=== PATIENT | male | born 1950 | race Hispanic/Latino ===

== ENCOUNTER 2017-11-10 10:55 | Emergency (ER) | payer OTHER, MEDICARE ==
--- OUTSIDE RECORDS SUMMARY | 2017-11-10 10:58 | XMS REPORT | Clinical Summary ---
:1950 Author Organization [facility] Address [address] [place] [address] Phone Care Team Providers Name Role Phone Unavailable Primary Care Provider Unavailable Allergies Active Allergy Reactions Severity Noted Date Comments Piperacillin-Tazobactam 10/18/2017 Thrombocytopenia Current Medications Prescription Sig. Disp. Refills Start End Date Status Date docusate sodium Take 100 mg by Active (COLACE) 100 MG mouth 2 (two) 6 capsule times daily as needed. entecavir Take 0.5 mg by Active (BARACLUDE) 0.5 MG mouth every other 6 tablet day. epoetin jaja Inject 1 mL 1 mL 0 Active (EPOGEN,PROCRIT) (10,000 Units 8 10,000 unit/mL total) injection subcutaneously 3 (three) times a week at bedtime You will need to get this medication at dialysis. imipenem-cilastatin Inject 500 mg 8400 mL 0 11/24/19 Active (PRIMAXIN) MBP in intravenously 8 18 100 mL of NS every 12 (twelve) hours for 21 days. sevelamer (RENVELA) Take 1 tablet (800 90 tablet 0 12/03/19 Active 800 mg tablet mg total) by mouth 8 18 3 (three) times daily with meals for 30 days. ferrous sulfate 325 Take 1 tablet (325 30 tablet 1 12/03/19 Active (65 FE) MG tablet mg total) by mouth 8 18 daily for 30 days. lactulose Take 45 mLs (30 g 4050 mL 0 12/03/19 Active (CHRONULAC) 20 total) by mouth 3 8 18 gram/30 mL solution (three) times daily for 30 days. midodrine Take 1 tablet (10 90 tablet 0 Active (PROAMATINE) 10 MG mg total) by mouth 8 tablet 3 (three) times daily. ondansetron Take 1 tablet (4 20 tablet 0 Active (ZOFRAN-ODT) 4 MG mg total) by mouth 8 disintegrating every 8 (eight) tablet hours as needed for Nausea. pantoprazole Take 1 tablet (40 30 tablet 0 12/03/19 Active (PROTONIX) 40 MG mg total) by mouth 8 18 tablet daily for 30 days. rifAXIMin 550 mg Take 1 tablet (550 180 tablet 3 02/04/20 Active TabIndications: mg total) by mouth 8 18 Cirrhosis of liver 2 (two) times with ascites, daily for 90 days. unspecified hepatic cirrhosis type (HCC), ESRD needing dialysis (HCC), Acute metabolic encephalopathy ferrous sulfate 325 Take 1 tablet by 11/03/19 Discontinued (65 FE) MG tablet mouth daily. 18 furosemide (LASIX) Take 20 mg by 10/09/19 Discontinued 40 MG tablet mouth 2 (two) 7 18 times daily. pantoprazole Take 1 tablet by 11/03/19 Discontinued (PROTONIX) 40 MG mouth daily. 18 tablet rifaximin 550 mg Take 550 mg by 11/03/19 Discontinued Tab mouth every 12 6 18 (twelve) hours. spironolactone Take 100 mg by 10/09/19 Discontinued (ALDACTONE) 100 MG mouth daily. 18 tablet lactulose Take 30 g by mouth 11/03/19 Discontinued (CHRONULAC) 20 4 (four) times 7 18 gram/30 mL solution daily . ondansetron Take 4 mg by mouth 11/03/19 Discontinued (ZOFRAN-ODT) 4 MG every 8 (eight) 18 disintegrating hours as needed tablet for Nausea. midodrine Take 1 tablet (10 90 tablet 11 11/03/19 Discontinued (PROAMATINE) 10 MG mg total) by mouth 8 18 tablet 3 (three) times daily. sevelamer (RENVELA) Take 1 tablet (800 90 tablet 0 11/03/19 Discontinued 800 mg tablet mg total) by mouth 8 18 3 (three) times daily with meals for 30 days. rifAXIMin 550 mg Take 1 tablet (550 60 tablet 0 11/06/19 Discontinued Tab mg total) by mouth 8 18 2 (two) times daily for 30 days. Active Problems Problem Noted Date Pneumonia 10/12/2017 Respiratory failure (HCC) 10/10/2017 Stupor 10/10/2017 ESRD needing dialysis (HCC) 10/10/2017 Acute encephalopathy 10/10/2017 Acute respiratory failure (HCC) 08/30/2017 Hypotension 08/30/2017 Decompensated liver disease (HCC) 08/29/2017 EDGARDO (acute kidney injury) (HCC) 08/29/2017 Acute metabolic encephalopathy 08/29/2017 Anemia of chronic renal failure, stage 3 (moderate) 03/25/2017 Systemic amyloidosis (HCC) 03/25/2017 Cirrhosis of liver with ascites, unspecified hepatic cirrhosis type (HCC) 05/2017 CKD (chronic kidney disease), stage 3 (moderate) 03/25/2017 Anemia 09/29/2016 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 CKD (chronic kidney disease) stage 3, GFR 30-59 ml/min 07/31/2016 Last Assessment & Plan: He sees Dr. Felipe at [facility]. He will need kidney transplant evaluation for a combined liver/kidney transplant. Cirrhosis 07/23/2016 Last Assessment & Plan: Although we do not have histologic proof, clinical history, lab parameters, imaging with elastography suggests cirrhosis. Etiology of his cirrhosis is most likely chronic HBV infection. We will order a comprehensive panel to rule out other diseases. His cirrhosis is decompensated by ascites requiring frequent paracentesis and now TIPS. His most recent MELD-Na is 13 - mostly driven by elevated creatinine. Although this is early for OLT evaluation due to his liver disease complications we will refer him for OLT evaluation today. Portal hypertension 07/23/2016 Last Assessment & Plan: Manifested by splenomegaly, ascites and varices - resolved after TIPS. Ascites 07/23/2016 Last Assessment & Plan: S/p TIPS in 04/13/16 for refractory ascites. No ascites on exam today. Varices, esophageal 07/23/2016 Last Assessment & Plan: S/p TIPS - further EGD for variceal screening is not required. 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 He has been taking Entecavir 0.5 mg every other day since then HBV low to undetected since September 2015. 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 Currently takes lactulose and rifaximin and his symptoms are not well controlled despite this therapy. TIPS in 04/13/16 was done at [facility] with a 10 mm stent. Due to uncontrolled symptoms we recommend TIPS revision downsizing the shunt size to help with encephalopathy. We discussed with the patient that ascites may recur but paracentesis will be required less frequently than prior to TIPS. We also discussed the importance of continuing low sodium diet. TIPS revision to be done after OLT evaluation is complete with the required imaging. Lymphedema 07/23/2016 Last Assessment & Plan: Significant bilateral lower extremity edema up to thighs. His symptoms are not well controlled with furosemide 40 mg daily. We will refer him Lymphedema clinic at [facility]. Immunity status testing 07/23/2016 Last Assessment & Plan: CDC recommends that all patients with chronic liver disease, regardless of etiology, should be immunized to prevent hepatitis A and hepatitis B if they are not already immune. This should be done in ad dition to other age-appropriate vaccines. We will test for immunity to hepatitis A today. Hodgkin's disease 07/23/2016 Last Assessment & Plan: Hodgkin's lymphoma diagnosed in 2002, in remission following 5 cycles of ABVD in 2004. He sees an oncologist at [facility] and will need oncology clearance for OLT. Screening for malignant neoplasm 07/23/2016 Last Assessment & Plan: Cirrhosis, regardless of etiology, is a risk factor for hepatocellular carcinoma (HCC), with an annual incidence of 1.5-7%. We recommend surveillance for HCC with abdominal imaging and alphafetoprotein every 6 months. We will order an MRI and AFP today. We will also schedule him for EGD and Colonoscopy due to prior history of Carcinoid tumor and MALT lymphoma. Encounters Date Type Specialty Care Team Description 11/05/2017 Orders Only Transplant Hepatology Pushpa Nation RN Cirrhosis of liver with ascites, unspecified hepatic cirrhosis type (HCC) (Primary Dx);ESRD needing dialysis (HCC);Acute metabolic encephalopathy 11/05/2017 Documentation Transplant Hepatology Rosio Smith 10/23/2017 Orders Only Transplant Hepatology Pushpa Nation RN 10/10/2017 Hospital Encounter General Internal Yang Hilario (Primary - Medicine MD Dilip Dx);Encephalopathy 11/02/2017 Wiley Deng acute;Cerebrovascul MD Michael ar accident (CVA) Gadicherla, due to other Dorothy mechanism MD Jorge Alberto (HCC);Acute Falguni Perez MD encephalopathy;Vidya Groves e respiratory R.MD failure with yessi Karimi and Buck Hurley hypercapjocy SHAFER (HCC);Other ascites;Portal hypertension (HCC);Secondary esophageal varices without bleeding (HCC);Acute respiratory failure with hypoxia (HCC);Cirrhosis of liver with ascites, unspecified hepatic cirrhosis type (HCC);Stage 3 chronic kidney disease 10/08/2017 Telephone Transplant Hepatology Kat Fletcher (Scheduled 10/29 hospital f/u appt w/spouse. Itinerary mailed.) 09/18/2017 Anesthesia Event Gastroenterology Padma Mayo MD 09/18/2017 Procedure Pass Gastroenterology 09/18/2017 Surgery Gastroenterology Key Acevedo, UPPER ENDOSCOPY 09/14/2017 Anesthesia Event Gastroenterology John Chen MD 09/14/2017 Procedure Pass Gastroenterology 09/13/2017 Orders Only Transplant Stacie Soria RN Pre-transplant evaluation for liver transplant (Primary Dx) 09/09/2017 Documentation Transplant Hepatology Faith Farrar 09/09/2017 Documentation Transplant Giulia Mitchell RN 09/09/2017 Documentation Transplant Lucas Chance 09/09/2017 Anesthesia Event Gastroenterology Leigha Gooden CRNA 09/09/2017 Procedure Pass Gastroenterology 09/09/2017 Surgery Gastroenterology Patrick Hopper UPPER ENDOSCOPY MD Tiffani 09/08/2017 Documentation Transplant Hepatology Pushpa Nation, SHAKIRA 09/06/2017 UNOS Charge Visit Transplant Lilliam Jane 09/06/2017 Documentation Transplant Stacie Soria, SHAKIRA 09/06/2017 Abstract Transplant Hepatology Debbie Arthur 09/06/2017 Abstract Transplant Hepatology Lita Gray, SHAKIRA 09/05/2017 Procedure Pass 09/05/2017 Surgery Marcelo Lyons, R & L CATH / CORONARY ANGIOS / PCI 08/30/2017 Procedure Pass Gastroenterology 08/29/2017 Hospital Encounter General Internal Miles Downs, Anemia of chronic - Medicine MD renal failure, 10/08/2017 Zeina Baptiste stage 3 MD Tiffani (moderate);Other Augustine, ascites;Cirrhosis Christopher of liver with MD Ness ascites, Domitila Fercho, unspecified hepatic Buck Hurley, cirrhosis type (HCC);CKD (chronic Sofia, Dipaben kidney disease) MD Anup stage 3, GFR 30-59 Maricel, ml/min;Decompensate jake Roland liver disease (HCC);H/O Hodgkin's Santiago Tripp lymphoma;Hepatitis G., B virus infection, Nalam, Ewa unspecified MD Yesenia chronicity;Secondar y esophageal varices without bleeding (HCC);EDGARDO (acute kidney injury) (HCC);Acute metabolic encephalopathy 08/29/2017 Anesthesia Event Gastroenterology Rayna Kauffman MD 08/29/2017 Orders Only General Internal Medicine 08/20/2017 Telephone Transplant Hepatology Lita Gray, Follow-up RN 08/20/2017 Telephone Transplant Hepatology Lita Gray, TACE discussion RN with Dr. Flores 08/16/2017 Abstract Transplant HepatLita Russo, RN 08/12/2017 Abstract Transplant HepatLita Russo RN 08/08/2017 Abstract Transplant HepatLita Russo RN 08/07/2017 Telephone Transplant Hepatology Kat Fletcher E (Scheduled 09/17 clinic appt w/spouse. Itinerary mailed.) 08/06/2017 Telephone Transplant HepatLita Russo, Follow-up RN 07/01/2017 Telephone Transplant Hepatology Lita Gray, Follow-up RN 06/13/2017 Abstract Transplant Hepatology Lita Gray, RN 06/10/2017 Telephone Transplant Hepatology Lita Gray, Follow-up RN 05/29/2017 Outside Orders Transplant Hepatology Lita Gray, RN 05/27/2017 Telephone Transplant Hepatology Lita Gray, Follow-up RN 05/21/2017 Evaluation Transplant Hepatology Claude Toure Cirrhosis of liver MD Sanna with ascites, Chloe Orta unspecified hepatic MD Ning cirrhosis type (HCC) (Primary Dx);Secondary esophageal varices without bleeding (HCC);Hepatic encephalopathy ;Chronic hepatitis B without delta agent with hepatic coma (HCC);Lymphedema;CK D (chronic kidney disease) stage 3, GFR 30-59 ml/min;Hepatocellul ar carcinoma (HCC) 05/20/2017 Telephone Transplant Hepatology Kat Fletcher Appointment E (Confirmed 05/21 appts w/spouse.) 05/16/2017 Hospital Encounter Radiology Claude Toure MD 05/15/2017 Hospital Encounter Radiology Claude Toure Liver MD Sanna mass;Carcinoid tumor of ileum 05/14/2017 Telephone Transplant Hepatology Kat Fletcher Appointment E (Rescheduled 07/09 clinic appt w/spouse to 05/21. Itinerary mailed.) 05/10/2017 Telephone Transplant Hepatology Lita Gray, Follow-up RN 05/10/2017 Telephone Transplant Hepatology Lita Gray, Follow-up RN 05/10/2017 Orders Only Transplant Hepatology Lita Gray, Liver mass ( Primary RN Dx);Carcinoid tumor of ileum 05/09/2017 Committee Review Transplant Hepatology Chloe Orta MD 05/06/2017 Telephone Transplant Hepatology Kat Fletcher Apnea (Called to E scheduled 05/07 clinic pts spouse said pt has appt at 12 i offered pt to come in early however spouse said she couldn't because she also takes care of her mom so that was impossible.) 05/02/2017 Telephone Transplant Hepatology Lita Gray, Follow-up RN 05/01/2017 Telephone Transplant Hepatology Lita Gray, Follow-up RN 04/23/2017 Telephone Transplant Hepatology Lita Gray, Follow-up RN 04/23/2017 Abstract Transplant Hepatology Lita Gray RN 04/18/2017 Telephone Transplant Hepatology Lita Gray, Follow-up RN 04/15/2017 Telephone Transplant HepatLita Russo, Follow-up RN 04/01/2017 Telephone Transplant Hepatology Lita Gray, Follow-up RN 04/01/2017 Telephone Transplant Dae Follow-up (Mrs. Darlyn Stearns called about the patient's appt with the communications supervisor searching the notes the liver coordinator Lita has notes showing that the patient is f/u with Dr. Avina's office. Gave Mrs. Stearns the phone number to Dr. Avina's office and she's aware to f/u with Lita if there's any problems with scheduling with Dr. Avina's office) 03/25/2017 Office Visit Transplant Octavio, CKD (chronic kidney Bhamidipati disease), stage 3 MD Abhishek (moderate) (Primary Dx);Cirrhosis of liver with ascites, unspecified hepatic cirrhosis type (HCC);Hepatitis B virus infection, unspecified chronicity;H/O Hodgkin's lymphoma;S/P TIPS (transjugular intrahepatic portosystemic shunt);Portal hypertension ;Systemic amyloidosis (HCC);Anemia of chronic renal failure, stage 3 (moderate) 02/19/2017 Telephone Transplant Hepatology Lita Gray, Heart Catherization RN 01/23/2017 Telephone Transplant Hepatology Lita Gray, Follow-up RN 01/21/2017 Telephone Transplant Hepatology Lita Gray, Follow-up RN 01/11/2017 Telephone Transplant Hepatology Lita Gray, Follow-up RN 01/07/2017 Telephone Transplant Hepatology Lita Gray, Follow-up RN 01/02/2017 Telephone Transplant Hepatology Lita Gray, Follow-up RN 12/27/2016 Telephone Transplant Hepatology Lita Gray, Follow-up RN 12/13/2016 Abstract Transplant Hepatology Janet Romero MA 12/07/2016 Telephone Transplant Hepatology Lita Gray, Follow-up RN 11/28/2016 Emergency Emergency Medicine 11/28/2016 Telephone Transplant Hepatology Lita Gray, Follow-up RN 11/22/2016 Telephone Transplant Hepatology Lita Gray, Follow-up RN 11/20/2016 Telephone Transplant Jane Maldonado, SHAKIRA Committee Review 11/20/2016 Abstract Transplant Jane Maldonado, SHAKIRA 11/15/2016 Telephone Transplant Hepatology Lita Gray, Follow-up RN 11/15/2016 Abstract Transplant Hepatology Lita Gray, RN after 11/09/2016 Family History Medical History Relation Name Comments Heart failure Father of heart failure Prostate cancer Father Diabetes Mother from complications of diabetes Relation Name Status Comments Father Mother Sister Alive Sister Alive Social History Tobacco Use Types Packs/Day Years Used Date Former Smoker 0.2 3 Quit: 07/23/2014 Smokeless Tobacco: Never Used Tobacco Cessation: Counseling Given: Yes Comments: Quit in early 2014 Alcohol Use Drinks/Week oz/Week Comments No Quit drinking 2014 Sex Assigned at Date Recorded Not on file Last Filed Vital Signs Vital Sign Reading Time Taken Blood Pressure 107/55 11/02/2017 12:05 PM CDT Pulse 80 11/02/2017 12:05 PM CDT Temperature 36.2 C (97.1 F) 11/02/2017 12:05 PM CDT Respiratory Rate 20 11/02/2017 12:05 PM CDT Oxygen Saturation 100% 11/02/2017 11:21 AM CDT Inhaled Oxygen Concentration - - Weight 64.6 kg (142 lb 6.7 oz) 11/02/2017 6:39 AM CDT Height 160 cm (5' 3") 10/10/2017 11:48 AM CDT Body Mass Index 25.23 11/02/2017 6:39 AM CDT Plan of Treatment Health Maintenance Due Date Last Done Comments INFLUENZA VACCINE 04/14/2018 Procedures Procedure Name Priority Date/Time Associated Diagnosis Comments CRITICAL CARE Routine 10/11/2017 6:51 PM Results for this CDT procedure are in the results section. ENDOSCOPY,SMALL 09/18/2017 9:00 AM GI Bleed INTESTINE CUSTOMER EXPERIENCE LEADER UPPER ENDOSCOPY 09/18/2017 9:00 AM GI Bleed CUSTOMER EXPERIENCE LEADER UPPER ENDOSCOPY 09/09/2017 9:00 AM ANEMIA CUSTOMER EXPERIENCE LEADER R & L CATH / 09/05/2017 6:30 PM chest pain CORONARY ANGIOS / CUSTOMER EXPERIENCE LEADER PCI after 11/09/2016 Results TRANSFUSION SERVICE REPORT - SCAN (11/05/2017 5:54 PM)Only the most recent of38 resultswithin the time period is included.RHYTHM STRIP - SCAN (11/05/2017 9:20 AM)Only the most recent of2 resultswithin the time period is included.Prepare Leuko-Red RBC (11/03/2017 11:54 PM)Only the most recent of22 resultswithin the time period is included. Component Value Ref Range CROSSMATCH COMPATIBLE Unit ABO O Pos UNIT NUMBER [id number] Status WORK IN PROGRESS Blood Bank Product RED BLOOD CELLS PRODUCT CODE [id number] CROSSMATCH COMPATIBLE Unit ABO O Pos UNIT NUMBER [id number] Status TRANSFUSED Blood Bank Product RED BLOOD CELLS PRODUCT CODE [id number] Specimen Performing Laboratory Other SAFETRACE TX POC-Glucose meter (11/02/2017 12:13 PM)Only the most recent of236 resultswithin the time period is included. Component Value Ref Range POC-Glucose Meter 98Comment: TESTED AT [address] 70 - 110 mg/dL [address] Specimen Performing Laboratory Blood [address] [address] Transfuse Leuko-Red RBC (11/02/2017 11:37 AM)Only the most recent of41 resultswithin the time period is included.Type and screen, automated (2017 9:45 AM)Only the most recent of13 resultswithin the time period is included. Component Value Ref Range ABO/RH AUTOMATED (BEAKER) O POSITIVE Ab Scrn NEGATIVE Specimen Performing Laboratory Blood [address] [address] XR chest 1 view portable / bedside (11/02/2017 8:20 AM)Only the most recent of36 resultswithin the time period is included. Specimen Performing Laboratory GE RIS Narrative FINAL REPORT Chest one view INDICATION: Empyema COMPARISON: 11/01/2017 IMPRESSION: Left sided pleural thickening and effusion and small volume pleural gas are similar as is left mid and lower lung consolidation. Additional stable bilateral interstitial and ground glass opacities may reflect edema or atypical pneumonitis. Small right pleural effusion is present. The enlarged cardiac silhouette is partially obscured. Right jugular lines are again seen. No significant change since 11/01/2017. Signed: Bryant Wood MD Report Verified Date/Time:11/02/2017 08:36:06 Reading Location: [address] Neuro Reading Room Procedure Note Interface, External Ris In - 11/02/2017 8:38 AM CDT FINAL REPORT Chest one view INDICATION: Empyema COMPARISON: 11/01/2017 IMPRESSION: Left sided pleural thickening and effusion and small volume pleural gas are similar as is left mid and lower lung consolidation. Additional stable bilateral interstitial and ground glass opacities may reflect edema or atypical pneumonitis. Small right pleural effusion is present. The enlarged cardiac silhouette is partially obscured. Right jugular lines are again seen. No significant change since 11/01/2017. Signed: Bryant Wood MD Report Verified Date/Time: 11/02/2017 08:36:06 Reading Location: [address] Neuro Reading Room with platelet count + automated diff (11/02/2017 8:00 AM)Only the most recent of65 resultswithin the time period is included. Component Value Ref Range WBC 6.6 3.5 - 10.5 K/L RBC 2.05 (L) 4.63 - 6.08 M/L Hemoglobin 6.9 (L) 13.7 - 17.5 GM/DL Hematocrit 22.2 (L) 40.1 - 51.0 % MCV 108.3 (H) 79.0 - 92.2 fL MCH 33.7 (H) 25.7 - 32.2 pg MCHC 31.1 (L) 32.3 - 36.5 GM/DL RDW 21.6 (H) 11.6 - 14.4 % Platelets 80 (L) 150 - 450 K/CU MM MPV 11.9 9.4 - 12.4 fL nRBC 0 0 - 0 /100 WBC % Neutros 70 % % Lymphs 10 % % Monos 16 % % Eos 2 % % Baso 1 % # Neutros 4.64 1.78 - 5.38 K/L # Lymphs 0.67 (L) 1.32 - 3.57 K/L # Monos 1.06 (H) 0.30 - 0.82 K/L # Eos 0.14 0.04 - 0.54 K/L # Baso 0.07 0.01 - 0.08 K/L Immature Granulocytes-Relative 1 0 - 1 % Specimen Performing Laboratory Blood [facility] [address] [address] CBC with platelet count + automated diff (11/02/2017 8:00 AM)Only the most recent of65 resultswithin the time period is included. Specimen Performing Laboratory Blood Narrative The following orders were created for panel order CBC with platelet count + automated diff. Procedure Abnormality Status --------- ------ CBC with platelet count ...[[id number]]AbnormalFinal result Please view results for these tests on the individual orders. Phosphorus (11/02/2017 8:00 AM)Only the most recent of77 resultswithin the time period is included. Component Value Ref Range Phosphorus 6.0 (H) 2.3 - 4.7 mg/dL Specimen Performing Laboratory Blood [address] [address] Magnesium (11/02/2017 8:00 AM)Only the most recent of67 resultswithin the time period is included. Component Value Ref Range Magnesium 1.8 1.6 - 2.6 mg/dL Specimen Performing Laboratory Blood [address] [address] Basic metabolic panel (11/02/2017 8:00 AM)Only the most recent of100 resultswithin the time period is included. Component Value Ref Range Sodium 137 136 - 145 meq/L Potassium 4.2 3.5 - 5.1 meq/L Chloride 106 98 - 107 meq/L CO2 24 22 - 29 meq/L BUN 31 (H) 7 - 21 mg/dL Creatinine 4.30 (H) 0.57 - 1.25 mg/dL Glucose 55 (L) 70 - 105 mg/dL Calcium 8.1 (L) 8.4 - 10.2 mg/dL EGFR 14Comment: ESTIMATED GFR IS NOT ACCURATE mL/min/1.73 sq m CREATININE CLEARANCE IN PREDICTING GLOMERULAR FILTRATION RATE. ESTIMATED GFR IS NOT APPLICABLE FOR DIALYSIS PATIENTS. Specimen Performing Laboratory Blood [address] [address] Prothrombin time/INR (11/02/2017 5:59 AM)Only the most recent of57 resultswithin the time period is included. Component Value Ref Range Protime 16.6 (H) 11.7 - 14.7 seconds INR 1.3 <=5.9 Specimen Performing Laboratory Blood [address] [address] Narrative RECOMMENDED COUMADIN/WARFARIN INR THERAPY RANGES STANDARD DOSE: 2.0 - 3.0 Includes: PROPHYLAXIS for venous thrombosis, systemic embolization; TREATMENT for venous thrombosis and/or pulmonary embolus. HIGH RISK: Target INR is 2.5-3.5 for patients with mechanical heart valves. Hepatic function panel (11/02/2017 5:59 AM)Only the most recent of59 resultswithin the time period is included. Component Value Ref Range Protein, Total 4.5 (L) 6.0 - 8.3 gm/dL Albumin 1.7 (L) 3.5 - 5.0 g/dL Total Bilirubin 1.1 0.2 - 1.2 mg/dL Bilirubin, Direct 0.7 (H) 0.1 - 0.5 mg/dL Alkaline Phosphatase 115 40 - 150 U/L AST 22 5 - 34 U/L ALT 10 6 - 55 U/L Specimen Performing Laboratory Blood [address] [address] Hemodialysis (10/31/2017 2:05 PM)Only the most recent of10 resultswithin the time period is included. Narrative Camelia King RN 10/31/20172:05 PM 4 hours HD completed. Net UF of 3 L. Pt tolerated tx well. Reports given to primary band director Results Component Value Date GLUCOSE 95 10/31/2017 CALCIUM 8.3 (L) 10/31/2017 NA 138 10/31/2017 K 4.6 10/31/2017 CO2 22 10/31/2017 CL 107 10/31/2017 BUN 32 (H) 10/31/2017 CREATININE 4.60 (H) 10/31/2017 Lab Results Component Value Date WBC 7.5 10/31/2017 HGB 7.1 (L) 10/31/2017 HCT 23.0 (L) 10/31/2017 MCV 109.0 (H) 10/31/2017 PLT 66 (L) 10/31/2017 Lab Results Component Value Date HEPBSAG Reactive (A) 10/02/2017 Lab Results Component Value Date HEPBSAB <8.0 10/02/2017 Allergies Allergen Reactions Zosyn [Piperacillin-Tazobactam] Thrombocytopenia Chief Complaint Patient presents with Loss of Consciousness Active Ambulatory Problems Diagnosis Date Noted Hmbzssscg03/09/2017 Portal ufavhjbhcrcf40/09/2017 Ascites 07/23/2016 Varices, kkugxvxrrf25/09/2017 Hepatitis B 07/23/2016 Hepatic bvpuuqirhbdmwc10/09/2017 Lymphedema 07/23/2016 Immunity status testing 07/23/2016 Hodgkin's [id number]/23/2016 Screening for malignant neoplasm 07/23/2016 CKD (chronic kidney disease) stage 3, GFR 30-59 ml/min 07/31/2016 Pre-transplant evaluation for liver transplant 08/15/2016 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 Abnormal liver enzymes 09/05/2016 H/O Hodgkin's lymphoma 09/05/2016 Hepatitis B virus infection, unspecified chronicity 09/05/2016 S/P TIPS (transjugular intrahepatic portosystemic shunt) 09/05/2016 Pre-transplant evaluation for chronic kidney disease 09/05/2016 Anemia 09/29/2016 Anemia of chronic renal failure, stage 3 (moderate) 03/25/2017 Systemic amyloidosis (HCC) 03/25/2017 Cirrhosis of liver with ascites, unspecified hepatic cirrhosis type (HCC) 03/25/2017 CKD (chronic kidney disease), stage 3 (moderate) 03/25/2017 Decompensated liver disease (HCC) 08/29/2017 EDGARDO (acute kidney injury) (HCC) 08/29/2017 Acute metabolic encephalopathy 08/29/2017 Acute respiratory failure (HCC) 08/30/2017 Hypotension 08/30/2017 Resolved Ambulatory Problems Diagnosis Date Noted No Resolved Ambulatory Problems Past Medical History: Diagnosis Date Anemia Ascites 2015 Cirrhosis of liver (HCC) 2005 CKD (chronic kidney disease) 2013 GERD (gastroesophageal reflux disease) Hepatic encephalopathy (HCC) 2016 Hepatitis B 2005 Hodgkin's lymphoma (HCC) 2004 Past Surgical History: Procedure Laterality Date BACK [id number] COLONOSCOPY COLONOSCOPY N/A 10/11/2016 Procedure: COLONOSCOPY;Surgeon: Joe Carrasquillo MD;Location: [facility];Service: Gastroenterology;Laterality: N/A; ENDOSCOPY,SMALL INTESTINE N/A 09/18/2017 Procedure: ENDOSCOPY,SMALL INTESTINE;Surgeon: Key Acevedo MD;Location: [facility];Service: Gastroenterology; Laterality: N/A; ESOPHAGOGASTRODUODENOSCOPY HERNIA [id number]/4/16 [facility], [place] HERNIA REPAIR HERNIA REPAIR LIVER BIOPSY Right 09/26/2016 R & L CATH / CORONARY ANGIOS / PCI Left 09/05/2017 Procedure: R & L CATH / CORONARY ANGIOS / PCI;Surgeon: Marcelo Lyons MD;Location: [facility] [employer];Service: Cardiology; Laterality: Left; TIPS PROCEDURE04/13/16 Dr. Yao Ayers, [facility] UPPER ENDOSCOPY N/A 09/09/2017 Procedure: UPPER ENDOSCOPY;Surgeon: Patrick Hopper MD; Location: [facility] ENDO;Service: Gastroenterology;Laterality: N/A; UPPER ENDOSCOPY N/A 09/18/2017 Procedure: UPPER ENDOSCOPY;Surgeon: Key Acevedo MD; Location: [facility] END[facility];Service: Gastroenterology;Laterality: N/A;EGD/SBE W/ APC, CLIP X 3 UPPER ENDOSCOPY,BIOPSY N/A 10/11/2016 Procedure: UPPER ENDOSCOPY,BIOPSY;Surgeon: Joe Carrasquillo MD; Location: [facility] END[facility];Service: Gastroenterology; Laterality: N/A;EDG WITH BX, COLONOSCOPY Camelia King RN IR central venous catheter placement (jugular or femoral) (10/30/2017 4:50 PM) Specimen Performing Laboratory [facility] Narrative FINAL REPORT Tunneled central venous catheter insertion History:Patient requires long-term IV antibiotics, renal failure, not a candidate Modality: Sonography and fluoroscopy. Sedation: None Fabrication Lead:Jase. Legal Researcher:None. Approach: Right internal jugular vein Estimated blood loss:< 5 cc. Specimen: None. Fluoroscopy Time: 0.1 min.Dose (Ka,r): 1.5 mGy. Technique: Informed written consent was obtained.Discussion of risks, benefits, and alternatives were made with the patient. The patient expressed understanding and agreed to proceed.All elements maximal sterile barrier technique was utilized for this procedure, including utilization of sterile scrub solution for skin prep, a large sterile sheet to cover the areas of the patient that were not prepped, and hand hygiene, mask, head covering, and sterile gown for performing radiologist and scrub technologist. The skin was anesthetized with 2% lidocaine.Ultrasound evaluation showed a patent and compressible right internal jugular vein vein, which was punctured under direct real-time ultrasound guidance with a micropuncture needle.An ultrasound image was saved to PACS. A 0.018 inch wire was placed through the needle into the right atrium. A subcutaneous tunnel was created in the right anterior chest wall by blunt dissection.A 21 cm 6 Vietnamese Bard Power Line catheter was brought through the tunnel. A peel-away sheath was placed in the right IJ vein and the catheter was advanced through the sheath, with its distal tip terminating in the right atrium.The peel-away sheath was removed. The ports were flushed and aspirated easily following placement.The catheter was sutured to the skin with 2-0 silk to secure its placement.The small jugular incision site was closed using resorbable suture. Vital signs were monitored throughout the procedure by a nurse, and remained stable.The patient tolerated the procedure well and left the department in the same condition. Results:Spot radiograph of the chest demonstrates the new tunneled central venous catheter to lie in the expected position with its tip overlying the superior right atrium. Impression: Successful, uncomplicated placement of a right internal jugular tunneled central venous catheter. Signed: Gustavo Laguna MD Report Verified Date/Time:11/02/2017 14:04:10 Reading Location: [place] [address] Angio Body Reading Room Procedure Note Interface, External Ris In - 11/02/2017 2:06 PM CDT FINAL REPORT Tunneled central venous catheter insertion History: Patient requires long-term IV antibiotics, renal failure, not a candidate Modality: Sonography and fluoroscopy. Sedation: None Fabrication Lead: Jase. Legal Researcher: None. Approach: Right internal jugular vein Estimated blood loss: < 5 cc. Specimen: None. Fluoroscopy Time: 0.1 min. Dose (Ka,r): 1.5 mGy. Technique: Informed written consent was obtained. Discussion of risks, benefits, and alternatives were made with the patient. The patient expressed understanding and agreed to proceed. All elements maximal sterile barrier technique was utilized for this procedure, including utilization of sterile scrub solution for skin prep, a large sterile sheet to cover the areas of the patient that were not prepped, and hand hygiene, mask, head covering, and sterile gown for performing radiologist and scrub technologist. The skin was anesthetized with 2% lidocaine.Ultrasound evaluation showed a patent and compressible right internal jugular vein vein, which was punctured under direct real-time ultrasound guidance with a micropuncture needle. An ultrasound image was saved to PACS. A 0.018 inch wire was placed through the needle into the right atrium. A subcutaneous tunnel was created in the right anterior chest wall by blunt dissection. A 21 cm 6 Vietnamese Bard Power Line catheter was brought through the tunnel. A peel-away sheath was placed in the right IJ vein and the catheter was advanced through the sheath, with its distal tip terminating in the right atrium. The peel-away sheath was removed. The ports were flushed and aspirated easily following placement. The catheter was sutured to the skin with 2-0 silk to secure its placement. The small jugular incision site was closed using resorbable suture. Vital signs were monitored throughout the procedure by a nurse, and remained stable. The patient tolerated the procedure well and left the department in the same condition. Results: Spot radiograph of the chest demonstrates the new tunneled central venous catheter to lie in the expected position with its tip overlying the superior right atrium. Impression: Successful, uncomplicated placement of a right internal jugular tunneled central venous catheter. Signed: Gustavo Laguna MD Report Verified Date/Time: 11/02/2017 14:04:10 Reading Location: [place] [address] Angio Body Reading Room /aPTT (10/30/2017 6:09 AM)Only the most recent of5 resultswithin the time period is included. Component Value Ref Range Protime 18.0 (H) 11.7 - 14.7 seconds INR 1.5 <=5.9 PTT 41.8 (H) 22.5 - 36.0 seconds Specimen Performing Laboratory Blood - Central Venous Line [address] [address] Narrative RECOMMENDED COUMADIN/WARFARIN INR THERAPY RANGES STANDARD DOSE: 2.0 - 3.0 Includes: PROPHYLAXIS for venous thrombosis, systemic embolization; TREATMENT for venous thrombosis and/or pulmonary embolus. HIGH RISK: Target INR is 2.5-3.5 for patients with mechanical heart valves. CBC (Hemogram only) (10/30/2017 4:57 AM)Only the most recent of3 resultswithin the time period is included. Component Value Ref Range WBC 7.9 3.5 - 10.5 K/L RBC 2.24 (L) 4.63 - 6.08 M/L Hemoglobin 7.4 (L) 13.7 - 17.5 GM/DL Hematocrit 24.2 (L) 40.1 - 51.0 % MCV 108.0 (H) 79.0 - 92.2 fL MCH 33.0 (H) 25.7 - 32.2 pg MCHC 30.6 (L) 32.3 - 36.5 GM/DL RDW 22.6 (H) 11.6 - 14.4 % Platelets 55 (L) 150 - 450 K/CU MM MPV 11.9 9.4 - 12.4 fL nRBC 0 0 - 0 /100 WBC Specimen Performing Laboratory Blood [place] [address] CT chest without IV contrast (10/28/2017 1:37 PM)Only the most recent of2 resultswithin the time period is included. Specimen Performing Laboratory [email or web address] Narrative FINAL REPORT TECHNIQUE: CT scan of the chest WITHOUT intravenous contrast. Dose modulation, iterative reconstruction, and/or weight-based adjustment of the mA/kV was utilized to reduce the radiation dose to as low as reasonably achievable. INDICATION: 67-year-old man with empyema. COMPARISON: Chest CT 10/23/2017. FINDINGS: ABSENCE OF INTRAVENOUS CONTRAST DECREASES SENSITIVITY FOR DETECTION OF FOCAL LESIONS AND VASCULAR PATHOLOGY. LINES/TUBES: Right internal jugular dual lumen dialysis catheter terminates in the right atrium. Right internal jugular central venous catheter terminates at the cavoatrial junction. Percutaneous drainage catheter terminates within the left pleural space. LUNGS AND AIRWAYS: Central airways are patent. Persistent consolidative opacity in the left lower lobe. Persistent mild consolidative opacity along the dependent portion of the right lower lobe. Increased consolidation of a focal opacity in the lateral aspect of the right upper lobe. PLEURA: Left hydropneumothorax in the region of the percutaneous pleural drainage catheter with decreased fluid component and increased air component since 10/23/2017. HEART AND MEDIASTINUM: The visualized thyroid gland is normal. No significant mediastinal, hilar, or axillary lymphadenopathy. Unchanged calcified subcentimeter left hilar lymph nodes. Unchanged moderate cardiomegaly. No pericardial effusion. Atherosclerotic calcifications in the thoracic aorta and coronary arteries. Unchanged prominent main pulmonary artery measures approximately 3.4 cm in diameter. SOFT TISSUES AND BONES: Unchanged gynecomastia on the left. UPPER ABDOMEN: Cirrhotic liver. Unchanged hypodense lesions in the hepatic dome. Unchanged TIPS stent. IMPRESSION: Decreased fluid component within the left empyema after placement of left pleural drainage catheter. Increased air within the empyema, likely introduced from the drainage catheter. Focal consolidative opacity in the right upper lobe, likely infectious/inflammatory in etiology. Persistent consolidative opacities in both lower lobes likely represent atelectasis, however superimposed pneumonia/aspiration cannot be excluded. Prominent pulmonary artery, suggestive of pulmonary arterial hypertension. Signed: Daron Elise MD Report Verified Date/Time:10/28/2017 15:49:21 Reading Location: [facility] C013Y CT Body Reading Room Procedure Note Interface, External Ris In - 10/28/2017 3:51 PM CDT FINAL REPORT TECHNIQUE: CT scan of the chest WITHOUT intravenous contrast. Dose modulation, iterative reconstruction, and/or weight-based adjustment of the mA/kV was utilized to reduce the radiation dose to as low as reasonably achievable. INDICATION: 67-year-old man with empyema. COMPARISON: Chest CT 10/23/2017. FINDINGS: ABSENCE OF INTRAVENOUS CONTRAST DECREASES SENSITIVITY FOR DETECTION OF FOCAL LESIONS AND VASCULAR PATHOLOGY. LINES/TUBES: Right internal jugular dual lumen dialysis catheter terminates in the right atrium. Right internal jugular central venous catheter terminates at the cavoatrial junction. Percutaneous drainage catheter terminates within the left pleural space. LUNGS AND AIRWAYS: Central airways are patent. Persistent consolidative opacity in the left lower lobe. Persistent mild consolidative opacity along the dependent portion of the right lower lobe. Increased consolidation of a focal opacity in the lateral aspect of the right upper lobe. PLEURA: Left hydropneumothorax in the region of the percutaneous pleural drainage catheter with decreased fluid component and increased air component since 10/23/2017. HEART AND MEDIASTINUM: The visualized thyroid gland is normal. No significant mediastinal, hilar, or axillary lymphadenopathy. Unchanged calcified subcentimeter left hilar lymph nodes. Unchanged moderate cardiomegaly. No pericardial effusion. Atherosclerotic calcifications in the thoracic aorta and coronary arteries. Unchanged prominent main pulmonary artery measures approximately 3.4 cm in diameter. SOFT TISSUES AND BONES: Unchanged gynecomastia on the left. UPPER ABDOMEN: Cirrhotic liver. Unchanged hypodense lesions in the hepatic dome. Unchanged TIPS stent. IMPRESSION: Decreased fluid component within the left empyema after placement of left pleural drainage catheter. Increased air within the empyema, likely introduced from the drainage catheter. Focal consolidative opacity in the right upper lobe, likely infectious/inflammatory in etiology. Persistent consolidative opacities in both lower lobes likely represent atelectasis, however superimposed pneumonia/aspiration cannot be excluded. Prominent pulmonary artery, suggestive of pulmonary arterial hypertension. Signed: Daron Elise MD Report Verified Date/Time: 10/28/2017 15:49:21 Reading Location: [facility] C013Y CT Body Reading Room Calcium, Ionized (10/28/2017 5:58 AM)Only the most recent of63 resultswithin the time period is included. Component Value Ref Range Calcium, Ion 0.99 (L) 1.12 - 1.27 mmol/L pH, Blood 7.36 Specimen Performing Laboratory Blood - Central Venous Line [address] [address] Sputum Culture + Gram Stain (10/27/2017 9:13 PM)Only the most recent of6 resultswithin the time period is included. Component Value Ref Range Result Oropharyngeal contamination, specimen rejected. Recollect requested. Gram Stain Result <1+ WBCs Gram Stain Result >25 epithelial cells Gram Stain Result 2+ yeast Gram Stain Result 4+ gram variable coccobacilli Specimen Performing Laboratory Sputum - Expectorated [address] [address] IR CV Access Fluoro (10/25/2017 9:35 AM) Specimen Performing Laboratory [facility] Narrative FINAL REPORT Procedure: Placement of right external jugular central line, 09/23/2017 HISTORY: Need long-term IV access Approach: Right external jugular vein Modality: Ultrasound and fluoroscopy, fluoroscopy time: 0.3 minutes, total dose: 0.4 mGy, reference air kerma method TECHNIQUE: After obtaining written informed consent, this procedure was performed without immediate postprocedural complication. All elements maximal sterile barrier technique was utilized. Ultrasound was used to examine the veins the right neck. A patent external jugular vein is identified.Images of the patent vein were saved on PACS. Using real-time ultrasound guidance, the right external jugular vein was accessed percutaneously. Using fluoroscopic guidance, a guidewire was advanced centrally followed by placement of a triple-lumen 7 Vietnamese, CT injectable catheter. The catheter was then secured in place. CONCLUSION: Placement of right external jugular triple-lumen central line. Signed: Pinky Dumont MD Report Verified Date/Time:10/25/2017 10:17:29 Reading Location: [place] [address] Angio Body Reading Room Procedure Note Interface, External Ris In - 10/25/2017 10:19 AM CDT FINAL REPORT Procedure: Placement of right external jugular central line, 09/23/2017 HISTORY: Need long-term IV access Approach: Right external jugular vein Modality: Ultrasound and fluoroscopy, fluoroscopy time: 0.3 minutes, total dose: 0.4 mGy, reference air kerma method TECHNIQUE: After obtaining written informed consent, this procedure was performed without immediate postprocedural complication. All elements maximal sterile barrier technique was utilized. Ultrasound was used to examine the veins the right neck. A patent external jugular vein is identified.Images of the patent vein were saved on PACS. Using real-time ultrasound guidance, the right external jugular vein was accessed percutaneously. Using fluoroscopic guidance, a guidewire was advanced centrally followed by placement of a triple-lumen 7 Vietnamese, CT injectable catheter. The catheter was then secured in place. CONCLUSION: Placement of right external jugular triple-lumen central line. Signed: Pinky Dumont MD Report Verified Date/Time: 10/25/2017 10:17:29 Reading Location: [place] [address] Angio Body Reading Room Anaerobic culture (10/24/2017 7:03 PM) Component Value Ref Range Result No anaerobes isolated Specimen Performing Laboratory Body Fluid - Pleural, Left [facility] [address] [place] [address] Body fluid culture + gram stain (10/24/2017 7:03 PM)Only the most recent of2 resultswithin the time period is included. Component Value Ref Range Result No growth Gram Stain Result 4+ WBCs Gram Stain Result No organisms seen Specimen Performing Laboratory Body Fluid - Pleural, Left [address] [address] [address] drainage with chest tube insertion (10/24/2017 6:59 PM) Specimen Performing Laboratory [facility] Narrative FINAL REPORT CT-guided chest tube placement dated 10/24/2017 Procedure: CT-guided left pigtail chest tube placement Clinical Indication: Left empyema Sedation: Moderate sedation was administered. 1 mg of Versed and 50 mcg fentanyl IV was used for moderate sedation monitored under my direction. Total intraservice time of the sedation was 25 minutes. The patient's vital signs were monitored throughout the procedure and recorded in the patient's medical record by the nurse. Anesthesia: 1% Xylocaine local anesthesia. Technique: This exam was performed according to our departmental dose-optimization program, which includes automated exposure control, adjustment of the mA and/or kV according to patient size and/or use of interactive reconstruction technique. After obtaining informed consent, CT-guided chest tube placement was performed under usual sterile technique. After placing a 19-gauge coaxial needle and guidewire in the mid lateral left chest wall, the tract with dilated with a 6, 7, and a 9 Vietnamese dilators. A 10 Vietnamese all-purpose drainage catheter was placed. The catheter was left in place, secured to skin with suture, and connected to bulb suction. 5 cc of purulent material was removed. Specimen was sent to microbiology. Complication: None Estimated Blood Loss: None Impression: CT-guided pigtail left chest tube placement. Signed: Katelyn Kuhn MD Report Verified Date/Time:10/24/2017 19:01:35 Reading Location: [facility] B1 C013Y CT Body Reading Room Procedure Note Interface, External Ris In - 10/24/2017 7:03 PM CDT FINAL REPORT CT-guided chest tube placement dated 10/24/2017 Procedure: CT-guided left pigtail chest tube placement Clinical Indication: Left empyema Sedation: Moderate sedation was administered. 1 mg of Versed and 50 mcg fentanyl IV was used for moderate sedation monitored under my direction. Total intraservice time of the sedation was 25 minutes. The patient's vital signs were monitored throughout the procedure and recorded in the patient's medical record by the nurse. Anesthesia: 1% Xylocaine local anesthesia. Technique: This exam was performed according to our departmental dose-optimization program, which includes automated exposure control, adjustment of the mA and/or kV according to patient size and/or use of interactive reconstruction technique. After obtaining informed consent, CT-guided chest tube placement was performed under usual sterile technique. After placing a 19-gauge coaxial needle and guidewire in the mid lateral left chest wall, the tract with dilated with a 6, 7, and a 9 Vietnamese dilators. A 10 Vietnamese all-purpose drainage catheter was placed. The catheter was left in place, secured to skin with suture, and connected to bulb suction. 5 cc of purulent material was removed. Specimen was sent to microbiology. Complication: None Estimated Blood Loss: None Impression: CT-guided pigtail left chest tube placement. Signed: Katelyn Kuhn MD Report Verified Date/Time: 10/24/2017 19:01:35 Reading Location: [address] Body Reading Room Blood culture (10/24/2017 1:30 PM)Only the most recent of19 resultswithin the time period is included. Component Value Ref Range Result No growth in 5 days Specimen Performing Laboratory Blood - [place] [address] CT chest with IV contrast (10/23/2017 2:05 AM) Specimen Performing Laboratory [facility] Narrative FINAL REPORT CLINICAL INDICATION: Left pleural effusion, status post thoracentesis, fluid suggestive of empyema COMPARISON: 09/20/2017 Multiple axial images of the chest were performed after the uncomplicated administration of IV contrast. This exam was performed according to our departmental dose-optimization program, which includes automated exposure control, adjustment of the mA and/or kV according to patient size and/or use of the iterative reconstruction technique. FINDINGS: Lung parenchyma: Left lung volume loss with consolidation in the left mid to lower lung, similar to previous and suggest of both atelectasis. Superimposed pneumonia could be present. Minimal dependent atelectasis in the right lung. Calcified granulomata in the left lower lobe. Pleural effusion: Complex, small left pleural effusion with a thick, enhancing pleural rim and foci of ill-defined high density within the pleural fluid. Trace, simple right pleural effusion Pneumothorax: None. Tracheobronchial tree: No significant findings. Pulmonary vasculature: No significant findings. Cardiac contours and great vessels: Mild cardiomegaly atherosclerotic calcification of the coronary arteries, aorta and great vessels arising from the arch. Common origin of the innominate vein and left internal carotid artery. Mediastinum: No significant findings. Lymph Nodes: Subcentimeter lymph nodes in the prevascular mediastinum, similar to previous and nonspecific based on size criteria Skeleton: No acute abnormality. Other: Tunneled right IJ dialysis catheter Limited images of upper abdomen: TIPS shunt in place. Cirrhotic morphology of the liver. Redemonstrated peripheral hepatic hypodensities, nonspecific. Cholelithiasis. IMPRESSION: Complex, thick rimmed left pleural collection, for which empyema cannot be excluded. High density within the pleural fluid may reflect blood products or debris. Adjacent left lung atelectasis versus pneumonitis. Trace right pleural effusion. Cardiomegaly. Cirrhosis, status post TIPS shunt placement. Hypodensities in the liver parenchyma are nonspecific. Definitive characterization with liver protocol MRI is recommended. Cholelithiasis. Signed: Tosha Fields MD Report Verified Date/Time:10/23/2017 02:31:40 Reading Location: [address] Reading Room Procedure Note Interface, External Ris In - 10/23/2017 2:33 AM CDT FINAL REPORT CLINICAL INDICATION: Left pleural effusion, status post thoracentesis, fluid suggestive of empyema COMPARISON: 09/20/2017 Multiple axial images of the chest were performed after the uncomplicated administration of IV contrast. This exam was performed according to our departmental dose-optimization program, which includes automated exposure control, adjustment of the mA and/or kV according to patient size and/or use of the iterative reconstruction technique. FINDINGS: Lung parenchyma: Left lung volume loss with consolidation in the left mid to lower lung, similar to previous and suggest of both atelectasis. Superimposed pneumonia could be present. Minimal dependent atelectasis in the right lung. Calcified granulomata in the left lower lobe. Pleural effusion: Complex, small left pleural effusion with a thick, enhancing pleural rim and foci of ill-defined high density within the pleural fluid. Trace, simple right pleural effusion Pneumothorax: None. Tracheobronchial tree: No significant findings. Pulmonary vasculature: No significant findings. Cardiac contours and great vessels: Mild cardiomegaly atherosclerotic calcification of the coronary arteries, aorta and great vessels arising from the arch. Common origin of the innominate vein and left internal carotid artery. Mediastinum: No significant findings. Lymph Nodes: Subcentimeter lymph nodes in the prevascular mediastinum, similar to previous and nonspecific based on size criteria Skeleton: No acute abnormality. Other: Tunneled right IJ dialysis catheter Limited images of upper abdomen: TIPS shunt in place. Cirrhotic morphology of the liver. Redemonstrated peripheral hepatic hypodensities, nonspecific. Cholelithiasis. IMPRESSION: Complex, thick rimmed left pleural collection, for which empyema cannot be excluded. High density within the pleural fluid may reflect blood products or debris. Adjacent left lung atelectasis versus pneumonitis. Trace right pleural effusion. Cardiomegaly. Cirrhosis, status post TIPS shunt placement. Hypodensities in the liver parenchyma are nonspecific. Definitive characterization with liver protocol MRI is recommended. Cholelithiasis. Signed: Tosha Fields MD Report Verified Date/Time: 10/23/2017 02:31:40 Reading Location: [address] Reading Room pH, body fluid (10/22/2017 2:15 PM) Component Value Ref Range pH, Body Fluid 7.75 Specimen Performing Laboratory Body Fluid - Pleural, [address] [address] Glucose, body fluid (10/22/2017 2:15 PM) Component Value Ref Range Glucose, Body Fluid 7 (L) 70 - 110 mg/dL Specimen Performing Laboratory Body Fluid - Pleural, [address] [address] Narrative Absence of reference range indicates that normals have not been defined. Assay performance has not been validated for this type of specimen. Body fluid cell count with differential (10/22/2017 2:15 PM) Component Value Ref Range Appearance Bloody (A) Clear Color Red (A) Colorless, Straw RBCs 554136 (H) <=1 /cu mm Adjusted WBC Count 02326 (H) <=5 /cu mm Lining Cells 0 <=1 /cu mm % Segs 94 % % Lymphs 1 % % Monos 5 % % Eos 0 % % Baso 0 % Container Body Fluid EDTA Tube Specimen Performing Laboratory Body Fluid - Pleural, [address] [address] Protein, body fluid (10/22/2017 2:15 PM) Component Value Ref Range Protein, Fluid 1.2 Light's criteria identifies effusions if one or more are present: Pleural to serum protein ratio of more than 0.5; Pleural to Serum LDH of more than 0.6; Pleural LDH of more than two third of upper serum reference limit g/dL Specimen Performing Laboratory Body Fluid - Pleural, [address] [address] Narrative Absence of reference range indicates that normals have not been defined. Assay performance has not been validated for this type of specimen. Lactate dehydrogenase (LDH), body fluid (10/22/2017 2:15 PM) Component Value Ref Range LDH, Fluid 2249 Light's criteria identifies effusions if one or more are present: Pleural to serum protein ratio of more than 0.5; Pleural to serum LDH ratio of more than 0.6; Pleural LDH more than two third of upper serum reference limit U/L Specimen Performing Laboratory Body Fluid - Pleural, [address] [address] Narrative Absence of reference range indicates that normals have not been defined. Assay performance has not been validated for this type of specimen. Cytology (10/22/2017 2:15 PM) Component Value Ref Range Case Report Medical Cytology Report Case: [id number] Authorizing Provider:Jorge Alberto Uribe MDCollected: 10/22/2017 1415 Ordering Location: [address] Received: 10/22/2017 1521 Service Pathologist: Yolanda Hargrove MD Specimen:Pleural, Left DIAGNOSIS LEFT PLEURAL FLUID (CYTOSPINS): - PREDOMINANTLY NECROTIC DEGENERATED CELLS(SEE COMMENT) Signing Pathologist Direct Phone Line: [phone] COMMENT Degenerative process precludes evaluation. Clinical correlation recommended. CPT Code(s) 16833 CLINICAL DATA Cirrhosis, history of hodgkin's lymphoma (in 2004 s/p chemo declared free) SPECIMEN SOURCE LEFT PLEURAL FLUID GROSS DESCRIPTION 2 mls thick cloudy blood-tinged fluid; 4 cytospins Collected: [id number] Received: [id number] STATEMENT OF ADEQUACY Satisfactory Technical component was performed at [facility], Department of Pathology, [address] [place] [id number], Professional component was performed [facility], at Department of Pathology, [address] [place] [id number], Specimen Performing Laboratory Body Fluid - Pleural, Left [facility] [address] [address] XR chest PA or AP 1 view in dept (10/22/2017 1:34 PM) Specimen Performing Laboratory GE [facility] Narrative FINAL REPORT Chest, portable AP view History: Status post left thoracentesis Comparison: 10/21/2017 IMPRESSION: There is no evidence of pneumothorax status post left thoracentesis. A small residual left pleural effusion remains. The heart is of unchanged size and configuration. The tunneled right internal jugular hemodialysis catheter is in place. A TIPS stent is visualized. The right lung is grossly clear. Signed: Gustavo Laguna MD Report Verified Date/Time:10/22/2017 13:42:54 Reading Location: [facility] Ultrasound Reading Room Procedure Note Interface, External Ris In - 10/22/2017 2:06 PM CDT FINAL REPORT Chest, portable AP view History: Status post left thoracentesis Comparison: 10/21/2017 IMPRESSION: There is no evidence of pneumothorax status post left thoracentesis. A small residual left pleural effusion remains. The heart is of unchanged size and configuration. The tunneled right internal jugular hemodialysis catheter is in place. A TIPS stent is visualized. The right lung is grossly clear. Signed: Gustavo Laguna MD Report Verified Date/Time: 10/22/2017 13:42:54 Reading Location: [address] Ultrasound Reading Room thoracentesis (10/22/2017 1:17 PM) Specimen Performing Laboratory GE [facility] Narrative FINAL REPORT Ultrasound guided left thoracentesis, 10/22/2017. Clinical History:Left pleural effusion. Modality:Ultrasound. Sedation: None. Fabrication Lead:Gustavo Laguna MD. Legal Researcher:None. Estimated Blood Loss:1cc Specimen: 25 mL of area was fluid. Technique:Informed consent was obtained.The risks of pain, bleeding, infection, lung collapse/pneumothorax, injury to adjacent structures, and adverse medication reactions were discussed with the patient.The patient's left hemithorax was scanned from the back, with the patient in a sitting position. The pleural fluid is noted to be loculated.After the largest fluid pocket area was marked, the skin was prepped and draped in the usual sterile manner.The area was anesthetized with 1% lidocaine, a 5 F one-step catheter was advanced into the pleural space under ultrasound guidance. After completion of drainage, the catheter was removed. There was no evidence of immediate complication.Post procedure chest x-ray demonstrates no evidence of pneumothorax. Impression: Successful and uncomplicated ultrasound guided left thoracentesis. Signed: Gustavo Laguna MD Report Verified Date/Time:10/22/2017 16:28:38 Reading Location: [address] Ultrasound Reading Room Procedure Note Interface, External Ris In - 10/22/2017 4:30 PM CDT FINAL REPORT Ultrasound guided left thoracentesis, 10/22/2017. Clinical History: Left pleural effusion. Modality: Ultrasound. Sedation: None. Fabrication Lead: Gustavo Laguna MD. Legal Researcher: None. Estimated Blood Loss: 1cc Specimen: 25 mL of area was fluid. Technique: Informed consent was obtained. The risks of pain, bleeding, infection, lung collapse/pneumothorax, injury to adjacent structures, and adverse medication reactions were discussed with the patient. The patient's left hemithorax was scanned from the back, with the patient in a sitting position. The pleural fluid is noted to be loculated. After the largest fluid pocket area was marked, the skin was prepped and draped in the usual sterile manner. The area was anesthetized with 1% lidocaine, a 5 F one-step catheter was advanced into the pleural space under ultrasound guidance. After completion of drainage, the catheter was removed. There was no evidence of immediate complication. Post procedure chest x-ray demonstrates no evidence of pneumothorax. Impression: Successful and uncomplicated ultrasound guided left thoracentesis. Signed: Gustavo Laguna MD Report Verified Date/Time: 10/22/2017 16:28:38 Reading Location: [facility] [id number] Ultrasound Reading Room Visceral Arteriogram (10/21/2017 4:55 PM) Specimen Performing Laboratory [email or web address] Narrative FINAL REPORT Mesenteric angiogram and chemoembolization, 10/21/2017. History: HCC. Modality: Fluoroscopy. Sedation: None. Anesthesia:Two percent Lidocaine without epinephrine. Approach:Right common femoral artery. Estimated blood loss:< 5 cc. Specimen: None. cutting table operator first: Aurea. Legal Researcher: Martín. Fluoroscopy Time: 19.3 min.Dose (Ka,r): 606.6 mGy. Technique:Informed written consent was obtained. Discussion of risks, benefits, and alternatives were made with the patient. The patient expressed understanding and agreed to proceed.All elements maximal sterile barrier technique was utilized for this procedure, including utilization of sterile scrub solution for skin prep, a large sterile sheet to cover the areas of the patient that were not prepped, and hand hygiene, mask, head covering, and sterile gown for performing radiologist and scrub technologist. The skin was anesthetized with lidocaine. The right common femoral artery was accessed usinga 18-gauge singlewall needle and a 0.035 inch J-wire. A 5 Vietnamese sheath was placed. Diagnostic mesenteric angiogram was performed to access vessel patency and exclude arterio-portal shunting.A 5 Vietnamese Lawler catheter which was used to select the SMA and celiac trunk for DSA runs.A 3 Vietnamese microcatheter was advanced coaxially through the Lawler catheter for selection of the right and left hepatic artery for DSA run, which demonstrates that the lesions are amenable for treatment. The microcatheter was used to further subselect the medial branch of the left hepatic artery that supply the to medial hepatic lesions. 75 mg of doxorubicin loaded on LC beads was administered. Followup DSA injection was performed. The catheter was removed. Injection was performed through the right femoral sheath for a DSA run. The arteriotomy was closed and hemostasis was obtained with a Mynx closure device. Vital signs were monitored throughout the procedure by a nurse, and remained stable. The patient tolerated the procedure well and left the department in the same condition. FINDINGS: 1. SMA injection: SMA branches are patent without evidence of abnormal vascular blush. The superior mesenteric and portal vein are patent. 2. Celiac injection: The splenic artery, common hepatic artery, left gastric artery, and gastroduodenal artery are patent with normal branching pattern. The splenic vein is patent. 3. Right and left hepatic artery injections: No enhancing lesions are seen with the right hepatic injection. With the left hepatic artery injection, 1.5 and 2 cm hypervascular lesions are seen in the midportion of the liver, adjacent to the tips stent. Post embolization, there is no further enhancement of these lesions with continued antegrade flow in the supplying vessel. 4. Right common femoral artery injection: Patent right femoral artery and normal sheath position. IMPRESSION: 1. Successful, uncomplicated mesenteric angiogram and left hepatic artery chemo-embolization, performed with conscious sedation. 2. Successful hemostasis using closure device. Signed: Adelso Sharma MD Report Verified Date/Time:10/21/2017 17:38:59 Reading Location: [place] [address] Angio Body Reading Room Procedure Note Interface, External Ris In - 10/21/2017 5:41 PM CDT FINAL REPORT Mesenteric angiogram and chemoembolization, 10/21/2017. History: HCC. Modality: Fluoroscopy. Sedation: None. Anesthesia: Two percent Lidocaine without epinephrine. Approach: Right common femoral artery. Estimated blood loss: < 5 cc. Specimen: None. cutting table operator first: Aurea. Legal Researcher: Martín. Fluoroscopy Time: 19.3 min. Dose (Ka,r): 606.6 mGy. Technique: Informed written consent was obtained. Discussion of risks, benefits, and alternatives were made with the patient. The patient expressed understanding and agreed to proceed. All elements maximal sterile barrier technique was utilized for this procedure, including utilization of sterile scrub solution for skin prep, a large sterile sheet to cover the areas of the patient that were not prepped, and hand hygiene, mask, head covering, and sterile gown for performing radiologist and scrub technologist. The skin was anesthetized with lidocaine. The right common femoral artery was accessed using a 18-gauge singlewall needle and a 0.035 inch J-wire. A 5 Vietnamese sheath was placed. Diagnostic mesenteric angiogram was performed to access vessel patency and exclude arterio-portal shunting. A 5 Vietnamese Lawler catheter which was used to select the SMA and celiac trunk for DSA runs. A 3 Vietnamese microcatheter was advanced coaxially through the Lawler catheter for selection of the right and left hepatic artery for DSA run, which demonstrates that the lesions are amenable for treatment. The microcatheter was used to further subselect the medial branch of the left hepatic artery that supply the to medial hepatic lesions. 75 mg of doxorubicin loaded on LC beads was administered. Followup DSA injection was performed. The catheter was removed. Injection was performed through the right femoral sheath for a DSA run. The arteriotomy was closed and hemostasis was obtained with a Mynx closure device. Vital signs were monitored throughout the procedure by a nurse, and remained stable. The patient tolerated the procedure well and left the department in the same condition. FINDINGS: 1. SMA injection: SMA branches are patent without evidence of abnormal vascular blush. The superior mesenteric and portal vein are patent. 2. Celiac injection: The splenic artery, common hepatic artery, left gastric artery, and gastroduodenal artery are patent with normal branching pattern. The splenic vein is patent. 3. Right and left hepatic artery injections: No enhancing lesions are seen with the right hepatic injection. With the left hepatic artery injection, 1.5 and 2 cm hypervascular lesions are seen in the midportion of the liver, adjacent to the tips stent. Post embolization, there is no further enhancement of these lesions with continued antegrade flow in the supplying vessel. 4. Right common femoral artery injection: Patent right femoral artery and normal sheath position. IMPRESSION: 1. Successful, uncomplicated mesenteric angiogram and left hepatic artery chemo-embolization, performed with conscious sedation. 2. Successful hemostasis using closure device. Signed: Adelso Sharma MD Report Verified Date/Time: 10/21/2017 17:38:59 Reading Location: [facility] P048 Angio Body Reading Room aPTT (10/21/2017 4:32 AM)Only the most recent of3 resultswithin the time period is included. Component Value Ref Range PTT 41.6 (H) 22.5 - 36.0 seconds Specimen Performing Laboratory Blood - Arm, Right [address] [address] Manual Differential (10/20/2017 4:41 AM)Only the most recent of5 resultswithin the time period is included. Component Value Ref Range Total Counted WBC Morphology Normal Platelet Morphology Normal RBC Morphology Normal Specimen Performing Laboratory Blood - Arm, Right [address] [address] Comprehensive metabolic panel (10/19/2017 4:44 AM)Only the most recent of10 resultswithin the time period is included. Component Value Ref Range Protein, Total 4.5 (L) 6.0 - 8.3 gm/dL Albumin 1.9 (L) 3.5 - 5.0 g/dL Alkaline Phosphatase 145 40 - 150 U/L Total Bilirubin 1.0 0.2 - 1.2 mg/dL Sodium 135 (L) 136 - 145 meq/L Potassium 4.3 3.5 - 5.1 meq/L Chloride 106 98 - 107 meq/L CO2 21 (L) 22 - 29 meq/L BUN 23 (H) 7 - 21 mg/dL Creatinine 3.60 (H) 0.57 - 1.25 mg/dL Glucose 104 70 - 105 mg/dL Calcium 8.2 (L) 8.4 - 10.2 mg/dL AST 21 5 - 34 U/L ALT 16 6 - 55 U/L EGFR 17Comment: ESTIMATED GFR IS NOT ACCURATE mL/min/1.73 sq m CREATININE CLEARANCE IN PREDICTING GLOMERULAR FILTRATION RATE. ESTIMATED GFR IS NOT APPLICABLE FOR DIALYSIS PATIENTS. Specimen Performing Laboratory Blood [address] [address] ECHOCARDIOGRAM REPORT - SCAN (10/17/2017 9:20 AM)Only the most recent of2 resultswithin the time period is included.2D Echo W/Doppler(CW/PW/Color) (2017 5:04 PM)Only the most recent of2 resultswithin the time period is included. 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 Needs to be Pre Physician Read Michael Pillai MD Fellow [facility] Hernandez Procedure Type of Study TTE procedure:2DECHO W DOPPLER(CW/PW/COLOR) (Routine) Indications:Suspected hypertensive heart disease. Clinical History HGB 7.8 HCT 24.2 % Height: 63 inches Weight: 56.7 kg (125 lbs) BSA: 1.58 m^2 BMI: 22.14 kg/m^2 HR: 82 bpm BP: 117/36 mmHg Summary The left ventricle is chamber size (by vol index) is normal. No evidence of LV hypertrophy. All of the LV segments contract normally . LVEF by Daugherty's method of disk assessment is normal (>60%) . Grade 2 diastolic dysfunction (moderately increased LA pressure). The right ventricular chamber size and systolic function are within normal limits. Estimated peak systolic PA pressure is 35-40 mmHg . Peak systolic pressure may be underestimated; partial TR signal. No pericardial effusion is visualized. Signature Findings Rhythm/BPRegular sinus rhythm during the exam. Left Ventricle The left ventricle is chamber size (by vol index) is normal. No evidence of LV hypertrophy. All of the LV segments contract normally . LVEF by Daugherty's method of disk assessment is normal (>60%) . Grade 2 diastolic dysfunction (moderately increased LA pressure). Left AtriumLA size is severely enlarged . Right VentricleThe right ventricular chamber size and systolic function are within normal limits. Right Atrium RA size is normal. Aortic Valve Mild AoV cusp calcification. AoV calcification primarily involves the non- coronary cusp(s). No evidence of aortic stenosis. No evidence of aortic regurgitation. Mitral Valve Normal MV structure. Trace mitral regurgitation. No evidence of mitral stenosis. Tricuspid ValveTV structure is normal. Mild tricuspid regurgitation. Estimated peak systolic PA pressure is 35-40 mmHg . Peak systolic pressure may be underestimated; partial TR signal. Pulmonic Valve PV is not well visualized. Normal PV structure and function by limited views and Doppler. AortaAortic root size (SInus of Valsalva diameter) is normal . PericardiumNo pericardial effusion is visualized. IVC/SVC/PA/PV/PleuralThe estimated RA pressure by IVC dynamics 0-5mmHg . Chambers/Structures Left Atrium LA Volume: 79.58 ml LA Area: 26.22 cm^ 2 LA Vol. Index: 50 ml/m^2 Left Ventricle LVIDd: 4.97 cm LVIDs: 3.38 cm LV Septum Diastolic: 0.86 cm LV PW Diastolic: 1.06 cmLV FS: 32 % LVEDV Daugherty's:105.15 ml LVESV Daugherty's:33.02 mlLVEDVI: 67 ml/ m^2 LVEF Daugherty's: 68.6 %LVESVI: 21 ml/m^2 LVOT Diameter: 2.04 cm Doppler/Quantitative Measurements Mitral Valve MV Peak E-Wave: 1.44 m/sMV Peak A-Wave: 1.03 m/s E/A Ratio: 1.4 Peak Gradient: 8.25 mmHg MV Rakesh. Peak: Tissue Doppler E' Lateral Velocity: 0.11 m/s E/E': 12.77 Aortic Valve Peak Velocity: 2.24 m/sMean Velocity: 1.42 m/s Peak Gradient: 20.06 mmHgMean Gradient: 9.38 mmHg AV Area (continuity): 2.98 cm^2 AV VTI: 40.01 cm AV DVI: 0.91 LVOT Peak Velocity: 1.97 m/sPeak Gradient: 15.52 mmHg Mean Velocity: 1.03 m/sMean Gradient: 5.62 mmHg LVOT Diameter: 2.04 cm LVOT VTI: 36.5 cm LVOT Area: 3.27 cm^2 LVOT SV:119.24 ml LVOT CO: 9.78 l/minLVOT CI: 6.19 l/min/m^2 Tricuspid Valve TR Velocity: 3.03 m/s TR Gradient: 36.66 mmHg Procedure Note Interface, External Ris In - 10/17/2017 8:38 AM CDT Transthoracic Echocardiography Report (TTE) Demographics Patient Name JUAN DAVID STEARNS Date of Study 10/16/2017 BELINDA Gender Male Visit Number [id number] Race Unknown Room Number 7101 Number Date of 1950 Referring Physician Eugenia Grijalva Age 67 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 Needs to be Pre Physician Read Michael Pillai MD Fellow [employer] Hernandez Procedure Type of Study TTE procedure:2DECHO W DOPPLER(CW/PW/COLOR) (Routine) Indications:Suspected hypertensive heart disease. Clinical History HGB 7.8 HCT 24.2 % Height: 63 inches Weight: 56.7 kg (125 lbs) BSA: 1.58 m^2 BMI: 22.14 kg/m^2 HR: 82 bpm BP: 117/36 mmHg Summary The left ventricle is chamber size (by vol index) is normal. No evidence of LV hypertrophy. All of the LV segments contract normally . LVEF by Daugherty's method of disk assessment is normal (>60%) . Grade 2 diastolic dysfunction (moderately increased LA pressure). The right ventricular chamber size and systolic function are within normal limits. Estimated peak systolic PA pressure is 35-40 mmHg . Peak systolic pressure may be underestimated; partial TR signal. No pericardial effusion is visualized. Signature Findings Rhythm/BP Regular sinus rhythm during the exam. Left Ventricle The left ventricle is chamber size (by vol index) is normal. No evidence of LV hypertrophy. All of the LV segments contract normally . LVEF by Daugherty's method of disk assessment is normal (>60%) . Grade 2 diastolic dysfunction (moderately increased LA pressure). Left Atrium LA size is severely enlarged . Right Ventricle The right ventricular chamber size and systolic function are within normal limits. Right Atrium RA size is normal. Aortic Valve Mild AoV cusp calcification. AoV calcification primarily involves the non- coronary cusp(s). No evidence of aortic stenosis. No evidence of aortic regurgitation. Mitral Valve Normal MV structure. Trace mitral regurgitation. No evidence of mitral stenosis. Tricuspid Valve TV structure is normal. Mild tricuspid regurgitation. Estimated peak systolic PA pressure is 35-40 mmHg . Peak systolic pressure may be underestimated; partial TR signal. Pulmonic Valve PV is not well visualized. Normal PV structure and function by limited views and Doppler. Aorta Aortic root size (SInus of Valsalva diameter) is normal . Pericardium No pericardial effusion is visualized. IVC/SVC/PA/PV/Pleural The estimated RA pressure by IVC dynamics 0-5mmHg . Chambers/Structures Left Atrium LA Volume: 79.58 ml LA Area: 26.22 cm^2 LA Vol. Index: 50 ml/m^2 Left Ventricle LVIDd: 4.97 cm LVIDs: 3.38 cm LV Septum Diastolic: 0.86 cm LV PW Diastolic: 1.06 cm LV FS: 32 % LVEDV Daugherty's:105.15 ml LVESV Daugherty's:33.02 ml LVEDVI: 67 ml/m^2 LVEF Daugherty's: 68.6 % LVESVI: 21 ml/m^2 LVOT Diameter: 2.04 cm Doppler/Quantitative Measurements Mitral Valve MV Peak E-Wave: 1.44 m/s MV Peak A-Wave: 1.03 m/s E/A Ratio: 1.4 Peak Gradient: 8.25 mmHg MV Rakesh. Peak: Tissue Doppler E' Lateral Velocity: 0.11 m/s E/E': 12.77 Aortic Valve Peak Velocity: 2.24 m/s Mean Velocity: 1.42 m/s Peak Gradient: 20.06 mmHg Mean Gradient: 9.38 mmHg AV Area (continuity): 2.98 cm^2 AV VTI: 40.01 cm AV DVI: 0.91 LVOT Peak Velocity: 1.97 m/s Peak Gradient: 15.52 mmHg Mean Velocity: 1.03 m/s Mean Gradient: 5.62 mmHg LVOT Diameter: 2.04 cm LVOT VTI: 36.5 cm LVOT Area: 3.27 cm^2 LVOT SV:119.24 ml LVOT CO: 9.78 l/min LVOT CI: 6.19 l/min/m^2 Tricuspid Valve TR Velocity: 3.03 m/s TR Gradient: 36.66 mmHg B-type Natriuretic Factor (BNP) (10/15/2017 4:49 AM)Only the most recent of4 resultswithin the time period is included. Component Value Ref Range BNP 1710 (H) 0 - 100 pg/mL Specimen Performing Laboratory Blood [address] [address] Procalcitonin (10/14/2017 4:14 AM)Only the most recent of3 resultswithin the time period is included. Component Value Ref Range Procalcitonin 2.91 (H) <0.05 ng/mL Specimen Performing Laboratory Blood [address] [address] Narrative SEPSIS RISK (ng/mL) Low:0.05-0.50 Intermediate: 0.51-2.00 High: >=2.01 Blood gas, arterial (10/14/2017 4:14 AM)Only the most recent of20 resultswithin the time period is included. Component Value Ref Range pH, Arterial 7.44 7.35 - 7.45 pCO2, Arterial 44 35 - 45 mmHg pO2, Arterial 221 (H) 80 - 90 mmHg O2 Sat, Arterial 99.5 (H) 96.0 - 97.0 % HCO3, Arterial 29 21 - 29 mmol/L Base Excess, Arterial 4.4 (H) -2.0 - 3.0 mmol/L Patient Temperature 37.0 C FIO2 40.0 % Specimen Performing Laboratory Blood, Arterial [address] [address] Vancomycin level, random (10/13/2017 3:35 AM)Only the most recent of4 resultswithin the time period is included. Component Value Ref Range Vancomycin Rm 6.5 ug/mL Specimen Performing Laboratory Blood - Line, Arterial [address] [address] Narrative Reference Range: No Normals Legionella antigen, urine (10/12/2017 6:32 PM) Component Value Ref Range Legionella Urine Antigen Negative - see commentComment: Negative for L. pneumophila serogroup 1 antigen, suggesting no recent or current infection with this serogroup. Legionellosis cannot be ruled out since other serogroups and species may cause disease. Specimen Performing Laboratory Urine [address] [address] Histoplasma antigen, urine (10/12/2017 6:32 PM) Component Value Ref Range Histoplasma Antigen <0.5 ng/mL Comment: REFERENCE RANGE: <0.5 ng/mL Histoplasma galactomannan is frequently detected in urine from patients with disseminated histoplasmosis. However, a negative result does not exclude a diagnosis of histoplasmosis. Many patients with acute pulmonary disease or chronic cavitary disease do not exhibit antigenuria. Galactomannan levels in urine typically decrease with successful treatment. Specimens from patients with other endemic mycoses, such as blastomycosis, coccidioidomycosis, or aspergillosis, may also be positive in this assay. This test should be used in conjunction with other diagnostics tests, including culture, molecular assays, and histology in making a final diagnosis. This test was developed and its analytical performance characteristics have been determined by [facility]. It has not been cleared or approved by the U.S. Food and Drug Administration.The FDA has determined that such clearance or approval is not necessary. This assay has been validated pursuant to the CLIA regulations andis used for clinical purposes. Specimen Performing Laboratory Urine [facility] [address] [place] [address] Narrative Performing Lab *[facility] [address] [place] [address] Izabel Pierson MD Urinalysis w/ Microscopic (10/12/2017 6:32 PM) Component Value Ref Range Color, UA Yellow Clarity, UA Clear Specific [place], UA 1.011 1.001 - 1.035 pH, UA 5.5 5.0 - 8.0 Protein, UA 70 mg/dL (A) Negative Glucose, UA Negative Negative Ketones, UA Negative Negative Bilirubin, UA Negative Negative Blood, UA Small (A) Negative Nitrite, UA Negative Negative Leukocytes, UA Negative Negative Urobilinogen, UA 0.2 0.2 - 1.0 mg/dL RBC, UA <1 /HPF WBC, UA 1 /HPF Bacteria, UA Rare Hyaline Casts, UA 2 /LPF Specimen Source Specimen Performing Laboratory Urine [address] [address] Urine culture (10/12/2017 6:32 PM) Component Value Ref Range Result No growth Specimen Performing Laboratory Urine - Urine, Straight Catheter [address] [address] Vancomycin level, trough (10/12/2017 3:42 PM)Only the most recent of2 resultswithin the time period is included. Component Value Ref Range Vancomycin Tr 9.9 (L) 10.0 - 20.0 ug/mL Specimen Performing Laboratory Blood - Line, Arterial [address] [address] EEG AWAKE/ASLEEP (10/12/2017 10:31 AM) Specimen Performing Laboratory GE RIS Narrative Date(s) of EE10/12/2017 DATE OF REPORT: 10/12/2017 ACC: [id number] EEG Number: [id number] Test Location: Inpatient ICU Start time: 10:10 Stop time: 10:31 ICD-10: R56.9 CPT Code: 51846 HISTORY: 67 y.o. M w/ hx hodgkins lymphoma s/p ABVD x 5, HCC, HBV cirrhosis w/ portal HTN, esophageal varices w/ recurrent heaptic encephalopathy, chronic anemia, CKD pending liver/kidney transplant who arrived intubated as stroke alert. Now with fixed eyes deviation to the right. MEDICATIONS THAT COULD AFFECT EEG: None TECHNICAL SUMMARY: This is a digital video-EEG recorded with 32 input channels reviewed with bipolar and referential montages using the modified combinatorial system nomenclature. DESCRIPTION OF RECORD: The frequency spectrum consists primarily of symmetric diffuse, moderate amplitude 4-5 Hz theta activity and admixed 2.5-3 Hz delta activity. No clear organized waking background or posterior dominant rhythm is evident. There are frequent very brief (2-3s long) burst of frontally predominant 2-2.5Hz generalized discharges with a triphasic morphology. SIGNIFICANT VIDEO EVENTS: None SIGNIFICANT ELECTROCARDIOGRAM EVENTS: None HV: Hyperventilation was not performed. PHOTIC STIMULATION: Photic stimulation was not performed. IMPRESSION: Abnormal coma EEG due to 1. Continuous symmetric, mixed delta/theta background slowing and disorganization 2. Frequent bursts of rhythmic 2-2.5Hz generalized frontally predominant discharges with a triphasicmorphology CLINICAL CORRELATION: These findings are consistent with the presence of diffuse cortical irritability in the background of a moderate etiologically nonspecific encephalopathy. There are no electrographic seizures. Continued long term care pharmacist EEG monitoring is recommended. Brock Chi MD Neurophysiology Fellow, PGY5 Loretta Gamble [facility] Attending Neurophysiologist [facility] Procedure Note Interface, External Ris In - 10/12/2017 12:47 PM CDT Date(s) of EE10/12/2017 DATE OF REPORT: 10/12/2017 ACC: [id number] EEG Number: [id number] Test Location: Inpatient ICU Start time: 10:10 Stop time: 10:31 ICD-10: R56.9 CPT Code: 57414 HISTORY: 67 y.o. M w/ hx hodgkins lymphoma s/p ABVD x 5, HCC, HBV cirrhosis w/ portal HTN, esophageal varices w/ recurrent heaptic encephalopathy, chronic anemia, CKD pending liver/kidney transplant who arrived intubated as stroke alert. Now with fixed eyes deviation to the right. MEDICATIONS THAT COULD AFFECT EEG: None TECHNICAL SUMMARY: This is a digital video-EEG recorded with 32 input channels reviewed with bipolar and referential montages using the modified Quture system nomenclature. DESCRIPTION OF RECORD: The frequency spectrum consists primarily of symmetric diffuse, moderate amplitude 4-5 Hz theta activity and admixed 2.5-3 Hz delta activity. No clear organized waking background or posterior dominant rhythm is evident. There are frequent very brief (2-3s long) burst of frontally predominant 2-2.5Hz generalized discharges with a triphasic morphology. SIGNIFICANT VIDEO EVENTS: None SIGNIFICANT ELECTROCARDIOGRAM EVENTS: None HV: Hyperventilation was not performed. PHOTIC STIMULATION: Photic stimulation was not performed. IMPRESSION: Abnormal coma EEG due to 1. Continuous symmetric, mixed delta/theta background slowing and disorganization 2. Frequent bursts of rhythmic 2-2.5Hz generalized frontally predominant discharges with a triphasic morphology CLINICAL CORRELATION: These findings are consistent with the presence of diffuse cortical irritability in the background of a moderate etiologically nonspecific encephalopathy. There are no electrographic seizures. Continued long term care pharmacist EEG monitoring is recommended. Brock Chi MD Neurophysiology Fellow, PGY5 Loretta Gamble [facility] Attending Neurophysiologist [facility] brain without IV contrast portable (10/12/2017 9:50 AM) Specimen Performing Laboratory [place] RIS Narrative FINAL REPORT CT head without contrast. Reason for exam: seizure? Comparisons: October 10, 2017 Discussion: Multiple axial CT images of the head are provided without contrast evaluated in brain and bone windows. This exam was performed according to our departmental dose optimization program which includes automated exposure control, adjustment of the mA and/or kV according to patient's size and/or use of iterative reconstructive technique. Allowing for limitations due to portable technique, the martinez-white differentiation is maintained. There is no CT evidence of intracranial hemorrhage, mass-effect, hydrocephalus, shift, or extra-axial collections. The visualized orbital contents, bones and surrounding soft tissues are unremarkable. Right maxillary sinus is opacified. The remaining visualized paranasal sinuses are clear. There is a small right effusion. Impressions: No CT evidence of acute intracranial process. Signed: Buster Cantu MD Report Verified Date/Time:10/12/2017 10:14:50 Reading Location: [facility] C013V Neuro Reading Room Procedure Note Interface, External Ris In - 10/12/2017 10:17 AM CDT FINAL REPORT CT head without contrast. Reason for exam: seizure? Comparisons: October 10, 2017 Discussion: Multiple axial CT images of the head are provided without contrast evaluated in brain and bone windows. This exam was performed according to our departmental dose optimization program which includes automated exposure control, adjustment of the mA and/or kV according to patient's size and/or use of iterative reconstructive technique. Allowing for limitations due to portable technique, the martinez-white differentiation is maintained. There is no CT evidence of intracranial hemorrhage, mass-effect, hydrocephalus, shift, or extra-axial collections. The visualized orbital contents, bones and surrounding soft tissues are unremarkable. Right maxillary sinus is opacified. The remaining visualized paranasal sinuses are clear. There is a small right effusion. Impressions: No CT evidence of acute intracranial process. Signed: Buster Cantu MD Report Verified Date/Time: 10/12/2017 10:14:50 Reading Location: [facility] C013 Neuro Reading Room Ammonia (10/12/2017 8:39 AM)Only the most recent of4 resultswithin the time period is included. Component Value Ref Range Ammonia 32 18 - 72 mol/L Specimen Performing [place] [address] Critical Care (10/11/2017 6:51 PM) Narrative Yang Hilario MD 10/11/20176:51 PM Critical Care Performed by: YANG HILARIO Authorized by: WILEY DENG Total critical care time: 35 minutes Critical care time was exclusive of separately billable procedures and treating other patients and teaching time. Critical care was necessary to treat or prevent imminent or life-threatening deterioration of the following conditions: respiratory failure, hepatic failure and shock. Critical care was time spent personally by me on the following activities: blood draw for specimens, development of treatment plan with patient or surrogate, discussions with consultants, discussions with primary provider, interpretation of cardiac output measurements, examination of patient, obtaining history from patient or surrogate, evaluation of patient's response to treatment, ordering and performing treatments and interventions, ordering and review of laboratory studies, ordering and review of radiographic studies, pulse oximetry, re-evaluation of patient's condition, review of old charts and ventilator management. Troponin I (10/10/2017 9:13 PM)Only the most recent of2 resultswithin the time period is included. Component Value Ref Range Troponin I 0.07 (H) 0.00 - 0.03 ng/mL Specimen Performing Laboratory Blood - Arm, [address] [address] Narrative Troponin I (TnI) levels must be interpreted in the context of the presenting symptoms and the clinical findings. Elevated TnI levels indicate myocardial damage, but are not specific for ischemic heart disease. Elevated TnI levels are seen in patients with other cardiac conditions (including myocarditis and congestive heart failure), and slight TnI elevations occur in patients with other conditions, including sepsis, renal failure, acidosis, acute neurological disease, and persistent tachyarrhythmia. Lactic acid, venous, whole blood (10/10/2017 9:13 PM)Only the most recent of2 resultswithin the time period is included. Component Value Ref Range Lactate, Venous 1.9 0.5 - 2.2 mmol/L Specimen Performing Laboratory Blood - Arm, [address] [address] Narrative Effective 11/16/2015: Units/Reference Range Change New: 0.5-2.2 mmol/LPrevious: 5-20 mg/dL XR abdomen / KUB 1 view (10/10/2017 5:13 PM)Only the most recent of12 resultswithin the time period is included. Specimen Performing Laboratory GE RIS Narrative FINAL REPORT EXAM: AP abdominal radiograph HISTORY PROVIDED: Check orogastric tube placement COMPARISON: 09/27/2017 IMPRESSION: The tip of an enteric tube projects over the expected region of the body of the stomach. This examination is insensitive for the detection of free air. The bowel gas pattern is nonspecific but appears nonobstructive. A TIPS stent is present. No acute osseous abnormality. The visualized lower lung coffey demonstrate left basilar opacity. Signed: Magdiel Mccoy MD Report Verified Date/Time:10/10/2017 17:30:58 [facility] Procedure Note Interface, External Ris In - 10/10/2017 5:33 PM CDT FINAL REPORT EXAM: AP abdominal radiograph HISTORY PROVIDED: Check orogastric tube placement COMPARISON: 09/27/2017 IMPRESSION: The tip of an enteric tube projects over the expected region of the body of the stomach. This examination is insensitive for the detection of free air. The bowel gas pattern is nonspecific but appears nonobstructive. A TIPS stent is present. No acute osseous abnormality. The visualized lower lung coffey demonstrate left basilar opacity. Signed: Magdiel Mccoy MD Report Verified Date/Time: 10/10/2017 17:30:58 Reading Location: [facility] Mammo Reading Room 12 lead (10/10/2017 11:50 AM)Only the most recent of4 resultswithin the time period is included. Specimen Performing Laboratory GE MUSE Narrative Ventricular Rate 76 BPM Atrial Rate 76 BPM P-R Interval 136 ms QRS Duration 88 ms Q-T Interval 446 ms QTC Calculation(Bazett) 501 ms P [place] 6 degrees R [place] 36 degrees T [place] 44 degrees Sinus rhythm with Possible Premature atrial complexes with Aberrant conduction Prolonged QT Abnormal ECG When compared with ECG of 03-SEP-2017 10:33, Sinus rhythm has replaced Atrial fibrillation Vent. rate has decreased BY76 BPM Non-specific change in ST segment in Lateral leads Nonspecific T wave abnormality no longer evident in Inferior leads T wave inversion no longer evident in Lateral leads Confirmed by Rose Marie DOSHI BASANT ([id number]) on 10/11/2017 7:37:02 AM Procedure Note Interface, External Ris In - 10/11/2017 7:37 AM CDT Ventricular Rate 76 BPM Atrial Rate 76 BPM P-R Interval 136 ms QRS Duration 88 ms Q-T Interval 446 ms QTC Calculation(Bazett) 501 ms P [place] 6 degrees R [place] 36 degrees T [place] 44 degrees Sinus rhythm with Possible Premature atrial complexes with Aberrant conduction Prolonged QT Abnormal ECG When compared with ECG of 03-SEP-2017 10:33, Sinus rhythm has replaced Atrial fibrillation Vent. rate has decreased BY 76 BPM Non-specific change in ST segment in Lateral leads Nonspecific T wave abnormality no longer evident in Inferior leads T wave inversion no longer evident in Lateral leads Confirmed by Rose Marie DOSHI BASANT ([id number]) on 10/11/2017 7:37:[address] brain/stroke protocol (10/10/2017 11:37 AM) Specimen Performing Laboratory GE RIS Narrative FINAL REPORT CT head without contrast. Comparisons: September 20, 2017 Reason for exam: Stroke unresponsive. Discussion: Multiple axial CT images of the head are provided without contrast evaluated in brain and bone windows. Dose modulation, iterative reconstruction, and/or weight based adjustment of the mA/kV was utilized to reduce the radiation dose to as low as reasonably achievable. Imaging discussed with the stroke team neurology resident 1145 hours. There is no CT evidence of intracranial hemorrhage, mass-effect, hydrocephalus, shift, or extra-axial collections.While I see no definitive acute large vessel infarction, please note that CT is not sensitive in detecting or distinguishing acute ischemic disease. There is chronic appearing opacification right-sided maxillary sinus. The visualized dural sinus regions, orbital contents, remaining paranasal sinuses, bones and surrounding soft tissues are unremarkable. Impressions: 1. No specific evidence of acute intracranial abnormality. Signed: Yang Reece MD Report Verified Date/Time:10/10/2017 11:53:59 Reading Location: [address] Neuro Reading Room Procedure Note Interface, External Ris In - 10/10/2017 11:56 AM CDT FINAL REPORT CT head without contrast. Comparisons: September 20, 2017 Reason for exam: Stroke unresponsive. Discussion: Multiple axial CT images of the head are provided without contrast evaluated in brain and bone windows. Dose modulation, iterative reconstruction, and/or weight based adjustment of the mA/kV was utilized to reduce the radiation dose to as low as reasonably achievable. Imaging discussed with the stroke team neurology resident 1145 hours. There is no CT evidence of intracranial hemorrhage, mass-effect, hydrocephalus, shift, or extra-axial collections. While I see no definitive acute large vessel infarction, please note that CT is not sensitive in detecting or distinguishing acute ischemic disease. There is chronic appearing opacification right-sided maxillary sinus. The visualized dural sinus regions, orbital contents, remaining paranasal sinuses, bones and surrounding soft tissues are unremarkable. Impressions: 1. No specific evidence of acute intracranial abnormality. Signed: Yang Reece MD Report Verified Date/Time: 10/10/2017 11:53:59 Reading Location: [address] Neuro Reading Room -SCANNED (10/09/2017 1:50 PM)VASCULAR DIAGRAM -SCAN (10/09/2017 1:50 PM) Only the most recent of2 resultswithin the time period is included.Hepatitis B Panel (10/02/2017 4:12 PM) Component Value Ref Range Hep B Core Total Ab Reactive (A) Nonreactive Hep B S Ab <8.0 <8.0 mIU/mL hepatitis B Surface Ag Reactive (A) Nonreactive Specimen Performing Laboratory Blood [address] [address] Prepare RBC (09/29/2017 11:54 PM)Only the most recent of3 resultswithin the time period is included. Component Value Ref Range CROSSMATCH COMPATIBLE Unit ABO O Pos UNIT NUMBER [id number] Status TRANSFUSED Blood Bank Product RED BLOOD CELLS PRODUCT CODE [id number] Specimen Performing Laboratory [facility] Hemoglobin and hematocrit (09/29/2017 1:08 PM)Only the most recent of28 resultswithin the time period is included. Component Value Ref Range Hemoglobin 8.6 (L) 13.7 - 17.5 GM/DL Hematocrit 26.8 (L) 40.1 - 51.0 % Specimen Performing Laboratory Blood - Line, Arterial [address] [address] IR Tunneled Catheter Insertion (09/28/2017 3:49 PM) Specimen Performing Laboratory GE RIS Narrative FINAL REPORT Tunneled dialysis catheter insertion, 09/28/2017. History: Renal failure. Modality: Sonography and fluoroscopy. Sedation: Versed 0.5 mg and fentanyl 25 mcg was given intravenously for conscious sedation.Vital signs were monitored throughout the procedure by a nurse, and remained stable. Physician intra-service time was 20 minutes. Fabrication Lead:Jase. Legal Researcher:None. Approach: Right internal jugular vein Estimated blood loss:< 5 cc. Specimen: None. Fluoroscopy Time: 0.0 min.Dose (Ka,r): 0.3 mGy. Technique: Informed written consent was obtained.Discussion of risks, benefits, and alternatives were made with the patient. The patient expressed understanding and agreed to proceed.All elements maximal sterile barrier technique was utilized for this procedure, including utilization of sterile scrub solution for skin prep, a large sterile sheet to cover the areas of the patient that were not prepped, and hand hygiene, mask, head covering, and sterile gown for performing radiologist and scrub technologist. The skin was anesthetized with 2% lidocaine.Ultrasound evaluation showed a patent and compressible right internal jugular vein , which was punctured under direct real-time ultrasound guidance with a micropuncture needle.An ultrasound image was saved to PACS. A 0.018 inch wire was placed through the needle into the right atrium. A 4 Vietnamese micropuncture sheath was placed.A subcutaneous tunnel was created in the right anterior chest wall by blunt dissection.A 18 cm 15.5 Vietnamese Duraflow 2 catheter was brought through the tunnel. The vessel tract was serially dilated over a J-wire. A peel-away sheath was placed in the right IJ vein and the catheter was advanced through the sheath, with its distal tip terminating in the right atrium.The peel-away sheath was removed. The ports were flushed and aspirated easily following placement.The catheter was sutured to the skin with 2-0 silk to secure its placement.The small jugular incision site was closed using resorbable suture. The patient's temporary hemodialysis catheter was removed. Vital signs were monitored throughout the procedure by a nurse, and remained stable.The patient tolerated the procedure well and left the department in the same condition. Results:Spot radiograph of the chest demonstrates the new dialysis catheter to lie in the expected position with its tip overlying the superior right atrium. Impression: Successful, uncomplicated placement of a right internal jugular tunneled dialysis catheter using sonographic and fluoroscopic guidance and conscious sedation. Signed: Gustavo Laguna MD Report Verified Date/Time:09/28/2017 16:07:31 Reading Location: [facility] P048 Angio Body Reading Room Procedure Note Interface, External Ris In - 09/28/2017 4:09 PM CDT FINAL REPORT Tunneled dialysis catheter insertion, 09/28/2017. History: Renal failure. Modality: Sonography and fluoroscopy. Sedation: Versed 0.5 mg and fentanyl 25 mcg was given intravenously for conscious sedation. Vital signs were monitored throughout the procedure by a nurse, and remained stable. Physician intra-service time was 20 minutes. Fabrication Lead: Jase. Legal Researcher: None. Approach: Right internal jugular vein Estimated blood loss: < 5 cc. Specimen: None. Fluoroscopy Time: 0.0 min. Dose (Ka,r): 0.3 mGy. Technique: Informed written consent was obtained. Discussion of risks, benefits, and alternatives were made with the patient. The patient expressed understanding and agreed to proceed. All elements maximal sterile barrier technique was utilized for this procedure, including utilization of sterile scrub solution for skin prep, a large sterile sheet to cover the areas of the patient that were not prepped, and hand hygiene, mask, head covering, and sterile gown for performing radiologist and scrub technologist. The skin was anesthetized with 2% lidocaine.Ultrasound evaluation showed a patent and compressible right internal jugular vein , which was punctured under direct real-time ultrasound guidance with a micropuncture needle. An ultrasound image was saved to PACS. A 0.018 inch wire was placed through the needle into the right atrium. A 4 Vietnamese micropuncture sheath was placed. A subcutaneous tunnel was created in the right anterior chest wall by blunt dissection. A 18 cm 15.5 Vietnamese Duraflow 2 catheter was brought through the tunnel. The vessel tract was serially dilated over a J-wire. A peel-away sheath was placed in the right IJ vein and the catheter was advanced through the sheath, with its distal tip terminating in the right atrium. The peel-away sheath was removed. The ports were flushed and aspirated easily following placement. The catheter was sutured to the skin with 2-0 silk to secure its placement. The small jugular incision site was closed using resorbable suture. The patient's temporary hemodialysis catheter was removed. Vital signs were monitored throughout the procedure by a nurse, and remained stable. The patient tolerated the procedure well and left the department in the same condition. Results: Spot radiograph of the chest demonstrates the new dialysis catheter to lie in the expected position with its tip overlying the superior right atrium. Impression: Successful, uncomplicated placement of a right internal jugular tunneled dialysis catheter using sonographic and fluoroscopic guidance and conscious sedation. Signed: Gustavo Laguna MD Report Verified Date/Time: 09/28/2017 16:07:31 Reading Location: [place] [address] Angio Body Reading Room abdomen/pelvis without & with IV contrast (09/21/2017 9:33 PM) Specimen Performing Laboratory [facility] Narrative Addendum Begins REPORT STATUS:A The portal vein measures 1.7 cm at the level of the javi hepatis. Signed: Rashaun Bryant MD Report Verified Date/Time:11/07/2017 04:05:55 Reading Location: [address] Ortho Consult Reading Room Addendum Ends FINAL REPORT CT, ABDOMEN \\T\\ PELVIS, WITHOUT \\T\\ WITH IV CONTRAST INDICATION: "Neoplasm: liver/biliary, rx monitor or f/u Evaluate liver mass" COMPARISON: MRI abdomen 07/23/2017 CT abdomen pelvis 09/20/2017. MRI abdomen 04/18/2017. TECHNIQUE: Noncontrast and arterial phase axial CT imaging of the abdomen was obtained. Next, venous and delayed axial CT images of the abdomen and pelvis were obtained. Sagittal and coronal reformats were provided. DOSE REDUCTION: Dose modulation, iterative reconstruction, and/or weight-based adjustment of the mA/kV was utilized to reduce the radiation dose to as low as reasonably achievable. FINDINGS: Stable bibasilar airspace disease, atelectatic versus pneumonic. Stable loculated left-sided effusion. Empyema not excluded although findings been stable since at least 04/18/2017. The liver is cirrhotic and there is a patent TIPS stent. In the dome of the liver, segment 8, there is a 2.1 x 2.2 cm lesion which demonstrates arterial hyperenhancement and washout. There is a central hypodense component which remains hypodense on all phases of imaging. Peripherally however, there is washout. There is no definite pseudocapsule formation. Findings are suggestive of HCC, question recurrent in the setting of a prior TACE. There is another segment 8 lesion located in the periphery of the liver measuring 1.5 x 1.6 cm. There is peripheral arterial hyperenhancement. No definite washout is present. This lesion is indeterminate and could reflect a age related HCC.. There is a nonenhancing 9 x 1 mm, ovoid lesion within segment 6 of the liver, axial image 30. Given its linear nature, this probably reflects a remotely thrombosed vessel. The segment 2 lesion seen on prior MRI is not well visualized on this exam. Distended gallbladder with cholelithiasis. No evidence of acute cholecystitis. Unremarkable spleen, pancreas, adrenal glands, and kidneys. No acute abnormality of the hollow abdominal viscera. Weighted enteric tube terminates in the prepyloric stomach. Mild abdominal ascites. Probable remote hematomas involving the bilateral rectus musculature. No focal lytic or destructive bony process. IMPRESSION: There are 2 discrete segment 8 liver lesions. The lesion in the dome is suggestive of HCC. The lesion in the periphery of segment 8 is indeterminate but could reflect a treated HCC. Correlate with history. Cirrhosis status post TIPS procedure. Signed: Rashaun Bryant MD Report Verified Date/Time:09/21/2017 22:08:10 Reading Location: [facility] [id number] Ortho Consult Reading Room Procedure Note Interface, External Ris In - 11/07/2017 4:08 AM CDT Addendum Begins REPORT STATUS:A The portal vein measures 1.7 cm at the level of the javi hepatis. Signed: Rashaun Bryant MD Report Verified Date/Time: 11/07/2017 04:05:55 Reading Location: [facility] [id number] Ortho Consult Reading Room Addendum Ends FINAL REPORT CT, ABDOMEN \\T\\ PELVIS, WITHOUT \\T\\ WITH IV CONTRAST INDICATION: "Neoplasm: liver/biliary, rx monitor or f/u Evaluate liver mass" COMPARISON: MRI abdomen 07/23/2017 CT abdomen pelvis 09/20/2017. MRI abdomen 04/18/2017. TECHNIQUE: Noncontrast and arterial phase axial CT imaging of the abdomen was obtained. Next, venous and delayed axial CT images of the abdomen and pelvis were obtained. Sagittal and coronal reformats were provided. DOSE REDUCTION: Dose modulation, iterative reconstruction, and/or weight-based adjustment of the mA/kV was utilized to reduce the radiation dose to as low as reasonably achievable. FINDINGS: Stable bibasilar airspace disease, atelectatic versus pneumonic. Stable loculated left-sided effusion. Empyema not excluded although findings been stable since at least 04/18/2017. The liver is cirrhotic and there is a patent TIPS stent. In the dome of the liver, segment 8, there is a 2.1 x 2.2 cm lesion which demonstrates arterial hyperenhancement and washout. There is a central hypodense component which remains hypodense on all phases of imaging. Peripherally however, there is washout. There is no definite pseudocapsule formation. Findings are suggestive of HCC, question recurrent in the setting of a prior TACE. There is another segment 8 lesion located in the periphery of the liver measuring 1.5 x 1.6 cm. There is peripheral arterial hyperenhancement. No definite washout is present. This lesion is indeterminate and could reflect a age related HCC.. There is a nonenhancing 9 x 1 mm, ovoid lesion within segment 6 of the liver, axial image 30. Given its linear nature, this probably reflects a remotely thrombosed vessel. The segment 2 lesion seen on prior MRI is not well visualized on this exam. Distended gallbladder with cholelithiasis. No evidence of acute cholecystitis. Unremarkable spleen, pancreas, adrenal glands, and kidneys. No acute abnormality of the hollow abdominal viscera. Weighted enteric tube terminates in the prepyloric stomach. Mild abdominal ascites. Probable remote hematomas involving the bilateral rectus musculature. No focal lytic or destructive bony process. IMPRESSION: There are 2 discrete segment 8 liver lesions. The lesion in the dome is suggestive of HCC. The lesion in the periphery of segment 8 is indeterminate but could reflect a treated HCC. Correlate with history. Cirrhosis status post TIPS procedure. Signed: Rashaun Bryant MD Report Verified Date/Time: 09/21/2017 22:08:10 Reading Location: [address] Consult Reading Room Prepare cryoprecipitate (09/20/2017 11:55 PM) Component Value Ref Range Unit ABO O Pos UNIT NUMBER [id number] Status TRANSFUSED Blood Bank Product CRYOPRECIPITATE PRODUCT CODE Z9261X67 Unit ABO O Pos UNIT NUMBER [id number] Status TRANSFUSED Blood Bank Product CRYOPRECIPITATE PRODUCT CODE [id number] Specimen Performing Laboratory Blood SAFETRACE TX CT sinus without iv contrast (09/20/2017 10:02 PM) Specimen Performing Laboratory [facility] Narrative FINAL REPORT CT sinuses Comparison: None Reason for exam: [Sepsis Discussion: Axial CT imaging of the sinuses with sagittal and coronal reconstructions was provided evaluated with bone and soft tissue algorithm. Dose modulation, iterative reconstruction, and/or weight based adjustment of the mA/kV was utilized to reduce the radiation dose to as low as reasonably achievable. There is a fluid level within the left sphenoid sinus. There is polypoid mucosal thickening and probable fluid right maxillary sinus. Remaining sinuses are aerated. Nasal septum has sharp deviation to the left. There is a right middle nasal turbinate gely bullosa. Orbital contents are unremarkable. Superficial and deep facial soft tissues are within normal limits. There are numerous opacified temporal bone air cells on both sides potentially reflecting NG tube placement. Impressions: Left sphenoid fluid and right maxillary sinus partial opacity as discussed. Correlate clinically for acute sinusitis. Signed: Yang Reece MD Report Verified Date/Time:09/20/2017 22:05:30 Procedure Note Interface, External Ris In - 09/20/2017 10:07 PM CUSTOMER EXPERIENCE LEADER FINAL REPORT CT sinuses Comparison: None Reason for exam: [Sepsis Discussion: Axial CT imaging of the sinuses with sagittal and coronal reconstructions was provided evaluated with bone and soft tissue algorithm. Dose modulation, iterative reconstruction, and/or weight based adjustment of the mA/kV was utilized to reduce the radiation dose to as low as reasonably achievable. There is a fluid level within the left sphenoid sinus. There is polypoid mucosal thickening and probable fluid right maxillary sinus. Remaining sinuses are aerated. Nasal septum has sharp deviation to the left. There is a right middle nasal turbinate gely bullosa. Orbital contents are unremarkable. Superficial and deep facial soft tissues are within normal limits. There are numerous opacified temporal bone air cells on both sides potentially reflecting NG tube placement. Impressions: Left sphenoid fluid and right maxillary sinus partial opacity as discussed. Correlate clinically for acute sinusitis. Signed: Yang Reece MD Report Verified Date/Time: 09/20/2017 22:05:30 brain without IV contrast (09/20/2017 10:02 PM) Specimen Performing Laboratory [facility] Narrative FINAL REPORT CT head without contrast. Comparisons: No Reason for exam: Acromegaly/gigantism ams. Discussion: Multiple axial CT images of the head are provided without contrast evaluated in brain and bone windows. Dose modulation, iterative reconstruction, and/or weight based adjustment of the mA/kV was utilized to reduce the radiation dose to as low as reasonably achievable. There is no CT evidence of intracranial hemorrhage, mass-effect, hydrocephalus, shift, or extra-axial collections. The sella has a grossly unremarkable unenhanced head CT appearance. The visualized dural sinus regions, orbital contents, bones and surrounding soft tissues are unremarkable. There is chronic opacification right maxillary sinus with probable fluid. There is also fluid layering in the left sphenoid sinus. Temporal bone airspace opacifications are noted as well. Impressions: 1. No specific evidence of acute intracranial abnormality. Signed: Yang Reece MD Report Verified Date/Time:09/20/2017 21:51:41 Procedure Note Interface, External Ris In - 09/20/2017 10:03 PM CUSTOMER EXPERIENCE LEADER FINAL REPORT CT head without contrast. Comparisons: No Reason for exam: Acromegaly/gigantism ams. Discussion: Multiple axial CT images of the head are provided without contrast evaluated in brain and bone windows. Dose modulation, iterative reconstruction, and/or weight based adjustment of the mA/kV was utilized to reduce the radiation dose to as low as reasonably achievable. There is no CT evidence of intracranial hemorrhage, mass-effect, hydrocephalus, shift, or extra-axial collections. The sella has a grossly unremarkable unenhanced head CT appearance. The visualized dural sinus regions, orbital contents, bones and surrounding soft tissues are unremarkable. There is chronic opacification right maxillary sinus with probable fluid. There is also fluid layering in the left sphenoid sinus. Temporal bone airspace opacifications are noted as well. Impressions: 1. No specific evidence of acute intracranial abnormality. Signed: Yang Reece MD Report Verified Date/Time: 09/20/2017 21:51:41 abdomen/pelvis without iv contrast (09/20/2017 10:02 PM) Specimen Performing Laboratory [facility] Narrative FINAL REPORT HISTORY : Sepsis TECHNIQUE :Multiple axial images of the chest, abdomen and pelvis were performed with 5 mm slice thickness without the administration of IV contrast but with oral contrast from the lung apices to the pubic symphysis. This exam was performed according to our departmental dose optimization program which includes automated exposure control, adjustment of the mA and/or kV according to patient size and/or use of iterative reconstructive technique. COMPARISON : CT of the abdomen dated 09/29/[address] of the chest dated 08/15/2016 CHEST : The thyroid gland is within normal limits. There is no hilar, mediastinal or axillary lymphadenopathy. There is atherosclerotic vascular disease. There is coronary atherosclerosis. There is cardiomegaly. There is a small right-sided pleural effusion with adjacent consolidation likely representing atelectasis. There is also a small loculated left-sided pleural effusion with some adjacent pleural thickening measuring 11.4 x 2.9 cm and is not appreciably changed. An empyema cannot be excluded. There is adjacent consolidation that has increased. This may represent atelectasis/collapse of the entire left lower lobe with some partial atelectasis of the lingula. Superimposed pneumonitis cannot be excluded. Multilevel degenerative disc changes of the thoracic spine are seen. No pneumothorax is seen. ABDOMEN/PELVIS: The visualized adrenal glands, kidneys, pancreas, stomach and duodenum are within normal limits. There is cirrhotic morphology of the liver. A TIPS shunt is in place. The gallbladder is distended. There is cholelithiasis. If there is a clinical concern for acute cholecystitis, findings should be correlated with a nuclear medicine HIDA scan. A feeding tube catheter is in place. The tip is seen in the distal stomach/first stage of the duodenum. There is no abdominal, retroperitoneal or pelvic lymphadenopathy. Multilevel degenerative disc changes of the thoracolumbar spine are seen. There is anasarca. Multilevel degenerative disc changes of the lumbar spine are seen. There appears to be some scrotal wall thickening. No free air is identified in the abdomen or pelvis. There is a small amount of nonspecific free fluid in the pelvis. No findings of any bowel obstruction. The small bowel is within normal limits. There is colonic diverticulosis. There are no CT findings to suggest diverticulitis. The appendix is visualized and is within normal limits. The prostate gland is mildly enlarged. The seminal vesicles are within normal limits. Impression: 1. Relatively stable left-sided loculated pleural effusion. 2. Increasing consolidation in the left lower lobe with findings suggestive of complete atelectasis/collapse of the left lower lobe. There is also some partial atelectasis of the lingula. 3. Small right-sided pleural effusion with adjacent consolidation. 4. Distended gallbladder. There is cholelithiasis. 5. Cirrhotic morphology of the liver. TIPS shunt is in place. 6. Splenomegaly. Of note, the examination is limited without the administration of IV contrast. Signed: Ga Batres MD Report Verified Date/Time:09/20/2017 22:10:21 Reading Location: [facility] [id number] Consult Reading Room Procedure Note Interface, External Ris In - 09/20/2017 10:12 PM CUSTOMER EXPERIENCE LEADER FINAL REPORT HISTORY : Sepsis TECHNIQUE : Multiple axial images of the chest, abdomen and pelvis were performed with 5 mm slice thickness without the administration of IV contrast but with oral contrast from the lung apices to the pubic symphysis. This exam was performed according to our departmental dose optimization program which includes automated exposure control, adjustment of the mA and/or kV according to patient size and/or use of iterative reconstructive technique. COMPARISON : CT of the abdomen dated 09/29/[address] of the chest dated 08/15/2016 CHEST : The thyroid gland is within normal limits. There is no hilar, mediastinal or axillary lymphadenopathy. There is atherosclerotic vascular disease. There is coronary atherosclerosis. There is cardiomegaly. There is a small right-sided pleural effusion with adjacent consolidation likely representing atelectasis. There is also a small loculated left-sided pleural effusion with some adjacent pleural thickening measuring 11.4 x 2.9 cm and is not appreciably changed. An empyema cannot be excluded. There is adjacent consolidation that has increased. This may represent atelectasis/collapse of the entire left lower lobe with some partial atelectasis of the lingula. Superimposed pneumonitis cannot be excluded. Multilevel degenerative disc changes of the thoracic spine are seen. No pneumothorax is seen. ABDOMEN/PELVIS: The visualized adrenal glands, kidneys, pancreas, stomach and duodenum are within normal limits. There is cirrhotic morphology of the liver. A TIPS shunt is in place. The gallbladder is distended. There is cholelithiasis. If there is a clinical concern for acute cholecystitis, findings should be correlated with a nuclear medicine HIDA scan. A feeding tube catheter is in place. The tip is seen in the distal stomach/first stage of the duodenum. There is no abdominal, retroperitoneal or pelvic lymphadenopathy. Multilevel degenerative disc changes of the thoracolumbar spine are seen. There is anasarca. Multilevel degenerative disc changes of the lumbar spine are seen. There appears to be some scrotal wall thickening. No free air is identified in the abdomen or pelvis. There is a small amount of nonspecific free fluid in the pelvis. No findings of any bowel obstruction. The small bowel is within normal limits. There is colonic diverticulosis. There are no CT findings to suggest diverticulitis. The appendix is visualized and is within normal limits. The prostate gland is mildly enlarged. The seminal vesicles are within normal limits. Impression: 1. Relatively stable left-sided loculated pleural effusion. 2. Increasing consolidation in the left lower lobe with findings suggestive of complete atelectasis/collapse of the left lower lobe. There is also some partial atelectasis of the lingula. 3. Small right-sided pleural effusion with adjacent consolidation. 4. Distended gallbladder. There is cholelithiasis. 5. Cirrhotic morphology of the liver. TIPS shunt is in place. 6. Splenomegaly. Of note, the examination is limited without the administration of IV contrast. Signed: Ga Batres MD Report Verified Date/Time: 09/20/2017 22:10:21 Reading Location: [facility] [id number] Consult Reading Room Lactic acid, arterial, whole blood (09/20/2017 1:11 PM)Only the most recent of3 resultswithin the time period is included. Component Value Ref Range Lactate, Art 1.0 0.5 - 2.2 mmol/L Specimen Performing Laboratory Blood, [place] [address] Narrative Effective 11/16/2015: Units/Reference Range Change New: 0.5-2.2 mmol/LPrevious: 5-20 mg/dL Specimen slightly icteric Occult blood, stool (09/20/2017 9:34 AM)Only the most recent of3 resultswithin the time period is included. Component Value Ref Range Occult blood Positive (A) Negative Specimen Performing Laboratory Stool [address] [address] Fibrinogen (09/20/2017 8:27 AM)Only the most recent of4 resultswithin the time period is included. Component Value Ref Range Fibrinogen 212 (L) 225 - 434 mg/dl Specimen Performing Laboratory Blood [address] [address] Transfuse cryoprecipitate (09/19/2017 10:59 PM)Only the most recent of3 resultswithin the time period is included.1:1 MIXING STUDY, NON-INCUBATED (09/19 3:40 PM) Component Value Ref Range Protime 19.5 (H) 11.7 - 14.7 seconds PTT 41.5 (H) 22.5 - 36.0 seconds PT 1/1 Mix 15.7 (H) 11.7 - 14.7 SECS PTT 1/1 Mix 32.9 22.5 - 36.0 SECS Specimen Performing Laboratory Blood [address] [address] REPORT OF PROCEDURE - ENDOSCOPY URL (09/18/2017 12:14 PM)Only the most recent of2 resultswithin the time period is included.Iron, TIBC, % sat. (without ferritin) (09/18/2017 3:31 AM)Only the most recent of3 resultswithin the time period is included. Component Value Ref Range Iron 81 40 - 160 ug/dL TIBC 126 (L) 250 - 450 ug/dL Iron % Saturation 64 (H) 20 - 55 % Specimen Performing Laboratory Blood - Central Venous Line [address] [address] Ferritin (09/18/2017 3:31 AM)Only the most recent of2 resultswithin the time period is included. Component Value Ref Range Ferritin 228 5 - 275 ng/mL Specimen Performing Laboratory Blood - Central Venous Line [address] [address] Clostridium difficile Toxin PCR (09/17/2017 9:39 PM) Component Value Ref Range C.Diff Toxin, PCR Not Detected Not Detected Specimen Performing Laboratory Stool [address] [address] Narrative This qualitative real-time polymerase chain reaction assay detects the tcdB gene, encoded on the C.difficile pathogenicity locus (PaLoc).The product of tcdB , toxin B, is a cytotoxin essential for causing C.difficile-associated disease (CDAD) and is found in virtually all toxigenic C.difficile. This assay is performed for patients suspected of having either community- acquired or nosocomial CDAD.Accordingly, only symptomatic patients should be tested and formed stools will be rejected unless ileus is present (i.e., specified when ordering).Patients may be colonized with toxigenic C.difficile strains not causing active disease; therefore, clinical correlation is needed when deciding how to manage patients with a positive test result. The assay has not been validated as a test of cure as amplifiable nucleic acid may persist after effective treatment; therefore, follow-up testing of a positive result is not recommended. Lactate dehydrogenase (LDH) (09/17/2017 5:09 PM)Only the most recent of3 resultswithin the time period is included. Component Value Ref Range LDH 178 125 - 220 U/L Specimen Performing Laboratory Blood [facility] [address] [address] [place] GI bleed study (09/17/2017 2:05 PM) Specimen Performing Laboratory [facility] Narrative FINAL REPORT PROCEDURE: HEMORRHAGE STUDY with RBCs CPT CODE: 59337 INDICATION: Gastrointestinal Bleeding PROTOCOL: 20.7 mCi ofTc-99m was injected intravenously as labeled autologous red blood cells. Flow images of the abdomen were obtained, followed by serial images for approximately 75 minutes. FINDINGS:There is early and progressive tracer accumulation in a curvilinear pattern arising in the left upper-mid abdomen and proceeding towards the right lower quadrant. IMPRESSION: 1. Mild, active, GI hemorrhage arising in the proximal to mid small bowel. Signed: Gordo Nobles MD Report Verified Date/Time:09/17/2017 14:36:52 Reading Location: [address] Reading Room Procedure Note Interface, External Ris In - 09/17/2017 2:39 PM CUSTOMER EXPERIENCE LEADER FINAL REPORT PROCEDURE: HEMORRHAGE STUDY with RBCs CPT CODE: 49659 INDICATION: Gastrointestinal Bleeding PROTOCOL: 20.7 mCi of Tc-99m was injected intravenously as labeled autologous red blood cells. Flow images of the abdomen were obtained, followed by serial images for approximately 75 minutes. FINDINGS: There is early and progressive tracer accumulation in a curvilinear pattern arising in the left upper-mid abdomen and proceeding towards the right lower quadrant. IMPRESSION: 1. Mild, active, GI hemorrhage arising in the proximal to mid small bowel. Signed: Gordo Nobles MD Report Verified Date/Time: 09/17/2017 14:36:52 Reading Location: [address] Reading Room Reticulocyte count (09/15/2017 6:24 AM)Only the most recent of2 resultswithin the time period is included. Component Value Ref Range % Retic 3.8 (H) 0.5 - 1.8 % Specimen Performing Laboratory Blood - Line, Arterial [address] [address] Cortisol (09/13/2017 3:02 PM)Only the most recent of2 resultswithin the time period is included. Component Value Ref Range Cortisol, Total 11.3 3.7 - 19.4 ug/dL Specimen Performing Laboratory Blood - Line, [address] [address] Erythropoietin (09/13/2017 3:02 PM)Only the most recent of3 resultswithin the time period is included. Component Value Ref Range Erythropoietin 60.4 (H) 2.6 - 18.5 mIU/mL Specimen Performing Laboratory Blood - Line, Arterial [facility] [address] [address] Narrative Performing Lab [facility] [address] [address] Saurabh Lacey MD, PhD Prepare Leuko-Red PLT (09/12/2017 11:54 PM)Only the most recent of5 resultswithin the time period is included. Component Value Ref Range Unit ABO O Pos UNIT NUMBER [id number] Status TRANSFUSED Blood Bank Product PLATELETS PRODUCT CODE [id number] Specimen Performing Laboratory Blood SAFETRACE [place] Prepare plasma (09/12/2017 11:54 PM) Component Value Ref Range Unit ABO O Pos UNIT NUMBER [id number] Status TRANSFUSED Blood Bank Product FFP PRODUCT CODE [id number] Unit ABO O Pos UNIT NUMBER [id number] Status TRANSFUSED Blood Bank Product FFP PRODUCT CODE [id number] Specimen Performing Laboratory Blood SAFETRACE [place] Transfuse Leuko-Red PLT (09/11/2017 7:35 PM)Only the most recent of10 resultswithin the time period is included.Transfuse plasma (09/11/2017 4:59 PM) Only the most recent of3 resultswithin the time period is included.pH, arterial (09/10/2017 10:24 PM)Only the most recent of11 resultswithin the time period is included. Component Value Ref Range pH, Arterial 7.33 (L) 7.35 - 7.45 Specimen Performing Laboratory Blood, [address] [address] CARDIAC CATH REPORT - SCAN (09/10/2017 9:22 PM)Protein electrophoresis, serum ( 09/10/2017 4:47 AM) Component Value Ref Range Albumin Fraction 2.3 (L) 3.5 - 5.5 g/dL Alpha 1 Fraction 0.2 0.2 - 0.4 g/dL Alpha 2 Fraction 0.3 (L) 0.5 - 0.9 g/dL Beta Fraction 0.5 (L) 0.6 - 1.1 g/dL Gamma Globulin Fraction 1.4 0.7 - 1.7 g/dL Interpretation Decreased albumin with minor fluctuations in alpha and beta globulins. No monoclonal bands detected. Pathologist: Melanie Cedeno MD (electronic signature) Protein, Total 4.7 (L) 6.0 - 8.3 gm/dL Specimen Performing Laboratory Blood - Line, [address] [address] Potassium (09/09/2017 8:44 PM) Component Value Ref Range Potassium 4.4 3.5 - 5.1 meq/L Specimen Performing Laboratory Blood - Line, [address] [address] Narrative Add to specimen collected 17 mins ago FL fluoro non-specific up to 1 hour (09/05/2017 4:20 PM) Specimen Performing Laboratory GE [facility] Narrative FINAL REPORT Fluoroscopy guided feeding tube placement Technique: Feeding tube placement was performed under fluoroscopy. Total fluoroscopy time: 1.2 minutes Total number of films: 5 FINDINGS: A feeding tube was placed under fluoroscopic guidance. Approximately, 30 cc of contrast was injected to confirm the location of the feeding tube. The feeding tube was negotiated into the gastroduodenal junction but could not be advanced further despite multiple attempts. IMPRESSION: Fluoroscopy guided feeding tube placement as above. Signed: Axel Lopez MD Report Verified Date/Time:09/05/2017 16:43:17 Reading Location: [facility] C013X Ortho Consult Reading Room Procedure Note Interface, External Ris In - 09/05/2017 4:45 PM CUSTOMER EXPERIENCE LEADER FINAL REPORT Fluoroscopy guided feeding tube placement Technique: Feeding tube placement was performed under fluoroscopy. Total fluoroscopy time: 1.2 minutes Total number of films: 5 FINDINGS: A feeding tube was placed under fluoroscopic guidance. Approximately, 30 cc of contrast was injected to confirm the location of the feeding tube. The feeding tube was negotiated into the gastroduodenal junction but could not be advanced further despite multiple attempts. IMPRESSION: Fluoroscopy guided feeding tube placement as above. Signed: Axel Lopez MD Report Verified Date/Time: 09/05/2017 16:43:17 Reading Location: [facility] B1 C013X Ortho Consult Reading Room Peripheral Blood Smear - Hold only (09/05/2017 4:11 AM) Component Value Ref Range Peripheral Smear Save saved Specimen Performing [place] [address] Heparin antibody (09/04/2017 2:51 PM) Component Value Ref Range Heparin Ab Negative Negative Heparin Antibody Optical Density 0.152 <0.400 4T Total Score 5 Specimen Performing Laboratory Blood [address] [address] Narrative Probability of HIT based on scoring system: 6-8=High probability; 4-5=intermediate probability; 0-3=low probability Direct AHG (VERENA)/Direct Christian (09/04/2017 2:51 PM) Component Value Ref Range Direct AHG-IGG NEGATIVE Direct AHG-C3B, C3D NEGATVIE Specimen Performing Laboratory Blood [address] [address] Haptoglobin (09/04/2017 2:51 PM) Component Value Ref Range Haptoglobin 41 14 - 258 mg/dL Specimen Performing Laboratory Blood [address] [address] Cryptococcal antigen (09/04/2017 4:29 AM) Component Value Ref Range Cryptococcal Antigen, Serum Negative Negative, Interference Specimen Performing Laboratory Blood [address] [address] Respiratory Panel SLHS (09/01/2017 3:55 PM) Component Value Ref Range Human Metapneumovirus Not detected Not detected, Inconclusive Rhinovirus Not detected Not detected, Inconclusive Influenza A Not detected Not detected, Inconclusive Influenza A subtype H1 Not detected Not detected, Inconclusive Influenza A Subtype H3 Not detected Not detected, Inconclusive Influenza A Subtype H1-2009 Not detected Not detected, Inconclusive Influenza B Not detected Not detected, Inconclusive Respiratory Syncytial Virus Not detected Not detected, Inconclusive Parainfluenza Virus 1 Not detected Not detected, Inconclusive Parainfluenza Virus 2 Not detected Not detected, Inconclusive Parainfluenza virus 3 Not detected Not detected, Inconclusive Parainfluenza Virus 4 Not detected Not detected, Inconclusive Adenovirus Not detected Not detected, Inconclusive Coronavirus 229E Not detected Not detected, Inconclusive Coronavirus HKU1 Not detected Not detected, Inconclusive Coronavirus NL63 Not detected Not detected, Inconclusive Coronavirus OC43 Not detected Not detected, Inconclusive Bordetella Pertussis Not detected Not detected, Inconclusive Chlamydophila Pneumoniae Not detected Not detected, Inconclusive Mycoplasma Pneumoniae Not detected Not detected, Inconclusive Specimen Performing Laboratory Nasopharyngeal - Nasopharyngeal Swab [address] [address] POC-Lactic Acid, Arterial (08/30/2017 6:26 AM) Component Value Ref Range POC-Lactic Acid, Arterial 2.3 (H)Comment: TESTED AT [place] [address] 0.4 - 1.3 mmol /L [facility] [address] Specimen Performing Laboratory Blood [address] [address] POCT-HEMATOCRIT (08/30/2017 6:21 AM) Component Value Ref Range POC-Hematocrit 24 (L)Comment: TESTED AT [address] [address] 40 - 50 % Specimen Performing Laboratory Blood [address] [address] POCT-HEMOGLOBIN (08/30/2017 6:21 AM) Component Value Ref Range POC-Hemoglobin 8.2 (L)Comment: TESTED AT [address] 13.0 - 16.8 g/[place] [address] Specimen Performing Laboratory Blood [address] [address] POCT-GLUCOSE (08/30/2017 6:21 AM) Component Value Ref Range POC-Glucose 101Comment: TESTED AT [place] [address] 70 - 110 mg/dL Specimen Performing Laboratory Blood [address] [address] POC-Sodium (08/30/2017 6:21 AM) Component Value Ref Range POC-Sodium 139Comment: TESTED AT [place] [address] 135 - 148 meq/L Specimen Performing Laboratory Blood [address] [address] POC-Potassium (08/30/2017 6:21 AM) Component Value Ref Range POC-Potassium 4.5Comment: TESTED AT [address] 3.6 - 5.5 meq/L [facility] Specimen Performing Laboratory Blood [address] [address] POC-Calcium ionized (08/30/2017 6:21 AM) Component Value Ref Range POC-Calcium Ionized 1.06 (L)Comment: TESTED AT [address] 1.12 - 1.27 mmol/L [facility] [address] Specimen Performing Laboratory Blood [address] [address] POC-Blood gases, arterial (08/30/2017 6:21 AM) Component Value Ref Range Temp. Celsius-POC 35.4 FIO2-POC 36Comment: TESTED AT [address] [address] pH, Arterial-POC 7.230 (L) 7.350 - 7.450 PCO2, Arterial-POC 60.8 (H) 35.0 - 45.0 mm Hg PO2, Arterial-POC 68.0 (L) 80.0 - 90.0 mm Hg SO2, Arterial-POC 91.0 (L) 96.0 - 97.0 % HCO3, Arterilal-POC 26.0 21.0 - 29.0 meq/L BE, Arterial-POC -2.0 -2.0 - 3.0 meq/L Specimen Performing Laboratory Blood [address] [address] TSH/Free T4 If Indicated (08/30/2017 6:19 AM) Component Value Ref Range TSH 2.39 0.35 - 4.94 uIU/mL Specimen Performing Laboratory Blood - Arm, [address] [address] Vitamin D, 25-Hydroxy (08/30/2017 6:19 AM) Component Value Ref Range Vitamin D 25-Hydroxy 7.5 6.6 - 49.9 ng/mL Specimen Performing Laboratory Blood - Arm, [address] [address] Narrative Effective 04/24/2017: Reference Range Change New: 6.6-49.9 ng/mL Previous: 13.0-47.8 ng/mL Recommended Vitamin D Target Range: 30.0-40.0 ng/mL PTH, intact (08/30/2017 6:19 AM) Component Value Ref Range PTH 269.7 (H) 8.5 - 72.5 pg/mL Specimen Performing Laboratory Blood - Arm, [address] [address] Creatine Kinase (CK) (08/30/2017 6:19 AM) Component Value Ref Range Total CK 200 29 - 200 U/L Specimen Performing Laboratory Blood - Arm, [address] [address] Hepatitis B surface antigen (08/29/2017 11:06 PM) Component Value Ref Range hepatitis B Surface Ag Reactive (A) Nonreactive Specimen Performing Laboratory Blood [address] [address] US renal complete (08/29/2017 8:00 PM) Specimen Performing Laboratory GE RIS Narrative FINAL REPORT Ultrasound of the Kidneys Clinical History:Acute renal failure Discussion: Sonographic evaluation of the kidneys is performed. Right kidney:Measures 8.7 x 4.8 cm, with cortical thickness of 1.5 cm.Normal cortical echogenicity.No mass.No shadowing calculus. No hydronephrosis. Left kidney: Measures 10.3 x 4.7 cm, with cortical thickness of 1.5 cm.Normal cortical echogenicity.No mass.No shadowing calculus. No hydronephrosis. Limited doppler evaluation of bilateral main renal arteries and veins demonstrate patency. Bladder:Unremarkable. Impression: Unremarkable renal ultrasound. No hydronephrosis. Signed: Gustavo Blanc MD Report Verified Date/Time:08/29/2017 23:00:08 Reading Location: [address] Consult Reading Room Procedure Note Interface, External Ris In - 08/29/2017 11:02 PM CUSTOMER EXPERIENCE LEADER FINAL REPORT Ultrasound of the Kidneys Clinical History: Acute renal failure Discussion: Sonographic evaluation of the kidneys is performed. Right kidney: Measures 8.7 x 4.8 cm, with cortical thickness of 1.5 cm. Normal cortical echogenicity. No mass. No shadowing calculus. No hydronephrosis. Left kidney: Measures 10.3 x 4.7 cm, with cortical thickness of 1.5 cm. Normal cortical echogenicity. No mass. No shadowing calculus. No hydronephrosis. Limited doppler evaluation of bilateral main renal arteries and veins demonstrate patency. Bladder: Unremarkable. Impression: Unremarkable renal ultrasound. No hydronephrosis. Signed: Gustavo Blanc MD Report Verified Date/Time: 08/29/2017 23:00:08 Reading Location: [facility] B1 C013W Consult Reading Room Non-tunneled Catheter - Central Line/Rod Temporary (08/29/2017 7:10 PM) Specimen Performing Laboratory GE RIS Narrative FINAL REPORT Nontunneled dialysis catheter insertion,. History: Renal failure. Modality: Fluoroscopy and sonography. Sedation: None. Fabrication Lead:Julius Sow MD. Legal Researcher:None. Approach: Right internal jugular vein Estimated blood loss:< 5 cc. Specimen: None. Fluoroscopy Time: 0.7 min. Reference Air Kerma (Ka, r): 4.6 mGy. Technique: Informed written consent was obtained. Discussion of risks, benefits, and alternatives were made with the patient. The patient expressed understanding and agreed to proceed.A universal timeout was performed prior to starting the procedure.All elements maximal sterile barrier technique was utilized for this procedure, including utilization of sterile scrub solution for skin prep, a large sterile sheet to cover the areas of the patient that were not prepped, and hand hygiene, mask, head covering, and sterile gown for performing radiologist and scrub technologist. The skin was anesthetized with 2% lidocaine. Ultrasound evaluation showed a patent and compressible right internal jugular vein, which was punctured under direct real-time ultrasound guidance with a micropuncture needle.An ultrasound image was saved to PACS. A microwire and sheath were placed. A 0.035 inch wire was placed through the sheath into the right atrium. The tract was dilated. The 15 cm 13 [place] Trialysis catheter was placed over the wire with its distal tip terminating in the superior right atrium.The ports were flushed and aspirated easily following placement.Lumens were locked with heparin. The catheter was sutured to the skin to secure its placement.Vital signs were monitored throughout the procedure by a nurse, and remained stable.The patient tolerated the procedure well and left the department in the same condition. Results:Spot radiograph of the chest demonstrates the new Trialysis catheter to lie in the expected position with its tip overlying the right atrium. Impression: Successful, uncomplicated placement of a right internal jugular nontunneled Trialysis catheter using sonographic and fluoroscopic guidance.The catheter is ready for immediate use. Signed: Julius Sow MD Report Verified Date/Time:08/29/2017 19:11:26 Reading Location: [place] [address] Angio Body Reading Room Procedure Note Interface, External Ris In - 08/29/2017 7:51 PM CUSTOMER EXPERIENCE LEADER FINAL REPORT Nontunneled dialysis catheter insertion,. History: Renal failure. Modality: Fluoroscopy and sonography. Sedation: None. Fabrication Lead: Julius Sow MD. Legal Researcher: None. Approach: Right internal jugular vein Estimated blood loss: < 5 cc. Specimen: None. Fluoroscopy Time: 0.7 min. Reference Air Kerma (Ka, r): 4.6 mGy. Technique: Informed written consent was obtained. Discussion of risks, benefits, and alternatives were made with the patient. The patient expressed understanding and agreed to proceed. A universal timeout was performed prior to starting the procedure. All elements maximal sterile barrier technique was utilized for this procedure, including utilization of sterile scrub solution for skin prep, a large sterile sheet to cover the areas of the patient that were not prepped, and hand hygiene, mask, head covering, and sterile gown for performing radiologist and scrub technologist. The skin was anesthetized with 2% lidocaine. Ultrasound evaluation showed a patent and compressible right internal jugular vein, which was punctured under direct real-time ultrasound guidance with a micropuncture needle. An ultrasound image was saved to PACS. A microwire and sheath were placed. A 0.035 inch wire was placed through the sheath into the right atrium. The tract was dilated. The 15 cm 13 [place] Trialysis catheter was placed over the wire with its distal tip terminating in the superior right atrium. The ports were flushed and aspirated easily following placement. Lumens were locked with heparin. The catheter was sutured to the skin to secure its placement. Vital signs were monitored throughout the procedure by a nurse, and remained stable. The patient tolerated the procedure well and left the department in the same condition. Results: Spot radiograph of the chest demonstrates the new Trialysis catheter to lie in the expected position with its tip overlying the right atrium. Impression: Successful, uncomplicated placement of a right internal jugular nontunneled Trialysis catheter using sonographic and fluoroscopic guidance. The catheter is ready for immediate use. Signed: Julius Sow MD Report Verified Date/Time: 08/29/2017 19:11:26 Reading Location: [place] [address] Angio Body Reading Room Vitamin B12 and Folate (08/29/2017 7:07 AM) Component Value Ref Range Vitamin B12 1784 (H) 213 - 816 pg/mL Folate 11.7 >=7.0 ng/mL Specimen Performing Laboratory Blood - Arm, Left [address] [address] NM octreotide scan (05/16/2017 2:39 PM) Specimen Performing Laboratory GE RIS Narrative FINAL REPORT PROCEDURE: OCTREOSCAN - Tumor Localization CPT CODE:99418, 55885, [address] INDICATION:Carcinoid tumor of the ileum PROTOCOL:6.1 mCi of In-111 pentetreotide was injected intravenously.Images were obtained 5 and 27 hours after tracer injection and included whole body and spot images on both days as well as tomographic (SPECT) images of the abdomen on Day 1 and of the chest on Day 2. Limited low-dose CT images were also obtained for anatomic correlation. FINDINGS:Tracer distribution is physiological. IMPRESSION: Normal Octreoscan. No evidence of somatostatin receptor positive neoplasm is identified. Signed: Gordo Nobles MD Report Verified Date/Time:05/16/2017 16:21:04 Reading Location: [address] Reading Room Procedure Note Interface, External Ris In - 05/16/2017 4:23 PM CDT FINAL REPORT PROCEDURE: OCTREOSCAN - Tumor Localization CPT CODE: 09365, 80276, [address]62 INDICATION: Carcinoid tumor of the ileum PROTOCOL: 6.1 mCi of In-111 pentetreotide was injected intravenously. Images were obtained 5 and 27 hours after tracer injection and included whole body and spot images on both days as well as tomographic (SPECT) images of the abdomen on Day 1 and of the chest on Day 2. Limited low-dose CT images were also obtained for anatomic correlation. FINDINGS: Tracer distribution is physiological. IMPRESSION: Normal Octreoscan. No evidence of somatostatin receptor positive neoplasm is identified. Signed: Gordo Nobles MD Report Verified Date/Time: 05/16/2017 16:21:04 Reading Location: [address] Reading Room after 11/09/2016
--- OUTSIDE RECORDS SUMMARY | 2017-11-10 11:13 | XMS REPORT ---
:1950 [facility] Address [address] Smart [address] [place] [id number] Care Team Providers Name Role Phone ELIZABETH HILARIO Unavailable Unavailable ONELLIGIA POZO Unavailable Unavailable RONALOS BHAMIDIPATI Unavailable Unavailable JO VALENCIA Unavailable Unavailable Tiffani ROUSE Unavailable Unavailable PADMINI HUTCHISON Unavailable Unavailable MARYCARMEN ALANIS Unavailable Unavailable Problems This patient has no known problems. Allergies, Adverse Reactions, Alerts This patient has no known allergies or adverse reactions. Medications This patient has no known medications. Results Test Description Test Time Test Comments Text Results Atomic Results Result Comments CT, ABDOMEN 2017-11-07 Referring: Addnurisum BeginsREPORT STATUS:A 04:05:00 [facility] The portal abdomen liver vein measures 1.7 cm at the level protocol of the javi hepatis. Signed: Rashaun Allred MDReport Verified Date/Time: 11/07/2017 04:05:55 Reading Location: [address] Ortho Consult Reading RoomAddendum EndsFINAL REPORT CT, ABDOMEN \\T\\ PELVIS, WITHOUT \\T\\ WITH IV CONTRAST INDICATION: "Neoplasm: liver/biliary, rx monitor or f/uEvaluate liver mass" COMPARISON: MRI abdomen 07/23/2017 CT [...] FINDINGS: Stable bibasilar airspace disease, atelectatic versus pneumonic.Stable loculated left-sided effusion. Empyema not excluded although findings been stable since at least 04/18/2017. The liver is cirrhotic and there is a patent TIPS stent.In the dome of the liver, segment 8, there is a 2.1 x 2.2 cm lesion which demonstrates arterial hyperenhancement and washout. There is a central hypodense component which remains hypodense on all phases of imaging. Peripherally however, there is washout. There is no definite pseudocapsule formation. Findings are suggestive of HCC, question recurrent in the setting of a prior TACE.There is another segment 8 lesion located in the periphery of the liver measuring 1.5 x 1.6 cm. There is peripheral arterial hyperenhancement. No definite washout is present. This lesion is indeterminate and could reflect a age related HCC..There is a nonenhancing 9 x 1 mm, ovoid lesion within segment 6 of the liver, axial image 30. Given its linear nature, this probably reflects a remotely thrombosed vessel.The segment 2 lesion seen on prior MRI is not well visualized on this exam. Distended gallbladder with cholelithiasis. No evidence of acute cholecystitis.Unremarkable spleen, pancreas, adrenal glands, and kidneys. No acute abnormality of the hollow abdominal viscera.Weighted enteric tube terminates in the prepyloric stomach. Mild abdominal ascites.Probable remote hematomas involving the bilateral rectus musculature. No focal lytic or destructive bony process. IMPRESSION:There are 2 discrete segment 8 liver lesions. The lesion in the dome is suggestive of HCC.The lesion in the periphery of segment 8 is indeterminate but could reflect a treated HCC. Correlate with history.Cirrhosis status post TIPS procedure. Signed: Rashaun Allred MDReport Verified Date/Time: 09/21/2017 22:08:10 Reading Location: [facility] B1 C013X Ortho Consult Reading Room BLANCO 2017-11-02 Referring: FINAL REPORT PATIENT ID: VENOUS CATH 14:04:00 [facility] [id number] Tunneled central venous PLCMT (JUG/FEM) Reason for catheter insertion > 5 Y.O. exam:->Needs WITH FLUORO intermediate frame tender IV antibiotics. Tunneled Central History: Patient requires Line. 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 Callejas Modality: Sonography and fluoroscopy. Sedation: None International Manager: Jase. Environmental Conservation Officer: None. Approach: Right internal jugular vein Estimated [...] by blunt dissection. A 21 cm 6 [place] [employer] Line catheter was brought through [...] tunneled central venous catheter. Signed: Gustavo Laguna MDReport Verified Date/Time: 11/02/2017 14:04:10 Reading Location: [place] [id number] [facility] Body Reading Room -GLUCOSE METER 2017-11-02 12:20:00 Test Item Value Reference Range Comments POC-GLUCOSE METER (BEAKER) (test 98 mg/dL 70-110 TESTED AT [facility] [address] [facility] ukqn=2722) [facility] [address] BASIC METABOLIC [id number] 08:58:00 Test Item Value Reference Range Comments SODIUM (BEAKER) (test 137 meq/L 136-145 yrut=437) POTASSIUM (BEAKER) (test 4.2 meq/L 3.5-5.1 culz=524) CHLORIDE (BEAKER) (test 106 meq/L 98-107 bouc=114) CO2 (BEAKER) (test 24 meq/L 22-29 ltgk=691) BLOOD UREA NITROGEN 31 mg/dL 7-21 (BEAKER) (test dpks=835) CREATININE (BEAKER) (test 4.30 mg/dL 0.57-1.25 hpjv=561) GLUCOSE RANDOM (BEAKER) 55 mg/dL 70-105 (test keln=505) CALCIUM (BEAKER) (test 8.1 mg/dL 8.4-10.2 rsyv=092) EGFR (BEAKER) (test 14 mL/min/1.73 sq m ESTIMATED GFR IS NOT xlon=5272) ACCURATE CREATININE CLEARANCE IN PREDICTING GLOMERULAR FILTRATION RATE. ESTIMATED GFR IS NOT APPLICABLE FOR DIALYSIS PATIENTS. [id number] 08:56:00 Test Item Value Reference Range Comments PHOSPHORUS (BEAKER) (test iuhv=835) 6.0 mg/dL 2.3-4.7 [id number] 08:56:00 Test Item Value Reference Range Comments MAGNESIUM (BEAKER) (test ycgi=027) 1.8 mg/dL 1.6-2.6 CBC W/PLT COUNT & AUTO [id number] 08:56:00 Test Item Value Reference Range Comments WHITE BLOOD CELL COUNT (BEAKER) (test cqjq=885) 6.6 K/ L 3.5-10.5 RED BLOOD CELL COUNT (BEAKER) (test avmp=119) 2.05 M/ L 4.63-6.08 HEMOGLOBIN (BEAKER) (test xdym=664) 6.9 GM/DL 13.7-17.5 HEMATOCRIT (BEAKER) (test odga=753) 22.2 % 40.1-51.0 MEAN CORPUSCULAR VOLUME (BEAKER) (test mklp=385) 108.3 fL 79.0-92.2 MEAN CORPUSCULAR HEMOGLOBIN (BEAKER) (test 33.7 pg 25.7-32.2 diff=229) MEAN CORPUSCULAR HEMOGLOBIN CONC (BEAKER) (test 31.1 GM/DL 32.3-36.5 odnl=808) RED CELL DISTRIBUTION WIDTH (BEAKER) (test 21.6 % 11.6-14.4 dtns=411) PLATELET COUNT (BEAKER) (test ltrf=695) 80 K/CU MM 150-450 MEAN PLATELET VOLUME (BEAKER) (test rfgb=436) 11.9 fL 9.4-12.4 NUCLEATED RED BLOOD CELLS (BEAKER) (test 0 /100 WBC 0-0 ityo=418) NEUTROPHILS RELATIVE PERCENT (BEAKER) (test 70 % rqzp=670) LYMPHOCYTES RELATIVE PERCENT (BEAKER) (test 10 % erou=524) MONOCYTES RELATIVE PERCENT (BEAKER) (test 16 % bfmx=397) EOSINOPHILS RELATIVE PERCENT (BEAKER) (test 2 % mqti=352) BASOPHILS RELATIVE PERCENT (BEAKER) (test 1 % zjtt=445) NEUTROPHILS ABSOLUTE COUNT (BEAKER) (test 4.64 K/ L 1.78-5.38 zbyr=792) LYMPHOCYTES ABSOLUTE COUNT (BEAKER) (test 0.67 K/ L 1.32-3.57 crrc=443) MONOCYTES ABSOLUTE COUNT (BEAKER) (test rppx=375) 1.06 K/ L 0.30-0.82 EOSINOPHILS ABSOLUTE COUNT (BEAKER) (test 0.14 K/ L 0.04-0.54 bqnf=181) BASOPHILS ABSOLUTE COUNT (BEAKER) (test kwtj=835) 0.07 K/ L 0.01-0.08 IMMATURE GRANULOCYTES-RELATIVE PERCENT (BEAKER) 1 % 0-1 (test depg=5914) RAD, CHEST, 1 VIEW, NON [id number] 08:36:00Referring: Dr. Hill WorkenehReason for exam:->eval empyemaShould this be performed at the bedside ?->YesFINAL REPORT Chest one view INDICATION: Empyema COMPARISON: [...] lines are again seen. No significant change since11/01/2017. Signed : Bryant Wood MDReport Verified Date/Time: 11/02/2017 08:36:06 Reading Location: [address] Neuro Reading Room HEPATIC FUNCTION [id number] 07:46:00 Test Item Value Reference Range Comments TOTAL PROTEIN (BEAKER) (test nqjs=728) 4.5 gm/dL 6.0-8.3 ALBUMIN (BEAKER) (test klyo=4480) 1.7 g/dL 3.5-5.0 BILIRUBIN TOTAL (BEAKER) (test dtmn=908) 1.1 mg/dL 0.2-1.2 BILIRUBIN DIRECT (BEAKER) (test kcha=464) 0.7 mg/dL 0.1-0.5 ALKALINE PHOSPHATASE (BEAKER) (test iole=123) 115 U/L 40-150 AST (SGOT) (BEAKER) (test cydv=998) 22 U/L 5-34 ALT (SGPT) (BEAKER) (test ydla=466) 10 U/L 6-55 PROTHROMBIN [id number] 06:54:00 Test Item Value Reference Range Comments PROTIME (BEAKER) (test vzav=695) 16.6 seconds 11.7-14.7 INR (BEAKER) (test pfva=010) 1.3 <=5.9 RECOMMENDED COUMADIN/WARFARIN INR THERAPY RANGESSTANDARD DOSE: 2.0 - 3.0 Includes: PROPHYLAXIS forvenous thrombosis, systemic embolization; TREATMENT for venous thrombosis and/or pulmonary embolus.HIGH RISK: Target INR is 2.5-3.5 for patients with mechanical heart valves.POCT-GLUCOSE [id number] 21:56:00 Test Item Value Reference Range Comments POC-GLUCOSE METER (BEAKER) 97 mg/dL 70-110 TESTED AT [address] (test gmpx=5548) [facility] [address] POCT-GLUCOSE [id number] 17:50:00 Test Item Value Reference Range Comments POC-GLUCOSE METER (BEAKER) 141 mg/dL 70-110 TESTED AT [facility] [address] [facility] (test hkty=4886) [facility] [address] POCT-GLUCOSE [id number] 11:53:00 Test Item Value Reference Range Comments POC-GLUCOSE METER (BEAKER) 153 mg/dL 70-110 TESTED AT [place] [id number] [facility] (test zvxl=0901) [facility] [address] RAD, CHEST, 1 VIEW, NON [id number] 08:31:00Referring: Dr. Liz GarciahRrandion for exam:->eval empyemaShould this be performed at the bedside ?->YesFINAL REPORT Chest one view INDICATION: Empyema COMPARISON: 10/31/2017 IMPRESSION: Left-sided pleural thickening and effusion and small volume pleural gas are similar as is left mid and lower lung consolidation. Additional interstitial and ground glass opacities may reflect edemaor atypical pneumonitis. Small right pleural effusion is present. The enlarged cardiac silhouette ispartially obscured. Right jugular lines are again seen. No significant change since 10/31/2017. Signed: Bryant [facility]the [facility] Verified Date/Time: 11/01/2017 08:31:57 Reading Location: [facility] Radiology Reading Room HEPATIC FUNCTION [id number] 07:17:00 Test Item Value Reference Range Comments TOTAL PROTEIN (BEAKER) (test dypx=311) 4.4 gm/dL 6.0-8.3 ALBUMIN (BEAKER) (test phqi=3956) 1.7 g/dL 3.5-5.0 BILIRUBIN TOTAL (BEAKER) (test ejlr=762) 1.0 mg/dL 0.2-1.2 BILIRUBIN DIRECT (BEAKER) (test uynu=194) 0.7 mg/dL 0.1-0.5 ALKALINE PHOSPHATASE (BEAKER) (test pioo=938) 101 U/L 40-150 AST (SGOT) (BEAKER) (test uewh=587) 20 U/L 5-34 ALT (SGPT) (BEAKER) (test avta=367) 13 U/L 6-55 PROTHROMBIN [id number] 07:02:00 Test Item Value Reference Range Comments PROTIME (BEAKER) (test kzne=517) 19.4 seconds 11.7-14.7 INR (BEAKER) (test hrfm=334) 1.6 <=5.9 RECOMMENDED COUMADIN/WARFARIN INR THERAPY RANGESSTANDARD DOSE: 2.0 - 3.0 Includes: PROPHYLAXIS forvenous thrombosis, systemic embolization; TREATMENT for venous thrombosis and/or pulmonary embolus.HIGH RISK: Target INR is 2.5-3.5 for patients with mechanical heart valves.POCT-GLUCOSE [id number] 22:49:00 Test Item Value Reference Range Comments POC-GLUCOSE METER (BEAKER) 147 mg/dL 70-110 TESTED AT [address] (test husn=0769) [place] [id number] POCT-GLUCOSE [id number] 15:07:00 Test Item Value Reference Range Comments POC-GLUCOSE METER (BEAKER) 94 mg/dL 70-110 TESTED AT [address] (test sert=1701) [facility] [address] BASIC METABOLIC [id number] 10:50:00 Test Item Value Reference Range Comments SODIUM (BEAKER) (test 138 meq/L 136-145 wsui=353) POTASSIUM (BEAKER) (test 4.6 meq/L 3.5-5.1 tljw=654) CHLORIDE (BEAKER) (test 107 meq/L 98-107 igmk=983) CO2 (BEAKER) (test 22 meq/L 22-29 otoi=665) BLOOD UREA NITROGEN 32 mg/dL 7-21 (BEAKER) (test oqbr=296) CREATININE (BEAKER) (test 4.60 mg/dL 0.57-1.25 rxnz=225) GLUCOSE RANDOM (BEAKER) 95 mg/dL 70-105 (test ythx=782) CALCIUM (BEAKER) (test 8.3 mg/dL 8.4-10.2 hjnz=021) EGFR (BEAKER) (test 13 mL/min/1.73 sq m ESTIMATED GFR IS NOT yuks=5606) ACCURATE CREATININE CLEARANCE IN PREDICTING GLOMERULAR FILTRATION RATE. ESTIMATED GFR IS NOT APPLICABLE FOR DIALYSIS PATIENTS. HEPATIC FUNCTION [id number] 10:50:00 Test Item Value Reference Range Comments TOTAL PROTEIN (BEAKER) (test iwuf=913) 4.7 gm/dL 6.0-8.3 ALBUMIN (BEAKER) (test gdkq=4386) 1.7 g/dL 3.5-5.0 BILIRUBIN TOTAL (BEAKER) (test igpw=687) 1.1 mg/dL 0.2-1.2 BILIRUBIN DIRECT (BEAKER) (test eegx=225) 0.7 mg/dL 0.1-0.5 ALKALINE PHOSPHATASE (BEAKER) (test gqmg=128) 100 U/L 40-150 AST (SGOT) (BEAKER) (test yzin=542) 23 U/L 5-34 ALT (SGPT) (BEAKER) (test siru=552) 14 U/L 6-55 [id number] 10:44:00 Test Item Value Reference Range Comments PHOSPHORUS (BEAKER) (test vkln=131) 6.4 mg/dL 2.3-4.7 [id number] 10:44:00 Test Item Value Reference Range Comments MAGNESIUM (BEAKER) (test epmu=821) 1.7 mg/dL 1.6-2.6 PROTHROMBIN [id number] 10:26:00 Test Item Value Reference Range Comments PROTIME (BEAKER) (test zgsw=541) 18.9 seconds 11.7-14.7 INR (BEAKER) (test xrxt=585) 1.6 <=5.9 RECOMMENDED COUMADIN/WARFARIN INR THERAPY RANGESSTANDARD DOSE: 2.0 - 3.0 Includes: PROPHYLAXIS forvenous thrombosis, systemic embolization; TREATMENT for venous thrombosis and/or pulmonary embolus.HIGH RISK: Target INR is 2.5-3.5 for patients with mechanical heart valves.RAD, CHEST, 1 VIEW, NON [id number] 10:19:00Referring: Dr. Liz Grove for exam:->eval empyemaShould this be performed at the bedside?->YesFINAL REPORT Chest one view INDICATION: Empyema COMPARISON: 10/30/2017 IMPRESSION: Left sided pleural thickening and effusion and small volume pleural gas are similar as is left mid and lower lung consolidation. Additional bilateral interstitial and ground glass opacities may reflect edema, pneumonitis, or a combination thereof. A small right pleural effusion is present. The enlarged cardiac silhouette is partially obscured. Right jugular lines are again seen. Signed: Bryant Wood MDReport Verified Date/Time: 10/31/2017 10:19:26 Reading Location: [facility] Radiology Reading Room POCT-GLUCOSE [id number] 07: 49:00 Test Item Value Reference Range Comments POC-GLUCOSE METER (BEAKER) 90 mg/dL 70-110 TESTED AT [facility] [address] [facility] (test lzhp=9500) [facility] [address] CBC W/PLT COUNT & AUTO [id number] 07:01:00 Test Item Value Reference Range Comments WHITE BLOOD CELL COUNT (BEAKER) (test svhp=478) 7.5 K/ L 3.5-10.5 RED BLOOD CELL COUNT (BEAKER) (test czfi=442) 2.11 M/ L 4.63-6.08 HEMOGLOBIN (BEAKER) (test gpfw=701) 7.1 GM/DL 13.7-17.5 HEMATOCRIT (BEAKER) (test qgyn=922) 23.0 % 40.1-51.0 MEAN CORPUSCULAR VOLUME (BEAKER) (test qpvh=195) 109.0 fL 79.0-92.2 MEAN CORPUSCULAR HEMOGLOBIN (BEAKER) (test 33.6 pg 25.7-32.2 vsni=243) MEAN CORPUSCULAR HEMOGLOBIN CONC (BEAKER) (test 30.9 GM/DL 32.3-36.5 ndye=282) RED CELL DISTRIBUTION WIDTH (BEAKER) (test 22.2 % 11.6-14.4 ftjk=195) PLATELET COUNT (BEAKER) (test mpln=029) 66 K/CU MM 150-450 MEAN PLATELET VOLUME (BEAKER) (test orvc=687) 11.5 fL 9.4-12.4 NUCLEATED RED BLOOD CELLS (BEAKER) (test 0 /100 WBC 0-0 noud=938) NEUTROPHILS RELATIVE PERCENT (BEAKER) (test 66 % ttml=805) LYMPHOCYTES RELATIVE PERCENT (BEAKER) (test 12 % pdtu=059) MONOCYTES RELATIVE PERCENT (BEAKER) (test 18 % njhm=354) EOSINOPHILS RELATIVE PERCENT (BEAKER) (test 3 % vizs=201) BASOPHILS RELATIVE PERCENT (BEAKER) (test 1 % idys=703) NEUTROPHILS ABSOLUTE COUNT (BEAKER) (test 4.90 K/ L 1.78-5.38 lxls=533) LYMPHOCYTES ABSOLUTE COUNT (BEAKER) (test 0.89 K/ L 1.32-3.57 aqwg=428) MONOCYTES ABSOLUTE COUNT (BEAKER) (test nvax=778) 1.36 K/ L 0.30-0.82 EOSINOPHILS ABSOLUTE COUNT (BEAKER) (test 0.20 K/ L 0.04-0.54 rinn=636) BASOPHILS ABSOLUTE COUNT (BEAKER) (test gxar=155) 0.06 K/ L 0.01-0.08 IMMATURE GRANULOCYTES-RELATIVE PERCENT (BEAKER) 1 % 0-1 (test ladj=8157) POCT-GLUCOSE [id number] 21:31:00 Test Item Value Reference Range Comments POC-GLUCOSE METER (BEAKER) 194 mg/dL 70-110 TESTED AT [place] [id number] [facility] (test yhxm=9553) [place] [id number] POCT-GLUCOSE [id number] 17:42:00 Test Item Value Reference Range Comments POC-GLUCOSE METER (BEAKER) 81 mg/dL 70-110 TESTED AT [address] (test ofxv=6659) [facility] [address] RAD, CHEST, 1 VIEW, NON [id number] 09:39:00Referring: Dr. Hill WorkenehReason for exam:->eval empyemaShould this be performed at the bedside ?->YesFINAL REPORT Chest one view INDICATION: Empyema COMPARISON: 10/29/2017 IMPRESSION: Left-sided pleural thickening and effusion and minimal pleural gas are similar as is left mid and lower lung consolidation. Mild subcutaneous emphysema is present. Additional bilateral interstitialand ground glass opacities may reflect edema, pneumonitis, or a combination thereof. A small right pleural effusion is present. The enlarged cardiac silhouette is partially obscured. Right jugular lines are again seen. Signed: Bryant Wood MDReport Verified Date/Time: 10/30/2017 09:39:32 Reading Location: [facility] Radiology Reading Room POCT-GLUCOSE [id number] 07:44:00 Test Item Value Reference Range Comments POC-GLUCOSE METER (BEAKER) 82 mg/dL 70-110 TESTED AT [facility] [address] [facility] (test wesq=5554) [facility] [address] [id number] 06:44:00 Test Item Value Reference Range Comments PROTIME (BEAKER) (test inpr=548) 18.0 seconds 11.7-14.7 INR (BEAKER) (test adxj=599) 1.5 <=5.9 PARTIAL THROMBOPLASTIN TIME (BEAKER) (test 41.8 seconds 22.5-36.0 ysfr=090) RECOMMENDED COUMADIN/WARFARIN INR THERAPY RANGESSTANDARD DOSE: 2.0 - 3.0 Includes: PROPHYLAXIS forvenous thrombosis, systemic embolization; TREATMENT for venous thrombosis and/or pulmonary embolus.HIGH RISK: Target INR is 2.5-3.5 for patients with mechanical heart valves.CBC (HEMOGRAM ONLY)2017-10-30 05:57:00 Test Item Value Reference Range Comments WHITE BLOOD CELL COUNT (BEAKER) (test dhxj=559) 7.9 K/ L 3.5-10.5 RED BLOOD CELL COUNT (BEAKER) (test vies=938) 2.24 M/ L 4.63-6.08 HEMOGLOBIN (BEAKER) (test ucep=092) 7.4 GM/DL 13.7-17.5 HEMATOCRIT (BEAKER) (test tszg=283) 24.2 % 40.1-51.0 MEAN CORPUSCULAR VOLUME (BEAKER) (test rdjh=945) 108.0 fL 79.0-92.2 MEAN CORPUSCULAR HEMOGLOBIN (BEAKER) (test 33.0 pg 25.7-32.2 jnyy=477) MEAN CORPUSCULAR HEMOGLOBIN CONC (BEAKER) (test 30.6 GM/DL 32.3-36.5 psaq=425) RED CELL DISTRIBUTION WIDTH (BEAKER) (test 22.6 % 11.6-14.4 nawl=408) PLATELET COUNT (BEAKER) (test vmsy=328) 55 K/CU MM 150-450 MEAN PLATELET VOLUME (BEAKER) (test akbl=149) 11.9 fL 9.4-12.4 NUCLEATED RED BLOOD CELLS (BEAKER) (test 0 /100 WBC 0-0 hpdu=246) ANAEROBIC [id number] 00:10:00 Test Item Value Reference Range Comments CULTURE (BEAKER) (test cgpv=1595) No anaerobes isolated POCT-GLUCOSE [id number] 22:04:00 Test Item Value Reference Range Comments POC-GLUCOSE METER (BEAKER) 139 mg/dL 70-110 TESTED AT [address] (test nswb=9900) [place] [address] BLOOD [id number] 18:00:00 Test Item Value Reference Range Comments CULTURE (BEAKER) (test dhwa=8305) No growth in 5 days POCT-GLUCOSE [id number] 17:31:00 Test Item Value Reference Range Comments POC-GLUCOSE METER (BEAKER) 143 mg/dL 70-110 TESTED AT [address] (test roas=0575) [place] [address] RAD, CHEST, 1 VIEW, NON [id number] 13:16:00Referring: Dr. Hill WorksarahRrandion for exam:->CT removalShould this be performed at the bedside?- >YesFINAL REPORT Chest one view INDICATION: Chest tube removal COMPARISON: 10/29/2017 at 0800 hours IMPRESSION: Left sided pleural thickening and effusion and minimal pleural gas are stable post pigtail pleural catheter removal. Left mid to lower lung consolidation is stable. Additional bilateral interstitial and ground glass opacities may reflect edema, pneumonitis , or a combination thereof. A small right pleural effusion is present. The enlarged cardiac silhouette is partially obscured. Right jugular lines are again seen. Signed: Bryant Wood Verified Date/Time: 2017 13:16:33 Reading Location: [facility] B1 C013W Consult Reading Room POCT- GLUCOSE [id number] 13:13:00 Test Item Value Reference Range Comments POC-GLUCOSE METER (BEAKER) 93 mg/dL 70-110 TESTED AT [facility] [address] [facility] (test jgtt=5993) [facility] [address] RAD, CHEST, 1 VIEW, NON [id number] 10:47:00Referring: Dr. Liz Grove for exam:->eval empyemaShould this be performed at the bedside ?->YesFINAL REPORT Chest one view INDICATION: Empyema COMPARISON: 10/28/2017 IMPRESSION: Left-sided pleural thickening and effusion and minimal pleural gas are stable with a pigtail pleural catheter in place. Left mid to lower lung consolidation is stable. Additional bilateral interstitial and ground glass opacities may reflect edema, pneumonitis, or a combination thereof. A small right pleural effusion is present. The enlarged cardiac silhouette is partially obscured. Right jugular lines are again seen. Signed: Bryant Wood MDReport Verified Date/Time: 10/29/2017 10:47:23 Reading Location: [facility] Radiology Reading Room POCT-GLUCOSE [id number] 08:27:00 Test Item Value Reference Range Comments POC-GLUCOSE METER (BEAKER) 80 mg/dL 70-110 TESTED AT [address] (test xmoc=6703) [facility] [address] BASIC METABOLIC [id number] 07:28:00 Test Item Value Reference Range Comments SODIUM (BEAKER) (test 137 meq/L 136-145 yqag=699) POTASSIUM (BEAKER) (test 4.6 meq/L 3.5-5.1 Specimen slightly thaw=580) hemolyzed CHLORIDE (BEAKER) (test 107 meq/L 98-107 jvjg=650) CO2 (BEAKER) (test 18 meq/L 22-29 wwow=478) BLOOD UREA NITROGEN 30 mg/dL 7-21 (BEAKER) (test xapv=713) CREATININE (BEAKER) (test 5.07 mg/dL 0.57-1.25 Specimen slightly eawg=398) hemolyzed GLUCOSE RANDOM (BEAKER) 56 mg/dL 70-105 (test xrzd=506) CALCIUM (BEAKER) (test 8.5 mg/dL 8.4-10.2 kcac=516) EGFR (BEAKER) (test 11 mL/min/1.73 sq m ESTIMATED GFR IS NOT utej=3564) ACCURATE CREATININE CLEARANCE IN PREDICTING GLOMERULAR FILTRATION RATE. ESTIMATED GFR IS NOT APPLICABLE FOR DIALYSIS PATIENTS. CBC W/PLT COUNT & AUTO [id number] 07:23:00 Test Item Value Reference Range Comments WHITE BLOOD CELL COUNT (BEAKER) (test wlhb=767) 6.7 K/ L 3.5-10.5 RED BLOOD CELL COUNT (BEAKER) (test mcoh=905) 2.32 M/ L 4.63-6.08 HEMOGLOBIN (BEAKER) (test ztjn=717) 7.8 GM/DL 13.7-17.5 HEMATOCRIT (BEAKER) (test qfge=366) 24.7 % 40.1-51.0 MEAN CORPUSCULAR VOLUME (BEAKER) (test xmyd=558) 106.5 fL 79.0-92.2 MEAN CORPUSCULAR HEMOGLOBIN (BEAKER) (test 33.6 pg 25.7-32.2 fedq=264) MEAN CORPUSCULAR HEMOGLOBIN CONC (BEAKER) (test 31.6 GM/DL 32.3-36.5 figp=327) RED CELL DISTRIBUTION WIDTH (BEAKER) (test 22.5 % 11.6-14.4 xrct=521) PLATELET COUNT (BEAKER) (test ynic=721) 74 K/CU MM 150-450 MEAN PLATELET VOLUME (BEAKER) (test rblz=468) 11.9 fL 9.4-12.4 NUCLEATED RED BLOOD CELLS (BEAKER) (test 0 /100 WBC 0-0 mety=752) NEUTROPHILS RELATIVE PERCENT (BEAKER) (test 66 % kvlb=085) LYMPHOCYTES RELATIVE PERCENT (BEAKER) (test 11 % crlj=258) MONOCYTES RELATIVE PERCENT (BEAKER) (test 18 % hzae=720) EOSINOPHILS RELATIVE PERCENT (BEAKER) (test 3 % xlka=090) BASOPHILS RELATIVE PERCENT (BEAKER) (test 1 % ymve=398) NEUTROPHILS ABSOLUTE COUNT (BEAKER) (test 4.41 K/ L 1.78-5.38 ppaa=693) LYMPHOCYTES ABSOLUTE COUNT (BEAKER) (test 0.76 K/ L 1.32-3.57 ecac=658) MONOCYTES ABSOLUTE COUNT (BEAKER) (test ewxt=257) 1.17 K/ L 0.30-0.82 EOSINOPHILS ABSOLUTE COUNT (BEAKER) (test 0.22 K/ L 0.04-0.54 jcjf=344) BASOPHILS ABSOLUTE COUNT (BEAKER) (test rtkw=840) 0.07 K/ L 0.01-0.08 IMMATURE GRANULOCYTES-RELATIVE PERCENT (BEAKER) 1 % 0-1 (test yxfy=9621) HEPATIC FUNCTION [id number] 06:51:00 Test Item Value Reference Range Comments TOTAL PROTEIN (BEAKER) (test 4.7 gm/dL 6.0-8.3 Specimen slightly hemolyzed gcvv=551) ALBUMIN (BEAKER) (test 1.7 g/dL 3.5-5.0 Specimen slightly hemolyzed zcpk=1247) BILIRUBIN TOTAL (BEAKER) (test 1.2 mg/dL 0.2-1.2 Specimen slightly hemolyzed ysnu=709) BILIRUBIN DIRECT (BEAKER) (test 0.7 mg/dL 0.1-0.5 Specimen slightly hemolyzed quzf=188) ALKALINE PHOSPHATASE (BEAKER) 100 U/L 40-150 (test wkrg=377) AST (SGOT) (BEAKER) (test 28 U/L 5-34 Specimen slightly hemolyzed ovqf=892) ALT (SGPT) (BEAKER) (test 21 U/L 6-55 Specimen slightly hemolyzed rsly=761) PROTHROMBIN TIME/[id number] 06:36:00 Test Item Value Reference Range Comments PROTIME (BEAKER) (test evzn=523) 17.7 seconds 11.7-14.7 INR (BEAKER) (test wzpr=641) 1.5 <=5.9 RECOMMENDED COUMADIN/WARFARIN INR THERAPY RANGESSTANDARD DOSE: 2.0 - 3.0 Includes: PROPHYLAXIS forvenous thrombosis, systemic embolization; TREATMENT for venous thrombosis and/or pulmonary embolus.HIGH RISK: Target INR is 2.5-3.5 for patients with mechanical heart valves.POCT-GLUCOSE [id number] 21:54:00 Test Item Value Reference Range Comments POC-GLUCOSE METER (BEAKER) 163 mg/dL 70-110 TESTED AT [facility] [address] [place] [address] (test ijar=6819) [facility] [address] BLOOD [id number] 18:00:00 Test Item Value Reference Range Comments CULTURE (BEAKER) (test ihva=6648) No growth in 5 days POCT-GLUCOSE [id number] 17:32:00 Test Item Value Reference Range Comments POC-GLUCOSE METER (BEAKER) 150 mg/dL 70-110 TESTED AT [facility] [address] (test wibe=2713) [facility] [address] SPUTUM CULTURE + GRAM [id number] 16:06:00 Test Item Value Reference Range Comments CULTURE (BEAKER) (test Oropharyngeal contamination, oizd=2573) specimen rejected. Recollect requested. GRAM STAIN RESULT (BEAKER) <1+ WBCs (test tufl=0830) GRAM STAIN RESULT (BEAKER) >25 epithelial cells (test atli=88276) GRAM STAIN RESULT (BEAKER) 2+ yeast (test okam=91063) GRAM STAIN RESULT (BEAKER) 4+ gram variable coccobacilli (test uiti=817543) CT, CHEST, WITHOUT [id number] 15:49:00Referring: Dr. Hill WorkeneFINAL REPORT TECHNIQUE: CT scan of the chest WITHOUT intravenous contrast. Dose modulation, iterative reconstruction, and/or weight-based adjustment of the mA/kV was utilized to reduce the radiation dose to as low as reasonably achievable. INDICATION: 67-year-old man with empyema. COMPARISON: Chest CT 10/23/2017. FINDINGS: ABSENCE OF INTRAVENOUS CONTRAST DECREASES SENSITIVITY FOR DETECTION OF FOCAL LESIONS AND VASCULAR PATHOLOGY. LINES/TUBES: Right internal jugular dual lumendialysis catheter terminates in the right atrium. Right internal jugular central venous catheter terminates at the cavoatrial junction. Percutaneous drainage catheter terminates within the left pleuralspace. LUNGS AND AIRWAYS: Central airways are patent. Persistent consolidative opacity in the left lower lobe. Persistent mild consolidative opacity along the dependent portion of the right lower lobe.Increased consolidation of a focal opacity in the lateral aspect of the right upper lobe. PLEURA: Left hydropneumothorax in the region of the percutaneous pleural drainage catheter with decreased fluidcomponent and increased air component since 10/23/2017. HEART AND MEDIASTINUM: The visualized thyroidgland is normal. No significant mediastinal, hilar, or axillary lymphadenopathy. Unchanged calcifiedsubcentimeter left hilar lymph nodes. Unchanged moderate cardiomegaly. No pericardial effusion. Atherosclerotic calcifications in the thoracic aorta and coronary arteries. Unchanged prominent main pulmonary artery measures approximately 3.4 cm in diameter. SOFT TISSUES AND BONES: Unchanged gynecomastia on the left. UPPER ABDOMEN: Cirrhotic liver. Unchanged hypodense lesions in the hepatic dome. Unchanged TIPS stent. IMPRESSION:Decreased fluid component within the left empyema after placement of left pleural drainage catheter. Increased air within the empyema, likely introduced from the drainage catheter. Focal consolidative opacity in the right upper lobe, likely infectious /inflammatory in etiology. Persistent consolidative opacities in both lower lobes likely represent atelectasis, however superimposed pneumonia/aspiration cannot be excluded. Prominent pulmonary artery, suggestive of pulmonaryarterial hypertension. Signed: Daron Elise MDReport Verified Date/Time: 10/28/2017 15:49:21 Reading Location: [facility] C013Y CT Body Reading Room POCT-GLUCOSE [id number] 12:26:00 Test Item Value Reference Range Comments POC-GLUCOSE METER (BEAKER) 112 mg/dL 70-110 TESTED AT [address] (test nhls=4788) [facility] [address] RAD, CHEST, 1 VIEW, NON [id number] 08:35:00Referring: Dr. Hill WorkenehReason for exam:->eval empyemaShould this be performed at the bedside ?->YesFINAL REPORT Chest one view INDICATION: Empyema COMPARISON: 10/27/2017 IMPRESSION: Left sided pleural thickening and effusion and suspected minimal pleural gas are stable with a lower chest picture catheter in place. Left mid to lower lung consolidation or atelectasis are stable.Pulmonary edema is similar in appearance. A small right pleural effusion remains present. The enlarged cardiac silhouette is partially obscured. Right jugular lines are again seen. Signed: Bryant Wood MDReport Verified Date/Time: 10/28/2017 08:35:51 Reading Location: [facility] Radiology Reading Room Electronically signed by: BRYANT WOOD M.D. on 2017 08:35 AMCBC W/PLT COUNT & AUTO [id number] 07:48:00 Test Item Value Reference Range Comments WHITE BLOOD CELL COUNT (BEAKER) (test tzom=905) 6.8 K/ L 3.5-10.5 RED BLOOD CELL COUNT (BEAKER) (test yybv=620) 2.37 M/ L 4.63-6.08 HEMOGLOBIN (BEAKER) (test kemm=930) 7.7 GM/DL 13.7-17.5 HEMATOCRIT (BEAKER) (test hkdw=943) 25.2 % 40.1-51.0 MEAN CORPUSCULAR VOLUME (BEAKER) (test kyut=047) 106.3 fL 79.0-92.2 MEAN CORPUSCULAR HEMOGLOBIN (BEAKER) (test 32.5 pg 25.7-32.2 hfdu=241) MEAN CORPUSCULAR HEMOGLOBIN CONC (BEAKER) (test 30.6 GM/DL 32.3-36.5 qyzg=709) RED CELL DISTRIBUTION WIDTH (BEAKER) (test 22.8 % 11.6-14.4 kymp=370) PLATELET COUNT (BEAKER) (test tbit=993) 65 K/CU MM 150-450 MEAN PLATELET VOLUME (BEAKER) (test dnwf=848) 11.6 fL 9.4-12.4 NUCLEATED RED BLOOD CELLS (BEAKER) (test 0 /100 WBC 0-0 zjrx=502) NEUTROPHILS RELATIVE PERCENT (BEAKER) (test 67 % eren=396) LYMPHOCYTES RELATIVE PERCENT (BEAKER) (test 12 % dndy=506) MONOCYTES RELATIVE PERCENT (BEAKER) (test 17 % qqma=334) EOSINOPHILS RELATIVE PERCENT (BEAKER) (test 3 % ssln=665) BASOPHILS RELATIVE PERCENT (BEAKER) (test 1 % ltow=688) NEUTROPHILS ABSOLUTE COUNT (BEAKER) (test 4.58 K/ L 1.78-5.38 iyit=598) LYMPHOCYTES ABSOLUTE COUNT (BEAKER) (test 0.79 K/ L 1.32-3.57 lgtt=160) MONOCYTES ABSOLUTE COUNT (BEAKER) (test quwq=733) 1.18 K/ L 0.30-0.82 EOSINOPHILS ABSOLUTE COUNT (BEAKER) (test 0.17 K/ L 0.04-0.54 mtyp=012) BASOPHILS ABSOLUTE COUNT (BEAKER) (test ihjy=542) 0.07 K/ L 0.01-0.08 IMMATURE GRANULOCYTES-RELATIVE PERCENT (BEAKER) 1 % 0-1 (test tifj=9378) POCT-GLUCOSE [id number] 07:46:00 Test Item Value Reference Range Comments POC-GLUCOSE METER (BEAKER) 68 mg/dL 70-110 Notified SHAKIRA SHAFER/TESTED AT [facility] (test xxry=1281) [address] [facility] [place] [facility] [place] [place] [address] BASIC METABOLIC [id number] 07:23:00 Test Item Value Reference Range Comments SODIUM (BEAKER) (test 134 meq/L 136-145 cwxn=305) POTASSIUM (BEAKER) (test 4.2 meq/L 3.5-5.1 vckl=895) CHLORIDE (BEAKER) (test 106 meq/L 98-107 vsbh=902) CO2 (BEAKER) (test 21 meq/L 22-29 kwev=502) BLOOD UREA NITROGEN 21 mg/dL 7-21 (BEAKER) (test llro=986) CREATININE (BEAKER) (test 4.09 mg/dL 0.57-1.25 ggxs=292) GLUCOSE RANDOM (BEAKER) 66 mg/dL 70-105 (test rxcl=343) CALCIUM (BEAKER) (test 7.9 mg/dL 8.4-10.2 doxv=421) EGFR (BEAKER) (test 15 mL/min/1.73 sq m ESTIMATED GFR IS NOT rhpl=9118) ACCURATE CREATININE CLEARANCE IN PREDICTING GLOMERULAR FILTRATION RATE. ESTIMATED GFR IS NOT APPLICABLE FOR DIALYSIS PATIENTS. [id number] 07:22:00 Test Item Value Reference Range Comments PHOSPHORUS (BEAKER) (test lmju=222) 6.2 mg/dL 2.3-4.7 [id number] 07:22:00 Test Item Value Reference Range Comments MAGNESIUM (BEAKER) (test wdwl=664) 1.6 mg/dL 1.6-2.6 HEPATIC FUNCTION [id number] 07:22:00 Test Item Value Reference Range Comments TOTAL PROTEIN (BEAKER) (test lvne=166) 4.8 gm/dL 6.0-8.3 ALBUMIN (BEAKER) (test jvgd=8244) 1.9 g/dL 3.5-5.0 BILIRUBIN TOTAL (BEAKER) (test waaz=920) 1.3 mg/dL 0.2-1.2 BILIRUBIN DIRECT (BEAKER) (test dikp=328) 0.9 mg/dL 0.1-0.5 ALKALINE PHOSPHATASE (BEAKER) (test vpli=126) 92 U/L 40-150 AST (SGOT) (BEAKER) (test spkx=880) 21 U/L 5-34 ALT (SGPT) (BEAKER) (test dcag=861) 21 U/L 6-55 CALCIUM, [id number] 06:48:00 Test Item Value Reference Range Comments CALCIUM IONIZED (BEAKER) (test enio=110) 0.99 mmol/L 1.12-1.27 PH, BLOOD (BEAKER) (test kghg=2730) 7.36 PROTHROMBIN [id number] 06:34:00 Test Item Value Reference Range Comments PROTIME (BEAKER) (test unom=531) 17.4 seconds 11.7-14.7 INR (BEAKER) (test bgtj=766) 1.4 <=5.9 RECOMMENDED COUMADIN/WARFARIN INR THERAPY RANGESSTANDARD DOSE: 2.0 - 3.0 Includes: PROPHYLAXIS forvenous thrombosis, systemic embolization; TREATMENT for venous thrombosis and/or pulmonary embolus.HIGH RISK: Target INR is 2.5-3.5 for patients with mechanical heart valves.POCT-GLUCOSE [id number] 23:44:00 Test Item Value Reference Range Comments POC-GLUCOSE METER (BEAKER) 135 mg/dL 70-110 TESTED AT [facility] [address] [facility] (test jkzc=7659) [place] [id number] POCT-GLUCOSE [id number] 17:45:00 Test Item Value Reference Range Comments POC-GLUCOSE METER (BEAKER) 143 mg/dL 70-110 TESTED AT [facility] [address] [facility] (test bffe=5933) [place] [id number] SPUTUM CULTURE + GRAM [id number] 14:30:00 Test Item Value Reference Range Comments CULTURE (BEAKER) (test Oropharyngeal contamination, iflq=6374) specimen rejected. Recollect requested. GRAM STAIN RESULT (BEAKER) 2+ White blood cells seen (test objh=9755) GRAM STAIN RESULT (BEAKER) >25 epithelial cells (test dwvj=83602) GRAM STAIN RESULT (BEAKER) 4+ gram positive cocci in chains (test dudj=96174) and pairs GRAM STAIN RESULT (BEAKER) 1+ budding yeast (test eqhg=135906) POCT-GLUCOSE [id number] 14:08:00 Test Item Value Reference Range Comments POC-GLUCOSE METER (BEAKER) 118 mg/dL 70-110 TESTED AT [facility] [address] (test iozu=5825) [place] [address] RAD, CHEST, 1 VIEW, NON [id number] 11:35:00Referring: Dr. Hill WorkenehReason for exam:->eval empyemaShould this be performed at the bedside ?->YesFINAL REPORT Comparison: 10/26/2017 TECHNIQUE: Single view of the chest FINDINGS: Left pleural effusion with airspace disease and pleural drainage catheter again noted. Mild prominence of interstitial markings seen elsewhere. Cardiac silhouette is enlarged. Support tubes are stable. No gross pneumothorax. Signed: Brad Bagley MDReport Verified Date/Time: 10/27/2017 11:35:16 Reading Location: [address] Transitional Reading Room BODY FLUID CULTURE + GRAM [id number] 10:02:00 Test Item Value Reference Range Comments CULTURE (BEAKER) (test szzu=7131) No growth GRAM STAIN RESULT (BEAKER) (test 4+ WBCs gkmj=6851) GRAM STAIN RESULT (BEAKER) (test No organisms seen nkin=42253) BASIC METABOLIC [id number] 09:16:00 Test Item Value Reference Range Comments SODIUM (BEAKER) (test 139 meq/L 136-145 dooj=710) POTASSIUM (BEAKER) (test 4.0 meq/L 3.5-5.1 pjjn=952) CHLORIDE (BEAKER) (test 107 meq/L 98-107 fmjr=566) CO2 (BEAKER) (test 22 meq/L 22-29 aapq=786) BLOOD UREA NITROGEN 11 mg/dL 7-21 (BEAKER) (test gzrn=882) CREATININE (BEAKER) (test 2.82 mg/dL 0.57-1.25 vfmv=525) GLUCOSE RANDOM (BEAKER) 56 mg/dL 70-105 (test tazu=741) CALCIUM (BEAKER) (test 7.9 mg/dL 8.4-10.2 eezw=870) EGFR (BEAKER) (test 23 mL/min/1.73 sq m ESTIMATED GFR IS NOT wfdr=5195) ACCURATE CREATININE CLEARANCE IN PREDICTING GLOMERULAR FILTRATION RATE. ESTIMATED GFR IS NOT APPLICABLE FOR DIALYSIS PATIENTS. HEPATIC FUNCTION [id number] 09:16:00 Test Item Value Reference Range Comments TOTAL PROTEIN (BEAKER) (test kbmg=363) 4.8 gm/dL 6.0-8.3 ALBUMIN (BEAKER) (test yssm=6310) 1.9 g/dL 3.5-5.0 BILIRUBIN TOTAL (BEAKER) (test qkxe=923) 1.3 mg/dL 0.2-1.2 BILIRUBIN DIRECT (BEAKER) (test zxrf=421) 0.7 mg/dL 0.1-0.5 ALKALINE PHOSPHATASE (BEAKER) (test kjco=770) 108 U/L 40-150 AST (SGOT) (BEAKER) (test fobx=510) 27 U/L 5-34 ALT (SGPT) (BEAKER) (test vpii=481) 25 U/L 6-55 POCT-GLUCOSE [id number] 08:09:00 Test Item Value Reference Range Comments POC-GLUCOSE METER (BEAKER) 74 mg/dL 70-110 TESTED AT [facility] [address] [facility] (test xetq=2016) [facility] [address] CBC W/PLT COUNT & AUTO [id number] 07:03:00 Test Item Value Reference Range Comments WHITE BLOOD CELL COUNT (BEAKER) (test jmdt=393) 6.6 K/ L 3.5-10.5 RED BLOOD CELL COUNT (BEAKER) (test smpr=517) 2.38 M/ L 4.63-6.08 HEMOGLOBIN (BEAKER) (test zuyv=031) 7.6 GM/DL 13.7-17.5 HEMATOCRIT (BEAKER) (test mdxt=378) 25.3 % 40.1-51.0 MEAN CORPUSCULAR VOLUME (BEAKER) (test drms=833) 106.3 fL 79.0-92.2 MEAN CORPUSCULAR HEMOGLOBIN (BEAKER) (test 31.9 pg 25.7-32.2 uidy=121) MEAN CORPUSCULAR HEMOGLOBIN CONC (BEAKER) (test 30.0 GM/DL 32.3-36.5 aosk=598) RED CELL DISTRIBUTION WIDTH (BEAKER) (test 23.5 % 11.6-14.4 uyzg=392) PLATELET COUNT (BEAKER) (test xxrv=018) 59 K/CU MM 150-450 MEAN PLATELET VOLUME (BEAKER) (test lnhf=946) 11.2 fL 9.4-12.4 NUCLEATED RED BLOOD CELLS (BEAKER) (test 0 /100 WBC 0-0 ywbf=098) NEUTROPHILS RELATIVE PERCENT (BEAKER) (test 71 % nxrh=464) LYMPHOCYTES RELATIVE PERCENT (BEAKER) (test 10 % nxrw=392) MONOCYTES RELATIVE PERCENT (BEAKER) (test 14 % uydp=473) EOSINOPHILS RELATIVE PERCENT (BEAKER) (test 2 % mrtm=638) BASOPHILS RELATIVE PERCENT (BEAKER) (test 1 % fwtu=290) NEUTROPHILS ABSOLUTE COUNT (BEAKER) (test 4.69 K/ L 1.78-5.38 fwbj=832) LYMPHOCYTES ABSOLUTE COUNT (BEAKER) (test 0.66 K/ L 1.32-3.57 hzyb=436) MONOCYTES ABSOLUTE COUNT (BEAKER) (test ipjb=920) 0.95 K/ L 0.30-0.82 EOSINOPHILS ABSOLUTE COUNT (BEAKER) (test 0.16 K/ L 0.04-0.54 jlkv=242) BASOPHILS ABSOLUTE COUNT (BEAKER) (test rsyh=984) 0.09 K/ L 0.01-0.08 IMMATURE GRANULOCYTES-RELATIVE PERCENT (BEAKER) 1 % 0-1 (test ewgd=0049) PROTHROMBIN [id number] 06:41:00 Test Item Value Reference Range Comments PROTIME (BEAKER) (test suuh=006) 16.8 seconds 11.7-14.7 INR (BEAKER) (test fxum=495) 1.4 <=5.9 RECOMMENDED COUMADIN/WARFARIN INR THERAPY RANGESSTANDARD DOSE: 2.0 - 3.0 Includes: PROPHYLAXIS forvenous thrombosis, systemic embolization; TREATMENT for venous thrombosis and/or pulmonary embolus.HIGH RISK: Target INR is 2.5-3.5 for patients with mechanical heart valves.RAD, CHEST, 1 VIEW, NON [id number] 17:26:00Referring: Dr. Liz Grove for exam:->eval empyemaShould this be performed at the bedside?->YesFINAL REPORT HISTORY : eval empyema. Comparison: 10/25/2017 Comment: Single portable view of the chest was obtained. The cardiac silhouette size is enlarged. There are findings of pulmonary venous congestion. Interstitial prominence may represent interstitial edema. Support lines and tubes are unchanged. There is a suspected moderate sized left-sided pleural effusion with some adjacent consolidation. The effusion appears to be partially loculated. There is pulmonary venous congestion and likely edema. No lytic or blastic abnormalities are seen. No definite pneumothorax is seen. Signed: Ga Batreseport Verified Date/Time : 10/26/2017 17:26:52 Reading Location: [address] Transitional Reading Room POCT- GLUCOSE [id number] 13:10:00 Test Item Value Reference Range Comments POC-GLUCOSE METER (BEAKER) 157 mg/dL 70-110 TESTED AT [facility] [address] [place] [address] (test wvth=8662) [facility] [address] POCT-GLUCOSE [id number] 08:53:00 Test Item Value Reference Range Comments POC-GLUCOSE METER (BEAKER) 114 mg/dL 70-110 TESTED AT [address] (test rjge=7331) [facility] [address] HEPATIC FUNCTION [id number] 07:48:00 Test Item Value Reference Range Comments TOTAL PROTEIN (BEAKER) (test krkq=421) 4.8 gm/dL 6.0-8.3 ALBUMIN (BEAKER) (test nspd=4227) 1.9 g/dL 3.5-5.0 BILIRUBIN TOTAL (BEAKER) (test uubc=299) 1.1 mg/dL 0.2-1.2 BILIRUBIN DIRECT (BEAKER) (test aiio=641) 0.6 mg/dL 0.1-0.5 ALKALINE PHOSPHATASE (BEAKER) (test zhso=942) 115 U/L 40-150 AST (SGOT) (BEAKER) (test jhpd=312) 34 U/L 5-34 ALT (SGPT) (BEAKER) (test kuqv=556) 29 U/L 6-55 BASIC METABOLIC [id number] 07:48:00 Test Item Value Reference Range Comments SODIUM (BEAKER) (test 136 meq/L 136-145 tjgb=636) POTASSIUM (BEAKER) (test 4.5 meq/L 3.5-5.1 dkqj=105) CHLORIDE (BEAKER) (test 108 meq/L 98-107 xnfk=240) CO2 (BEAKER) (test 20 meq/L 22-29 fkat=002) BLOOD UREA NITROGEN 15 mg/dL 7-21 (BEAKER) (test tisf=617) CREATININE (BEAKER) (test 3.54 mg/dL 0.57-1.25 njhw=899) GLUCOSE RANDOM (BEAKER) 82 mg/dL 70-105 (test jrbj=447) CALCIUM (BEAKER) (test 8.5 mg/dL 8.4-10.2 iqey=891) EGFR (BEAKER) (test 17 mL/min/1.73 sq m ESTIMATED GFR IS NOT muie=6714) ACCURATE CREATININE CLEARANCE IN PREDICTING GLOMERULAR FILTRATION RATE. ESTIMATED GFR IS NOT APPLICABLE FOR DIALYSIS PATIENTS. CBC W/PLT COUNT & AUTO [id number] 07:36:00 Test Item Value Reference Range Comments WHITE BLOOD CELL COUNT (BEAKER) (test fahv=307) 8.3 K/ L 3.5-10.5 RED BLOOD CELL COUNT (BEAKER) (test jxoq=990) 2.37 M/ L 4.63-6.08 HEMOGLOBIN (BEAKER) (test dbdy=763) 7.7 GM/DL 13.7-17.5 HEMATOCRIT (BEAKER) (test beku=988) 25.2 % 40.1-51.0 MEAN CORPUSCULAR VOLUME (BEAKER) (test gfps=352) 106.3 fL 79.0-92.2 MEAN CORPUSCULAR HEMOGLOBIN (BEAKER) (test 32.5 pg 25.7-32.2 istx=145) MEAN CORPUSCULAR HEMOGLOBIN CONC (BEAKER) (test 30.6 GM/DL 32.3-36.5 ozvq=619) RED CELL DISTRIBUTION WIDTH (BEAKER) (test 23.7 % 11.6-14.4 jvkl=181) PLATELET COUNT (BEAKER) (test fkvj=665) 92 K/CU MM 150-450 MEAN PLATELET VOLUME (BEAKER) (test hxlw=594) 11.1 fL 9.4-12.4 NUCLEATED RED BLOOD CELLS (BEAKER) (test 0 /100 WBC 0-0 imxs=749) NEUTROPHILS RELATIVE PERCENT (BEAKER) (test 73 % rofg=488) LYMPHOCYTES RELATIVE PERCENT (BEAKER) (test 9 % sxtp=343) MONOCYTES RELATIVE PERCENT (BEAKER) (test 15 % btwr=525) EOSINOPHILS RELATIVE PERCENT (BEAKER) (test 2 % ulnx=757) BASOPHILS RELATIVE PERCENT (BEAKER) (test 1 % zypt=162) NEUTROPHILS ABSOLUTE COUNT (BEAKER) (test 6.01 K/ L 1.78-5.38 xtoy=018) LYMPHOCYTES ABSOLUTE COUNT (BEAKER) (test 0.72 K/ L 1.32-3.57 srmb=718) MONOCYTES ABSOLUTE COUNT (BEAKER) (test gjjo=858) 1.22 K/ L 0.30-0.82 EOSINOPHILS ABSOLUTE COUNT (BEAKER) (test 0.16 K/ L 0.04-0.54 qmpi=488) BASOPHILS ABSOLUTE COUNT (BEAKER) (test xyav=120) 0.08 K/ L 0.01-0.08 IMMATURE GRANULOCYTES-RELATIVE PERCENT (BEAKER) 1 % 0-1 (test klbk=7677) PROTHROMBIN [id number] 07:23:00 Test Item Value Reference Range Comments PROTIME (BEAKER) (test avxx=034) 17.1 seconds 11.7-14.7 INR (BEAKER) (test ugkl=896) 1.4 <=5.9 RECOMMENDED COUMADIN/WARFARIN INR THERAPY RANGESSTANDARD DOSE: 2.0 - 3.0 Includes: PROPHYLAXIS forvenous thrombosis, systemic embolization; TREATMENT for venous thrombosis and/or pulmonary embolus.HIGH RISK: Target INR is 2.5-3.5 for patients with mechanical heart valves.POCT-GLUCOSE [id number] 22:14:00 Test Item Value Reference Range Comments POC-GLUCOSE METER (BEAKER) 141 mg/dL 70-110 TESTED AT [facility] [address] [facility] (test wbym=4140) [facility] [address] POCT-GLUCOSE [id number] 17:14:00 Test Item Value Reference Range Comments POC-GLUCOSE METER (BEAKER) 165 mg/dL 70-110 TESTED AT [facility] [address] [facility] (test auzi=8638) [facility] [address] SPUTUM CULTURE + GRAM [id number] 14:36:00 Test Item Value Reference Range Comments CULTURE (BEAKER) (test Oropharyngeal contamination, otgo=9306) specimen rejected. Recollect requested. GRAM STAIN RESULT (BEAKER) 3+ White blood cells seen (test kinx=7994) GRAM STAIN RESULT (BEAKER) >25 epithelial cells (test oamm=82135) GRAM STAIN RESULT (BEAKER) 4+ gram negative rods (test jpfy=23759) GRAM STAIN RESULT (BEAKER) 1+ gram positive rods (test fyqy=469122) GRAM STAIN RESULT (BEAKER) <1+ gram negative cocci (test rxrn=193557) GRAM STAIN RESULT (BEAKER) 3+ gram positive cocci in (test ewfo=849627) clusters RAD, CHEST, 1 VIEW, NON [id number] 14:33:00Referring: Dr. Hill WorksarahRrandion for exam:->eval empyemaShould this be performed at the bedside ?->YesFINAL REPORT Chest one view INDICATION: Empyema COMPARISON: 10/22/2017 IMPRESSION: Left-sided pleural thickening and effusion are grossly unchanged with a new pleural catheter in place. Left mid and lower lung consolidation is stable. Pulmonary edema is similar in appearance. Theenlarged cardiac silhouette is partially obscured. A new right jugular line extends to the SVC/RA junction. Right jugular dialysis catheter extends to the right atrium. A TIPS shunt is present. Small right pleural effusion is stable. No pneumothorax is seen. Signed: Bryant Wood MDReport Verified Date/ Time: 10/25/2017 14:33:46 Reading Location: [address] Consult Reading Room POCT -GLUCOSE [id number] 12:03:00 Test Item Value Reference Range Comments POC-GLUCOSE METER (BEAKER) 179 mg/dL 70-110 TESTED AT [facility] [address] [facility] (test ofkz=8170) [facility] [address] [id number] 11:54:00 Test Item Value Reference Range Comments PHOSPHORUS (BEAKER) (test wvdv=514) 3.7 mg/dL 2.3-4.7 [id number] 11:54:00 Test Item Value Reference Range Comments MAGNESIUM (BEAKER) (test bpoa=343) 1.5 mg/dL 1.6-2.6 BODY FLUID CULTURE + GRAM [id number] 11:16:00 Test Item Value Reference Range Comments CULTURE (BEAKER) (test zhws=3784) No growth GRAM STAIN RESULT (BEAKER) (test 3+ WBCs keqq=7655) GRAM STAIN RESULT (BEAKER) (test No organisms seen inji=38542) SPUTUM CULTURE + GRAM [id number] 11:11:00 Test Item Value Reference Range Comments CULTURE (BEAKER) (test PSEUDOMONAS 4+ Pseudomonas ahnf=3825) AERUGINOSA aeruginosa Amikacin (test code=1) Aztreonam (test code=32) Cefepime (test code=51) Ceftazidime (test code=27) Ciprofloxacin (test code=7) Doripenem (test oorr=767) Gentamicin (test code=18) Imipenem (test code=19) Levofloxacin (test code=22) Meropenem (test code=34) Piperacillin (test code=24) Piperacillin + Tazobactam (test code=29) Tobramycin (test code=25) CULTURE (BEAKER) (test KLEBSIELLA 3+ Klebsiella ocjd=9382) PNEUMONIAE pneumoniaeESBL Positive Amikacin (test code=1) Ampicillin + Sulbactam (test code=6) Aztreonam (test code=32) Cefepime (test code=51) Cefoxitin (test code=68) Ceftazidime (test code=27) Ceftriaxone (test code=52) Gentamicin (test code=18) Levofloxacin (test code=22) Meropenem (test code=34) Nitrofurantoin (test code=23) Piperacillin + Tazobactam (test code=29) Tetracycline (test code=2) Tobramycin (test code=25) Trimethoprim + Sulfamethoxazole (test code=47) GRAM STAIN RESULT (BEAKER) 2+ White blood cells (test bexi=3263) seen GRAM STAIN RESULT (BEAKER) 10-15 epithelial (test uqre=517056) cells GRAM STAIN RESULT (BEAKER) 2+ gram negative (test njzl=025451) rods GRAM STAIN RESULT (BEAKER) <1+ gram positive (test kseh=836893) rods GRAM STAIN RESULT (BEAKER) 1+ gram positive (test bksd=745838) cocci in pairs and clusters 2+ Normal respiratory milan presentANG, CV ACCESS, [id number] 10:17: 00Referring: Dr. Liz Felipe Reason for exam:->central line - no IV access for IV abx that are needed for empyema. He is ESRD and plan for fistula so cannot get picc lineFINAL REPORT Procedure: Placement of right external jugular [...] ultrasound guidance, the right external jugular vein wasaccessed percutaneously. Using fluoroscopic guidance, a guidewire was advanced centrally followed byplacement of a triple-lumen 7 [place], CT injectable catheter. The catheter was then secured in place. CONCLUSION: Placement of right external jugular triple-lumen central line. Signed: Pinky Dumont MDReport Verified Date/ Time: 10/25/2017 10:17:29 Reading Location: [facility] P048 Angio Body Reading Room CALCIUM, [id number] 10:03:00 Test Item Value Reference Range Comments CALCIUM IONIZED (BEAKER) (test mxes=737) 1.14 mmol/L 1.12-1.27 PH, BLOOD (BEAKER) (test ogxt=3240) 7.33 POCT-GLUCOSE [id number] 08:09:00 Test Item Value Reference Range Comments POC-GLUCOSE METER (BEAKER) 94 mg/dL 70-110 TESTED AT [facility] [address] (test lrfj=6818) [place] [address] PROTHROMBIN [id number] 08:09:00 Test Item Value Reference Range Comments PROTIME (BEAKER) (test jpmq=419) 18.5 seconds 11.7-14.7 INR (BEAKER) (test ceqf=613) 1.5 <=5.9 RECOMMENDED COUMADIN/WARFARIN INR THERAPY RANGESSTANDARD DOSE: 2.0 - 3.0 Includes: PROPHYLAXIS forvenous thrombosis, systemic embolization; TREATMENT for venous thrombosis and/or pulmonary embolus.HIGH RISK: Target INR is 2.5-3.5 for patients with mechanical heart valves.HEPATIC FUNCTION [id number] 07:35 :00 Test Item Value Reference Range Comments TOTAL PROTEIN (BEAKER) (test xsqu=008) 4.8 gm/dL 6.0-8.3 ALBUMIN (BEAKER) (test qwee=8434) 1.9 g/dL 3.5-5.0 BILIRUBIN TOTAL (BEAKER) (test qjfo=208) 1.3 mg/dL 0.2-1.2 BILIRUBIN DIRECT (BEAKER) (test leui=380) 0.8 mg/dL 0.1-0.5 ALKALINE PHOSPHATASE (BEAKER) (test qkvr=044) 114 U/L 40-150 AST (SGOT) (BEAKER) (test askl=027) 64 U/L 5-34 ALT (SGPT) (BEAKER) (test hfoj=710) 36 U/L 6-55 BASIC METABOLIC [id number] 07:35:00 Test Item Value Reference Range Comments SODIUM (BEAKER) (test 139 meq/L 136-145 gngz=398) POTASSIUM (BEAKER) (test 4.4 meq/L 3.5-5.1 lqox=688) CHLORIDE (BEAKER) (test 111 meq/L 98-107 urvj=642) CO2 (BEAKER) (test 23 meq/L 22-29 agwl=415) BLOOD UREA NITROGEN 8 mg/dL 7-21 (BEAKER) (test qnhx=735) CREATININE (BEAKER) (test 2.30 mg/dL 0.57-1.25 txgl=651) GLUCOSE RANDOM (BEAKER) 71 mg/dL 70-105 (test wgjf=980) CALCIUM (BEAKER) (test 9.3 mg/dL 8.4-10.2 obyl=587) EGFR (BEAKER) (test 29 mL/min/1.73 sq m ESTIMATED GFR IS NOT xrib=6916) ACCURATE CREATININE CLEARANCE IN PREDICTING GLOMERULAR FILTRATION RATE. ESTIMATED GFR IS NOT APPLICABLE FOR DIALYSIS PATIENTS. [id number] 07:32:00 Test Item Value Reference Range Comments PHOSPHORUS (BEAKER) (test pvqa=276) 3.4 mg/dL 2.3-4.7 [id number] 07:32:00 Test Item Value Reference Range Comments MAGNESIUM (BEAKER) (test xjnq=203) 1.6 mg/dL 1.6-2.6 CBC W/PLT COUNT & AUTO [id number] 06:53:00 Test Item Value Reference Range Comments WHITE BLOOD CELL COUNT (BEAKER) (test xxfd=190) 9.4 K/ L 3.5-10.5 RED BLOOD CELL COUNT (BEAKER) (test ubvj=672) 2.40 M/ L 4.63-6.08 HEMOGLOBIN (BEAKER) (test kmor=634) 7.9 GM/DL 13.7-17.5 HEMATOCRIT (BEAKER) (test lljp=402) 25.5 % 40.1-51.0 MEAN CORPUSCULAR VOLUME (BEAKER) (test ltmf=448) 106.3 fL 79.0-92.2 MEAN CORPUSCULAR HEMOGLOBIN (BEAKER) (test 32.9 pg 25.7-32.2 wspf=304) MEAN CORPUSCULAR HEMOGLOBIN CONC (BEAKER) (test 31.0 GM/DL 32.3-36.5 jgjy=846) RED CELL DISTRIBUTION WIDTH (BEAKER) (test 24.4 % 11.6-14.4 otvo=826) PLATELET COUNT (BEAKER) (test omdf=619) 99 K/CU MM 150-450 MEAN PLATELET VOLUME (BEAKER) (test qyog=710) 10.8 fL 9.4-12.4 NUCLEATED RED BLOOD CELLS (BEAKER) (test 0 /100 WBC 0-0 hrbz=298) NEUTROPHILS RELATIVE PERCENT (BEAKER) (test 76 % kyso=179) LYMPHOCYTES RELATIVE PERCENT (BEAKER) (test 8 % chnl=939) MONOCYTES RELATIVE PERCENT (BEAKER) (test 12 % qwpe=509) EOSINOPHILS RELATIVE PERCENT (BEAKER) (test 2 % pvez=784) BASOPHILS RELATIVE PERCENT (BEAKER) (test 1 % qsuo=587) NEUTROPHILS ABSOLUTE COUNT (BEAKER) (test 7.10 K/ L 1.78-5.38 wpny=428) LYMPHOCYTES ABSOLUTE COUNT (BEAKER) (test 0.76 K/ L 1.32-3.57 uupf=526) MONOCYTES ABSOLUTE COUNT (BEAKER) (test zhha=697) 1.15 K/ L 0.30-0.82 EOSINOPHILS ABSOLUTE COUNT (BEAKER) (test 0.18 K/ L 0.04-0.54 wvoh=171) BASOPHILS ABSOLUTE COUNT (BEAKER) (test cxzk=400) 0.10 K/ L 0.01-0.08 IMMATURE GRANULOCYTES-RELATIVE PERCENT (BEAKER) 1 % 0-1 (test jmoe=3891) POCT-GLUCOSE [id number] 22:02:00 Test Item Value Reference Range Comments POC-GLUCOSE METER (BEAKER) 193 mg/dL 70-110 TESTED AT [facility] [address] [place] [address] (test rvso=0541) [facility] [address] CT, DRAINAGE, CHEST TUBE [id number] 19:01:00Referring: Dr. Liz Garcia Reason for exam:->loculated effusion, pigtail chest tube placement - please place the larger size because the fluid has been thick in the past. discussed with dr. núñez and he is not a candidate for VATS at this time due to comoribiditiesFINAL REPORT CT-guided chest tube placement dated 10/24/2017 [...] the patient's medical record by the nurse. Anesthesia : 1% Xylocaine local anesthesia. Technique: This exam was performed according to our departmental dose-optimization program, which includes automated exposure control, adjustment of the mA and/or kV according to patient size and/ or use of interactive reconstruction technique. After obtaining informed consent , CT-guided chest tube placement was performed under usual sterile technique. After placing a 19-gauge coaxial needle and guidewire in the mid lateral left chest wall, the tract with dilated with a 6, 7, and a 9 Guinean dilators. A 10 Guinean all-purpose drainage catheter was placed. The catheter was left in place , secured to skin with suture, and connected to bulb suction. 5 cc of purulent material was removed. Specimen was sent to microbiology. Complication: None Estimated Blood Loss: None Impression: CT-guided pigtail left chest tube placement. Signed: Katelyn Kuhn MDReport Verified Date/Time: 10/24/2017 19:01: 35 Reading Location: [facility] C013Y CT Body Reading Room CALCIUM, [id number] 14:17:00 Test Item Value Reference Range Comments CALCIUM IONIZED (BEAKER) (test ahti=015) 1.14 mmol/L 1.12-1.27 PH, BLOOD (BEAKER) (test mupp=5693) 7.25 HEPATIC FUNCTION [id number] 12:37:00 Test Item Value Reference Range Comments TOTAL PROTEIN (BEAKER) (test dbhg=573) 4.7 gm/dL 6.0-8.3 ALBUMIN (BEAKER) (test lgci=6191) 1.9 g/dL 3.5-5.0 BILIRUBIN TOTAL (BEAKER) (test vhxp=860) 1.0 mg/dL 0.2-1.2 BILIRUBIN DIRECT (BEAKER) (test bqnk=445) 0.7 mg/dL 0.1-0.5 ALKALINE PHOSPHATASE (BEAKER) (test nqjw=364) 129 U/L 40-150 AST (SGOT) (BEAKER) (test csno=525) 75 U/L 5-34 ALT (SGPT) (BEAKER) (test dynh=584) 38 U/L 6-55 BASIC METABOLIC [id number] 12:37:00 Test Item Value Reference Range Comments SODIUM (BEAKER) (test 139 meq/L 136-145 qoof=254) POTASSIUM (BEAKER) (test 3.6 meq/L 3.5-5.1 nowq=734) CHLORIDE (BEAKER) (test 106 meq/L 98-107 ysih=646) CO2 (BEAKER) (test 23 meq/L 22-29 nmjw=549) BLOOD UREA NITROGEN 21 mg/dL 7-21 (BEAKER) (test ayfj=547) CREATININE (BEAKER) (test 4.36 mg/dL 0.57-1.25 dtjt=428) GLUCOSE RANDOM (BEAKER) 134 mg/dL 70-105 (test ixsh=012) CALCIUM (BEAKER) (test 7.9 mg/dL 8.4-10.2 vtgi=361) EGFR (BEAKER) (test 14 mL/min/1.73 sq m ESTIMATED GFR IS NOT nkiy=0165) ACCURATE CREATININE CLEARANCE IN PREDICTING GLOMERULAR FILTRATION RATE. ESTIMATED GFR IS NOT APPLICABLE FOR DIALYSIS PATIENTS. [id number] 12:22:00 Test Item Value Reference Range Comments PHOSPHORUS (BEAKER) (test krpk=699) 6.3 mg/dL 2.3-4.7 [id number] 12:22:00 Test Item Value Reference Range Comments MAGNESIUM (BEAKER) (test sygg=049) 1.9 mg/dL 1.6-2.6 PROTHROMBIN [id number] 11:59:00 Test Item Value Reference Range Comments PROTIME (BEAKER) (test pwgq=720) 18.2 seconds 11.7-14.7 INR (BEAKER) (test apqx=053) 1.5 <=5.9 RECOMMENDED COUMADIN/WARFARIN INR THERAPY RANGESSTANDARD DOSE: 2.0 - 3.0 Includes: PROPHYLAXIS forvenous thrombosis, systemic embolization; TREATMENT for venous thrombosis and/or pulmonary embolus.HIGH RISK: Target INR is 2.5-3.5 for patients with mechanical heart valves.CBC W/PLT COUNT & AUTO [id number] 11:57:00 Test Item Value Reference Range Comments WHITE BLOOD CELL COUNT (BEAKER) (test tyoa=338) 8.7 K/ L 3.5-10.5 RED BLOOD CELL COUNT (BEAKER) (test vhmm=948) 2.38 M/ L 4.63-6.08 HEMOGLOBIN (BEAKER) (test kyfp=493) 7.9 GM/DL 13.7-17.5 HEMATOCRIT (BEAKER) (test ceth=877) 24.4 % 40.1-51.0 MEAN CORPUSCULAR VOLUME (BEAKER) (test mlry=960) 102.5 fL 79.0-92.2 MEAN CORPUSCULAR HEMOGLOBIN (BEAKER) (test 33.2 pg 25.7-32.2 mhnq=553) MEAN CORPUSCULAR HEMOGLOBIN CONC (BEAKER) (test 32.4 GM/DL 32.3-36.5 vktm=322) RED CELL DISTRIBUTION WIDTH (BEAKER) (test 23.9 % 11.6-14.4 rogi=065) PLATELET COUNT (BEAKER) (test htre=791) 93 K/CU MM 150-450 MEAN PLATELET VOLUME (BEAKER) (test ndpo=661) 10.8 fL 9.4-12.4 NUCLEATED RED BLOOD CELLS (BEAKER) (test 0 /100 WBC 0-0 gwvd=966) NEUTROPHILS RELATIVE PERCENT (BEAKER) (test 77 % uzwg=592) LYMPHOCYTES RELATIVE PERCENT (BEAKER) (test 5 % smxb=344) MONOCYTES RELATIVE PERCENT (BEAKER) (test 15 % acit=458) EOSINOPHILS RELATIVE PERCENT (BEAKER) (test 1 % dwyo=348) BASOPHILS RELATIVE PERCENT (BEAKER) (test 1 % tluz=506) NEUTROPHILS ABSOLUTE COUNT (BEAKER) (test 6.71 K/ L 1.78-5.38 ftxd=963) LYMPHOCYTES ABSOLUTE COUNT (BEAKER) (test 0.44 K/ L 1.32-3.57 xnkz=383) MONOCYTES ABSOLUTE COUNT (BEAKER) (test bjao=731) 1.28 K/ L 0.30-0.82 EOSINOPHILS ABSOLUTE COUNT (BEAKER) (test 0.10 K/ L 0.04-0.54 nige=407) BASOPHILS ABSOLUTE COUNT (BEAKER) (test bxzh=592) 0.06 K/ L 0.01-0.08 IMMATURE GRANULOCYTES-RELATIVE PERCENT (BEAKER) 1 % 0-1 (test auoj=1656) POCT-GLUCOSE [id number] 08:13:00 Test Item Value Reference Range Comments POC-GLUCOSE METER (BEAKER) 109 mg/dL 70-110 TESTED AT [place] [address] [address] (test zhxp=0106) [facility] [address] POCT-GLUCOSE [id number] 21:34:00 Test Item Value Reference Range Comments POC-GLUCOSE METER (BEAKER) 156 mg/dL 70-110 TESTED AT [address] (test bzdd=5823) [facility] [address] POCT-GLUCOSE [id number] 16:03:00 Test Item Value Reference Range Comments POC-GLUCOSE METER (BEAKER) 140 mg/dL 70-110 TESTED AT [address] (test fnjn=4063) [facility] [address] [id number] 13:09:00Medical Cytology Report Case: [id number] Authorizing Provider: Jorge Alberto Uribe MD Collected: 10/22/2017 1415 Ordering Location: [address] Received: 10/22/2017 1521 Service Pathologist: Yolanda Hargrove MD Specimen: Pleural , Left LEFT PLEURAL FLUID (CYTOSPINS): - PREDOMINANTLY NECROTIC DEGENERATED CELLS ( SEE COMMENT) Signing Pathologist Direct Phone Line: Degenerative process precludes evaluation. Clinical correlation recommended. 20650Hwabruthm, history of hodgkin's lymphoma (in 2004 s/p chemo declared free) LEFT PLEURAL FLUID2 mls thick cloudy blood-tinged fluid; 4 cytospinsCollected: [id number]: [id number] [facility], Department of Pathology, [address] [place] [address], [facility], [address] [place] [address], VMIG-GLUCOSE [id number] 12:34:00 Test Item Value Reference Range Comments POC-GLUCOSE METER (BEAKER) 123 mg/dL 70-110 TESTED AT [address] (test hjus=8109) [facility] [address] POCT-GLUCOSE [id number] 08:21:00 Test Item Value Reference Range Comments POC-GLUCOSE METER (BEAKER) 78 mg/dL 70-110 TESTED AT [address] (test pnvq=4914) [facility] [address] HEPATIC FUNCTION [id number] 04:51:00 Test Item Value Reference Range Comments TOTAL PROTEIN (BEAKER) (test mfnk=394) 4.6 gm/dL 6.0-8.3 ALBUMIN (BEAKER) (test ncdx=2796) 1.9 g/dL 3.5-5.0 BILIRUBIN TOTAL (BEAKER) (test zjzx=387) 1.0 mg/dL 0.2-1.2 BILIRUBIN DIRECT (BEAKER) (test nhou=830) 0.6 mg/dL 0.1-0.5 ALKALINE PHOSPHATASE (BEAKER) (test zods=320) 145 U/L 40-150 AST (SGOT) (BEAKER) (test lbxf=466) 103 U/L 5-34 ALT (SGPT) (BEAKER) (test thsw=046) 36 U/L 6-55 BASIC METABOLIC [id number] 04:50:00 Test Item Value Reference Range Comments SODIUM (BEAKER) (test 137 meq/L 136-145 jnkc=675) POTASSIUM (BEAKER) (test 3.8 meq/L 3.5-5.1 whsj=132) CHLORIDE (BEAKER) (test 107 meq/L 98-107 anpd=095) CO2 (BEAKER) (test 25 meq/L 22-29 bqcl=919) BLOOD UREA NITROGEN 13 mg/dL 7-21 (BEAKER) (test yemd=321) CREATININE (BEAKER) (test 2.62 mg/dL 0.57-1.25 dsde=321) GLUCOSE RANDOM (BEAKER) 91 mg/dL 70-105 (test usxh=314) CALCIUM (BEAKER) (test 7.8 mg/dL 8.4-10.2 yhbu=137) EGFR (BEAKER) (test 25 mL/min/1.73 sq m ESTIMATED GFR IS NOT nkga=0170) ACCURATE CREATININE CLEARANCE IN PREDICTING GLOMERULAR FILTRATION RATE. ESTIMATED GFR IS NOT APPLICABLE FOR DIALYSIS PATIENTS. [id number] 04:50:00 Test Item Value Reference Range Comments PHOSPHORUS (BEAKER) (test hjgv=564) 4.0 mg/dL 2.3-4.7 [id number] 04:50:00 Test Item Value Reference Range Comments MAGNESIUM (BEAKER) (test jivj=555) 1.6 mg/dL 1.6-2.6 PROTHROMBIN [id number] 04:39:00 Test Item Value Reference Range Comments PROTIME (BEAKER) (test vwqp=146) 18.5 seconds 11.7-14.7 INR (BEAKER) (test dqkp=808) 1.5 <=5.9 RECOMMENDED COUMADIN/WARFARIN INR THERAPY RANGESSTANDARD DOSE: 2.0 - 3.0 Includes: PROPHYLAXIS forvenous thrombosis, systemic embolization; TREATMENT for venous thrombosis and/or pulmonary embolus.HIGH RISK: Target INR is 2.5-3.5 for patients with mechanical heart valves.CBC W/PLT COUNT & AUTO [id number] 04:31:00 Test Item Value Reference Range Comments WHITE BLOOD CELL COUNT (BEAKER) (test hvyv=432) 9.9 K/ L 3.5-10.5 RED BLOOD CELL COUNT (BEAKER) (test zlxp=026) 2.07 M/ L 4.63-6.08 HEMOGLOBIN (BEAKER) (test nnyp=290) 6.8 GM/DL 13.7-17.5 HEMATOCRIT (BEAKER) (test lxll=798) 22.0 % 40.1-51.0 MEAN CORPUSCULAR VOLUME (BEAKER) (test ksel=333) 106.3 fL 79.0-92.2 MEAN CORPUSCULAR HEMOGLOBIN (BEAKER) (test 32.9 pg 25.7-32.2 xjna=466) MEAN CORPUSCULAR HEMOGLOBIN CONC (BEAKER) (test 30.9 GM/DL 32.3-36.5 dnfb=128) RED CELL DISTRIBUTION WIDTH (BEAKER) (test 23.9 % 11.6-14.4 lxbt=099) PLATELET COUNT (BEAKER) (test ejqp=461) 99 K/CU MM 150-450 MEAN PLATELET VOLUME (BEAKER) (test pmuo=327) 10.7 fL 9.4-12.4 NUCLEATED RED BLOOD CELLS (BEAKER) (test 0 /100 WBC 0-0 bjhp=070) NEUTROPHILS RELATIVE PERCENT (BEAKER) (test 77 % fpbo=697) LYMPHOCYTES RELATIVE PERCENT (BEAKER) (test 6 % lsun=302) MONOCYTES RELATIVE PERCENT (BEAKER) (test 15 % kwgt=986) EOSINOPHILS RELATIVE PERCENT (BEAKER) (test 1 % eprn=407) BASOPHILS RELATIVE PERCENT (BEAKER) (test 1 % scwp=650) NEUTROPHILS ABSOLUTE COUNT (BEAKER) (test 7.53 K/ L 1.78-5.38 qskx=176) LYMPHOCYTES ABSOLUTE COUNT (BEAKER) (test 0.61 K/ L 1.32-3.57 idhi=474) MONOCYTES ABSOLUTE COUNT (BEAKER) (test allb=062) 1.44 K/ L 0.30-0.82 EOSINOPHILS ABSOLUTE COUNT (BEAKER) (test 0.08 K/ L 0.04-0.54 xzxh=994) BASOPHILS ABSOLUTE COUNT (BEAKER) (test rmms=462) 0.06 K/ L 0.01-0.08 IMMATURE GRANULOCYTES-RELATIVE PERCENT (BEAKER) 1 % 0-1 (test kiyr=4439) CT, CHEST, WITH [id number] 02:31:00Referring: Dr. Hill WorksaraFINAL REPORT CLINICAL INDICATION: Left pleural effusion, status post thoracentesis, fluid suggestive of empyema COMPARISON: 09/20/2017 Multiple axial images of the chest were performed after the uncomplicated administration of IV contrast. This exam was performed according to ourdepartmental dose-optimization program, which includes automated exposure control, adjustment of themA and/or kV according to patient size and/or [...] atherosclerotic calcification of the coronary arteries, aorta andgreat vessels arising from the arch. Common origin [...] MRI is recommended. Cholelithiasis. Signed: Tosha Fields MDReport VerifiedDate/Time: 10/23/2017 02:31:40 Reading Location: [address] Reading Room Electronically signed by: TOSHA FIELDS M.D. on 02:31 AMPOCT-GLUCOSE [id number] 22:09:00 Test Item Value Reference Range Comments POC-GLUCOSE METER (BEAKER) 161 mg/dL 70-110 TESTED AT [address] (test ysgq=8187) [place] [id number] BODY FLUID CELL COUNT WITH [id number] 18:28:00 Test Item Value Reference Range Comments APPEARANCE FLUID (BEAKER) (test mxvv=072) Bloody Clear COLOR FLUID (BEAKER) (test npkf=408) Red Colorless, Straw RBC FLUID (BEAKER) (test oxwz=943) 386021 /cu mm <=1 ADJUSTED WBC FLUID (BEAKER) (test vqbk=1406) [address] /cu mm <=5 LINING CELLS (BEAKER) (test kbsh=4349) 0 /cu mm <=1 NEUTROPHILS FLUID (BEAKER) (test bsca=8358) 94 % LYMPHS FLUID (BEAKER) (test skgv=651) 1 % MONO/MACROPHAGE FLUID (BEAKER) (test 5 % bekt=921) EOSINOPHILS FLUID (BEAKER) (test lrak=352) 0 % BASO FLUID (BEAKER) (test zisp=847) 0 % CONTAINER BODY FLUID (BEAKER) (test EDTA Tube wdzr=9621) POCT-GLUCOSE [id number] 17:40:00 Test Item Value Reference Range Comments POC-GLUCOSE METER (BEAKER) 138 mg/dL 70-110 TESTED AT [address] (test iilt=1884) [facility] [address] U/S, [id number] 16:28:00Referring: Dr. Hill WorkenehLaterality?-& gt;LeftReason for exam:->dyspnea, h/o cirrhosisFINAL REPORT Ultrasound guided left thoracentesis, 10/22/2017. Clinical History: Left pleural effusion. Modality: Ultrasound. Sedation: None. International Manager: Gustavo Laguna MD. Environmental Conservation Officer: None. Estimated Blood Loss : 1cc Specimen: 25 mL of area was [...] chest x-ray demonstrates no evidence of pneumothorax. Impression:Successful and uncomplicated ultrasound guided left thoracentesis. Signed: Gustavo Laguna MDReport Verified Date/Time: 10/22/2017 16:28:38 Reading Location: [address] Ultrasound Reading Room PH, BODY [id number] 15:20:00 Test Item Value Reference Range Comments PH, BODY FLUID (BEAKER) (test uqur=3691) 7.75 LACTATE DEHYDROGENASE (LDH), BODY [id number] 15:19:00 Test Item Value Reference Range Comments LACTATE DEHYDROGENASE FLUID 2249 U/L Light's criteria identifies (BEAKER) (test bass=389) effusions if one or more are pre Absence of reference range indicates that normals have not been defined.Assay performance has not been validated for this type of specimen.GLUCOSE, BODY [id number] 15:18:00 Test Item Value Reference Range Comments GLUCOSE, BODY FLUID (BEAKER) (test xexs=2497) 7 mg/dL 70-110 Absence of reference range indicates that normals have not been defined.Assay performance has not been validated for this type of specimen.PROTEIN, BODY [id number] 15:08:00 Test Item Value Reference Range Comments PROTEIN FLUID (BEAKER) (test 1.2 g/dL Light's criteria identifies rtyh=011) effusions if one or more are pre Absence of reference range indicates that normals have not been defined.Assay performance has not been validated for this type of specimen.RAD, CHEST, PA OR AP, 1 [id number] 13:42:00Referring: Dr. Liz Felipe Ultrasound Room 4. Reason for exam:->s/p Left sided ThoracentesisFINAL REPORT Chest, portable AP view History: Status post left thoracentesis Comparison: 10/21/2017 IMPRESSION: There is no evidence of pneumothorax status post left thoracentesis. A small residual left pleural effusion remains. The heart is of unchanged size and configuration. The tunneled right internal jugular hemodialysis catheter is in place. A TIPS stent is visualized. The right lung is grossly clear. Signed: Gustavo Laguna [facility] Network[facility] Verified Date/Time : 10/22/2017 13:42:54 Reading Location: [facility] P006J Ultrasound Reading Room POCT- GLUCOSE [id number] 08:05:00 Test Item Value Reference Range Comments POC-GLUCOSE METER (BEAKER) 69 mg/dL 70-110 TESTED AT [facility] [address] [facility] (test wntf=9945) [facility] [address] CALCIUM, [id number] 07:54:00 Test Item Value Reference Range Comments CALCIUM IONIZED (BEAKER) (test roez=664) 0.97 mmol/L 1.12-1.27 PH, BLOOD (BEAKER) (test glep=4903) 7.34 PROTHROMBIN [id number] 04:53:00 Test Item Value Reference Range Comments PROTIME (BEAKER) (test zysv=705) 17.2 seconds 11.7-14.7 INR (BEAKER) (test gwhn=240) 1.4 <=5.9 RECOMMENDED COUMADIN/WARFARIN INR THERAPY RANGESSTANDARD DOSE: 2.0 - 3.0 Includes: PROPHYLAXIS forvenous thrombosis, systemic embolization; TREATMENT for venous thrombosis and/or pulmonary embolus.HIGH RISK: Target INR is 2.5-3.5 for patients with mechanical heart valves.BASIC METABOLIC [id number] 04:40: 00 Test Item Value Reference Range Comments SODIUM (BEAKER) (test 134 meq/L 136-145 ozhf=427) POTASSIUM (BEAKER) (test 4.2 meq/L 3.5-5.1 moon=491) CHLORIDE (BEAKER) (test 104 meq/L 98-107 ecfp=478) CO2 (BEAKER) (test 20 meq/L 22-29 mmwd=944) BLOOD UREA NITROGEN 26 mg/dL 7-21 (BEAKER) (test vewh=830) CREATININE (BEAKER) (test 4.74 mg/dL 0.57-1.25 taug=520) GLUCOSE RANDOM (BEAKER) 83 mg/dL 70-105 (test itpk=080) CALCIUM (BEAKER) (test 8.3 mg/dL 8.4-10.2 rlgp=079) EGFR (BEAKER) (test 12 mL/min/1.73 sq m ESTIMATED GFR IS NOT pjrg=8766) ACCURATE CREATININE CLEARANCE IN PREDICTING GLOMERULAR FILTRATION RATE. ESTIMATED GFR IS NOT APPLICABLE FOR DIALYSIS PATIENTS. [id number] 04:38:00 Test Item Value Reference Range Comments PHOSPHORUS (BEAKER) (test zyhg=178) 6.0 mg/dL 2.3-4.7 [id number] 04:38:00 Test Item Value Reference Range Comments MAGNESIUM (BEAKER) (test ffjp=926) 1.8 mg/dL 1.6-2.6 HEPATIC FUNCTION [id number] 04:38:00 Test Item Value Reference Range Comments TOTAL PROTEIN (BEAKER) (test jvrp=560) 4.9 gm/dL 6.0-8.3 ALBUMIN (BEAKER) (test hbsn=3137) 2.0 g/dL 3.5-5.0 BILIRUBIN TOTAL (BEAKER) (test kcsl=296) 1.0 mg/dL 0.2-1.2 BILIRUBIN DIRECT (BEAKER) (test jyzk=309) 0.7 mg/dL 0.1-0.5 ALKALINE PHOSPHATASE (BEAKER) (test jnub=899) 128 U/L 40-150 AST (SGOT) (BEAKER) (test nuko=359) 22 U/L 5-34 ALT (SGPT) (BEAKER) (test utjo=283) 13 U/L 6-55 CBC W/PLT COUNT & AUTO [id number] 04:29:00 Test Item Value Reference Range Comments WHITE BLOOD CELL COUNT (BEAKER) (test aqix=440) 7.3 K/ L 3.5-10.5 RED BLOOD CELL COUNT (BEAKER) (test hgzr=029) 2.22 M/ L 4.63-6.08 HEMOGLOBIN (BEAKER) (test niqk=322) 7.2 GM/DL 13.7-17.5 HEMATOCRIT (BEAKER) (test nsgc=395) 23.3 % 40.1-51.0 MEAN CORPUSCULAR VOLUME (BEAKER) (test ysee=568) 105.0 fL 79.0-92.2 MEAN CORPUSCULAR HEMOGLOBIN (BEAKER) (test 32.4 pg 25.7-32.2 qqnt=209) MEAN CORPUSCULAR HEMOGLOBIN CONC (BEAKER) (test 30.9 GM/DL 32.3-36.5 rcmq=057) RED CELL DISTRIBUTION WIDTH (BEAKER) (test 23.1 % 11.6-14.4 plwh=113) PLATELET COUNT (BEAKER) (test vfhi=166) 129 K/CU MM 150-450 MEAN PLATELET VOLUME (BEAKER) (test kedf=281) 10.8 fL 9.4-12.4 NUCLEATED RED BLOOD CELLS (BEAKER) (test 0 /100 WBC 0-0 oile=471) NEUTROPHILS RELATIVE PERCENT (BEAKER) (test 73 % zdpe=158) LYMPHOCYTES RELATIVE PERCENT (BEAKER) (test 11 % zraw=028) MONOCYTES RELATIVE PERCENT (BEAKER) (test 13 % kzlz=742) EOSINOPHILS RELATIVE PERCENT (BEAKER) (test 1 % wvcj=033) BASOPHILS RELATIVE PERCENT (BEAKER) (test 1 % xutx=393) NEUTROPHILS ABSOLUTE COUNT (BEAKER) (test 5.30 K/ L 1.78-5.38 qhek=597) LYMPHOCYTES ABSOLUTE COUNT (BEAKER) (test 0.79 K/ L 1.32-3.57 xsua=739) MONOCYTES ABSOLUTE COUNT (BEAKER) (test 0.93 K/ L 0.30-0.82 cbjt=745) EOSINOPHILS ABSOLUTE COUNT (BEAKER) (test 0.09 K/ L 0.04-0.54 vozf=713) BASOPHILS ABSOLUTE COUNT (BEAKER) (test 0.06 K/ L 0.01-0.08 ejjh=003) IMMATURE GRANULOCYTES-RELATIVE PERCENT (BEAKER) 1 % 0-1 (test lkpg=1787) POCT-GLUCOSE [id number] 21:22:00 Test Item Value Reference Range Comments POC-GLUCOSE METER (BEAKER) 142 mg/dL 70-110 TESTED AT [address] (test blvg=5103) [place] [id number] RAD, CHEST, 1 VIEW, NON [id number] 19:00:00pneumonia follow upFINAL REPORT Chest one view AP 10/21/2017 7:00 PM CLINICAL INDICATION: pneumonia follow up COMPARISON: 10/17/2017 IMPRESSION: There is a moderate volume left pleural effusion. Opacity in the subjacent left lung may reflect atelectasis or pneumonia. There is subsegmental atelectasis in the right lung base. Cardiomediastinal contours are partially obscured, but stable. The central pulmonary vasculature is not engorged. Remaining support hardware is unchanged in position. Signed: Sherif Selby Verified Date/Time: 03/2018 19:00:38 Reading Location: [address] Neuro Reading Room POCT- GLUCOSE [id number] 18:04:00 Test Item Value Reference Range Comments POC-GLUCOSE METER (BEAKER) 90 mg/dL 70-110 TESTED AT [address] (test kkxk=4086) [place] [id number] ANG, VISCERAL, CHEMO HEPATIC [id number] 17:38:00Referring: Dr. Liz Torres per Dr Sow and Dr Blanc.Reason for exam:->HCC with 2 lesions of2 cmFINAL REPORT Mesenteric angiogram and chemoembolization, 10/21/2017. History: HCC. Modality: Fluoroscopy. Sedation: None. Anesthesia: Two percent Lidocaine without epinephrine. Approach: Right common femoral artery. Estimated blood loss: < 5 cc. Specimen: None. 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 Environmental Conservation Officer: Martín. Fluoroscopy Time: 19.3 min. Dose (Ka,r): 606.6 mGy. Technique : Informed written consent was obtained. Discussion of [...] was anesthetized with lidocaine. The right common femoralartery was accessed using a 18-gauge singlewall needle and a 0.035 inch J-wire. A 5 Guinean sheath was placed. Diagnostic mesenteric angiogram was performed to access vessel patency and exclude arterio-portal shunting. A 5 Gu[place] Lawler catheter which was used to select the SMA and celiac trunk for DSA runs. A 3 Guine[place] microcatheter was advanced coaxially through the Lawler catheter for selection ofthe right and left hepatic artery for DSA [...] The superior mesenteric and portal vein are patent.2. Celiac injection: The splenic artery, common hepatic artery, left gastricartery , and gastroduodenal artery are patent with normal [...] with continued antegrade flow in the supplying vessel.4. Right common femoralartery injection: Patent right femoral artery and normal sheath position. IMPRESSION: 1. Successful, uncomplicated mesenteric angiogram and left hepatic artery chemo- embolization,performed with conscious sedation.2. Successful hemostasis using closure device. Signed: Adelso Sharmaort Verified Date/Time: 10/21/2017 17:38:59 Reading Location: [facility] P048 Angio Body Reading Room POCT- GLUCOSE [id number] 15:04:00 Test Item Value Reference Range Comments POC-GLUCOSE METER (BEAKER) 121 mg/dL 70-110 TESTED AT [address] (test vzpp=5422) [place] [address] POCT-GLUCOSE [id number] 14:15:00 Test Item Value Reference Range Comments POC-GLUCOSE METER (BEAKER) 91 mg/dL 70-110 TESTED AT [address] (test ejch=8975) [place] [address] [id number] 10:17:00 Test Item Value Reference Range Comments PHOSPHORUS (BEAKER) (test kvkh=403) 4.6 mg/dL 2.3-4.7 [id number] 10:17:00 Test Item Value Reference Range Comments MAGNESIUM (BEAKER) (test kelu=556) 1.6 mg/dL 1.6-2.6 POCT-GLUCOSE [id number] 08:30:00 Test Item Value Reference Range Comments POC-GLUCOSE METER (BEAKER) 68 mg/dL 70-110 Notified SHAKIRA SHAFER/TESTED AT [facility] (test ozzg=6044) [address] [place] [address] BASIC METABOLIC [id number] 06:36:00 Test Item Value Reference Range Comments SODIUM (BEAKER) (test 135 meq/L 136-145 zdnh=199) POTASSIUM (BEAKER) (test 3.8 meq/L 3.5-5.1 fooi=334) CHLORIDE (BEAKER) (test 105 meq/L 98-107 beiq=166) CO2 (BEAKER) (test 23 meq/L 22-29 qlzl=985) BLOOD UREA NITROGEN 18 mg/dL 7-21 (BEAKER) (test ejvx=068) CREATININE (BEAKER) (test 3.66 mg/dL 0.57-1.25 ydfy=038) GLUCOSE RANDOM (BEAKER) 73 mg/dL 70-105 (test ehpc=683) CALCIUM (BEAKER) (test 8.2 mg/dL 8.4-10.2 qgtf=291) EGFR (BEAKER) (test 17 mL/min/1.73 sq m ESTIMATED GFR IS NOT bztx=6955) ACCURATE CREATININE CLEARANCE IN PREDICTING GLOMERULAR FILTRATION RATE. ESTIMATED GFR IS NOT APPLICABLE FOR DIALYSIS PATIENTS. HEPATIC FUNCTION [id number] 06:10:00 Test Item Value Reference Range Comments TOTAL PROTEIN (BEAKER) (test ccvk=147) 4.6 gm/dL 6.0-8.3 ALBUMIN (BEAKER) (test yqea=2882) 2.0 g/dL 3.5-5.0 BILIRUBIN TOTAL (BEAKER) (test fliy=821) 1.0 mg/dL 0.2-1.2 BILIRUBIN DIRECT (BEAKER) (test rchi=441) 0.7 mg/dL 0.1-0.5 ALKALINE PHOSPHATASE (BEAKER) (test tgzs=864) 136 U/L 40-150 AST (SGOT) (BEAKER) (test mtap=431) 21 U/L 5-34 ALT (SGPT) (BEAKER) (test omwh=190) 14 U/L 6-55 PROTHROMBIN [id number] 05:57:00 Test Item Value Reference Range Comments PROTIME (BEAKER) (test hbaz=041) 18.4 seconds 11.7-14.7 INR (BEAKER) (test vgwc=046) 1.5 <=5.9 RECOMMENDED COUMADIN/WARFARIN INR THERAPY RANGESSTANDARD DOSE: 2.0 - 3.0 Includes: PROPHYLAXIS forvenous thrombosis, systemic embolization; TREATMENT for venous thrombosis and/or pulmonary embolus.HIGH RISK: Target INR is 2.5-3.5 for patients with mechanical heart valves.[id number] 05:53:00 Test Item Value Reference Range Comments PARTIAL THROMBOPLASTIN TIME (BEAKER) (test 41.6 seconds 22.5-36.0 xvep=748) CBC W/PLT COUNT & AUTO [id number] 05:49:00 Test Item Value Reference Range Comments WHITE BLOOD CELL COUNT (BEAKER) (test ztkv=281) 8.3 K/ L 3.5-10.5 RED BLOOD CELL COUNT (BEAKER) (test wtln=769) 2.26 M/ L 4.63-6.08 HEMOGLOBIN (BEAKER) (test dthe=378) 7.3 GM/DL 13.7-17.5 HEMATOCRIT (BEAKER) (test xngv=409) 23.2 % 40.1-51.0 MEAN CORPUSCULAR VOLUME (BEAKER) (test qfbc=425) 102.7 fL 79.0-92.2 MEAN CORPUSCULAR HEMOGLOBIN (BEAKER) (test 32.3 pg 25.7-32.2 mbqb=996) MEAN CORPUSCULAR HEMOGLOBIN CONC (BEAKER) (test 31.5 GM/DL 32.3-36.5 obny=742) RED CELL DISTRIBUTION WIDTH (BEAKER) (test 22.0 % 11.6-14.4 pfik=671) PLATELET COUNT (BEAKER) (test xigu=971) 111 K/CU MM 150-450 MEAN PLATELET VOLUME (BEAKER) (test plez=334) 11.0 fL 9.4-12.4 NUCLEATED RED BLOOD CELLS (BEAKER) (test 0 /100 WBC 0-0 ojnm=902) NEUTROPHILS RELATIVE PERCENT (BEAKER) (test 64 % fgkj=638) LYMPHOCYTES RELATIVE PERCENT (BEAKER) (test 13 % knwc=252) MONOCYTES RELATIVE PERCENT (BEAKER) (test 17 % xitd=253) EOSINOPHILS RELATIVE PERCENT (BEAKER) (test 2 % acsu=068) BASOPHILS RELATIVE PERCENT (BEAKER) (test 1 % iibz=479) NEUTROPHILS ABSOLUTE COUNT (BEAKER) (test 5.30 K/ L 1.78-5.38 sixr=437) LYMPHOCYTES ABSOLUTE COUNT (BEAKER) (test 1.07 K/ L 1.32-3.57 ctip=632) MONOCYTES ABSOLUTE COUNT (BEAKER) (test 1.44 K/ L 0.30-0.82 qeko=918) EOSINOPHILS ABSOLUTE COUNT (BEAKER) (test 0.13 K/ L 0.04-0.54 jryn=955) BASOPHILS ABSOLUTE COUNT (BEAKER) (test 0.09 K/ L 0.01-0.08 kuah=238) IMMATURE GRANULOCYTES-RELATIVE PERCENT (BEAKER) 3 % 0-1 (test pggc=4471) POCT-GLUCOSE [id number] 23:56:00 Test Item Value Reference Range Comments POC-GLUCOSE METER (BEAKER) 155 mg/dL 70-110 TESTED AT [facility] [address] [facility] (test bwbc=5540) [facility] [address] POCT-GLUCOSE [id number] 12:50:00 Test Item Value Reference Range Comments POC-GLUCOSE METER (BEAKER) 132 mg/dL 70-110 TESTED AT [facility] [address] [facility] (test pccz=8643) [facility] [address] CBC W/PLT COUNT & AUTO [id number] 11:57:00 Test Item Value Reference Range Comments WHITE BLOOD CELL COUNT (BEAKER) (test cqeo=590) 7.5 K/ L 3.5-10.5 RED BLOOD CELL COUNT (BEAKER) (test xlun=771) 2.34 M/ L 4.63-6.08 HEMOGLOBIN (BEAKER) (test kupc=588) 7.5 GM/DL 13.7-17.5 HEMATOCRIT (BEAKER) (test zwby=721) 24.1 % 40.1-51.0 MEAN CORPUSCULAR VOLUME (BEAKER) (test gfzx=746) 103.0 fL 79.0-92.2 MEAN CORPUSCULAR HEMOGLOBIN (BEAKER) (test 32.1 pg 25.7-32.2 rvew=935) MEAN CORPUSCULAR HEMOGLOBIN CONC (BEAKER) (test 31.1 GM/DL 32.3-36.5 hmav=901) RED CELL DISTRIBUTION WIDTH (BEAKER) (test 21.2 % 11.6-14.4 rmxl=841) PLATELET COUNT (BEAKER) (test izzr=899) 98 K/CU MM 150-450 MEAN PLATELET VOLUME (BEAKER) (test mabh=830) 11.2 fL 9.4-12.4 NUCLEATED RED BLOOD CELLS (BEAKER) (test 1 /100 WBC 0-0 vjsx=922) NEUTROPHILS RELATIVE PERCENT (BEAKER) (test 60 % yxyu=738) LYMPHOCYTES RELATIVE PERCENT (BEAKER) (test 14 % owrm=315) MONOCYTES RELATIVE PERCENT (BEAKER) (test 18 % bjlq=709) EOSINOPHILS RELATIVE PERCENT (BEAKER) (test 1 % vihh=795) BASOPHILS RELATIVE PERCENT (BEAKER) (test 2 % jhzk=229) NEUTROPHILS ABSOLUTE COUNT (BEAKER) (test 4.48 K/ L 1.78-5.38 tkey=953) LYMPHOCYTES ABSOLUTE COUNT (BEAKER) (test 1.07 K/ L 1.32-3.57 kobn=922) MONOCYTES ABSOLUTE COUNT (BEAKER) (test tjni=261) 1.37 K/ L 0.30-0.82 EOSINOPHILS ABSOLUTE COUNT (BEAKER) (test 0.10 K/ L 0.04-0.54 olhf=994) BASOPHILS ABSOLUTE COUNT (BEAKER) (test mmmz=743) 0.11 K/ L 0.01-0.08 IMMATURE GRANULOCYTES-RELATIVE PERCENT (BEAKER) 5 % 0-1 (test htrw=5038) (MANUAL DIFFERENTIAL)2017-10-20 11:57:00 Test Item Value Reference Range Comments TOTAL COUNTED (BEAKER) (test exmn=0544) WBC MORPHOLOGY (BEAKER) (test aswl=272) Normal PLT MORPHOLOGY (BEAKER) (test splq=898) Normal RBC MORPHOLOGY (BEAKER) (test bpbs=880) Normal [id number] 09:04:00 Test Item Value Reference Range Comments PHOSPHORUS (BEAKER) (test vrqr=169) 2.9 mg/dL 2.3-4.7 [id number] 09:04:00 Test Item Value Reference Range Comments MAGNESIUM (BEAKER) (test tyhh=958) 1.7 mg/dL 1.6-2.6 BASIC METABOLIC [id number] 07:26:00 Test Item Value Reference Range Comments SODIUM (BEAKER) (test 137 meq/L 136-145 hpgk=606) POTASSIUM (BEAKER) (test 3.7 meq/L 3.5-5.1 vyzg=597) CHLORIDE (BEAKER) (test 105 meq/L 98-107 mqcn=211) CO2 (BEAKER) (test 27 meq/L 22-29 fcln=419) BLOOD UREA NITROGEN 11 mg/dL 7-21 (BEAKER) (test okhs=855) CREATININE (BEAKER) (test 2.20 mg/dL 0.57-1.25 vfyj=142) GLUCOSE RANDOM (BEAKER) 74 mg/dL 70-105 (test cjrm=182) CALCIUM (BEAKER) (test 7.8 mg/dL 8.4-10.2 ouiy=159) EGFR (BEAKER) (test 30 mL/min/1.73 sq m ESTIMATED GFR IS NOT sdzj=2622) ACCURATE CREATININE CLEARANCE IN PREDICTING GLOMERULAR FILTRATION RATE. ESTIMATED GFR IS NOT APPLICABLE FOR DIALYSIS PATIENTS. HEPATIC FUNCTION [id number] 07:26:00 Test Item Value Reference Range Comments TOTAL PROTEIN (BEAKER) (test sjqc=623) 4.8 gm/dL 6.0-8.3 ALBUMIN (BEAKER) (test eizh=6183) 2.0 g/dL 3.5-5.0 BILIRUBIN TOTAL (BEAKER) (test tcdn=394) 1.0 mg/dL 0.2-1.2 BILIRUBIN DIRECT (BEAKER) (test quhb=103) 0.7 mg/dL 0.1-0.5 ALKALINE PHOSPHATASE (BEAKER) (test fmws=530) 159 U/L 40-150 AST (SGOT) (BEAKER) (test pblw=155) 20 U/L 5-34 ALT (SGPT) (BEAKER) (test tyyb=561) 14 U/L 6-55 POCT-GLUCOSE [id number] 07:22:00 Test Item Value Reference Range Comments POC-GLUCOSE METER (BEAKER) 61 mg/dL 70-110 Notified SHAKIRA SHAFER/TESTED AT [facility] (test ixkh=8875) [address] [place], [place] [id number] PROTHROMBIN [id number] 05:53:00 Test Item Value Reference Range Comments PROTIME (BEAKER) (test qlow=673) 18.7 seconds 11.7-14.7 INR (BEAKER) (test vkcf=048) 1.6 <=5.9 RECOMMENDED COUMADIN/WARFARIN INR THERAPY RANGESSTANDARD DOSE: 2.0 - 3.0 Includes: PROPHYLAXIS forvenous thrombosis, systemic embolization; TREATMENT for venous thrombosis and/or pulmonary embolus.HIGH RISK: Target INR is 2.5-3.5 for patients with mechanical heart valves.POCT-GLUCOSE [id number] 23:35:00 Test Item Value Reference Range Comments POC-GLUCOSE METER (BEAKER) 169 mg/dL 70-110 TESTED AT [address] (test subb=6065) [place] [id number] POCT-GLUCOSE [id number] 17:33:00 Test Item Value Reference Range Comments POC-GLUCOSE METER (BEAKER) 119 mg/dL 70-110 TESTED AT [address] (test qops=5359) [place] [address] [id number] 15:35:00 Test Item Value Reference Range Comments PHOSPHORUS (BEAKER) (test dpkh=079) 4.4 mg/dL 2.3-4.7 [id number] 15:35:00 Test Item Value Reference Range Comments MAGNESIUM (BEAKER) (test idhh=812) 1.9 mg/dL 1.6-2.6 POCT-GLUCOSE [id number] 11:54:00 Test Item Value Reference Range Comments POC-GLUCOSE METER (BEAKER) 144 mg/dL 70-110 TESTED AT [facility] [address] (test kbcg=4361) [place] [address] POCT-GLUCOSE [id number] 07:35:00 Test Item Value Reference Range Comments POC-GLUCOSE METER (BEAKER) 63 mg/dL 70-110 Notified SHAKIRA SHAFER/TESTED AT [facility] (test oovc=7263) [address] [facility] [address] CALCIUM, [id number] 06:54:00 Test Item Value Reference Range Comments CALCIUM IONIZED (BEAKER) (test kxcu=333) 0.99 mmol/L 1.12-1.27 PH, BLOOD (BEAKER) (test leki=6412) 7.42 [id number] 06:28:00 Test Item Value Reference Range Comments PHOSPHORUS (BEAKER) (test bhsq=334) 3.9 mg/dL 2.3-4.7 [id number] 06:28:00 Test Item Value Reference Range Comments MAGNESIUM (BEAKER) (test xzbk=981) 2.0 mg/dL 1.6-2.6 BASIC METABOLIC [id number] 06:28:00 Test Item Value Reference Range Comments SODIUM (BEAKER) (test 135 meq/L 136-145 nlhl=333) POTASSIUM (BEAKER) (test 4.3 meq/L 3.5-5.1 kwit=200) CHLORIDE (BEAKER) (test 106 meq/L 98-107 bmiu=149) CO2 (BEAKER) (test 21 meq/L 22-29 blpn=040) BLOOD UREA NITROGEN 23 mg/dL 7-21 (BEAKER) (test oqxz=381) CREATININE (BEAKER) (test 3.60 mg/dL 0.57-1.25 eacz=731) GLUCOSE RANDOM (BEAKER) 104 mg/dL 70-105 (test bgnv=267) CALCIUM (BEAKER) (test 8.2 mg/dL 8.4-10.2 fmuz=325) EGFR (BEAKER) (test 17 mL/min/1.73 sq m ESTIMATED GFR IS NOT oaag=3208) ACCURATE CREATININE CLEARANCE IN PREDICTING GLOMERULAR FILTRATION RATE. ESTIMATED GFR IS NOT APPLICABLE FOR DIALYSIS PATIENTS. COMPREHENSIVE METABOLIC [id number] 06:28:00 Test Item Value Reference Range Comments TOTAL PROTEIN (BEAKER) 4.5 gm/dL 6.0-8.3 (test mnkq=556) ALBUMIN (BEAKER) (test 1.9 g/dL 3.5-5.0 ijcl=4640) ALKALINE PHOSPHATASE 145 U/L 40-150 (BEAKER) (test xmgw=615) BILIRUBIN TOTAL (BEAKER) 1.0 mg/dL 0.2-1.2 (test oonf=835) SODIUM (BEAKER) (test 135 meq/L 136-145 vvqy=070) POTASSIUM (BEAKER) (test 4.3 meq/L 3.5-5.1 tnaf=616) CHLORIDE (BEAKER) (test 106 meq/L 98-107 cibc=329) CO2 (BEAKER) (test 21 meq/L 22-29 wykf=685) BLOOD UREA NITROGEN 23 mg/dL 7-21 (BEAKER) (test hbra=943) CREATININE (BEAKER) (test 3.60 mg/dL 0.57-1.25 aozu=915) GLUCOSE RANDOM (BEAKER) 104 mg/dL 70-105 (test have=796) CALCIUM (BEAKER) (test 8.2 mg/dL 8.4-10.2 oazz=443) AST (SGOT) (BEAKER) (test 21 U/L 5-34 ejsz=078) ALT (SGPT) (BEAKER) (test 16 U/L 6-55 wzuz=626) EGFR (BEAKER) (test 17 mL/min/1.73 sq m ESTIMATED GFR IS NOT jecr=9974) ACCURATE CREATININE CLEARANCE IN PREDICTING GLOMERULAR FILTRATION RATE. ESTIMATED GFR IS NOT APPLICABLE FOR DIALYSIS PATIENTS. HEPATIC FUNCTION [id number] 06:28:00 Test Item Value Reference Range Comments TOTAL PROTEIN (BEAKER) (test yise=676) 4.5 gm/dL 6.0-8.3 ALBUMIN (BEAKER) (test oxvx=4172) 1.9 g/dL 3.5-5.0 BILIRUBIN TOTAL (BEAKER) (test beto=049) 1.0 mg/dL 0.2-1.2 BILIRUBIN DIRECT (BEAKER) (test ffhm=050) 0.6 mg/dL 0.1-0.5 ALKALINE PHOSPHATASE (BEAKER) (test goct=005) 145 U/L 40-150 AST (SGOT) (BEAKER) (test xrrt=655) 21 U/L 5-34 ALT (SGPT) (BEAKER) (test rhlg=274) 16 U/L 6-55 PROTHROMBIN [id number] 05:44:00 Test Item Value Reference Range Comments PROTIME (BEAKER) (test vlxt=003) 18.1 seconds 11.7-14.7 INR (BEAKER) (test gyhq=810) 1.5 <=5.9 RECOMMENDED COUMADIN/WARFARIN INR THERAPY RANGESSTANDARD DOSE: 2.0 - 3.0 Includes: PROPHYLAXIS forvenous thrombosis, systemic embolization; TREATMENT for venous thrombosis and/or pulmonary embolus.HIGH RISK: Target INR is 2.5-3.5 for patients with mechanical heart valves.CBC W/PLT COUNT & AUTO [id number] 05:22:00 Test Item Value Reference Range Comments WHITE BLOOD CELL COUNT (BEAKER) (test jlef=410) 7.0 K/ L 3.5-10.5 RED BLOOD CELL COUNT (BEAKER) (test jtqm=846) 2.31 M/ L 4.63-6.08 HEMOGLOBIN (BEAKER) (test hvyr=584) 7.4 GM/DL 13.7-17.5 HEMATOCRIT (BEAKER) (test tspl=915) 23.6 % 40.1-51.0 MEAN CORPUSCULAR VOLUME (BEAKER) (test nnns=180) 102.2 fL 79.0-92.2 MEAN CORPUSCULAR HEMOGLOBIN (BEAKER) (test 32.0 pg 25.7-32.2 mors=165) MEAN CORPUSCULAR HEMOGLOBIN CONC (BEAKER) (test 31.4 GM/DL 32.3-36.5 pcxt=915) RED CELL DISTRIBUTION WIDTH (BEAKER) (test 19.9 % 11.6-14.4 uqku=898) PLATELET COUNT (BEAKER) (test hpyr=205) 87 K/CU MM 150-450 MEAN PLATELET VOLUME (BEAKER) (test hvly=971) 11.3 fL 9.4-12.4 NUCLEATED RED BLOOD CELLS (BEAKER) (test 0 /100 WBC 0-0 zxtm=397) NEUTROPHILS RELATIVE PERCENT (BEAKER) (test 55 % wrxw=451) LYMPHOCYTES RELATIVE PERCENT (BEAKER) (test 17 % moge=408) MONOCYTES RELATIVE PERCENT (BEAKER) (test 20 % dvlk=247) EOSINOPHILS RELATIVE PERCENT (BEAKER) (test 2 % xxwu=478) BASOPHILS RELATIVE PERCENT (BEAKER) (test 1 % yfeq=128) NEUTROPHILS ABSOLUTE COUNT (BEAKER) (test 3.81 K/ L 1.78-5.38 rziz=028) LYMPHOCYTES ABSOLUTE COUNT (BEAKER) (test 1.16 K/ L 1.32-3.57 yuhq=273) MONOCYTES ABSOLUTE COUNT (BEAKER) (test lssw=335) 1.40 K/ L 0.30-0.82 EOSINOPHILS ABSOLUTE COUNT (BEAKER) (test 0.17 K/ L 0.04-0.54 rhow=313) BASOPHILS ABSOLUTE COUNT (BEAKER) (test gdtc=776) 0.10 K/ L 0.01-0.08 IMMATURE GRANULOCYTES-RELATIVE PERCENT (BEAKER) 5 % 0-1 (test qybt=1012) POCT-GLUCOSE [id number] 23:10:00 Test Item Value Reference Range Comments POC-GLUCOSE METER (BEAKER) 116 mg/dL 70-110 TESTED AT [address] (test plvl=6977) [facility] [address] POCT-GLUCOSE [id number] 17:33:00 Test Item Value Reference Range Comments POC-GLUCOSE METER (BEAKER) 139 mg/dL 70-110 TESTED AT [address] (test jasc=6934) [facility] [address] POCT-GLUCOSE [id number] 12:16:00 Test Item Value Reference Range Comments POC-GLUCOSE METER (BEAKER) 130 mg/dL 70-110 TESTED AT [address] (test ixwa=2136) [facility] [address] PROTHROMBIN [id number] 10:29:00 Test Item Value Reference Range Comments PROTIME (BEAKER) (test uraw=756) 18.1 seconds 11.7-14.7 INR (BEAKER) (test rmss=997) 1.5 <=5.9 RECOMMENDED COUMADIN/WARFARIN INR THERAPY RANGESSTANDARD DOSE: 2.0 - 3.0 Includes: PROPHYLAXIS forvenous thrombosis, systemic embolization; TREATMENT for venous thrombosis and/or pulmonary embolus.HIGH RISK: Target INR is 2.5-3.5 for patients with mechanical heart valves.CALCIUM, [id number] 05:44:00 Test Item Value Reference Range Comments CALCIUM IONIZED (BEAKER) (test pulf=085) 1.12 mmol/L 1.12-1.27 PH, BLOOD (BEAKER) (test zbfa=9135) 7.34 BASIC METABOLIC [id number] 05:14:00 Test Item Value Reference Range Comments SODIUM (BEAKER) (test 137 meq/L 136-145 gbzd=430) POTASSIUM (BEAKER) (test 3.7 meq/L 3.5-5.1 quxf=214) CHLORIDE (BEAKER) (test 107 meq/L 98-107 cdgw=781) CO2 (BEAKER) (test 25 meq/L 22-29 wyvr=198) BLOOD UREA NITROGEN 14 mg/dL 7-21 (BEAKER) (test eolj=808) CREATININE (BEAKER) (test 2.28 mg/dL 0.57-1.25 kgzj=099) GLUCOSE RANDOM (BEAKER) 118 mg/dL 70-105 (test ondo=137) CALCIUM (BEAKER) (test 7.9 mg/dL 8.4-10.2 yrjk=034) EGFR (BEAKER) (test 29 mL/min/1.73 sq m ESTIMATED GFR IS NOT zick=9517) ACCURATE CREATININE CLEARANCE IN PREDICTING GLOMERULAR FILTRATION RATE. ESTIMATED GFR IS NOT APPLICABLE FOR DIALYSIS PATIENTS. CBC W/PLT COUNT & AUTO [id number] 05:08:00 Test Item Value Reference Range Comments WHITE BLOOD CELL COUNT (BEAKER) (test zbfi=273) 6.8 K/ L 3.5-10.5 RED BLOOD CELL COUNT (BEAKER) (test wbpa=577) 2.37 M/ L 4.63-6.08 HEMOGLOBIN (BEAKER) (test lwce=647) 7.4 GM/DL 13.7-17.5 HEMATOCRIT (BEAKER) (test daxh=254) 23.8 % 40.1-51.0 MEAN CORPUSCULAR VOLUME (BEAKER) (test nnbi=966) 100.4 fL 79.0-92.2 MEAN CORPUSCULAR HEMOGLOBIN (BEAKER) (test 31.2 pg 25.7-32.2 heju=244) MEAN CORPUSCULAR HEMOGLOBIN CONC (BEAKER) (test 31.1 GM/DL 32.3-36.5 hzuq=804) RED CELL DISTRIBUTION WIDTH (BEAKER) (test 19.2 % 11.6-14.4 xzsc=147) PLATELET COUNT (BEAKER) (test ijzb=900) 63 K/CU MM 150-450 MEAN PLATELET VOLUME (BEAKER) (test pcwd=953) 11.0 fL 9.4-12.4 NUCLEATED RED BLOOD CELLS (BEAKER) (test 0 /100 WBC 0-0 ihto=980) NEUTROPHILS RELATIVE PERCENT (BEAKER) (test 59 % afsk=791) LYMPHOCYTES RELATIVE PERCENT (BEAKER) (test 12 % afmi=351) MONOCYTES RELATIVE PERCENT (BEAKER) (test 20 % jzhm=557) EOSINOPHILS RELATIVE PERCENT (BEAKER) (test 3 % pzlu=152) BASOPHILS RELATIVE PERCENT (BEAKER) (test 1 % liom=559) NEUTROPHILS ABSOLUTE COUNT (BEAKER) (test 3.98 K/ L 1.78-5.38 xbwc=632) LYMPHOCYTES ABSOLUTE COUNT (BEAKER) (test 0.80 K/ L 1.32-3.57 cvfd=708) MONOCYTES ABSOLUTE COUNT (BEAKER) (test ietg=994) 1.37 K/ L 0.30-0.82 EOSINOPHILS ABSOLUTE COUNT (BEAKER) (test 0.17 K/ L 0.04-0.54 ghvo=116) BASOPHILS ABSOLUTE COUNT (BEAKER) (test bbpe=102) 0.09 K/ L 0.01-0.08 IMMATURE GRANULOCYTES-RELATIVE PERCENT (BEAKER) 6 % 0-1 (test ddws=5548) [id number] 05:01:00 Test Item Value Reference Range Comments PHOSPHORUS (BEAKER) (test yfkk=357) 3.3 mg/dL 2.3-4.7 [id number] 05:01:00 Test Item Value Reference Range Comments MAGNESIUM (BEAKER) (test riyc=556) 1.8 mg/dL 1.6-2.6 HEPATIC FUNCTION [id number] 05:01:00 Test Item Value Reference Range Comments TOTAL PROTEIN (BEAKER) (test hfdc=829) 4.6 gm/dL 6.0-8.3 ALBUMIN (BEAKER) (test fwag=1845) 2.0 g/dL 3.5-5.0 BILIRUBIN TOTAL (BEAKER) (test ilap=873) 1.1 mg/dL 0.2-1.2 BILIRUBIN DIRECT (BEAKER) (test gwqx=910) 0.7 mg/dL 0.1-0.5 ALKALINE PHOSPHATASE (BEAKER) (test nszf=395) 151 U/L 40-150 AST (SGOT) (BEAKER) (test tjdv=263) 21 U/L 5-34 ALT (SGPT) (BEAKER) (test xesa=361) 17 U/L 6-55 POCT-GLUCOSE [id number] 21:34:00 Test Item Value Reference Range Comments POC-GLUCOSE METER (BEAKER) 136 mg/dL 70-110 TESTED AT [address] (test xjed=3875) [place] [address] BLOOD [id number] 18:00:00 Test Item Value Reference Range Comments CULTURE (BEAKER) (test ivwl=4456) No growth in 5 days POCT-GLUCOSE [id number] 17:27:00 Test Item Value Reference Range Comments POC-GLUCOSE METER (BEAKER) 101 mg/dL 70-110 TESTED AT [address] (test ioxu=8678) [place] [id number] RAD, CHEST, 1 VIEW, NON [id number] 14:43:00Referring: Dr. Hill WorkenehReason for exam:->coughShould this be performed at the bedside?-> YesFINAL REPORT INDICATION: cough COMPARISON: October 16, 2017 TECHNIQUE: Chest radiograph, single view, portable technique. FINDINGS / IMPRESSION: Pleural parenchymal opacity in the left mid and lower lung is unchanged and represents chronic pleural collection and associated partial collapse of the left lower lobe as demonstrated on chest CT September 20, 2017. Faint nonspecific opacities of the right lung base are noted. No convincing evidence of acute pneumonia. No pneumothorax. Left internal jugular line and right internal jugular dialysis catheter noted. Intrahepatic portosystemic shunt noted. Signed: Mariela Jacob MDReport Verified Date/Time: 10/17/2017 14:43:05 Reading Location: [facility] Reading Room POCT-GLUCOSE [id number] 12:13:00 Test Item Value Reference Range Comments POC-GLUCOSE METER (BEAKER) 140 mg/dL 70-110 TESTED AT [facility] [address] [facility] (test lwzg=3555) [facility] [address] [id number] 10:00:00 Test Item Value Reference Range Comments PHOSPHORUS (BEAKER) (test rfaz=351) 4.4 mg/dL 2.3-4.7 [id number] 10:00:00 Test Item Value Reference Range Comments MAGNESIUM (BEAKER) (test fbhm=017) 2.1 mg/dL 1.6-2.6 BASIC METABOLIC [id number] 05:53:00 Test Item Value Reference Range Comments SODIUM (BEAKER) (test 136 meq/L 136-145 owex=077) POTASSIUM (BEAKER) (test 4.2 meq/L 3.5-5.1 tbwc=009) CHLORIDE (BEAKER) (test 105 meq/L 98-107 uodm=371) CO2 (BEAKER) (test 23 meq/L 22-29 uvld=960) BLOOD UREA NITROGEN 29 mg/dL 7-21 (BEAKER) (test bntg=904) CREATININE (BEAKER) (test 3.25 mg/dL 0.57-1.25 kfnz=925) GLUCOSE RANDOM (BEAKER) 98 mg/dL 70-105 (test mike=583) CALCIUM (BEAKER) (test 8.4 mg/dL 8.4-10.2 vpym=103) EGFR (BEAKER) (test 19 mL/min/1.73 sq m ESTIMATED GFR IS NOT faso=2144) ACCURATE CREATININE CLEARANCE IN PREDICTING GLOMERULAR FILTRATION RATE. ESTIMATED GFR IS NOT APPLICABLE FOR DIALYSIS PATIENTS. CBC W/PLT COUNT & AUTO [id number] 05:50:00 Test Item Value Reference Range Comments WHITE BLOOD CELL COUNT (BEAKER) (test jmex=109) 7.6 K/ L 3.5-10.5 RED BLOOD CELL COUNT (BEAKER) (test bqdv=737) 2.37 M/ L 4.63-6.08 HEMOGLOBIN (BEAKER) (test dywg=890) 7.6 GM/DL 13.7-17.5 HEMATOCRIT (BEAKER) (test uxhq=307) 23.7 % 40.1-51.0 MEAN CORPUSCULAR VOLUME (BEAKER) (test pcxo=834) 100.0 fL 79.0-92.2 MEAN CORPUSCULAR HEMOGLOBIN (BEAKER) (test 32.1 pg 25.7-32.2 gcyt=137) MEAN CORPUSCULAR HEMOGLOBIN CONC (BEAKER) (test 32.1 GM/DL 32.3-36.5 czpg=929) RED CELL DISTRIBUTION WIDTH (BEAKER) (test 18.7 % 11.6-14.4 uzkz=514) PLATELET COUNT (BEAKER) (test wbsw=291) 49 K/CU MM 150-450 MEAN PLATELET VOLUME (BEAKER) (test edxr=915) 11.6 fL 9.4-12.4 NUCLEATED RED BLOOD CELLS (BEAKER) (test 0 /100 WBC 0-0 uevf=593) NEUTROPHILS RELATIVE PERCENT (BEAKER) (test 61 % tkgk=371) LYMPHOCYTES RELATIVE PERCENT (BEAKER) (test 12 % hivj=646) MONOCYTES RELATIVE PERCENT (BEAKER) (test 19 % msjs=034) EOSINOPHILS RELATIVE PERCENT (BEAKER) (test 3 % mauu=279) BASOPHILS RELATIVE PERCENT (BEAKER) (test 1 % fvch=162) NEUTROPHILS ABSOLUTE COUNT (BEAKER) (test 4.65 K/ L 1.78-5.38 txpn=257) LYMPHOCYTES ABSOLUTE COUNT (BEAKER) (test 0.93 K/ L 1.32-3.57 yobm=365) MONOCYTES ABSOLUTE COUNT (BEAKER) (test zurk=463) 1.43 K/ L 0.30-0.82 EOSINOPHILS ABSOLUTE COUNT (BEAKER) (test 0.25 K/ L 0.04-0.54 qmqh=875) BASOPHILS ABSOLUTE COUNT (BEAKER) (test ywxl=762) 0.09 K/ L 0.01-0.08 IMMATURE GRANULOCYTES-RELATIVE PERCENT (BEAKER) 3 % 0-1 (test rlcj=7728) HEPATIC FUNCTION [id number] 05:46:00 Test Item Value Reference Range Comments TOTAL PROTEIN (BEAKER) (test lfxb=434) 4.7 gm/dL 6.0-8.3 ALBUMIN (BEAKER) (test oxbe=4266) 2.1 g/dL 3.5-5.0 BILIRUBIN TOTAL (BEAKER) (test kxvm=532) 1.2 mg/dL 0.2-1.2 BILIRUBIN DIRECT (BEAKER) (test mmpy=939) 0.8 mg/dL 0.1-0.5 ALKALINE PHOSPHATASE (BEAKER) (test zyew=584) 157 U/L 40-150 AST (SGOT) (BEAKER) (test fpgp=082) 22 U/L 5-34 ALT (SGPT) (BEAKER) (test mzyu=947) 17 U/L 6-55 PROTHROMBIN [id number] 05:20:00 Test Item Value Reference Range Comments PROTIME (BEAKER) (test mxwm=605) 18.4 seconds 11.7-14.7 INR (BEAKER) (test nuab=586) 1.5 <=5.9 RECOMMENDED COUMADIN/WARFARIN INR THERAPY RANGESSTANDARD DOSE: 2.0 - 3.0 Includes: PROPHYLAXIS forvenous thrombosis, systemic embolization; TREATMENT for venous thrombosis and/or pulmonary embolus.HIGH RISK: Target INR is 2.5-3.5 for patients with mechanical heart valves.POCT-GLUCOSE [id number] 22:00:00 Test Item Value Reference Range Comments POC-GLUCOSE METER (BEAKER) 171 mg/dL 70-110 TESTED AT [facility] [address] [facility] (test hgfw=1369) [facility] [address] CBC W/PLT COUNT & AUTO [id number] 12:26:00 Test Item Value Reference Range Comments WHITE BLOOD CELL COUNT (BEAKER) (test rdfc=346) 7.0 K/ L 3.5-10.5 RED BLOOD CELL COUNT (BEAKER) (test modj=448) 2.54 M/ L 4.63-6.08 HEMOGLOBIN (BEAKER) (test xyyk=206) 8.1 GM/DL 13.7-17.5 HEMATOCRIT (BEAKER) (test hemf=164) 25.2 % 40.1-51.0 MEAN CORPUSCULAR VOLUME (BEAKER) (test slfw=900) 99.2 fL 79.0-92.2 MEAN CORPUSCULAR HEMOGLOBIN (BEAKER) (test 31.9 pg 25.7-32.2 bsto=177) MEAN CORPUSCULAR HEMOGLOBIN CONC (BEAKER) (test 32.1 GM/DL 32.3-36.5 nqqx=802) RED CELL DISTRIBUTION WIDTH (BEAKER) (test 19.0 % 11.6-14.4 uaxb=927) PLATELET COUNT (BEAKER) (test kocf=415) 34 K/CU MM 150-450 MEAN PLATELET VOLUME (BEAKER) (test fvim=483) 11.8 fL 9.4-12.4 NUCLEATED RED BLOOD CELLS (BEAKER) (test 0 /100 WBC 0-0 snzw=975) NEUTROPHILS RELATIVE PERCENT (BEAKER) (test 73 % ymrh=929) LYMPHOCYTES RELATIVE PERCENT (BEAKER) (test 8 % dsdo=965) MONOCYTES RELATIVE PERCENT (BEAKER) (test 16 % tzwf=518) EOSINOPHILS RELATIVE PERCENT (BEAKER) (test 2 % wbyx=123) BASOPHILS RELATIVE PERCENT (BEAKER) (test 1 % aspk=021) NEUTROPHILS ABSOLUTE COUNT (BEAKER) (test 5.07 K/ L 1.78-5.38 rtoo=146) LYMPHOCYTES ABSOLUTE COUNT (BEAKER) (test 0.52 K/ L 1.32-3.57 rizu=298) MONOCYTES ABSOLUTE COUNT (BEAKER) (test hjyl=582) 1.08 K/ L 0.30-0.82 EOSINOPHILS ABSOLUTE COUNT (BEAKER) (test 0.15 K/ L 0.04-0.54 mhgj=188) BASOPHILS ABSOLUTE COUNT (BEAKER) (test ezef=765) 0.05 K/ L 0.01-0.08 IMMATURE GRANULOCYTES-RELATIVE PERCENT (BEAKER) 1 % 0-1 (test pwvi=4935) POCT-GLUCOSE [id number] 11:59:00 Test Item Value Reference Range Comments POC-GLUCOSE METER (BEAKER) 109 mg/dL 70-110 TESTED AT [address] (test mmdn=4685) [place] [id number] POCT-GLUCOSE [id number] 07:05:00 Test Item Value Reference Range Comments POC-GLUCOSE METER (BEAKER) 85 mg/dL 70-110 TESTED AT [address] (test gwvl=9263) [place] [address] POCT-GLUCOSE [id number] 06:32:00 Test Item Value Reference Range Comments POC-GLUCOSE METER (BEAKER) 61 mg/dL 70-110 TESTED AT [facility] [address] (test soeb=3324) [facility] [address] CALCIUM, [id number] 05:44:00 Test Item Value Reference Range Comments CALCIUM IONIZED (BEAKER) (test lpid=075) 1.18 mmol/L 1.12-1.27 PH, BLOOD (BEAKER) (test esrt=3693) 7.40 PROTHROMBIN [id number] 05:10:00 Test Item Value Reference Range Comments PROTIME (BEAKER) (test fhmr=606) 19.7 seconds 11.7-14.7 INR (BEAKER) (test gyni=836) 1.7 <=5.9 RECOMMENDED COUMADIN/WARFARIN INR THERAPY RANGESSTANDARD DOSE: 2.0 - 3.0 Includes: PROPHYLAXIS forvenous thrombosis, systemic embolization; TREATMENT for venous thrombosis and/or pulmonary embolus.HIGH RISK: Target INR is 2.5-3.5 for patients with mechanical heart valves.[id number] 04:52:00 Test Item Value Reference Range Comments PHOSPHORUS (BEAKER) (test waad=695) 3.5 mg/dL 2.3-4.7 [id number] 04:52:00 Test Item Value Reference Range Comments MAGNESIUM (BEAKER) (test xnuq=961) 1.9 mg/dL 1.6-2.6 BASIC METABOLIC [id number] 04:52:00 Test Item Value Reference Range Comments SODIUM (BEAKER) (test 138 meq/L 136-145 ssnw=267) POTASSIUM (BEAKER) (test 4.4 meq/L 3.5-5.1 nyev=133) CHLORIDE (BEAKER) (test 108 meq/L 98-107 bhza=715) CO2 (BEAKER) (test 25 meq/L 22-29 tuut=802) BLOOD UREA NITROGEN 19 mg/dL 7-21 (BEAKER) (test yket=235) CREATININE (BEAKER) (test 1.94 mg/dL 0.57-1.25 bgqh=122) GLUCOSE RANDOM (BEAKER) 75 mg/dL 70-105 (test ekcr=241) CALCIUM (BEAKER) (test 8.4 mg/dL 8.4-10.2 kbla=745) EGFR (BEAKER) (test 35 mL/min/1.73 sq m ESTIMATED GFR IS NOT cpbe=5885) ACCURATE CREATININE CLEARANCE IN PREDICTING GLOMERULAR FILTRATION RATE. ESTIMATED GFR IS NOT APPLICABLE FOR DIALYSIS PATIENTS. HEPATIC FUNCTION [id number] 04:52:00 Test Item Value Reference Range Comments TOTAL PROTEIN (BEAKER) (test dqmr=532) 4.3 gm/dL 6.0-8.3 ALBUMIN (BEAKER) (test jsbb=4355) 2.0 g/dL 3.5-5.0 BILIRUBIN TOTAL (BEAKER) (test vcyf=964) 1.5 mg/dL 0.2-1.2 BILIRUBIN DIRECT (BEAKER) (test xyqr=221) 0.9 mg/dL 0.1-0.5 ALKALINE PHOSPHATASE (BEAKER) (test macv=404) 130 U/L 40-150 AST (SGOT) (BEAKER) (test vgrl=088) 22 U/L 5-34 ALT (SGPT) (BEAKER) (test ngpi=782) 16 U/L 6-55 CBC W/PLT COUNT & AUTO [id number] 04:37:00 Test Item Value Reference Range Comments WHITE BLOOD CELL COUNT 6.5 K/ L 3.5-10.5 (BEAKER) (test jbus=626) RED BLOOD CELL COUNT (BEAKER) 2.46 M/ L 4.63-6.08 (test bgra=720) HEMOGLOBIN (BEAKER) (test 7.8 GM/DL 13.7-17.5 edfz=465) HEMATOCRIT (BEAKER) (test 24.2 % 40.1-51.0 keep=101) MEAN CORPUSCULAR VOLUME 98.4 fL 79.0-92.2 (BEAKER) (test ztqc=449) MEAN CORPUSCULAR HEMOGLOBIN 31.7 pg 25.7-32.2 (BEAKER) (test wwqo=225) MEAN CORPUSCULAR HEMOGLOBIN 32.2 GM/DL 32.3-36.5 CONC (BEAKER) (test ezvk=605) RED CELL DISTRIBUTION WIDTH 18.5 % 11.6-14.4 (BEAKER) (test fhsz=963) PLATELET COUNT (BEAKER) (test 19 K/CU MM 150-450 Discordant PLT result dgch=212) Compared to previous one, Clinical correlation required. MEAN PLATELET VOLUME (BEAKER) 12.3 fL 9.4-12.4 (test lseb=137) NUCLEATED RED BLOOD CELLS 0 /100 WBC 0-0 (BEAKER) (test wuui=149) NEUTROPHILS RELATIVE PERCENT 73 % (BEAKER) (test yqzo=547) LYMPHOCYTES RELATIVE PERCENT 8 % (BEAKER) (test gsco=218) MONOCYTES RELATIVE PERCENT 16 % (BEAKER) (test feuk=118) EOSINOPHILS RELATIVE PERCENT 2 % (BEAKER) (test ijnj=888) BASOPHILS RELATIVE PERCENT 1 % (BEAKER) (test iljm=681) NEUTROPHILS ABSOLUTE COUNT 4.72 K/ L 1.78-5.38 (BEAKER) (test riqx=580) LYMPHOCYTES ABSOLUTE COUNT 0.51 K/ L 1.32-3.57 (BEAKER) (test ssrj=729) MONOCYTES ABSOLUTE COUNT 1.02 K/ L 0.30-0.82 (BEAKER) (test yosz=349) EOSINOPHILS ABSOLUTE COUNT 0.10 K/ L 0.04-0.54 (BEAKER) (test twii=130) BASOPHILS ABSOLUTE COUNT 0.04 K/ L 0.01-0.08 (BEAKER) (test qrkn=168) IMMATURE GRANULOCYTES-RELATIVE 1 % 0-1 PERCENT (BEAKER) (test yult=7042) RAD, CHEST, 1 VIEW, NON [id number] 04:12:00Referring: Dr. Hill WorkenehReason for exam:->intubated, PNA?Should this be performed at the bedside?->YesFINAL REPORT CLINICAL INDICATION: Support lines. Comparison: 10/15/2017 The cardiomediastinal contours are stable. Central pulmonary vascular congestion and left greater than right parenchymal and left pleural opacities are unchanged. There is no pneumothorax. Support lines are stable. Signed: Tosha Fields Verified Date/Time: 2017 04:12:57 Reading Location: [address] Reading Room POCT- GLUCOSE [id number] 00:18:00 Test Item Value Reference Range Comments POC-GLUCOSE METER (BEAKER) 108 mg/dL 70-110 TESTED AT [facility] [address] [facility] (test bcqg=3808) [facility] [address] [id number] 19:24:00 Test Item Value Reference Range Comments PHOSPHORUS (BEAKER) (test zlwr=787) 2.7 mg/dL 2.3-4.7 [id number] 19:24:00 Test Item Value Reference Range Comments MAGNESIUM (BEAKER) (test befc=844) 1.8 mg/dL 1.6-2.6 BASIC METABOLIC [id number] 19:24:00 Test Item Value Reference Range Comments SODIUM (BEAKER) (test 138 meq/L 136-145 lzmc=330) POTASSIUM (BEAKER) (test 3.9 meq/L 3.5-5.1 wofo=655) CHLORIDE (BEAKER) (test 108 meq/L 98-107 tmez=002) CO2 (BEAKER) (test 24 meq/L 22-29 ybce=330) BLOOD UREA NITROGEN 20 mg/dL 7-21 (BEAKER) (test yfek=006) CREATININE (BEAKER) (test 2.05 mg/dL 0.57-1.25 zlna=450) GLUCOSE RANDOM (BEAKER) 114 mg/dL 70-105 (test jzwh=228) CALCIUM (BEAKER) (test 8.5 mg/dL 8.4-10.2 vnuf=636) EGFR (BEAKER) (test 33 mL/min/1.73 sq m ESTIMATED GFR IS NOT jtuk=5033) ACCURATE CREATININE CLEARANCE IN PREDICTING GLOMERULAR FILTRATION RATE. ESTIMATED GFR IS NOT APPLICABLE FOR DIALYSIS PATIENTS. CALCIUM, [id number] 19:06:00 Test Item Value Reference Range Comments CALCIUM IONIZED (BEAKER) (test izhf=327) 1.20 mmol/L 1.12-1.27 PH, BLOOD (BEAKER) (test wwvo=4864) 7.37 POCT-GLUCOSE [id number] 18:26:00 Test Item Value Reference Range Comments POC-GLUCOSE METER (BEAKER) 88 mg/dL 70-110 TESTED AT [facility] [address] [facility] (test kzzd=2518) [facility] [address] POCT-GLUCOSE [id number] 11:55:00 Test Item Value Reference Range Comments POC-GLUCOSE METER (BEAKER) 114 mg/dL 70-110 TESTED AT [facility] [address] [place] [address] (test kcef=9795) [facility] [address] RAD, CHEST, 1 VIEW, NON [id number] 08:03:00Referring: Dr. Liz Grove for exam:->intubated, PNA?Should this be performed at the bedside?->YesFINAL REPORT Chest one view compared October 14 Discussion: Mild pulmonary edemaand moderate left effusion unchanged. Airspace opacity left lower lung unchanged for which pneumoniacannot be excluded. Left IJ line and right dialysis catheter are again noted. No pneumothorax. Signed: Yang Reece Verified Date/Time: 10/15/2017 08: 03:45 Reading Location: [facility] Radiology Reading Room POCT- GLUCOSE [id number] 05:48:00 Test Item Value Reference Range Comments POC-GLUCOSE METER (BEAKER) 95 mg/dL 70-110 TESTED AT [address] (test rrqs=4416) [facility] [address] HEPATIC FUNCTION [id number] 05:48:00 Test Item Value Reference Range Comments TOTAL PROTEIN (BEAKER) (test qimc=644) 5.0 gm/dL 6.0-8.3 ALBUMIN (BEAKER) (test jbmb=4286) 2.3 g/dL 3.5-5.0 BILIRUBIN TOTAL (BEAKER) (test shfo=988) 1.5 mg/dL 0.2-1.2 BILIRUBIN DIRECT (BEAKER) (test rmax=866) 0.9 mg/dL 0.1-0.5 ALKALINE PHOSPHATASE (BEAKER) (test lngg=953) 154 U/L 40-150 AST (SGOT) (BEAKER) (test xgng=539) 31 U/L 5-34 ALT (SGPT) (BEAKER) (test qnms=248) 20 U/L 6-55 BASIC METABOLIC [id number] 05:48:00 Test Item Value Reference Range Comments SODIUM (BEAKER) (test 136 meq/L 136-145 dtyr=515) POTASSIUM (BEAKER) (test 4.1 meq/L 3.5-5.1 djmx=934) CHLORIDE (BEAKER) (test 106 meq/L 98-107 yahz=273) CO2 (BEAKER) (test 22 meq/L 22-29 rsqb=142) BLOOD UREA NITROGEN 31 mg/dL 7-21 (BEAKER) (test omsp=555) CREATININE (BEAKER) (test 3.12 mg/dL 0.57-1.25 gfkk=934) GLUCOSE RANDOM (BEAKER) 88 mg/dL 70-105 (test xpwg=355) CALCIUM (BEAKER) (test 8.9 mg/dL 8.4-10.2 sgvk=495) EGFR (BEAKER) (test 20 mL/min/1.73 sq m ESTIMATED GFR IS NOT gzlr=0130) ACCURATE CREATININE CLEARANCE IN PREDICTING GLOMERULAR FILTRATION RATE. ESTIMATED GFR IS NOT APPLICABLE FOR DIALYSIS PATIENTS. CALCIUM, [id number] 05:37:00 Test Item Value Reference Range Comments CALCIUM IONIZED (BEAKER) (test xtzj=790) 1.20 mmol/L 1.12-1.27 PH, BLOOD (BEAKER) (test ehue=9691) 7.34 [id number] 05:35:00 Test Item Value Reference Range Comments PHOSPHORUS (BEAKER) (test svsh=745) 5.0 mg/dL 2.3-4.7 [id number] 05:35:00 Test Item Value Reference Range Comments MAGNESIUM (BEAKER) (test jmmk=936) 2.4 mg/dL 1.6-2.6 CBC W/PLT COUNT & AUTO [id number] 05:30:00 Test Item Value Reference Range Comments WHITE BLOOD CELL COUNT (BEAKER) (test yigu=324) 7.1 K/ L 3.5-10.5 RED BLOOD CELL COUNT (BEAKER) (test krxm=581) 2.85 M/ L 4.63-6.08 HEMOGLOBIN (BEAKER) (test hhbj=033) 9.0 GM/DL 13.7-17.5 HEMATOCRIT (BEAKER) (test okkw=252) 28.0 % 40.1-51.0 MEAN CORPUSCULAR VOLUME (BEAKER) (test irjw=787) 98.2 fL 79.0-92.2 MEAN CORPUSCULAR HEMOGLOBIN (BEAKER) (test 31.6 pg 25.7-32.2 desg=240) MEAN CORPUSCULAR HEMOGLOBIN CONC (BEAKER) (test 32.1 GM/DL 32.3-36.5 eprc=565) RED CELL DISTRIBUTION WIDTH (BEAKER) (test 19.0 % 11.6-14.4 kbrz=564) PLATELET COUNT (BEAKER) (test wnti=548) 66 K/CU MM 150-450 MEAN PLATELET VOLUME (BEAKER) (test bccq=437) 11.5 fL 9.4-12.4 NUCLEATED RED BLOOD CELLS (BEAKER) (test 0 /100 WBC 0-0 iezz=536) NEUTROPHILS RELATIVE PERCENT (BEAKER) (test 71 % oafw=091) LYMPHOCYTES RELATIVE PERCENT (BEAKER) (test 9 % ybzo=880) MONOCYTES RELATIVE PERCENT (BEAKER) (test 13 % rqzm=857) EOSINOPHILS RELATIVE PERCENT (BEAKER) (test 4 % trip=132) BASOPHILS RELATIVE PERCENT (BEAKER) (test 1 % juqn=402) NEUTROPHILS ABSOLUTE COUNT (BEAKER) (test 5.05 K/ L 1.78-5.38 usou=484) LYMPHOCYTES ABSOLUTE COUNT (BEAKER) (test 0.67 K/ L 1.32-3.57 eofs=358) MONOCYTES ABSOLUTE COUNT (BEAKER) (test tbqq=665) 0.94 K/ L 0.30-0.82 EOSINOPHILS ABSOLUTE COUNT (BEAKER) (test 0.29 K/ L 0.04-0.54 fkzc=387) BASOPHILS ABSOLUTE COUNT (BEAKER) (test nptp=972) 0.09 K/ L 0.01-0.08 IMMATURE GRANULOCYTES-RELATIVE PERCENT (BEAKER) 1 % 0-1 (test lcnk=2334) B-TYPE NATRIURETIC FACTOR (BNP)2017-10-15 05:27:00 Test Item Value Reference Range Comments B-TYPE NATRIURETIC PEPTIDE (BEAKER) (test 1710 pg/mL 0-100 wjpu=292) PROTHROMBIN [id number] 05:13:00 Test Item Value Reference Range Comments PROTIME (BEAKER) (test eprk=002) 17.2 seconds 11.7-14.7 INR (BEAKER) (test mtkl=384) 1.4 <=5.9 RECOMMENDED COUMADIN/WARFARIN INR THERAPY RANGESSTANDARD DOSE: 2.0 - 3.0 Includes: PROPHYLAXIS forvenous thrombosis, systemic embolization; TREATMENT for venous thrombosis and/or pulmonary embolus.HIGH RISK: Target INR is 2.5-3.5 for patients with mechanical heart valves.POCT-GLUCOSE [id number] 00:11:00 Test Item Value Reference Range Comments POC-GLUCOSE METER (BEAKER) 105 mg/dL 70-110 TESTED AT [facility] [address] [facility] (test docd=6155) [facility] [address] POCT-GLUCOSE [id number] 17:50:00 Test Item Value Reference Range Comments POC-GLUCOSE METER (BEAKER) 74 mg/dL 70-110 TESTED AT [facility] [address] [facility] (test vvvz=2127) [facility] [address] SPUTUM CULTURE + GRAM [id number] 11:48:00 Test Item Value Reference Range Comments CULTURE (BEAKER) (test PSEUDOMONAS <1+ Pseudomonas rivr=9600) AERUGINOSA aeruginosa Amikacin (test code=1) Susceptible 0-16 , Resistant <0 or >16 Aztreonam (test Susceptible 0-8 , code=32) Resistant <0 or >8 Cefepime (test code=51) Susceptible 0-8 , Resistant <0 or >8 Ceftazidime (test Susceptible 0-8 , code=27) Resistant <0 or >8 Ciprofloxacin (test Susceptible 0-1 , code=7) Resistant <0 or >1 Doripenem (test Susceptible 0-2 , jbde=144) Resistant <0 or >2 Gentamicin (test Susceptible 0-4 , code=18) Resistant <0 or >4 Imipenem (test code=19) Susceptible 0-2 , Resistant <0 or >2 Levofloxacin (test Susceptible 0-2 , code=22) Resistant <0 or >2 Meropenem (test Susceptible 0-2 , code=34) Resistant <0 or >2 Piperacillin (test Susceptible 0-16 , code=24) Resistant <0 or >16 Piperacillin + Susceptible 0-16 , Tazobactam (test Resistant <0 or code=29) >16 Tobramycin (test Susceptible 0-4 , code=25) Resistant <0 or >4 GRAM STAIN RESULT 2+ WBCs (BEAKER) (test bjtq=9459) GRAM STAIN RESULT 0-5 epithelial cells (BEAKER) (test gntk=328240) GRAM STAIN RESULT 1+ gram positive (BEAKER) (test cocci in pairs okii=264269) 1+ Normal respiratory milan presentPOCT-GLUCOSE [id number] 11:41:00 Test Item Value Reference Range Comments POC-GLUCOSE METER (BEAKER) 85 mg/dL 70-110 TESTED AT [address] (test nxkh=7187) [place] [address] URINE [id number] 09:41:00 Test Item Value Reference Range Comments CULTURE (BEAKER) (test sooy=1984) No growth POCT-GLUCOSE [id number] 06:19:00 Test Item Value Reference Range Comments POC-GLUCOSE METER (BEAKER) 146 mg/dL 70-110 TESTED AT [address] (test tveb=3706) [place] [address] BLOOD GAS, [id number] 05:25:00 Test Item Value Reference Range Comments PH ARTERIAL (BEAKER) (test whxh=090) 7.44 7.35-7.45 PCO2 ARTERIAL (BEAKER) (test wuho=267) 44 mmHg 35-45 PO2 ARTERIAL (BEAKER) (test yyno=454) 221 mmHg 80-90 O2 SATURATION ARTERIAL (BEAKER) (test vpox=760) 99.5 % 96.0-97.0 HCO3 ARTERIAL (BEAKER) (test zvze=694) 29 mmol/L 21-29 BASE EXCESS ARTERIAL (BEAKER) (test ontn=314) 4.4 mmol/L -2.0-3.0 PATIENT TEMPERATURE (BEAKER) (test pdbd=1900) 37.0 C FIO2 (BEAKER) (test kirt=6328) 40.0 % [id number] 05:24:00 Test Item Value Reference Range Comments PROCALCITONIN (BEAKER) (test nxta=9973) 2.91 ng/mL <0.05 SEPSIS RISK (ng/mL)Low: 0.05-0.50Intermediate: 0.51-2.00High: & gt;=2.01HEPATIC FUNCTION [id number] 05:07:00 Test Item Value Reference Range Comments TOTAL PROTEIN (BEAKER) (test ehzv=235) 3.9 gm/dL 6.0-8.3 ALBUMIN (BEAKER) (test fkxv=3918) 1.7 g/dL 3.5-5.0 BILIRUBIN TOTAL (BEAKER) (test lgui=961) 1.1 mg/dL 0.2-1.2 BILIRUBIN DIRECT (BEAKER) (test cman=885) 0.7 mg/dL 0.1-0.5 ALKALINE PHOSPHATASE (BEAKER) (test uktc=716) 185 U/L 40-150 AST (SGOT) (BEAKER) (test lhwo=117) 28 U/L 5-34 ALT (SGPT) (BEAKER) (test ihsm=648) 17 U/L 6-55 [id number] 05:06:00 Test Item Value Reference Range Comments PHOSPHORUS (BEAKER) (test rupd=461) 3.3 mg/dL 2.3-4.7 [id number] 05:06:00 Test Item Value Reference Range Comments MAGNESIUM (BEAKER) (test kqqp=460) 2.2 mg/dL 1.6-2.6 BASIC METABOLIC [id number] 05:06:00 Test Item Value Reference Range Comments SODIUM (BEAKER) (test 141 meq/L 136-145 mudx=503) POTASSIUM (BEAKER) (test 3.7 meq/L 3.5-5.1 bzbp=085) CHLORIDE (BEAKER) (test 111 meq/L 98-107 dyhc=355) CO2 (BEAKER) (test 27 meq/L 22-29 idtk=875) BLOOD UREA NITROGEN 19 mg/dL 7-21 (BEAKER) (test duwz=164) CREATININE (BEAKER) (test 1.75 mg/dL 0.57-1.25 dlkp=413) GLUCOSE RANDOM (BEAKER) 112 mg/dL 70-105 (test kqxl=037) CALCIUM (BEAKER) (test 8.2 mg/dL 8.4-10.2 ukxu=242) EGFR (BEAKER) (test 39 mL/min/1.73 sq m ESTIMATED GFR IS NOT sxip=0800) ACCURATE CREATININE CLEARANCE IN PREDICTING GLOMERULAR FILTRATION RATE. ESTIMATED GFR IS NOT APPLICABLE FOR DIALYSIS PATIENTS. PROTHROMBIN [id number] 04:51:00 Test Item Value Reference Range Comments PROTIME (BEAKER) (test sevi=253) 17.6 seconds 11.7-14.7 INR (BEAKER) (test fyzl=115) 1.5 <=5.9 RECOMMENDED COUMADIN/WARFARIN INR THERAPY RANGESSTANDARD DOSE: 2.0 - 3.0 Includes: PROPHYLAXIS forvenous thrombosis, systemic embolization; TREATMENT for venous thrombosis and/or pulmonary embolus.HIGH RISK: Target INR is 2.5-3.5 for patients with mechanical heart valves.CBC W/PLT COUNT & AUTO [id number] 04:49:00 Test Item Value Reference Range Comments WHITE BLOOD CELL COUNT (BEAKER) (test lsyl=003) 7.1 K/ L 3.5-10.5 RED BLOOD CELL COUNT (BEAKER) (test mdub=287) 2.18 M/ L 4.63-6.08 HEMOGLOBIN (BEAKER) (test rwpm=219) 6.9 GM/DL 13.7-17.5 HEMATOCRIT (BEAKER) (test uced=372) 22.0 % 40.1-51.0 MEAN CORPUSCULAR VOLUME (BEAKER) (test suag=991) 100.9 fL 79.0-92.2 MEAN CORPUSCULAR HEMOGLOBIN (BEAKER) (test 31.7 pg 25.7-32.2 tmqz=414) MEAN CORPUSCULAR HEMOGLOBIN CONC (BEAKER) (test 31.4 GM/DL 32.3-36.5 jhoj=863) RED CELL DISTRIBUTION WIDTH (BEAKER) (test 19.2 % 11.6-14.4 wprb=162) PLATELET COUNT (BEAKER) (test suwv=684) 41 K/CU MM 150-450 MEAN PLATELET VOLUME (BEAKER) (test dkzz=238) 12.0 fL 9.4-12.4 NUCLEATED RED BLOOD CELLS (BEAKER) (test 0 /100 WBC 0-0 empj=482) NEUTROPHILS RELATIVE PERCENT (BEAKER) (test 78 % zlpm=359) LYMPHOCYTES RELATIVE PERCENT (BEAKER) (test 6 % vgdz=794) MONOCYTES RELATIVE PERCENT (BEAKER) (test 11 % txvv=506) EOSINOPHILS RELATIVE PERCENT (BEAKER) (test 4 % qixf=689) BASOPHILS RELATIVE PERCENT (BEAKER) (test 0 % tjxi=853) NEUTROPHILS ABSOLUTE COUNT (BEAKER) (test 5.50 K/ L 1.78-5.38 nyjd=629) LYMPHOCYTES ABSOLUTE COUNT (BEAKER) (test 0.44 K/ L 1.32-3.57 ngsz=546) MONOCYTES ABSOLUTE COUNT (BEAKER) (test ntjs=443) 0.78 K/ L 0.30-0.82 EOSINOPHILS ABSOLUTE COUNT (BEAKER) (test 0.29 K/ L 0.04-0.54 zovm=017) BASOPHILS ABSOLUTE COUNT (BEAKER) (test eyoc=032) 0.03 K/ L 0.01-0.08 IMMATURE GRANULOCYTES-RELATIVE PERCENT (BEAKER) 1 % 0-1 (test vzgh=5966) RAD, CHEST, 1 VIEW, NON [id number] 03:42:00Referring: Dr. Liz Grove for exam:->intubated, PNA?Should this be performed at the bedside?->YesFINAL REPORT CLINICAL INDICATION: Support lines. Comparison: 10/13/2017 The cardiomediastinal contours are stable. Central pulmonary vascular congestion and bilateral parenchymal and left pleural opacities are similar within variation of acquisition technique. There is no pneumothorax. Support lines are stable. Signed: Tosha Fields MDReport Verified Date/Time: 10/14/2017 03:42:30 Reading Location: [address] Reading Room Electronically signed by: TOSHA FIELDS M.D. on 03:42 AMPOCT-GLUCOSE [id number] 00:24:00 Test Item Value Reference Range Comments POC-GLUCOSE METER (BEAKER) 126 mg/dL 70-110 TESTED AT [address] (test smzz=5647) [place] [id number] POCT-GLUCOSE [id number] 12:49:00 Test Item Value Reference Range Comments POC-GLUCOSE METER (BEAKER) 129 mg/dL 70-110 TESTED AT [address] (test xkwf=6055) [facility] [address] [id number] 08:22:00 Test Item Value Reference Range Comments PHOSPHORUS (BEAKER) (test jufv=654) 2.8 mg/dL 2.3-4.7 [id number] 08:22:00 Test Item Value Reference Range Comments MAGNESIUM (BEAKER) (test tvjm=572) 1.7 mg/dL 1.6-2.6 BASIC METABOLIC [id number] 08:22:00 Test Item Value Reference Range Comments SODIUM (BEAKER) (test 140 meq/L 136-145 mvxi=057) POTASSIUM (BEAKER) (test 4.2 meq/L 3.5-5.1 wrpw=302) CHLORIDE (BEAKER) (test 108 meq/L 98-107 bntu=197) CO2 (BEAKER) (test 27 meq/L 22-29 frok=661) BLOOD UREA NITROGEN 9 mg/dL 7-21 (BEAKER) (test lbzp=088) CREATININE (BEAKER) (test 1.03 mg/dL 0.57-1.25 fprr=354) GLUCOSE RANDOM (BEAKER) 99 mg/dL 70-105 (test ixrr=916) CALCIUM (BEAKER) (test 8.3 mg/dL 8.4-10.2 nqvp=195) EGFR (BEAKER) (test 72 mL/min/1.73 sq m ESTIMATED GFR IS NOT mwln=3437) ACCURATE CREATININE CLEARANCE IN PREDICTING GLOMERULAR FILTRATION RATE. ESTIMATED GFR IS NOT APPLICABLE FOR DIALYSIS PATIENTS. CALCIUM, [id number] 08:00:00 Test Item Value Reference Range Comments CALCIUM IONIZED (BEAKER) (test zxye=414) 1.16 mmol/L 1.12-1.27 PH, BLOOD (BEAKER) (test uhwn=9420) 7.48 CBC W/PLT COUNT & AUTO [id number] 07:31:00 Test Item Value Reference Range Comments WHITE BLOOD CELL COUNT (BEAKER) (test sgel=856) 11.7 K/ L 3.5-10.5 RED BLOOD CELL COUNT (BEAKER) (test mohw=668) 2.52 M/ L 4.63-6.08 HEMOGLOBIN (BEAKER) (test dgkt=061) 8.2 GM/DL 13.7-17.5 HEMATOCRIT (BEAKER) (test splx=719) 24.4 % 40.1-51.0 MEAN CORPUSCULAR VOLUME (BEAKER) (test mggk=052) 96.8 fL 79.0-92.2 MEAN CORPUSCULAR HEMOGLOBIN (BEAKER) (test 32.5 pg 25.7-32.2 uxkv=572) MEAN CORPUSCULAR HEMOGLOBIN CONC (BEAKER) (test 33.6 GM/DL 32.3-36.5 oabq=342) RED CELL DISTRIBUTION WIDTH (BEAKER) (test 19.8 % 11.6-14.4 zdpg=760) PLATELET COUNT (BEAKER) (test mbgi=090) 41 K/CU MM 150-450 MEAN PLATELET VOLUME (BEAKER) (test huyx=016) 11.4 fL 9.4-12.4 NUCLEATED RED BLOOD CELLS (BEAKER) (test 0 /100 WBC 0-0 rmjm=905) NEUTROPHILS RELATIVE PERCENT (BEAKER) (test 85 % sera=678) LYMPHOCYTES RELATIVE PERCENT (BEAKER) (test 4 % pxhd=363) MONOCYTES RELATIVE PERCENT (BEAKER) (test 10 % smtm=214) EOSINOPHILS RELATIVE PERCENT (BEAKER) (test 1 % rtws=557) BASOPHILS RELATIVE PERCENT (BEAKER) (test 0 % cgoj=945) NEUTROPHILS ABSOLUTE COUNT (BEAKER) (test 9.86 K/ L 1.78-5.38 zibd=185) LYMPHOCYTES ABSOLUTE COUNT (BEAKER) (test 0.42 K/ L 1.32-3.57 folh=599) MONOCYTES ABSOLUTE COUNT (BEAKER) (test jnoz=633) 1.13 K/ L 0.30-0.82 EOSINOPHILS ABSOLUTE COUNT (BEAKER) (test 0.16 K/ L 0.04-0.54 foxl=357) BASOPHILS ABSOLUTE COUNT (BEAKER) (test hlbf=949) 0.03 K/ L 0.01-0.08 IMMATURE GRANULOCYTES-RELATIVE PERCENT (BEAKER) 1 % 0-1 (test qlks=4143) (MANUAL DIFFERENTIAL)2017-10-13 07:31:00 Test Item Value Reference Range Comments TOTAL COUNTED (BEAKER) (test aumj=7423) WBC MORPHOLOGY (BEAKER) (test tchx=252) Normal PLT MORPHOLOGY (BEAKER) (test klcv=499) Normal POLYCHROMATOPHILLIC RBCS(BEAKER) (test ijtm=211) 1+ few POCT-GLUCOSE [id number] 06:41:00 Test Item Value Reference Range Comments POC-GLUCOSE METER (BEAKER) 82 mg/dL 70-110 TESTED AT [facility] [address] [facility] (test xkkq=3507) [facility] [address] RAD, CHEST, 1 VIEW, NON [id number] 04:58:00Referring: Dr. Hill WorkenehReason for exam:->intubated, PNA?Should this be performed at the bedside?->YesFINAL REPORT CLINICAL INDICATION: Support lines. Comparison: 03/14/2018 The cardiomediastinal contours are stable. Left greater than right parenchymal and left pleural opacities are similar within variation of acquisition technique. There is no pneumothorax. Support lines are stable. Signed: Tosha Fields MDReport Verified Date/Time: 2017 04:58:34 Reading Location: [address] Reading Room COMPREHENSIVE METABOLIC [id number] 04:24:00 Test Item Value Reference Range Comments TOTAL PROTEIN (BEAKER) 4.6 gm/dL 6.0-8.3 (test xrwj=351) ALBUMIN (BEAKER) (test 1.9 g/dL 3.5-5.0 hpmo=6742) ALKALINE PHOSPHATASE 168 U/L 40-150 (BEAKER) (test xroe=926) BILIRUBIN TOTAL (BEAKER) 1.8 mg/dL 0.2-1.2 (test dumm=408) SODIUM (BEAKER) (test 141 meq/L 136-145 aink=034) POTASSIUM (BEAKER) (test 4.4 meq/L 3.5-5.1 guts=567) CHLORIDE (BEAKER) (test 109 meq/L 98-107 knng=890) CO2 (BEAKER) (test 26 meq/L 22-29 yciq=426) BLOOD UREA NITROGEN 9 mg/dL 7-21 (BEAKER) (test vkib=816) CREATININE (BEAKER) (test 1.09 mg/dL 0.57-1.25 oota=264) GLUCOSE RANDOM (BEAKER) 88 mg/dL 70-105 (test qfgo=477) CALCIUM (BEAKER) (test 8.3 mg/dL 8.4-10.2 dfly=845) AST (SGOT) (BEAKER) (test 37 U/L 5-34 fowb=583) ALT (SGPT) (BEAKER) (test 20 U/L 6-55 zzmm=558) EGFR (BEAKER) (test 68 mL/min/1.73 sq m ESTIMATED GFR IS NOT gbsr=6877) ACCURATE CREATININE CLEARANCE IN PREDICTING GLOMERULAR FILTRATION RATE. ESTIMATED GFR IS NOT APPLICABLE FOR DIALYSIS PATIENTS. HEPATIC FUNCTION [id number] 04:24:00 Test Item Value Reference Range Comments TOTAL PROTEIN (BEAKER) (test yrmp=966) 4.6 gm/dL 6.0-8.3 ALBUMIN (BEAKER) (test sixb=1869) 1.9 g/dL 3.5-5.0 BILIRUBIN TOTAL (BEAKER) (test dxlg=951) 1.8 mg/dL 0.2-1.2 BILIRUBIN DIRECT (BEAKER) (test jbpq=578) 1.1 mg/dL 0.1-0.5 ALKALINE PHOSPHATASE (BEAKER) (test pepe=213) 168 U/L 40-150 AST (SGOT) (BEAKER) (test sksk=123) 37 U/L 5-34 ALT (SGPT) (BEAKER) (test pdef=284) 20 U/L 6-55 BASIC METABOLIC [id number] 04:14:00 Test Item Value Reference Range Comments SODIUM (BEAKER) (test 141 meq/L 136-145 dskb=018) POTASSIUM (BEAKER) (test 4.4 meq/L 3.5-5.1 auka=723) CHLORIDE (BEAKER) (test 109 meq/L 98-107 thrp=585) CO2 (BEAKER) (test 26 meq/L 22-29 npuu=703) BLOOD UREA NITROGEN 9 mg/dL 7-21 (BEAKER) (test ykru=069) CREATININE (BEAKER) (test 1.09 mg/dL 0.57-1.25 woiv=174) GLUCOSE RANDOM (BEAKER) 88 mg/dL 70-105 (test stve=776) CALCIUM (BEAKER) (test 8.3 mg/dL 8.4-10.2 ycst=201) EGFR (BEAKER) (test 68 mL/min/1.73 sq m ESTIMATED GFR IS NOT mzop=7092) ACCURATE CREATININE CLEARANCE IN PREDICTING GLOMERULAR FILTRATION RATE. ESTIMATED GFR IS NOT APPLICABLE FOR DIALYSIS PATIENTS. VANCOMYCIN LEVEL, [id number] 04:12:00 Test Item Value Reference Range Comments VANCOMYCIN RANDOM (BEAKER) (test zwbb=599) 6.5 ug/mL Reference Range: No NormalsPROTHROMBIN [id number] 04:11:00 Test Item Value Reference Range Comments PROTIME (BEAKER) (test dcyf=550) 17.3 seconds 11.7-14.7 INR (BEAKER) (test dqip=294) 1.4 <=5.9 RECOMMENDED COUMADIN/WARFARIN INR THERAPY RANGESSTANDARD DOSE: 2.0 - 3.0 Includes: PROPHYLAXIS forvenous thrombosis, systemic embolization; TREATMENT for venous thrombosis and/or pulmonary embolus.HIGH RISK: Target INR is 2.5-3.5 for patients with mechanical heart valves.BLOOD GAS, [id number] 04:10:00 Test Item Value Reference Range Comments PH ARTERIAL (BEAKER) (test fink=266) 7.52 7.35-7.45 PCO2 ARTERIAL (BEAKER) (test gsqa=330) 36 mmHg 35-45 PO2 ARTERIAL (BEAKER) (test ssyi=850) 186 mmHg 80-90 O2 SATURATION ARTERIAL (BEAKER) (test rrwz=540) 99.4 % 96.0-97.0 HCO3 ARTERIAL (BEAKER) (test jyqs=075) 28 mmol/L 21-29 BASE EXCESS ARTERIAL (BEAKER) (test jncz=673) 5.2 mmol/L -2.0-3.0 PATIENT TEMPERATURE (BEAKER) (test csgh=0816) 37.1 C FIO2 (BEAKER) (test bpsu=4640) 40.0 % LEGIONELLA ANTIGEN, [id number] 00:34:00 Test Item Value Reference Range Comments L. PNEUMOPHILA SEROGP 1 Negative - see Negative for L. UR AG (BEAKER) (test comment pneumophila serogroup 1 knxw=6549) antigen, suggesting no recent or current infection with this serogroup. Legionellosis cannot be ruled out since other serogroups and species may cause disease. BASIC METABOLIC [id number] 00:06:00 Test Item Value Reference Range Comments SODIUM (BEAKER) (test 139 meq/L 136-145 zsav=127) POTASSIUM (BEAKER) (test 4.1 meq/L 3.5-5.1 ovvi=058) CHLORIDE (BEAKER) (test 108 meq/L 98-107 ekxi=336) CO2 (BEAKER) (test 26 meq/L 22-29 jyvf=648) BLOOD UREA NITROGEN 11 mg/dL 7-21 (BEAKER) (test xneu=412) CREATININE (BEAKER) (test 1.25 mg/dL 0.57-1.25 dxjn=720) GLUCOSE RANDOM (BEAKER) 94 mg/dL 70-105 (test ttvt=877) CALCIUM (BEAKER) (test 8.1 mg/dL 8.4-10.2 plsn=817) EGFR (BEAKER) (test 58 mL/min/1.73 sq m ESTIMATED GFR IS NOT kojk=8542) ACCURATE CREATININE CLEARANCE IN PREDICTING GLOMERULAR FILTRATION RATE. ESTIMATED GFR IS NOT APPLICABLE FOR DIALYSIS PATIENTS. CALCIUM, [id number] 23:47:00 Test Item Value Reference Range Comments CALCIUM IONIZED (BEAKER) (test zxwa=890) 1.15 mmol/L 1.12-1.27 PH, BLOOD (BEAKER) (test lcel=1986) 7.54 POCT-GLUCOSE [id number] 23:45:00 Test Item Value Reference Range Comments POC-GLUCOSE METER (BEAKER) 94 mg/dL 70-110 TESTED AT [address] (test otew=5581) [place] [address] [id number] 20:37:00 Test Item Value Reference Range Comments PHOSPHORUS (BEAKER) (test uktf=863) 2.4 mg/dL 2.3-4.7 [id number] 20:37:00 Test Item Value Reference Range Comments MAGNESIUM (BEAKER) (test txft=539) 1.9 mg/dL 1.6-2.6 POCT-GLUCOSE [id number] 20:18:00 Test Item Value Reference Range Comments POC-GLUCOSE METER (BEAKER) 123 mg/dL 70-110 TESTED AT [address] (test atvp=9866) [facility] [address] URINALYSIS W/ [id number] 19:01:00 Test Item Value Reference Range Comments COLOR (BEAKER) (test zeaz=800) Yellow CLARITY (BEAKER) (test gfwe=384) Clear SPECIFIC GRAVITY UA (BEAKER) (test eiqq=478) 1.011 1.001-1.035 PH UA (BEAKER) (test lmdy=091) 5.5 5.0-8.0 PROTEIN UA (BEAKER) (test ywop=442) 70 mg/dL Negative GLUCOSE UA (BEAKER) (test snvc=366) Negative Negative KETONES UA (BEAKER) (test tfmx=923) Negative Negative BILIRUBIN UA (BEAKER) (test jztm=424) Negative Negative BLOOD UA (BEAKER) (test olut=934) Small Negative NITRITE UA (BEAKER) (test upiw=325) Negative Negative LEUKOCYTE ESTERASE UA (BEAKER) (test zmaj=853) Negative Negative UROBILINOGEN UA (BEAKER) (test qcfc=432) 0.2 mg/dL 0.2-1.0 RBC UA (BEAKER) (test xlna=598) < /HPF WBC UA (BEAKER) (test hgol=495) 1 /HPF BACTERIA (BEAKER) (test kweg=372) Rare HYALINE CASTS (BEAKER) (test ljpe=420) 2 /LPF SOURCE(BEAKER) (test ukbn=3482) BASIC METABOLIC [id number] 17:59:00 Test Item Value Reference Range Comments SODIUM (BEAKER) (test 140 meq/L 136-145 czut=481) POTASSIUM (BEAKER) (test 4.1 meq/L 3.5-5.1 gqub=113) CHLORIDE (BEAKER) (test 108 meq/L 98-107 sjcu=384) CO2 (BEAKER) (test 26 meq/L 22-29 sgnb=980) BLOOD UREA NITROGEN 13 mg/dL 7-21 (BEAKER) (test bqhe=706) CREATININE (BEAKER) (test 1.59 mg/dL 0.57-1.25 vswa=464) GLUCOSE RANDOM (BEAKER) 122 mg/dL 70-105 (test vqki=766) CALCIUM (BEAKER) (test 8.3 mg/dL 8.4-10.2 hvlj=573) EGFR (BEAKER) (test 44 mL/min/1.73 sq m ESTIMATED GFR IS NOT pdun=7808) ACCURATE CREATININE CLEARANCE IN PREDICTING GLOMERULAR FILTRATION RATE. ESTIMATED GFR IS NOT APPLICABLE FOR DIALYSIS PATIENTS. POCT-GLUCOSE [id number] 17:40:00 Test Item Value Reference Range Comments POC-GLUCOSE METER (BEAKER) 126 mg/dL 70-110 TESTED AT [facility] [address] [facility] (test odgo=0773) [facility] [address] CALCIUM, [id number] 17:34:00 Test Item Value Reference Range Comments CALCIUM IONIZED (BEAKER) (test ucqm=331) 1.13 mmol/L 1.12-1.27 PH, BLOOD (BEAKER) (test pdhr=3747) 7.54 VANCOMYCIN LEVEL, [id number] 16:03:00 Test Item Value Reference Range Comments VANCOMYCIN TROUGH (BEAKER) (test cean=928) 9.9 ug/mL 10.0-20.0 POCT-GLUCOSE [id number] 12:49:00 Test Item Value Reference Range Comments POC-GLUCOSE METER (BEAKER) 130 mg/dL 70-110 TESTED AT [facility] [address] [facility] (test rdns=2766) [facility] [address] EEG AWAKE/ASLEEP AND [id number] 12:47:00Referring: Dr. Liz FelipeFor 24 hoursReason for exam:->seizure?Date(s) of EE10/12/2017 DATE OF REPORT: 10/12/2017 ACC: [id number] EEG Number: [id number] Test Location: Inpatient ICU Start time: 10:10 Stop time: 10:31 ICD-10: R56.9 CPT Code: 57142 HISTORY: 67 y.o.M w/ hx hodgkins lymphoma s/p ABVD x [...] montages using the modified combinatorial system nomenclature. DESCRIPTIONOF RECORD: The frequency spectrum consists primarily of [...] encephalopathy. There are no electrographic seizures. [facility]ued [facility] EEG monitoring is recommended. Brock Chi MD Neurophysiology Fellow, PGY5 Loretta Gamble [facility] Attending Neurophysiologist [facility] [id number] 10:54:00 Test Item Value Reference Range Comments PROCALCITONIN (BEAKER) (test kgqy=0970) 4.66 ng/mL <0.05 SEPSIS RISK (ng/mL)Low: 0.05-0.50Intermediate: 0.51-2.00High: & gt;=2.01CT BRAIN WITHOUT IV CONTRAST - [id number] 10:14:00Referring: Dr. Hill WorkenehReason for exam:->seizure?FINAL REPORT CT head without contrast. Reason for exam: seizure? Comparisons: October 10, 2017 Discussion: Multiple axial CT images of the head are provided without contrast evaluated in brain and bone windows. This exam was performed according to our departmental dose optimization program which includes automated exposure control, adjustment of the mA and/or kV according to patient' s size and/or use of iterative reconstructive technique. [...] of acute intracranial process. Signed: Buster Cantu MDReport Verified Date/Time: 10/12/2017 10:14:50 Reading Location: [facility] C013V Neuro Reading Room BASIC METABOLIC [id number] 10:06: 00 Test Item Value Reference Range Comments SODIUM (BEAKER) (test 138 meq/L 136-145 kbdc=768) POTASSIUM (BEAKER) (test 4.3 meq/L 3.5-5.1 vmvr=405) CHLORIDE (BEAKER) (test 106 meq/L 98-107 vksy=213) CO2 (BEAKER) (test 25 meq/L 22-29 dzgu=674) BLOOD UREA NITROGEN 20 mg/dL 7-21 (BEAKER) (test kubl=664) CREATININE (BEAKER) (test 2.31 mg/dL 0.57-1.25 xqil=645) GLUCOSE RANDOM (BEAKER) 128 mg/dL 70-105 (test magz=440) CALCIUM (BEAKER) (test 8.3 mg/dL 8.4-10.2 vphl=947) EGFR (BEAKER) (test 28 mL/min/1.73 sq m ESTIMATED GFR IS NOT zqok=8500) ACCURATE CREATININE CLEARANCE IN PREDICTING GLOMERULAR FILTRATION RATE. ESTIMATED GFR IS NOT APPLICABLE FOR DIALYSIS PATIENTS. [id number] 10:05:00 Test Item Value Reference Range Comments PHOSPHORUS (BEAKER) (test yvxa=224) 2.2 mg/dL 2.3-4.7 [id number] 10:05:00 Test Item Value Reference Range Comments MAGNESIUM (BEAKER) (test mvyg=670) 1.8 mg/dL 1.6-2.6 [id number] 09:57:00 Test Item Value Reference Range Comments AMMONIA (BEAKER) (test nzhx=498) 32 mol/L 18-72 CALCIUM, [id number] 09:29:00 Test Item Value Reference Range Comments CALCIUM IONIZED (BEAKER) (test giaq=534) 1.14 mmol/L 1.12-1.27 PH, BLOOD (BEAKER) (test lryb=9026) 7.58 RAD, CHEST, 1 VIEW, NON [id number] 07:23:00Referring: Dr. Liz Grove for exam:->intubated, PNA?Should this be performed at the bedside?->YesFINAL REPORT TECHNIQUE: Frontal view of the chest. INDICATION: 67-year-old man after intubation. COMPARISON: Chest radiograph 10/11/2017. FINDINGS: LINES/TUBES: Interval repositioning of the left internal jugular central venous catheter, the tip projects over the expected regionof the mid superior vena cava. Apparent interval retraction of the nasogastric/orogastric tube, the tip projects over the expected region of the proximal stomach. Unchanged endotracheal tube and right internal jugular dual lumen dialysis catheter. LUNGS: Increased opacities with volume loss on the left. Persistent prominent interstitial markings on the right. PLEURA: Unchanged small-moderate left pleural effusion. No pneumothorax. HEART AND MEDIASTINUM: The cardiomediastinal silhouette is unchanged in size, and is shifted to the left. SOFT TISSUES AND BONES: Osseous structures are unremarkable. TIPS stent projects over the right upper quadrant. Clips project over the left upper quadrant. IMPRESSION:Volume loss on the left with leftward mediastinal shift and increased opacities. While these findings may be due to increased atelectasis, superimposed aspiration/pneumonia cannot be excluded. Signed: Daron Elise MDReport Verified Date/Time: 10/12/2017 07:23:27 Reading Location: [address] Reading Room POCT-GLUCOSE [id number] 06: 18:00 Test Item Value Reference Range Comments POC-GLUCOSE METER (BEAKER) 87 mg/dL 70-110 TESTED AT [address] (test ycuz=6973) [facility] [address] COMPREHENSIVE METABOLIC [id number] 04:47:00 Test Item Value Reference Range Comments TOTAL PROTEIN (BEAKER) 4.4 gm/dL 6.0-8.3 (test ectz=888) ALBUMIN (BEAKER) (test 1.8 g/dL 3.5-5.0 cjzx=9990) ALKALINE PHOSPHATASE 166 U/L 40-150 (BEAKER) (test uvvx=748) BILIRUBIN TOTAL (BEAKER) 1.6 mg/dL 0.2-1.2 (test gwvk=990) SODIUM (BEAKER) (test 136 meq/L 136-145 evog=820) POTASSIUM (BEAKER) (test 4.4 meq/L 3.5-5.1 ffmz=578) CHLORIDE (BEAKER) (test 106 meq/L 98-107 xpnk=768) CO2 (BEAKER) (test 25 meq/L 22-29 wwgw=073) BLOOD UREA NITROGEN 24 mg/dL 7-21 (BEAKER) (test cpyy=273) CREATININE (BEAKER) (test 2.79 mg/dL 0.57-1.25 dqud=484) GLUCOSE RANDOM (BEAKER) 114 mg/dL 70-105 (test dgun=118) CALCIUM (BEAKER) (test 8.2 mg/dL 8.4-10.2 lgtz=474) AST (SGOT) (BEAKER) (test 36 U/L 5-34 yako=267) ALT (SGPT) (BEAKER) (test 19 U/L 6-55 fhjv=191) EGFR (BEAKER) (test 23 mL/min/1.73 sq m ESTIMATED GFR IS NOT yvpi=8120) ACCURATE CREATININE CLEARANCE IN PREDICTING GLOMERULAR FILTRATION RATE. ESTIMATED GFR IS NOT APPLICABLE FOR DIALYSIS PATIENTS. BASIC METABOLIC [id number] 04:47:00 Test Item Value Reference Range Comments SODIUM (BEAKER) (test 136 meq/L 136-145 tutj=221) POTASSIUM (BEAKER) (test 4.4 meq/L 3.5-5.1 ujvn=877) CHLORIDE (BEAKER) (test 106 meq/L 98-107 pqvh=277) CO2 (BEAKER) (test 25 meq/L 22-29 qrsk=856) BLOOD UREA NITROGEN 24 mg/dL 7-21 (BEAKER) (test btyi=972) CREATININE (BEAKER) (test 2.79 mg/dL 0.57-1.25 breg=750) GLUCOSE RANDOM (BEAKER) 114 mg/dL 70-105 (test ewje=784) CALCIUM (BEAKER) (test 8.2 mg/dL 8.4-10.2 prpk=170) EGFR (BEAKER) (test 23 mL/min/1.73 sq m ESTIMATED GFR IS NOT wqce=5361) ACCURATE CREATININE CLEARANCE IN PREDICTING GLOMERULAR FILTRATION RATE. ESTIMATED GFR IS NOT APPLICABLE FOR DIALYSIS PATIENTS. HEPATIC FUNCTION [id number] 04:47:00 Test Item Value Reference Range Comments TOTAL PROTEIN (BEAKER) (test rnzt=727) 4.4 gm/dL 6.0-8.3 ALBUMIN (BEAKER) (test lnth=2267) 1.8 g/dL 3.5-5.0 BILIRUBIN TOTAL (BEAKER) (test vopo=231) 1.6 mg/dL 0.2-1.2 BILIRUBIN DIRECT (BEAKER) (test kcrv=620) 0.9 mg/dL 0.1-0.5 ALKALINE PHOSPHATASE (BEAKER) (test ebzo=984) 166 U/L 40-150 AST (SGOT) (BEAKER) (test igff=307) 36 U/L 5-34 ALT (SGPT) (BEAKER) (test jjcd=659) 19 U/L 6-55 PROTHROMBIN [id number] 04:39:00 Test Item Value Reference Range Comments PROTIME (BEAKER) (test bzbw=239) 16.4 seconds 11.7-14.7 INR (BEAKER) (test idyf=640) 1.3 <=5.9 RECOMMENDED COUMADIN/WARFARIN INR THERAPY RANGESSTANDARD DOSE: 2.0 - 3.0 Includes: PROPHYLAXIS forvenous thrombosis, systemic embolization; TREATMENT for venous thrombosis and/or pulmonary embolus.HIGH RISK: Target INR is 2.5-3.5 for patients with mechanical heart valves.BLOOD GAS, [id number] 04:31:00 Test Item Value Reference Range Comments PH ARTERIAL (BEAKER) (test fuxe=592) 7.55 7.35-7.45 PCO2 ARTERIAL (BEAKER) (test lilp=977) 31 mmHg 35-45 PO2 ARTERIAL (BEAKER) (test ixph=085) 169 mmHg 80-90 O2 SATURATION ARTERIAL (BEAKER) (test yuxk=209) 99.4 % 96.0-97.0 HCO3 ARTERIAL (BEAKER) (test etmg=346) 27 mmol/L 21-29 BASE EXCESS ARTERIAL (BEAKER) (test dehi=035) 4.2 mmol/L -2.0-3.0 PATIENT TEMPERATURE (BEAKER) (test xrrb=9202) 37.0 C FIO2 (BEAKER) (test dizd=1627) 40.0 % CBC W/PLT COUNT & AUTO [id number] 04:20:00 Test Item Value Reference Range Comments WHITE BLOOD CELL COUNT (BEAKER) (test vhyh=146) 12.6 K/ L 3.5-10.5 RED BLOOD CELL COUNT (BEAKER) (test fsap=100) 2.54 M/ L 4.63-6.08 HEMOGLOBIN (BEAKER) (test tbkv=794) 8.2 GM/DL 13.7-17.5 HEMATOCRIT (BEAKER) (test xxdx=424) 24.2 % 40.1-51.0 MEAN CORPUSCULAR VOLUME (BEAKER) (test ktjn=237) 95.3 fL 79.0-92.2 MEAN CORPUSCULAR HEMOGLOBIN (BEAKER) (test 32.3 pg 25.7-32.2 mfgv=737) MEAN CORPUSCULAR HEMOGLOBIN CONC (BEAKER) (test 33.9 GM/DL 32.3-36.5 nlxu=335) RED CELL DISTRIBUTION WIDTH (BEAKER) (test 20.0 % 11.6-14.4 clgj=211) PLATELET COUNT (BEAKER) (test cbvz=775) 37 K/CU MM 150-450 MEAN PLATELET VOLUME (BEAKER) (test eiat=715) 10.2 fL 9.4-12.4 NUCLEATED RED BLOOD CELLS (BEAKER) (test 0 /100 WBC 0-0 ngah=098) NEUTROPHILS RELATIVE PERCENT (BEAKER) (test 90 % nbvk=316) LYMPHOCYTES RELATIVE PERCENT (BEAKER) (test 2 % ddft=723) MONOCYTES RELATIVE PERCENT (BEAKER) (test 6 % tikj=704) EOSINOPHILS RELATIVE PERCENT (BEAKER) (test 1 % sjhi=921) BASOPHILS RELATIVE PERCENT (BEAKER) (test 0 % xhqg=244) NEUTROPHILS ABSOLUTE COUNT (BEAKER) (test 11.40 K/ L 1.78-5.38 dume=572) LYMPHOCYTES ABSOLUTE COUNT (BEAKER) (test 0.27 K/ L 1.32-3.57 kapn=775) MONOCYTES ABSOLUTE COUNT (BEAKER) (test sdcx=738) 0.74 K/ L 0.30-0.82 EOSINOPHILS ABSOLUTE COUNT (BEAKER) (test 0.12 K/ L 0.04-0.54 zqwo=945) BASOPHILS ABSOLUTE COUNT (BEAKER) (test sfeu=274) 0.04 K/ L 0.01-0.08 IMMATURE GRANULOCYTES-RELATIVE PERCENT (BEAKER) 1 % 0-1 (test ndno=7220) BASIC METABOLIC [id number] 00:54:00 Test Item Value Reference Range Comments SODIUM (BEAKER) (test 138 meq/L 136-145 aasw=235) POTASSIUM (BEAKER) (test 4.3 meq/L 3.5-5.1 jyhy=728) CHLORIDE (BEAKER) (test 107 meq/L 98-107 xknq=055) CO2 (BEAKER) (test 22 meq/L 22-29 xwbe=516) BLOOD UREA NITROGEN 30 mg/dL 7-21 (BEAKER) (test oqyu=017) CREATININE (BEAKER) (test 3.57 mg/dL 0.57-1.25 witc=273) GLUCOSE RANDOM (BEAKER) 114 mg/dL 70-105 (test oqzw=511) CALCIUM (BEAKER) (test 8.4 mg/dL 8.4-10.2 hydn=926) EGFR (BEAKER) (test 17 mL/min/1.73 sq m ESTIMATED GFR IS NOT czes=7164) ACCURATE CREATININE CLEARANCE IN PREDICTING GLOMERULAR FILTRATION RATE. ESTIMATED GFR IS NOT APPLICABLE FOR DIALYSIS PATIENTS. CALCIUM, [id number] 00:16:00 Test Item Value Reference Range Comments CALCIUM IONIZED (BEAKER) (test xfxu=281) 1.16 mmol/L 1.12-1.27 PH, BLOOD (BEAKER) (test mndd=5693) 7.52 POCT-GLUCOSE [id number] 23:58:00 Test Item Value Reference Range Comments POC-GLUCOSE METER (BEAKER) 120 mg/dL 70-110 TESTED AT [address] (test jmqc=3062) [place] [address] [id number] 20:50:00 Test Item Value Reference Range Comments PHOSPHORUS (BEAKER) (test zykp=465) 4.0 mg/dL 2.3-4.7 [id number] 20:50:00 Test Item Value Reference Range Comments MAGNESIUM (BEAKER) (test kuee=620) 1.7 mg/dL 1.6-2.6 POCT-GLUCOSE [id number] 17:53:00 Test Item Value Reference Range Comments POC-GLUCOSE METER (BEAKER) 130 mg/dL 70-110 TESTED AT [address] (test kcht=9755) [facility] [address] CBC W/PLT COUNT & AUTO [id number] 17:17:00 Test Item Value Reference Range Comments WHITE BLOOD CELL COUNT (BEAKER) (test ppbn=738) 6.4 K/ L 3.5-10.5 RED BLOOD CELL COUNT (BEAKER) (test gopr=050) 2.47 M/ L 4.63-6.08 HEMOGLOBIN (BEAKER) (test erkx=798) 8.0 GM/DL 13.7-17.5 HEMATOCRIT (BEAKER) (test gtrh=476) 23.6 % 40.1-51.0 MEAN CORPUSCULAR VOLUME (BEAKER) (test lmhb=068) 95.5 fL 79.0-92.2 MEAN CORPUSCULAR HEMOGLOBIN (BEAKER) (test 32.4 pg 25.7-32.2 kstb=252) MEAN CORPUSCULAR HEMOGLOBIN CONC (BEAKER) (test 33.9 GM/DL 32.3-36.5 puzn=451) RED CELL DISTRIBUTION WIDTH (BEAKER) (test 20.5 % 11.6-14.4 ivzx=916) PLATELET COUNT (BEAKER) (test wwpm=052) 69 K/CU MM 150-450 MEAN PLATELET VOLUME (BEAKER) (test mbpl=937) 10.7 fL 9.4-12.4 NUCLEATED RED BLOOD CELLS (BEAKER) (test 0 /100 WBC 0-0 kttf=117) NEUTROPHILS RELATIVE PERCENT (BEAKER) (test 88 % ggst=282) LYMPHOCYTES RELATIVE PERCENT (BEAKER) (test 6 % akdu=410) MONOCYTES RELATIVE PERCENT (BEAKER) (test 3 % pfyq=701) EOSINOPHILS RELATIVE PERCENT (BEAKER) (test 3 % dmol=380) BASOPHILS RELATIVE PERCENT (BEAKER) (test 1 % hdfo=827) NEUTROPHILS ABSOLUTE COUNT (BEAKER) (test 5.57 K/ L 1.78-5.38 pefr=580) LYMPHOCYTES ABSOLUTE COUNT (BEAKER) (test 0.35 K/ L 1.32-3.57 avba=824) MONOCYTES ABSOLUTE COUNT (BEAKER) (test ugwf=560) 0.21 K/ L 0.30-0.82 EOSINOPHILS ABSOLUTE COUNT (BEAKER) (test 0.17 K/ L 0.04-0.54 kvjd=824) BASOPHILS ABSOLUTE COUNT (BEAKER) (test yhsm=369) 0.03 K/ L 0.01-0.08 IMMATURE GRANULOCYTES-RELATIVE PERCENT (BEAKER) 0 % 0-1 (test qdqs=7121) BASIC METABOLIC [id number] 16:51:00 Test Item Value Reference Range Comments SODIUM (BEAKER) (test 139 meq/L 136-145 mjus=827) POTASSIUM (BEAKER) (test 3.9 meq/L 3.5-5.1 agof=499) CHLORIDE (BEAKER) (test 106 meq/L 98-107 ldvg=182) CO2 (BEAKER) (test 20 meq/L 22-29 babp=715) BLOOD UREA NITROGEN 58 mg/dL 7-21 (BEAKER) (test tbfa=700) CREATININE (BEAKER) (test 6.89 mg/dL 0.57-1.25 jhvp=362) GLUCOSE RANDOM (BEAKER) 70 mg/dL 70-105 (test djbu=321) CALCIUM (BEAKER) (test 7.8 mg/dL 8.4-10.2 rqhq=057) EGFR (BEAKER) (test 8 mL/min/1.73 sq m ESTIMATED GFR IS NOT qypz=5963) ACCURATE CREATININE CLEARANCE IN PREDICTING GLOMERULAR FILTRATION RATE. ESTIMATED GFR IS NOT APPLICABLE FOR DIALYSIS PATIENTS. [id number] 16:42:00 Test Item Value Reference Range Comments AMMONIA (BEAKER) (test bhfz=339) 85 mol/L 18-72 CALCIUM, [id number] 16:24:00 Test Item Value Reference Range Comments CALCIUM IONIZED (BEAKER) (test iwom=772) 1.01 mmol/L 1.12-1.27 PH, BLOOD (BEAKER) (test rnna=5420) 7.49 POCT-GLUCOSE [id number] 16:08:00 Test Item Value Reference Range Comments POC-GLUCOSE METER (BEAKER) 66 mg/dL 70-110 TESTED AT [facility] [address] [place] [address] (test elxw=2745) [facility] [address] RAD, CHEST, 1 VIEW, NON [id number] 15:08:00Referring: Dr. Hill WorkenehReason for exam:->CVC placementShould this be performed at the bedside?->YesFINAL REPORT Chest one view INDICATION: CVC placement COMPARISON: 10/11/2017 at 0827 hours IMPRESSION: The tip of a left jugular line extends into the right innominate vein with tip directed superiorly. Advise repositioning. The remaining support devices are stable. No pneumothorax is seen. The remainder of the study is grossly unchanged since 0827 hours. Please refer to that report for additional details. Signed: Bryant Wood MDReport Verified Date/Time: 10/11/2017 15:08:45 Reading Location : [address] Consult Reading Room POCT-GLUCOSE [id number] 12:25:00 Test Item Value Reference Range Comments POC-GLUCOSE METER (BEAKER) 65 mg/dL 70-110 Will Repeat Test/TESTED AT (test lchf=8644) [facility] [address] [facility] [address] BLOOD GAS, [id number] 11:32:00 Test Item Value Reference Range Comments PH ARTERIAL (BEAKER) (test jeqt=126) 7.56 7.35-7.45 PCO2 ARTERIAL (BEAKER) (test wrik=114) 26 mmHg 35-45 PO2 ARTERIAL (BEAKER) (test elwl=393) 194 mmHg 80-90 O2 SATURATION ARTERIAL (BEAKER) (test eslc=500) 99.5 % 96.0-97.0 HCO3 ARTERIAL (BEAKER) (test fbet=416) 23 mmol/L 21-29 BASE EXCESS ARTERIAL (BEAKER) (test gcga=410) 0.9 mmol/L -2.0-3.0 PATIENT TEMPERATURE (BEAKER) (test dasz=4454) 37.0 C FIO2 (BEAKER) (test cbcf=6540) 40.0 % RAD, CHEST, 1 VIEW, NON [id number] 09:41:00Referring: Dr. Hill WorkenehReason for exam:->intubated, PNA?Should this be performed at the bedside?->YesFINAL REPORT Chest one view INDICATION: Intubated. COMPARISON: 10/10/2017 IMPRESSION: ET tube terminates 2.5 cm above the gurinder. NG tube extends below the diaphragm with tip off image. Right jugular dialysis catheter and TIPS shunt are again seen. The enlarged cardiac silhouetteis partially obscured. Pulmonary edema is similar in appearance. A moderate to large left pleural effusion is present with mid to lower lung stable consolidation or atelectasis. A small right pleural effusion is present. No pneumothorax is seen. Signed: Bryant Wood MDReport Verified Date/ Time: 10/11/2017 09:41:17 Reading Location: [facility] Radiology Reading Room Electronically signedby: BRYANT WOOD M.D. on 10/11/2017 09:41 AMCALCIUM, [id number] 05:40:00 Test Item Value Reference Range Comments CALCIUM IONIZED (BEAKER) (test clwl=306) 1.00 mmol/L 1.12-1.27 PH, BLOOD (BEAKER) (test yuml=8272) 7.54 POCT-GLUCOSE [id number] 05:21:00 Test Item Value Reference Range Comments POC-GLUCOSE METER (BEAKER) 155 mg/dL 70-110 TESTED AT [facility] [address] [facility] (test ibyz=9240) [facility] [address] COMPREHENSIVE METABOLIC [id number] 04:36:00 Test Item Value Reference Range Comments TOTAL PROTEIN (BEAKER) 4.0 gm/dL 6.0-8.3 (test mkcx=777) ALBUMIN (BEAKER) (test 1.7 g/dL 3.5-5.0 nwql=4616) ALKALINE PHOSPHATASE 132 U/L 40-150 (BEAKER) (test yszh=505) BILIRUBIN TOTAL (BEAKER) 1.7 mg/dL 0.2-1.2 (test efdi=814) SODIUM (BEAKER) (test 139 meq/L 136-145 tgmb=775) POTASSIUM (BEAKER) (test 4.2 meq/L 3.5-5.1 nxub=281) CHLORIDE (BEAKER) (test 105 meq/L 98-107 snxs=091) CO2 (BEAKER) (test 21 meq/L 22-29 mmpe=535) BLOOD UREA NITROGEN 56 mg/dL 7-21 (BEAKER) (test ngps=984) CREATININE (BEAKER) (test 6.88 mg/dL 0.57-1.25 fggg=300) GLUCOSE RANDOM (BEAKER) 66 mg/dL 70-105 (test hhta=028) CALCIUM (BEAKER) (test 7.9 mg/dL 8.4-10.2 aniw=375) AST (SGOT) (BEAKER) (test 38 U/L 5-34 lxjq=539) ALT (SGPT) (BEAKER) (test 16 U/L 6-55 flip=551) EGFR (BEAKER) (test 8 mL/min/1.73 sq m ESTIMATED GFR IS NOT uhou=4868) ACCURATE CREATININE CLEARANCE IN PREDICTING GLOMERULAR FILTRATION RATE. ESTIMATED GFR IS NOT APPLICABLE FOR DIALYSIS PATIENTS. HEPATIC FUNCTION [id number] 04:36:00 Test Item Value Reference Range Comments TOTAL PROTEIN (BEAKER) (test jwkz=805) 4.0 gm/dL 6.0-8.3 ALBUMIN (BEAKER) (test iguo=9405) 1.7 g/dL 3.5-5.0 BILIRUBIN TOTAL (BEAKER) (test ppkg=680) 1.7 mg/dL 0.2-1.2 BILIRUBIN DIRECT (BEAKER) (test rwoz=992) 1.0 mg/dL 0.1-0.5 ALKALINE PHOSPHATASE (BEAKER) (test ndvy=100) 132 U/L 40-150 AST (SGOT) (BEAKER) (test pncj=056) 38 U/L 5-34 ALT (SGPT) (BEAKER) (test phny=040) 16 U/L 6-55 BASIC METABOLIC [id number] 04:35:00 Test Item Value Reference Range Comments SODIUM (BEAKER) (test 139 meq/L 136-145 ghdf=548) POTASSIUM (BEAKER) (test 4.2 meq/L 3.5-5.1 gxvh=719) CHLORIDE (BEAKER) (test 105 meq/L 98-107 uiqs=495) CO2 (BEAKER) (test 21 meq/L 22-29 zdkk=078) BLOOD UREA NITROGEN 56 mg/dL 7-21 (BEAKER) (test kaiw=768) CREATININE (BEAKER) (test 6.88 mg/dL 0.57-1.25 exmd=535) GLUCOSE RANDOM (BEAKER) 66 mg/dL 70-105 (test ivpi=012) CALCIUM (BEAKER) (test 7.9 mg/dL 8.4-10.2 nbyv=801) EGFR (BEAKER) (test 8 mL/min/1.73 sq m ESTIMATED GFR IS NOT zyrr=7149) ACCURATE CREATININE CLEARANCE IN PREDICTING GLOMERULAR FILTRATION RATE. ESTIMATED GFR IS NOT APPLICABLE FOR DIALYSIS PATIENTS. [id number] 04:32:00 Test Item Value Reference Range Comments PHOSPHORUS (BEAKER) (test jdhx=567) 7.2 mg/dL 2.3-4.7 [id number] 04:32:00 Test Item Value Reference Range Comments MAGNESIUM (BEAKER) (test rmpa=853) 2.1 mg/dL 1.6-2.6 PROTHROMBIN [id number] 04:12:00 Test Item Value Reference Range Comments PROTIME (BEAKER) (test ibcs=792) 17.7 seconds 11.7-14.7 INR (BEAKER) (test kcld=446) 1.5 <=5.9 RECOMMENDED COUMADIN/WARFARIN INR THERAPY RANGESSTANDARD DOSE: 2.0 - 3.0 Includes: PROPHYLAXIS forvenous thrombosis, systemic embolization; TREATMENT for venous thrombosis and/or pulmonary embolus.HIGH RISK: Target INR is 2.5-3.5 for patients with mechanical heart valves.CBC W/PLT COUNT & AUTO [id number] 04:09:00 Test Item Value Reference Range Comments WHITE BLOOD CELL COUNT (BEAKER) (test etpi=579) 5.5 K/ L 3.5-10.5 RED BLOOD CELL COUNT (BEAKER) (test texj=706) 2.23 M/ L 4.63-6.08 HEMOGLOBIN (BEAKER) (test orbk=219) 7.0 GM/DL 13.7-17.5 HEMATOCRIT (BEAKER) (test gcvk=711) 20.8 % 40.1-51.0 MEAN CORPUSCULAR VOLUME (BEAKER) (test gocz=088) 93.3 fL 79.0-92.2 MEAN CORPUSCULAR HEMOGLOBIN (BEAKER) (test 31.4 pg 25.7-32.2 pnca=567) MEAN CORPUSCULAR HEMOGLOBIN CONC (BEAKER) (test 33.7 GM/DL 32.3-36.5 wikt=552) RED CELL DISTRIBUTION WIDTH (BEAKER) (test 19.6 % 11.6-14.4 oswk=254) PLATELET COUNT (BEAKER) (test ekhp=927) 96 K/CU MM 150-450 MEAN PLATELET VOLUME (BEAKER) (test tsbb=356) 10.7 fL 9.4-12.4 NUCLEATED RED BLOOD CELLS (BEAKER) (test 0 /100 WBC 0-0 vgjx=720) NEUTROPHILS RELATIVE PERCENT (BEAKER) (test 76 % agrh=916) LYMPHOCYTES RELATIVE PERCENT (BEAKER) (test 8 % scwf=345) MONOCYTES RELATIVE PERCENT (BEAKER) (test 12 % xgqs=750) EOSINOPHILS RELATIVE PERCENT (BEAKER) (test 4 % kess=598) BASOPHILS RELATIVE PERCENT (BEAKER) (test 1 % wazo=376) NEUTROPHILS ABSOLUTE COUNT (BEAKER) (test 4.13 K/ L 1.78-5.38 ywxn=586) LYMPHOCYTES ABSOLUTE COUNT (BEAKER) (test 0.46 K/ L 1.32-3.57 tkxd=862) MONOCYTES ABSOLUTE COUNT (BEAKER) (test oyrw=597) 0.63 K/ L 0.30-0.82 EOSINOPHILS ABSOLUTE COUNT (BEAKER) (test 0.19 K/ L 0.04-0.54 klnk=979) BASOPHILS ABSOLUTE COUNT (BEAKER) (test llwe=137) 0.05 K/ L 0.01-0.08 IMMATURE GRANULOCYTES-RELATIVE PERCENT (BEAKER) 0 % 0-1 (test nhvd=9184) POCT-GLUCOSE [id number] 03:08:00 Test Item Value Reference Range Comments POC-GLUCOSE METER (BEAKER) 103 mg/dL 70-110 TESTED AT [facility] [address] [facility] (test nhsl=0677) [facility] [address] TROPONIN [id number] 21:48:00 Test Item Value Reference Range Comments TROPONIN I (BEAKER) (test dtbj=110) 0.07 ng/mL 0.00-0.03 Troponin I (TnI) levels must be interpreted [...] failure, acidosis, acute neurological disease, and persistent tachyarrhythmia.LACTIC ACID, VENOUS, WHOLE [id number] 21:39:00 Test Item Value Reference Range Comments LACTATE BLOOD VENOUS (2) (BEAKER) (test 1.9 mmol/L 0.5-2.2 ygpj=5414) Effective 11/16/2015: Units/Reference Range ChangeNew: 0.5-2.2 mmol/L Previous: 5 -20 mg/dLCBC W/PLT COUNT & AUTO [id number] 21:32:00 Test Item Value Reference Range Comments WHITE BLOOD CELL COUNT (BEAKER) (test xxrz=346) 5.0 K/ L 3.5-10.5 RED BLOOD CELL COUNT (BEAKER) (test hofz=373) 2.01 M/ L 4.63-6.08 HEMOGLOBIN (BEAKER) (test kczo=105) 6.6 GM/DL 13.7-17.5 HEMATOCRIT (BEAKER) (test lyvr=306) 19.6 % 40.1-51.0 MEAN CORPUSCULAR VOLUME (BEAKER) (test lumt=652) 97.5 fL 79.0-92.2 MEAN CORPUSCULAR HEMOGLOBIN (BEAKER) (test 32.8 pg 25.7-32.2 hszu=834) MEAN CORPUSCULAR HEMOGLOBIN CONC (BEAKER) (test 33.7 GM/DL 32.3-36.5 qcak=603) RED CELL DISTRIBUTION WIDTH (BEAKER) (test 19.6 % 11.6-14.4 nofa=614) PLATELET COUNT (BEAKER) (test eujo=824) 104 K/CU MM 150-450 MEAN PLATELET VOLUME (BEAKER) (test kbci=982) 10.5 fL 9.4-12.4 NUCLEATED RED BLOOD CELLS (BEAKER) (test 0 /100 WBC 0-0 hjnh=810) NEUTROPHILS RELATIVE PERCENT (BEAKER) (test 77 % sejw=874) LYMPHOCYTES RELATIVE PERCENT (BEAKER) (test 10 % kewk=166) MONOCYTES RELATIVE PERCENT (BEAKER) (test 10 % shas=356) EOSINOPHILS RELATIVE PERCENT (BEAKER) (test 2 % aaji=165) BASOPHILS RELATIVE PERCENT (BEAKER) (test 0 % jasl=677) NEUTROPHILS ABSOLUTE COUNT (BEAKER) (test 3.84 K/ L 1.78-5.38 hbkg=575) LYMPHOCYTES ABSOLUTE COUNT (BEAKER) (test 0.49 K/ L 1.32-3.57 dyqb=179) MONOCYTES ABSOLUTE COUNT (BEAKER) (test 0.52 K/ L 0.30-0.82 rhmx=381) EOSINOPHILS ABSOLUTE COUNT (BEAKER) (test 0.10 K/ L 0.04-0.54 qxnz=170) BASOPHILS ABSOLUTE COUNT (BEAKER) (test 0.02 K/ L 0.01-0.08 srry=493) IMMATURE GRANULOCYTES-RELATIVE PERCENT (BEAKER) 0 % 0-1 (test tyoz=6854) RAD, ABDOMEN/KUB, 1 VIEW [id number] 17:30:00Referring: Dr. Liz Grove for exam:->check OG placementFINAL REPORT EXAM: AP abdominal radiograph HISTORY PROVIDED: Check orogastrictube placement COMPARISON: 09/27/2017 IMPRESSION:The tip of an enteric tube projects over the expected region of the body of the stomach. This examination is insensitive for the detection of free air. The bowel gas pattern is nonspecific but appears nonobstructive. A TIPS stent is present. No acute osseous abnormality. The visualized lower lung coffey demonstrate left basilar opacity. Signed: Magdiel Mccoyeport Verified Date/Time: 10/10/2017 17:30:58 Reading Location: [facility] Reading Room BLOOD GAS, [id number] 16:43:00 Test Item Value Reference Range Comments PH ARTERIAL (BEAKER) (test vknz=606) 7.47 7.35-7.45 PCO2 ARTERIAL (BEAKER) (test eksn=576) 36 mmHg 35-45 PO2 ARTERIAL (BEAKER) (test xspu=426) 202 mmHg 80-90 O2 SATURATION ARTERIAL (BEAKER) (test nnbo=679) 99.4 % 96.0-97.0 HCO3 ARTERIAL (BEAKER) (test evct=229) 26 mmol/L 21-29 BASE EXCESS ARTERIAL (BEAKER) (test mcil=695) 1.7 mmol/L -2.0-3.0 PATIENT TEMPERATURE (BEAKER) (test ozsh=3556) 37.0 C RAD, CHEST, 1 VIEW, NON [id number] 13:14:00Referring: Dr. Liz Grove for exam:->LOSS OF CONSCIOUSNESSReason for exam:->repeat after ett adjustmentShould this be performed at the bedside?->YesFINAL REPORT AP chest HISTORY: Loss of consciousness. Endotracheal tube adjustment. COMPARISON: 10/10/2017. IMPRESSION:Endotracheal tube retracted slightly with tip projecting approximately 2 cm above the level of the gurinder. No other appreciable change. Left basilar opacity again demonstrated. Signed: Monica Abdi MDReport Verified Date/Time: 10/10/2017 13:14:54 Reading Location: [address] Radiology Reading Room B-TYPE NATRIURETIC FACTOR (BNP)2017-10-10 12:32:00 Test Item Value Reference Range Comments B-TYPE NATRIURETIC PEPTIDE (BEAKER) (test 362 pg/mL 0-100 qkrn=427) TROPONIN [id number] 12:32:00 Test Item Value Reference Range Comments TROPONIN I (BEAKER) (test vzpm=571) 0.06 ng/mL 0.00-0.03 Troponin I (TnI) levels must be interpreted [...] failure, acidosis, acute neurological disease, and persistent tachyarrhythmia.COMPREHENSIVE METABOLIC [id number] 12:28:00 Test Item Value Reference Range Comments TOTAL PROTEIN (BEAKER) 5.0 gm/dL 6.0-8.3 (test aumt=227) ALBUMIN (BEAKER) (test 2.2 g/dL 3.5-5.0 elbe=3085) ALKALINE PHOSPHATASE 174 U/L 40-150 (BEAKER) (test ktgo=013) BILIRUBIN TOTAL (BEAKER) 1.5 mg/dL 0.2-1.2 (test xzwc=333) SODIUM (BEAKER) (test 140 meq/L 136-145 nagx=019) POTASSIUM (BEAKER) (test 4.3 meq/L 3.5-5.1 yanp=470) CHLORIDE (BEAKER) (test 105 meq/L 98-107 edpr=167) CO2 (BEAKER) (test 23 meq/L 22-29 ottd=329) BLOOD UREA NITROGEN 50 mg/dL 7-21 (BEAKER) (test xxck=983) CREATININE (BEAKER) (test 6.24 mg/dL 0.57-1.25 wkeq=547) GLUCOSE RANDOM (BEAKER) 100 mg/dL 70-105 (test oqjs=738) CALCIUM (BEAKER) (test 8.0 mg/dL 8.4-10.2 oulg=083) AST (SGOT) (BEAKER) (test 35 U/L 5-34 otmc=352) ALT (SGPT) (BEAKER) (test 19 U/L 6-55 xidr=467) EGFR (BEAKER) (test 9 mL/min/1.73 sq m ESTIMATED GFR IS NOT iulu=8445) ACCURATE CREATININE CLEARANCE IN PREDICTING GLOMERULAR FILTRATION RATE. ESTIMATED GFR IS NOT APPLICABLE FOR DIALYSIS PATIENTS. [id number] 12:25:00 Test Item Value Reference Range Comments MAGNESIUM (BEAKER) (test bjvx=487) 2.2 mg/dL 1.6-2.6 HEPATIC FUNCTION [id number] 12:25:00 Test Item Value Reference Range Comments TOTAL PROTEIN (BEAKER) (test sxcv=914) 5.0 gm/dL 6.0-8.3 ALBUMIN (BEAKER) (test yqmm=2540) 2.2 g/dL 3.5-5.0 BILIRUBIN TOTAL (BEAKER) (test lafm=539) 1.5 mg/dL 0.2-1.2 BILIRUBIN DIRECT (BEAKER) (test vvjb=015) 0.9 mg/dL 0.1-0.5 ALKALINE PHOSPHATASE (BEAKER) (test tvho=767) 174 U/L 40-150 AST (SGOT) (BEAKER) (test kiug=239) 35 U/L 5-34 ALT (SGPT) (BEAKER) (test jmhy=787) 19 U/L 6-55 RAD, CHEST, 1 VIEW, NON [id number] 12:17:00Referring: Dr. Hill WorkenehReason for exam:->LOSS OF CONSCIOUSNESSFINAL REPORT Chest one view INDICATION: Loss of consciousness COMPARISON: 10/03/2017 IMPRESSION: ET tube tip extends to the right mainstem bronchus origin. Advise retraction 1-2 cm. Right jugular dialysis catheter extends to the right atrium. A TIPS shunt is present. The enlargedcardiac silhouette is partially obscured. A small to moderate left and trace right pleural effusion are present with left retrocardiac atelectasis versus pneumonitis. There is prominent vascular congestion with mild initial edema. The bones appear demineralized. No pneumothorax is seen. Findings discussed with Dr. Hilraio at 12:17 PM Signed: Bryant Woodeport Verified Date/Time: 10/10/2017 12:17:12 Reading Location: [facility] Radiology Reading Room [id number] 12:15:00 Test Item Value Reference Range Comments PROTIME (BEAKER) (test vunm=403) 15.5 seconds 11.7-14.7 INR (BEAKER) (test fosl=826) 1.2 <=5.9 PARTIAL THROMBOPLASTIN TIME (BEAKER) (test 35.6 seconds 22.5-36.0 vkte=562) RECOMMENDED COUMADIN/WARFARIN INR THERAPY RANGESSTANDARD DOSE: 2.0 - 3.0 Includes: PROPHYLAXIS forvenous thrombosis, systemic embolization; TREATMENT for venous thrombosis and/or pulmonary embolus.HIGH RISK: Target INR is 2.5-3.5 for patients with mechanical heart valves.[id number] 12:14:00 Test Item Value Reference Range Comments AMMONIA (BEAKER) (test ehdr=926) 129 mol/L 18-72 CBC W/PLT COUNT & AUTO [id number] 12:12:00 Test Item Value Reference Range Comments WHITE BLOOD CELL COUNT (BEAKER) (test qzvm=086) 5.6 K/ L 3.5-10.5 RED BLOOD CELL COUNT (BEAKER) (test fcyd=851) 2.18 M/ L 4.63-6.08 HEMOGLOBIN (BEAKER) (test aqqh=816) 7.2 GM/DL 13.7-17.5 HEMATOCRIT (BEAKER) (test akyt=938) 21.4 % 40.1-51.0 MEAN CORPUSCULAR VOLUME (BEAKER) (test ncps=637) 98.2 fL 79.0-92.2 MEAN CORPUSCULAR HEMOGLOBIN (BEAKER) (test 33.0 pg 25.7-32.2 opfu=663) MEAN CORPUSCULAR HEMOGLOBIN CONC (BEAKER) (test 33.6 GM/DL 32.3-36.5 ticc=910) RED CELL DISTRIBUTION WIDTH (BEAKER) (test 20.2 % 11.6-14.4 mzop=069) PLATELET COUNT (BEAKER) (test bdsc=067) 126 K/CU MM 150-450 MEAN PLATELET VOLUME (BEAKER) (test gfqz=453) 10.6 fL 9.4-12.4 NUCLEATED RED BLOOD CELLS (BEAKER) (test 0 /100 WBC 0-0 jakg=395) NEUTROPHILS RELATIVE PERCENT (BEAKER) (test 80 % hrvc=647) LYMPHOCYTES RELATIVE PERCENT (BEAKER) (test 6 % oldg=237) MONOCYTES RELATIVE PERCENT (BEAKER) (test 13 % hdst=799) EOSINOPHILS RELATIVE PERCENT (BEAKER) (test 1 % oftz=832) BASOPHILS RELATIVE PERCENT (BEAKER) (test 1 % eqmw=223) NEUTROPHILS ABSOLUTE COUNT (BEAKER) (test 4.47 K/ L 1.78-5.38 ohwc=973) LYMPHOCYTES ABSOLUTE COUNT (BEAKER) (test 0.31 K/ L 1.32-3.57 svdq=162) MONOCYTES ABSOLUTE COUNT (BEAKER) (test 0.70 K/ L 0.30-0.82 yslj=586) EOSINOPHILS ABSOLUTE COUNT (BEAKER) (test 0.06 K/ L 0.04-0.54 yctc=859) BASOPHILS ABSOLUTE COUNT (BEAKER) (test 0.03 K/ L 0.01-0.08 mtlz=838) IMMATURE GRANULOCYTES-RELATIVE PERCENT (BEAKER) 0 % 0-1 (test qfqh=9742) BLOOD GAS, [id number] 12:00:00 Test Item Value Reference Range Comments PH ARTERIAL (BEAKER) (test elqs=781) 7.42 7.35-7.45 PCO2 ARTERIAL (BEAKER) (test mmhg=472) 40 mmHg 35-45 PO2 ARTERIAL (BEAKER) (test vvgb=316) 247 mmHg 80-90 O2 SATURATION ARTERIAL (BEAKER) (test skfd=290) 99.6 % 96.0-97.0 HCO3 ARTERIAL (BEAKER) (test imoy=363) 26 mmol/L 21-29 BASE EXCESS ARTERIAL (BEAKER) (test tzyx=624) 0.8 mmol/L -2.0-3.0 PATIENT TEMPERATURE (BEAKER) (test mqyv=3892) 36.2 C FIO2 (BEAKER) (test zris=4981) 100.0 % CT, BRAIN/STROKE [id number] 11:53:00Referring: Dr. Liz Grove for exam:->unresponsiveWhat is the patient's sedation requirement?->No SedationFINAL REPORT CT head without contrast. Comparisons: September 20, 2017 Reason for exam: Strokeunresponsive. Discussion : Multiple axial CT images of the head are provided without contrast evaluated in brain and bone windows. Dose modulation, iterative reconstruction, and/orweight based adjustment of the mA/kV was utilized [...] ischemic disease. There is chronic appearing opacification right-sidedmaxillary sinus. The visualized dural sinus regions, orbital contents, remaining paranasal sinuses, bones and surrounding soft tissues are unremarkable. Impressions: 1. No specific evidence of acute intracranial abnormality. Signed: Yang Reece Verified Date/Time: 10/10/2017 11:53:59Reading Location: [address] Neuro Reading Room Electronically signed by: YANG REECE M.D.on 10/10/2017 11: 53 AMPOCT-GLUCOSE [id number] 07:48:00 Test Item Value Reference Range Comments POC-GLUCOSE METER (BEAKER) 97 mg/dL 70-110 TESTED AT [address] (test biym=6878) [facility] [address] CALCIUM, [id number] 03:51:00 Test Item Value Reference Range Comments CALCIUM IONIZED (BEAKER) (test jvug=767) 1.01 mmol/L 1.12-1.27 PH, BLOOD (BEAKER) (test grbb=9135) 7.33 BASIC METABOLIC [id number] 03:06:00 Test Item Value Reference Range Comments SODIUM (BEAKER) (test 135 meq/L 136-145 dnvh=262) POTASSIUM (BEAKER) (test 3.5 meq/L 3.5-5.1 jvwr=537) CHLORIDE (BEAKER) (test 102 meq/L 98-107 ieha=550) CO2 (BEAKER) (test 28 meq/L 22-29 yqnp=457) BLOOD UREA NITROGEN 23 mg/dL 7-21 (BEAKER) (test ebhu=954) CREATININE (BEAKER) (test 3.06 mg/dL 0.57-1.25 ymzw=330) GLUCOSE RANDOM (BEAKER) 134 mg/dL 70-105 (test ahkp=172) CALCIUM (BEAKER) (test 7.4 mg/dL 8.4-10.2 vfzj=383) EGFR (BEAKER) (test 21 mL/min/1.73 sq m ESTIMATED GFR IS NOT ldbx=8243) ACCURATE CREATININE CLEARANCE IN PREDICTING GLOMERULAR FILTRATION RATE. ESTIMATED GFR IS NOT APPLICABLE FOR DIALYSIS PATIENTS. [id number] 03:03:00 Test Item Value Reference Range Comments PHOSPHORUS (BEAKER) (test jgpz=951) 2.3 mg/dL 2.3-4.7 [id number] 03:03:00 Test Item Value Reference Range Comments MAGNESIUM (BEAKER) (test plyw=503) 1.6 mg/dL 1.6-2.6 HEPATIC FUNCTION [id number] 03:03:00 Test Item Value Reference Range Comments TOTAL PROTEIN (BEAKER) (test bfge=959) 4.6 gm/dL 6.0-8.3 ALBUMIN (BEAKER) (test itli=5228) 2.1 g/dL 3.5-5.0 BILIRUBIN TOTAL (BEAKER) (test nswu=912) 1.4 mg/dL 0.2-1.2 BILIRUBIN DIRECT (BEAKER) (test pjbz=426) 0.9 mg/dL 0.1-0.5 ALKALINE PHOSPHATASE (BEAKER) (test qgzq=207) 209 U/L 40-150 AST (SGOT) (BEAKER) (test czxb=499) 34 U/L 5-34 ALT (SGPT) (BEAKER) (test zdjl=137) 19 U/L 6-55 CBC W/PLT COUNT & AUTO [id number] 02:59:00 Test Item Value Reference Range Comments WHITE BLOOD CELL COUNT (BEAKER) (test egyw=449) 4.5 K/ L 3.5-10.5 RED BLOOD CELL COUNT (BEAKER) (test xone=876) 2.17 M/ L 4.63-6.08 HEMOGLOBIN (BEAKER) (test cusb=989) 7.1 GM/DL 13.7-17.5 HEMATOCRIT (BEAKER) (test lvxk=132) 22.2 % 40.1-51.0 MEAN CORPUSCULAR VOLUME (BEAKER) (test fpun=334) 102.3 fL 79.0-92.2 MEAN CORPUSCULAR HEMOGLOBIN (BEAKER) (test 32.7 pg 25.7-32.2 bgrb=685) MEAN CORPUSCULAR HEMOGLOBIN CONC (BEAKER) (test 32.0 GM/DL 32.3-36.5 jgfa=316) RED CELL DISTRIBUTION WIDTH (BEAKER) (test 19.9 % 11.6-14.4 rxpj=016) PLATELET COUNT (BEAKER) (test wizy=013) 71 K/CU MM 150-450 MEAN PLATELET VOLUME (BEAKER) (test ugsy=862) 11.0 fL 9.4-12.4 NUCLEATED RED BLOOD CELLS (BEAKER) (test 0 /100 WBC 0-0 hdxj=685) NEUTROPHILS RELATIVE PERCENT (BEAKER) (test 70 % qdmi=073) LYMPHOCYTES RELATIVE PERCENT (BEAKER) (test 11 % icrx=753) MONOCYTES RELATIVE PERCENT (BEAKER) (test 13 % mzsq=241) EOSINOPHILS RELATIVE PERCENT (BEAKER) (test 5 % lhud=093) BASOPHILS RELATIVE PERCENT (BEAKER) (test 1 % mlnt=917) NEUTROPHILS ABSOLUTE COUNT (BEAKER) (test 3.15 K/ L 1.78-5.38 odym=099) LYMPHOCYTES ABSOLUTE COUNT (BEAKER) (test 0.47 K/ L 1.32-3.57 ievb=833) MONOCYTES ABSOLUTE COUNT (BEAKER) (test ptee=744) 0.60 K/ L 0.30-0.82 EOSINOPHILS ABSOLUTE COUNT (BEAKER) (test 0.20 K/ L 0.04-0.54 snwd=284) BASOPHILS ABSOLUTE COUNT (BEAKER) (test jgfy=318) 0.04 K/ L 0.01-0.08 IMMATURE GRANULOCYTES-RELATIVE PERCENT (BEAKER) 0 % 0-1 (test dife=6651) PROTHROMBIN [id number] 02:56:00 Test Item Value Reference Range Comments PROTIME (BEAKER) (test ygzo=014) 15.2 seconds 11.7-14.7 INR (BEAKER) (test vrcv=160) 1.2 <=5.9 RECOMMENDED COUMADIN/WARFARIN INR THERAPY RANGESSTANDARD DOSE: 2.0 - 3.0 Includes: PROPHYLAXIS forvenous thrombosis, systemic embolization; TREATMENT for venous thrombosis and/or pulmonary embolus.HIGH RISK: Target INR is 2.5-3.5 for patients with mechanical heart valves.POCT-GLUCOSE [id number] 21:55:00 Test Item Value Reference Range Comments POC-GLUCOSE METER (BEAKER) 141 mg/dL 70-110 TESTED AT [facility] [address] [facility] (test oegy=4227) [facility] [address] BASIC METABOLIC [id number] 07:31:00 Test Item Value Reference Range Comments SODIUM (BEAKER) (test 134 meq/L 136-145 oowp=057) POTASSIUM (BEAKER) (test 4.2 meq/L 3.5-5.1 gcch=423) CHLORIDE (BEAKER) (test 102 meq/L 98-107 oogq=928) CO2 (BEAKER) (test 22 meq/L 22-29 fsta=918) BLOOD UREA NITROGEN 46 mg/dL 7-21 (BEAKER) (test bkmn=756) CREATININE (BEAKER) (test 5.04 mg/dL 0.57-1.25 szgq=060) GLUCOSE RANDOM (BEAKER) 103 mg/dL 70-105 (test ihei=341) CALCIUM (BEAKER) (test 7.7 mg/dL 8.4-10.2 yxsn=901) EGFR (BEAKER) (test 12 mL/min/1.73 sq m ESTIMATED GFR IS NOT aioq=3798) ACCURATE CREATININE CLEARANCE IN PREDICTING GLOMERULAR FILTRATION RATE. ESTIMATED GFR IS NOT APPLICABLE FOR DIALYSIS PATIENTS. CALCIUM, [id number] 07:28:00 Test Item Value Reference Range Comments CALCIUM IONIZED (BEAKER) (test gbgz=612) 0.95 mmol/L 1.12-1.27 PH, BLOOD (BEAKER) (test hrcv=1723) 7.39 [id number] 07:02:00 Test Item Value Reference Range Comments MAGNESIUM (BEAKER) (test krpw=295) 1.8 mg/dL 1.6-2.6 HEPATIC FUNCTION [id number] 07:02:00 Test Item Value Reference Range Comments TOTAL PROTEIN (BEAKER) (test hkuu=311) 4.9 gm/dL 6.0-8.3 ALBUMIN (BEAKER) (test vlfi=4207) 2.2 g/dL 3.5-5.0 BILIRUBIN TOTAL (BEAKER) (test fnnt=499) 1.4 mg/dL 0.2-1.2 BILIRUBIN DIRECT (BEAKER) (test njpr=370) 0.9 mg/dL 0.1-0.5 ALKALINE PHOSPHATASE (BEAKER) (test pjav=743) 205 U/L 40-150 AST (SGOT) (BEAKER) (test rkmp=110) 35 U/L 5-34 ALT (SGPT) (BEAKER) (test qgsn=838) 21 U/L 6-55 CBC (HEMOGRAM ONLY)2017-10-07 06:25:00 Test Item Value Reference Range Comments WHITE BLOOD CELL COUNT (BEAKER) (test ueus=864) 5.6 K/ L 3.5-10.5 RED BLOOD CELL COUNT (BEAKER) (test vvgo=929) 2.30 M/ L 4.63-6.08 HEMOGLOBIN (BEAKER) (test bizg=560) 7.5 GM/DL 13.7-17.5 HEMATOCRIT (BEAKER) (test ttlc=990) 22.9 % 40.1-51.0 MEAN CORPUSCULAR VOLUME (BEAKER) (test uvzb=824) 99.6 fL 79.0-92.2 MEAN CORPUSCULAR HEMOGLOBIN (BEAKER) (test 32.6 pg 25.7-32.2 nfgd=155) MEAN CORPUSCULAR HEMOGLOBIN CONC (BEAKER) (test 32.8 GM/DL 32.3-36.5 kanq=823) RED CELL DISTRIBUTION WIDTH (BEAKER) (test 20.0 % 11.6-14.4 dtsf=826) PLATELET COUNT (BEAKER) (test sawu=213) 79 K/CU MM 150-450 MEAN PLATELET VOLUME (BEAKER) (test mcot=028) 11.3 fL 9.4-12.4 NUCLEATED RED BLOOD CELLS (BEAKER) (test 0 /100 WBC 0-0 viuv=921) PROTHROMBIN [id number] 05:45:00 Test Item Value Reference Range Comments PROTIME (BEAKER) (test uwra=241) 15.2 seconds 11.7-14.7 INR (BEAKER) (test icxz=161) 1.2 <=5.9 RECOMMENDED COUMADIN/WARFARIN INR THERAPY RANGESSTANDARD DOSE: 2.0 - 3.0 Includes: PROPHYLAXIS forvenous thrombosis, systemic embolization; TREATMENT for venous thrombosis and/or pulmonary embolus.HIGH RISK: Target INR is 2.5-3.5 for patients with mechanical heart valves.POCT-GLUCOSE [id number] 23:47:00 Test Item Value Reference Range Comments POC-GLUCOSE METER (BEAKER) 145 mg/dL 70-110 TESTED AT [address] (test nrgw=8276) [place] [address] POCT-GLUCOSE [id number] 18:11:00 Test Item Value Reference Range Comments POC-GLUCOSE METER (BEAKER) 158 mg/dL 70-110 TESTED AT [address] (test pcox=1109) [place] [address] POCT-GLUCOSE [id number] 12:46:00 Test Item Value Reference Range Comments POC-GLUCOSE METER (BEAKER) 115 mg/dL 70-110 TESTED AT [address] (test wrgs=4625) [place] [address] BASIC METABOLIC [id number] 09:58:00 Test Item Value Reference Range Comments SODIUM (BEAKER) (test 135 meq/L 136-145 ppyi=309) POTASSIUM (BEAKER) (test 4.2 meq/L 3.5-5.1 cugl=022) CHLORIDE (BEAKER) (test 104 meq/L 98-107 ooha=852) CO2 (BEAKER) (test 24 meq/L 22-29 bvif=742) BLOOD UREA NITROGEN 33 mg/dL 7-21 (BEAKER) (test vrmh=714) CREATININE (BEAKER) (test 3.78 mg/dL 0.57-1.25 revn=105) GLUCOSE RANDOM (BEAKER) 74 mg/dL 70-105 (test oggh=973) CALCIUM (BEAKER) (test 7.9 mg/dL 8.4-10.2 buzw=624) EGFR (BEAKER) (test 16 mL/min/1.73 sq m ESTIMATED GFR IS NOT bwve=2304) ACCURATE CREATININE CLEARANCE IN PREDICTING GLOMERULAR FILTRATION RATE. ESTIMATED GFR IS NOT APPLICABLE FOR DIALYSIS PATIENTS. Specimen slightly [id number] 09:38:00 Test Item Value Reference Range Comments PHOSPHORUS (BEAKER) (test zrkh=831) 3.7 mg/dL 2.3-4.7 [id number] 09:38:00 Test Item Value Reference Range Comments MAGNESIUM (BEAKER) (test juch=959) 1.6 mg/dL 1.6-2.6 HEPATIC FUNCTION [id number] 09:38:00 Test Item Value Reference Range Comments TOTAL PROTEIN (BEAKER) (test nrfv=313) 5.0 gm/dL 6.0-8.3 ALBUMIN (BEAKER) (test flrq=4246) 2.3 g/dL 3.5-5.0 BILIRUBIN TOTAL (BEAKER) (test khxt=942) 2.4 mg/dL 0.2-1.2 BILIRUBIN DIRECT (BEAKER) (test kxyq=857) 1.4 mg/dL 0.1-0.5 ALKALINE PHOSPHATASE (BEAKER) (test mezg=327) 167 U/L 40-150 AST (SGOT) (BEAKER) (test vota=076) 38 U/L 5-34 ALT (SGPT) (BEAKER) (test cero=771) 21 U/L 6-55 Specimen slightly ictericPOCT-GLUCOSE [id number] 08:40:00 Test Item Value Reference Range Comments POC-GLUCOSE METER (BEAKER) 139 mg/dL 70-110 TESTED AT [facility] [address] [facility] (test agpc=4507) [facility] [address] CALCIUM, [id number] 07:09:00 Test Item Value Reference Range Comments CALCIUM IONIZED (BEAKER) (test mfpk=908) 0.77 mmol/L 1.12-1.27 PH, BLOOD (BEAKER) (test qusb=4427) 7.53 CBC W/PLT COUNT & AUTO [id number] 06:40:00 Test Item Value Reference Range Comments WHITE BLOOD CELL COUNT (BEAKER) (test ovfn=444) 5.0 K/ L 3.5-10.5 RED BLOOD CELL COUNT (BEAKER) (test yhwu=984) 2.50 M/ L 4.63-6.08 HEMOGLOBIN (BEAKER) (test zvhc=029) 8.2 GM/DL 13.7-17.5 HEMATOCRIT (BEAKER) (test bpwh=683) 24.7 % 40.1-51.0 MEAN CORPUSCULAR VOLUME (BEAKER) (test udqw=326) 98.8 fL 79.0-92.2 MEAN CORPUSCULAR HEMOGLOBIN (BEAKER) (test 32.8 pg 25.7-32.2 pxxw=471) MEAN CORPUSCULAR HEMOGLOBIN CONC (BEAKER) (test 33.2 GM/DL 32.3-36.5 htjx=330) RED CELL DISTRIBUTION WIDTH (BEAKER) (test 20.4 % 11.6-14.4 cgst=727) PLATELET COUNT (BEAKER) (test hbhz=984) 69 K/CU MM 150-450 MEAN PLATELET VOLUME (BEAKER) (test iofr=722) 11.5 fL 9.4-12.4 NUCLEATED RED BLOOD CELLS (BEAKER) (test 0 /100 WBC 0-0 wmxp=535) NEUTROPHILS RELATIVE PERCENT (BEAKER) (test 68 % gscm=662) LYMPHOCYTES RELATIVE PERCENT (BEAKER) (test 13 % jenl=228) MONOCYTES RELATIVE PERCENT (BEAKER) (test 13 % cgak=497) EOSINOPHILS RELATIVE PERCENT (BEAKER) (test 5 % olzj=901) BASOPHILS RELATIVE PERCENT (BEAKER) (test 1 % tcfk=991) NEUTROPHILS ABSOLUTE COUNT (BEAKER) (test 3.40 K/ L 1.78-5.38 vxrr=344) LYMPHOCYTES ABSOLUTE COUNT (BEAKER) (test 0.67 K/ L 1.32-3.57 pnlu=318) MONOCYTES ABSOLUTE COUNT (BEAKER) (test teqp=394) 0.65 K/ L 0.30-0.82 EOSINOPHILS ABSOLUTE COUNT (BEAKER) (test 0.23 K/ L 0.04-0.54 nrkg=063) BASOPHILS ABSOLUTE COUNT (BEAKER) (test xrfk=148) 0.05 K/ L 0.01-0.08 IMMATURE GRANULOCYTES-RELATIVE PERCENT (BEAKER) 0 % 0-1 (test afug=3355) PROTHROMBIN [id number] 06:23:00 Test Item Value Reference Range Comments PROTIME (BEAKER) (test qpsg=980) 14.7 seconds 11.7-14.7 INR (BEAKER) (test mbom=572) 1.2 <=5.9 RECOMMENDED COUMADIN/WARFARIN INR THERAPY RANGESSTANDARD DOSE: 2.0 - 3.0 Includes: PROPHYLAXIS forvenous thrombosis, systemic embolization; TREATMENT for venous thrombosis and/or pulmonary embolus.HIGH RISK: Target INR is 2.5-3.5 for patients with mechanical heart valves.POCT-GLUCOSE [id number] 23:05:00 Test Item Value Reference Range Comments POC-GLUCOSE METER (BEAKER) 103 mg/dL 70-110 TESTED AT [facility] [address] [facility] (test upfn=0023) [facility] [address] CBC W/PLT COUNT & AUTO [id number] 11:59:00 Test Item Value Reference Range Comments WHITE BLOOD CELL COUNT (BEAKER) (test stfi=413) 4.0 K/ L 3.5-10.5 RED BLOOD CELL COUNT (BEAKER) (test jway=639) 2.14 M/ L 4.63-6.08 HEMOGLOBIN (BEAKER) (test cuqt=997) 7.1 GM/DL 13.7-17.5 HEMATOCRIT (BEAKER) (test yqys=484) 21.5 % 40.1-51.0 MEAN CORPUSCULAR VOLUME (BEAKER) (test fkpw=179) 100.5 fL 79.0-92.2 MEAN CORPUSCULAR HEMOGLOBIN (BEAKER) (test 33.2 pg 25.7-32.2 wasg=565) MEAN CORPUSCULAR HEMOGLOBIN CONC (BEAKER) (test 33.0 GM/DL 32.3-36.5 yvwh=859) RED CELL DISTRIBUTION WIDTH (BEAKER) (test 21.4 % 11.6-14.4 xcls=931) PLATELET COUNT (BEAKER) (test wrlo=639) 151 K/CU MM 150-450 MEAN PLATELET VOLUME (BEAKER) (test ytzm=236) 13.7 fL 9.4-12.4 NUCLEATED RED BLOOD CELLS (BEAKER) (test 0 /100 WBC 0-0 vnqm=144) NEUTROPHILS RELATIVE PERCENT (BEAKER) (test 72 % iqfo=395) LYMPHOCYTES RELATIVE PERCENT (BEAKER) (test 9 % fkzi=299) MONOCYTES RELATIVE PERCENT (BEAKER) (test 15 % wuhi=709) EOSINOPHILS RELATIVE PERCENT (BEAKER) (test 3 % svhc=092) BASOPHILS RELATIVE PERCENT (BEAKER) (test 1 % aaox=033) NEUTROPHILS ABSOLUTE COUNT (BEAKER) (test 2.91 K/ L 1.78-5.38 atmw=467) LYMPHOCYTES ABSOLUTE COUNT (BEAKER) (test 0.36 K/ L 1.32-3.57 ygan=903) MONOCYTES ABSOLUTE COUNT (BEAKER) (test 0.60 K/ L 0.30-0.82 pisb=029) EOSINOPHILS ABSOLUTE COUNT (BEAKER) (test 0.12 K/ L 0.04-0.54 peod=130) BASOPHILS ABSOLUTE COUNT (BEAKER) (test 0.03 K/ L 0.01-0.08 dstd=749) IMMATURE GRANULOCYTES-RELATIVE PERCENT (BEAKER) 0 % 0-1 (test djme=6190) BASIC METABOLIC [id number] 08:50:00 Test Item Value Reference Range Comments SODIUM (BEAKER) (test 136 meq/L 136-145 xiol=397) POTASSIUM (BEAKER) (test 3.8 meq/L 3.5-5.1 caty=892) CHLORIDE (BEAKER) (test 103 meq/L 98-107 qnqb=762) CO2 (BEAKER) (test 22 meq/L 22-29 ghqi=980) BLOOD UREA NITROGEN 23 mg/dL 7-21 (BEAKER) (test qzia=201) CREATININE (BEAKER) (test 2.42 mg/dL 0.57-1.25 awma=786) GLUCOSE RANDOM (BEAKER) 72 mg/dL 70-105 (test hezx=362) CALCIUM (BEAKER) (test 7.6 mg/dL 8.4-10.2 jufw=543) EGFR (BEAKER) (test 27 mL/min/1.73 sq m ESTIMATED GFR IS NOT wepx=8526) ACCURATE CREATININE CLEARANCE IN PREDICTING GLOMERULAR FILTRATION RATE. ESTIMATED GFR IS NOT APPLICABLE FOR DIALYSIS PATIENTS. Specimen slightly [id number] 08:47:00 Test Item Value Reference Range Comments PHOSPHORUS (BEAKER) (test qswa=685) 3.1 mg/dL 2.3-4.7 [id number] 08:47:00 Test Item Value Reference Range Comments MAGNESIUM (BEAKER) (test mlau=482) 1.8 mg/dL 1.6-2.6 HEPATIC FUNCTION [id number] 08:47:00 Test Item Value Reference Range Comments TOTAL PROTEIN (BEAKER) (test qzkj=667) 4.8 gm/dL 6.0-8.3 ALBUMIN (BEAKER) (test vzzq=3913) 2.3 g/dL 3.5-5.0 BILIRUBIN TOTAL (BEAKER) (test pjzh=409) 2.6 mg/dL 0.2-1.2 BILIRUBIN DIRECT (BEAKER) (test smae=006) 1.4 mg/dL 0.1-0.5 ALKALINE PHOSPHATASE (BEAKER) (test ulem=027) 177 U/L 40-150 AST (SGOT) (BEAKER) (test blno=420) 44 U/L 5-34 ALT (SGPT) (BEAKER) (test wfaq=592) 21 U/L 6-55 Specimen slightly ictericPOCT-GLUCOSE [id number] 07:47:00 Test Item Value Reference Range Comments POC-GLUCOSE METER (BEAKER) 93 mg/dL 70-110 TESTED AT [address] (test suqp=0313) [facility] [address] PROTHROMBIN [id number] 07:36:00 Test Item Value Reference Range Comments PROTIME (BEAKER) (test ybbv=041) 14.9 seconds 11.7-14.7 INR (BEAKER) (test xfeo=756) 1.2 <=5.9 RECOMMENDED COUMADIN/WARFARIN INR THERAPY RANGESSTANDARD DOSE: 2.0 - 3.0 Includes: PROPHYLAXIS forvenous thrombosis, systemic embolization; TREATMENT for venous thrombosis and/or pulmonary embolus.HIGH RISK: Target INR is 2.5-3.5 for patients with mechanical heart valves.CALCIUM, [id number] 07:12:00 Test Item Value Reference Range Comments CALCIUM IONIZED (BEAKER) (test ulxu=318) 0.75 mmol/L 1.12-1.27 PH, BLOOD (BEAKER) (test eaah=6171) 7.56 POCT-GLUCOSE [id number] 21:27:00 Test Item Value Reference Range Comments POC-GLUCOSE METER (BEAKER) 130 mg/dL 70-110 TESTED AT [address] (test czlq=6705) [place] [id number] POCT-GLUCOSE [id number] 12:51:00 Test Item Value Reference Range Comments POC-GLUCOSE METER (BEAKER) 195 mg/dL 70-110 TESTED AT [facility] [address] [facility] (test heoj=5838) [facility] [address] BASIC METABOLIC [id number] 08:04:00 Test Item Value Reference Range Comments SODIUM (BEAKER) (test 134 meq/L 136-145 qmgs=829) POTASSIUM (BEAKER) (test 3.9 meq/L 3.5-5.1 vfwg=582) CHLORIDE (BEAKER) (test 101 meq/L 98-107 rjet=771) CO2 (BEAKER) (test 24 meq/L 22-29 qjlm=415) BLOOD UREA NITROGEN 54 mg/dL 7-21 (BEAKER) (test rhkp=780) CREATININE (BEAKER) (test 3.96 mg/dL 0.57-1.25 sqvq=272) GLUCOSE RANDOM (BEAKER) 73 mg/dL 70-105 (test nqcc=224) CALCIUM (BEAKER) (test 7.5 mg/dL 8.4-10.2 revk=447) EGFR (BEAKER) (test 15 mL/min/1.73 sq m ESTIMATED GFR IS NOT zwgh=2859) ACCURATE CREATININE CLEARANCE IN PREDICTING GLOMERULAR FILTRATION RATE. ESTIMATED GFR IS NOT APPLICABLE FOR DIALYSIS PATIENTS. [id number] 07:42:00 Test Item Value Reference Range Comments PHOSPHORUS (BEAKER) (test bmnb=317) 4.0 mg/dL 2.3-4.7 [id number] 07:42:00 Test Item Value Reference Range Comments MAGNESIUM (BEAKER) (test ccfo=247) 2.0 mg/dL 1.6-2.6 HEPATIC FUNCTION [id number] 07:42:00 Test Item Value Reference Range Comments TOTAL PROTEIN (BEAKER) (test oels=416) 4.5 gm/dL 6.0-8.3 ALBUMIN (BEAKER) (test hsvb=8864) 2.2 g/dL 3.5-5.0 BILIRUBIN TOTAL (BEAKER) (test qisn=625) 1.7 mg/dL 0.2-1.2 BILIRUBIN DIRECT (BEAKER) (test rfpn=706) 1.0 mg/dL 0.1-0.5 ALKALINE PHOSPHATASE (BEAKER) (test vnxl=012) 158 U/L 40-150 AST (SGOT) (BEAKER) (test lher=658) 40 U/L 5-34 ALT (SGPT) (BEAKER) (test wwep=790) 18 U/L 6-55 CBC W/PLT COUNT & AUTO [id number] 07:30:00 Test Item Value Reference Range Comments WHITE BLOOD CELL COUNT (BEAKER) (test ctoh=104) 4.8 K/ L 3.5-10.5 RED BLOOD CELL COUNT (BEAKER) (test xsqj=248) 2.04 M/ L 4.63-6.08 HEMOGLOBIN (BEAKER) (test htkh=988) 6.7 GM/DL 13.7-17.5 HEMATOCRIT (BEAKER) (test heyy=984) 21.6 % 40.1-51.0 MEAN CORPUSCULAR VOLUME (BEAKER) (test pfpy=221) 105.9 fL 79.0-92.2 MEAN CORPUSCULAR HEMOGLOBIN (BEAKER) (test 32.8 pg 25.7-32.2 mkcy=993) MEAN CORPUSCULAR HEMOGLOBIN CONC (BEAKER) (test 31.0 GM/DL 32.3-36.5 wnfx=657) RED CELL DISTRIBUTION WIDTH (BEAKER) (test 21.6 % 11.6-14.4 jqjd=686) PLATELET COUNT (BEAKER) (test mgqe=174) 48 K/CU MM 150-450 MEAN PLATELET VOLUME (BEAKER) (test tjpr=407) 12.0 fL 9.4-12.4 NUCLEATED RED BLOOD CELLS (BEAKER) (test 0 /100 WBC 0-0 qudw=463) NEUTROPHILS RELATIVE PERCENT (BEAKER) (test 69 % iaud=738) LYMPHOCYTES RELATIVE PERCENT (BEAKER) (test 11 % dtbi=905) MONOCYTES RELATIVE PERCENT (BEAKER) (test 16 % ujsk=591) EOSINOPHILS RELATIVE PERCENT (BEAKER) (test 4 % tvnm=164) BASOPHILS RELATIVE PERCENT (BEAKER) (test 1 % dzdd=175) NEUTROPHILS ABSOLUTE COUNT (BEAKER) (test 3.27 K/ L 1.78-5.38 tzdn=301) LYMPHOCYTES ABSOLUTE COUNT (BEAKER) (test 0.52 K/ L 1.32-3.57 ttxx=363) MONOCYTES ABSOLUTE COUNT (BEAKER) (test ktah=228) 0.74 K/ L 0.30-0.82 EOSINOPHILS ABSOLUTE COUNT (BEAKER) (test 0.20 K/ L 0.04-0.54 dnsd=329) BASOPHILS ABSOLUTE COUNT (BEAKER) (test xqps=760) 0.03 K/ L 0.01-0.08 IMMATURE GRANULOCYTES-RELATIVE PERCENT (BEAKER) 0 % 0-1 (test tddq=4535) CALCIUM, [id number] 07:21:00 Test Item Value Reference Range Comments CALCIUM IONIZED (BEAKER) (test ylkr=322) 0.87 mmol/L 1.12-1.27 PH, BLOOD (BEAKER) (test nook=9530) 7.49 B-TYPE NATRIURETIC FACTOR (BNP)2017-10-04 06:54:00 Test Item Value Reference Range Comments B-TYPE NATRIURETIC PEPTIDE (BEAKER) (test 516 pg/mL 0-100 mlbf=019) PROTHROMBIN [id number] 06:49:00 Test Item Value Reference Range Comments PROTIME (BEAKER) (test xpht=912) 15.7 seconds 11.7-14.7 INR (BEAKER) (test fxnr=873) 1.3 <=5.9 RECOMMENDED COUMADIN/WARFARIN INR THERAPY RANGESSTANDARD DOSE: 2.0 - 3.0 Includes: PROPHYLAXIS forvenous thrombosis, systemic embolization; TREATMENT for venous thrombosis and/or pulmonary embolus.HIGH RISK: Target INR is 2.5-3.5 for patients with mechanical heart valves.POCT-GLUCOSE [id number] 22:06:00 Test Item Value Reference Range Comments POC-GLUCOSE METER (BEAKER) 100 mg/dL 70-110 TESTED AT [address] (test hfcb=4041) [facility] [address] RAD, CHEST, 1 VIEW, NON [id number] 20:39:00Referring: Dr. Liz GarciahRstephen for exam:->edemaShould this be performed at the bedside?-> YesFINAL REPORT EXAMINATION: AP PORTABLE CHEST RADIOGRAPH CLINICAL INDICATION:Pulmonary edema IMPRESSION: Compared with 2017. Tip of the right jugular dialysis catheter projects over the right atrium. The heart is enlarged but stable. Opacities are again noted in both lungs,most conspicuous at the lung bases, left greater than right. Although a component may reflect atelectasis, mild pulmonary edema or an underlying pneumonia should also be considered. Relatively stable bilateral effusions are also again noted, left greater than right. Cardiomediastinal contours are grossly stable. No evidence of a pneumothorax. In summary, constellation of findings concerning for fluidoverload/heart failure. An underlying pneumonia cannot be excluded. Signed: Jani Daly MDReport Verified Date/Time: 2017 20:39:51 Reading Location: [address] Reading Room POCT- GLUCOSE [id number] 18:14:00 Test Item Value Reference Range Comments POC-GLUCOSE METER (BEAKER) 118 mg/dL 70-110 TESTED AT [address] (test vowx=6266) [place] [address] POCT-GLUCOSE [id number] 12:24:00 Test Item Value Reference Range Comments POC-GLUCOSE METER (BEAKER) 142 mg/dL 70-110 TESTED AT [address] (test qomv=3215) [place] [address] POCT-GLUCOSE [id number] 08:33:00 Test Item Value Reference Range Comments POC-GLUCOSE METER (BEAKER) 145 mg/dL 70-110 TESTED AT [address] (test xrni=9419) [place] [id number] CALCIUM, [id number] 08:05:00 Test Item Value Reference Range Comments CALCIUM IONIZED (BEAKER) (test qysg=684) 0.94 mmol/L 1.12-1.27 PH, BLOOD (BEAKER) (test xbnd=8022) 7.40 BASIC METABOLIC [id number] 05:52:00 Test Item Value Reference Range Comments SODIUM (BEAKER) (test 136 meq/L 136-145 rcgh=489) POTASSIUM (BEAKER) (test 3.6 meq/L 3.5-5.1 zpeo=942) CHLORIDE (BEAKER) (test 101 meq/L 98-107 cuxs=459) CO2 (BEAKER) (test 29 meq/L 22-29 vpou=410) BLOOD UREA NITROGEN 29 mg/dL 7-21 (BEAKER) (test zagw=017) CREATININE (BEAKER) (test 2.59 mg/dL 0.57-1.25 nyvy=000) GLUCOSE RANDOM (BEAKER) 108 mg/dL 70-105 (test mvbk=344) CALCIUM (BEAKER) (test 7.5 mg/dL 8.4-10.2 cpwp=330) EGFR (BEAKER) (test 25 mL/min/1.73 sq m ESTIMATED GFR IS NOT roib=4087) ACCURATE CREATININE CLEARANCE IN PREDICTING GLOMERULAR FILTRATION RATE. ESTIMATED GFR IS NOT APPLICABLE FOR DIALYSIS PATIENTS. [id number] 05:50:00 Test Item Value Reference Range Comments PHOSPHORUS (BEAKER) (test pqgo=744) 2.9 mg/dL 2.3-4.7 [id number] 05:50:00 Test Item Value Reference Range Comments MAGNESIUM (BEAKER) (test csti=409) 1.8 mg/dL 1.6-2.6 HEPATIC FUNCTION [id number] 05:50:00 Test Item Value Reference Range Comments TOTAL PROTEIN (BEAKER) (test rejp=694) 4.4 gm/dL 6.0-8.3 ALBUMIN (BEAKER) (test vsyx=7887) 2.2 g/dL 3.5-5.0 BILIRUBIN TOTAL (BEAKER) (test jseg=183) 1.8 mg/dL 0.2-1.2 BILIRUBIN DIRECT (BEAKER) (test syok=572) 1.1 mg/dL 0.1-0.5 ALKALINE PHOSPHATASE (BEAKER) (test gcjp=242) 163 U/L 40-150 AST (SGOT) (BEAKER) (test pdxi=836) 38 U/L 5-34 ALT (SGPT) (BEAKER) (test jkjq=856) 19 U/L 6-55 POCT-GLUCOSE [id number] 23:23:00 Test Item Value Reference Range Comments POC-GLUCOSE METER (BEAKER) 116 mg/dL 70-110 TESTED AT [facility] [address] [facility] (test pllb=0340) [facility] [address] HEPATITIS B [id number] 17:08:00 Test Item Value Reference Range Comments HEPATITIS B CORE TOTAL ANTIBODY (BEAKER) (test Reactive Nonreactive ktbr=457) HEPATITIS B SURFACE ANTIBODY (BEAKER) (test < mIU/mL <8.0 ddlo=093) HEPATITIS B SURFACE ANTIGEN (2) (BEAKER) (test Reactive Nonreactive okrl=0423) POCT-GLUCOSE [id number] 16:14:00 Test Item Value Reference Range Comments [facility] 116 mg/dL 70-110 TESTED AT [address] (test bzup=8676) [facility] [address] [id number] 09:36:00 Test Item Value Reference Range Comments PHOSPHORUS (BEAKER) (test aqjm=849) 4.5 mg/dL 2.3-4.7 HEPATIC FUNCTION [id number] 07:32:00 Test Item Value Reference Range Comments TOTAL PROTEIN (BEAKER) (test bopw=335) 4.4 gm/dL 6.0-8.3 ALBUMIN (BEAKER) (test dsvq=6654) 2.3 g/dL 3.5-5.0 BILIRUBIN TOTAL (BEAKER) (test bxwx=736) 2.2 mg/dL 0.2-1.2 BILIRUBIN DIRECT (BEAKER) (test ivzi=639) 1.3 mg/dL 0.1-0.5 ALKALINE PHOSPHATASE (BEAKER) (test chue=274) 152 U/L 40-150 AST (SGOT) (BEAKER) (test qbps=755) 34 U/L 5-34 ALT (SGPT) (BEAKER) (test ujjx=989) 18 U/L 6-55 Specimen slightly ictericPOCT-GLUCOSE [id number] 06:27:00 Test Item Value Reference Range Comments POC-GLUCOSE METER (BEAKER) 81 mg/dL 70-110 TESTED AT [address] (test oson=6954) [facility] [address] CBC W/PLT COUNT & AUTO [id number] 06:13:00 Test Item Value Reference Range Comments WHITE BLOOD CELL COUNT (BEAKER) (test hqnh=081) 5.5 K/ L 3.5-10.5 RED BLOOD CELL COUNT (BEAKER) (test picu=489) 2.19 M/ L 4.63-6.08 HEMOGLOBIN (BEAKER) (test nssg=714) 7.1 GM/DL 13.7-17.5 HEMATOCRIT (BEAKER) (test flaa=517) 22.3 % 40.1-51.0 MEAN CORPUSCULAR VOLUME (BEAKER) (test kcar=053) 101.8 fL 79.0-92.2 MEAN CORPUSCULAR HEMOGLOBIN (BEAKER) (test 32.4 pg 25.7-32.2 zlmt=296) MEAN CORPUSCULAR HEMOGLOBIN CONC (BEAKER) (test 31.8 GM/DL 32.3-36.5 dctj=236) RED CELL DISTRIBUTION WIDTH (BEAKER) (test 22.5 % 11.6-14.4 tjst=064) PLATELET COUNT (BEAKER) (test srfm=870) 37 K/CU MM 150-450 MEAN PLATELET VOLUME (BEAKER) (test waje=102) 11.8 fL 9.4-12.4 NUCLEATED RED BLOOD CELLS (BEAKER) (test 0 /100 WBC 0-0 ecar=904) NEUTROPHILS RELATIVE PERCENT (BEAKER) (test 75 % ljnl=008) LYMPHOCYTES RELATIVE PERCENT (BEAKER) (test 9 % bhrx=552) MONOCYTES RELATIVE PERCENT (BEAKER) (test 12 % dupl=774) EOSINOPHILS RELATIVE PERCENT (BEAKER) (test 3 % mbhh=026) BASOPHILS RELATIVE PERCENT (BEAKER) (test 1 % hlsw=341) NEUTROPHILS ABSOLUTE COUNT (BEAKER) (test 4.10 K/ L 1.78-5.38 rddn=923) LYMPHOCYTES ABSOLUTE COUNT (BEAKER) (test 0.49 K/ L 1.32-3.57 swfk=890) MONOCYTES ABSOLUTE COUNT (BEAKER) (test thrr=520) 0.67 K/ L 0.30-0.82 EOSINOPHILS ABSOLUTE COUNT (BEAKER) (test 0.16 K/ L 0.04-0.54 ieeg=553) BASOPHILS ABSOLUTE COUNT (BEAKER) (test vmkr=208) 0.03 K/ L 0.01-0.08 IMMATURE GRANULOCYTES-RELATIVE PERCENT (BEAKER) 0 % 0-1 (test reek=2066) BASIC METABOLIC [id number] 06:07:00 Test Item Value Reference Range Comments SODIUM (BEAKER) (test 134 meq/L 136-145 ohyr=722) POTASSIUM (BEAKER) (test 4.6 meq/L 3.5-5.1 bhlf=538) CHLORIDE (BEAKER) (test 101 meq/L 98-107 dpwi=558) CO2 (BEAKER) (test 24 meq/L 22-29 rftm=491) BLOOD UREA NITROGEN 57 mg/dL 7-21 (BEAKER) (test kord=895) CREATININE (BEAKER) (test 3.92 mg/dL 0.57-1.25 civf=329) GLUCOSE RANDOM (BEAKER) 67 mg/dL 70-105 (test zrjx=031) CALCIUM (BEAKER) (test 7.9 mg/dL 8.4-10.2 ihax=102) EGFR (BEAKER) (test 15 mL/min/1.73 sq m ESTIMATED GFR IS NOT pbgt=8927) ACCURATE CREATININE CLEARANCE IN PREDICTING GLOMERULAR FILTRATION RATE. ESTIMATED GFR IS NOT APPLICABLE FOR DIALYSIS PATIENTS. Specimen slightly ictericPROTHROMBIN [id number] 05:53:00 Test Item Value Reference Range Comments PROTIME (BEAKER) (test tvmx=493) 15.8 seconds 11.7-14.7 INR (BEAKER) (test yfss=950) 1.3 <=5.9 RECOMMENDED COUMADIN/WARFARIN INR THERAPY RANGESSTANDARD DOSE: 2.0 - 3.0 Includes: PROPHYLAXIS forvenous thrombosis, systemic embolization; TREATMENT for venous thrombosis and/or pulmonary embolus.HIGH RISK: Target INR is 2.5-3.5 for patients with mechanical heart valves.POCT-GLUCOSE [id number] 18:16:00 Test Item Value Reference Range Comments POC-GLUCOSE METER (BEAKER) 99 mg/dL 70-110 TESTED AT [address] (test dvrk=9177) [facility] [address] POCT-GLUCOSE [id number] 12:50:00 Test Item Value Reference Range Comments POC-GLUCOSE METER (BEAKER) 103 mg/dL 70-110 TESTED AT [address] (test kezi=6173) [facility] [address] CALCIUM, [id number] 08:04:00 Test Item Value Reference Range Comments CALCIUM IONIZED (BEAKER) (test qren=170) 1.13 mmol/L 1.12-1.27 PH, BLOOD (BEAKER) (test dgvp=9124) 7.37 BASIC METABOLIC [id number] 06:47:00 Test Item Value Reference Range Comments SODIUM (BEAKER) (test 136 meq/L 136-145 nxnm=409) POTASSIUM (BEAKER) (test 4.2 meq/L 3.5-5.1 tman=259) CHLORIDE (BEAKER) (test 104 meq/L 98-107 qdnv=026) CO2 (BEAKER) (test 25 meq/L 22-29 zcez=340) BLOOD UREA NITROGEN 34 mg/dL 7-21 (BEAKER) (test ygtj=569) CREATININE (BEAKER) (test 2.70 mg/dL 0.57-1.25 sjhb=471) GLUCOSE RANDOM (BEAKER) 82 mg/dL 70-105 (test igjw=934) CALCIUM (BEAKER) (test 8.0 mg/dL 8.4-10.2 zsyj=658) EGFR (BEAKER) (test 24 mL/min/1.73 sq m ESTIMATED GFR IS NOT vonj=2465) ACCURATE CREATININE CLEARANCE IN PREDICTING GLOMERULAR FILTRATION RATE. ESTIMATED GFR IS NOT APPLICABLE FOR DIALYSIS PATIENTS. Specimen slightly [id number] 06:45:00 Test Item Value Reference Range Comments MAGNESIUM (BEAKER) (test phmc=248) 2.1 mg/dL 1.6-2.6 HEPATIC FUNCTION [id number] 06:45:00 Test Item Value Reference Range Comments TOTAL PROTEIN (BEAKER) (test dlzq=447) 4.6 gm/dL 6.0-8.3 ALBUMIN (BEAKER) (test hjck=1381) 2.4 g/dL 3.5-5.0 BILIRUBIN TOTAL (BEAKER) (test gwgl=259) 2.6 mg/dL 0.2-1.2 BILIRUBIN DIRECT (BEAKER) (test iahf=569) 1.5 mg/dL 0.1-0.5 ALKALINE PHOSPHATASE (BEAKER) (test jcgg=237) 177 U/L 40-150 AST (SGOT) (BEAKER) (test gshz=300) 39 U/L 5-34 ALT (SGPT) (BEAKER) (test yjan=492) 20 U/L 6-55 Specimen slightly ictericPOCT-GLUCOSE [id number] 06:18:00 Test Item Value Reference Range Comments POC-GLUCOSE METER (BEAKER) 99 mg/dL 70-110 TESTED AT [facility] [address] [facility] (test upag=7642) [place] [address] PROTHROMBIN [id number] 05:12:00 Test Item Value Reference Range Comments PROTIME (BEAKER) (test wlls=856) 15.2 seconds 11.7-14.7 INR (BEAKER) (test yzmd=880) 1.2 <=5.9 RECOMMENDED COUMADIN/WARFARIN INR THERAPY RANGESSTANDARD DOSE: 2.0 - 3.0 Includes: PROPHYLAXIS forvenous thrombosis, systemic embolization; TREATMENT for venous thrombosis and/or pulmonary embolus.HIGH RISK: Target INR is 2.5-3.5 for patients with mechanical heart valves.CBC W/PLT COUNT & AUTO [id number] 05:00:00 Test Item Value Reference Range Comments WHITE BLOOD CELL COUNT (BEAKER) (test lgwf=399) 8.1 K/ L 3.5-10.5 RED BLOOD CELL COUNT (BEAKER) (test alln=001) 2.52 M/ L 4.63-6.08 HEMOGLOBIN (BEAKER) (test zglu=816) 8.2 GM/DL 13.7-17.5 HEMATOCRIT (BEAKER) (test tylg=984) 25.4 % 40.1-51.0 MEAN CORPUSCULAR VOLUME (BEAKER) (test qeag=344) 100.8 fL 79.0-92.2 MEAN CORPUSCULAR HEMOGLOBIN (BEAKER) (test 32.5 pg 25.7-32.2 yuux=182) MEAN CORPUSCULAR HEMOGLOBIN CONC (BEAKER) (test 32.3 GM/DL 32.3-36.5 uuhj=276) RED CELL DISTRIBUTION WIDTH (BEAKER) (test 23.4 % 11.6-14.4 ssju=678) PLATELET COUNT (BEAKER) (test xfsa=876) 42 K/CU MM 150-450 MEAN PLATELET VOLUME (BEAKER) (test ivsh=908) 12.0 fL 9.4-12.4 NUCLEATED RED BLOOD CELLS (BEAKER) (test 0 /100 WBC 0-0 xffo=282) NEUTROPHILS RELATIVE PERCENT (BEAKER) (test 84 % ndvr=017) LYMPHOCYTES RELATIVE PERCENT (BEAKER) (test 4 % rbwp=496) MONOCYTES RELATIVE PERCENT (BEAKER) (test 11 % tguy=980) EOSINOPHILS RELATIVE PERCENT (BEAKER) (test 1 % gcuc=010) BASOPHILS RELATIVE PERCENT (BEAKER) (test 0 % mzqi=079) NEUTROPHILS ABSOLUTE COUNT (BEAKER) (test 6.74 K/ L 1.78-5.38 nvca=911) LYMPHOCYTES ABSOLUTE COUNT (BEAKER) (test 0.30 K/ L 1.32-3.57 kuxe=078) MONOCYTES ABSOLUTE COUNT (BEAKER) (test pcmw=378) 0.86 K/ L 0.30-0.82 EOSINOPHILS ABSOLUTE COUNT (BEAKER) (test 0.10 K/ L 0.04-0.54 wzmr=866) BASOPHILS ABSOLUTE COUNT (BEAKER) (test feww=314) 0.01 K/ L 0.01-0.08 IMMATURE GRANULOCYTES-RELATIVE PERCENT (BEAKER) 1 % 0-1 (test ftml=3664) POCT-GLUCOSE [id number] 00:18:00 Test Item Value Reference Range Comments POC-GLUCOSE METER (BEAKER) 104 mg/dL 70-110 TESTED AT [address] (test pchu=6719) [place] [id number] POCT-GLUCOSE [id number] 12:25:00 Test Item Value Reference Range Comments POC-GLUCOSE METER (BEAKER) 145 mg/dL 70-110 TESTED AT [address] (test lssj=6042) [facility] [address] CBC W/PLT COUNT & AUTO [id number] 10:02:00 Test Item Value Reference Range Comments WHITE BLOOD CELL COUNT (BEAKER) (test usqi=692) 7.6 K/ L 3.5-10.5 RED BLOOD CELL COUNT (BEAKER) (test zoma=093) 2.84 M/ L 4.63-6.08 HEMOGLOBIN (BEAKER) (test mlqi=747) 9.2 GM/DL 13.7-17.5 HEMATOCRIT (BEAKER) (test rrnq=085) 28.2 % 40.1-51.0 MEAN CORPUSCULAR VOLUME (BEAKER) (test omqw=331) 99.3 fL 79.0-92.2 MEAN CORPUSCULAR HEMOGLOBIN (BEAKER) (test 32.4 pg 25.7-32.2 hpmv=605) MEAN CORPUSCULAR HEMOGLOBIN CONC (BEAKER) (test 32.6 GM/DL 32.3-36.5 lntt=265) RED CELL DISTRIBUTION WIDTH (BEAKER) (test 23.5 % 11.6-14.4 xwch=993) PLATELET COUNT (BEAKER) (test invz=071) 52 K/CU MM 150-450 MEAN PLATELET VOLUME (BEAKER) (test lthe=052) 11.3 fL 9.4-12.4 NUCLEATED RED BLOOD CELLS (BEAKER) (test 0 /100 WBC 0-0 icrt=671) NEUTROPHILS RELATIVE PERCENT (BEAKER) (test 81 % reos=955) LYMPHOCYTES RELATIVE PERCENT (BEAKER) (test 4 % ldmw=259) MONOCYTES RELATIVE PERCENT (BEAKER) (test 13 % vjgp=416) EOSINOPHILS RELATIVE PERCENT (BEAKER) (test 1 % mhri=932) BASOPHILS RELATIVE PERCENT (BEAKER) (test 0 % pfbg=573) NEUTROPHILS ABSOLUTE COUNT (BEAKER) (test 6.14 K/ L 1.78-5.38 byqf=734) LYMPHOCYTES ABSOLUTE COUNT (BEAKER) (test 0.33 K/ L 1.32-3.57 byje=696) MONOCYTES ABSOLUTE COUNT (BEAKER) (test zjvy=421) 1.01 K/ L 0.30-0.82 EOSINOPHILS ABSOLUTE COUNT (BEAKER) (test 0.09 K/ L 0.04-0.54 oknl=832) BASOPHILS ABSOLUTE COUNT (BEAKER) (test hunq=359) 0.01 K/ L 0.01-0.08 IMMATURE GRANULOCYTES-RELATIVE PERCENT (BEAKER) 1 % 0-1 (test fkuv=8835) [id number] 09:52:00 Test Item Value Reference Range Comments PHOSPHORUS (BEAKER) (test wxiu=176) 6.4 mg/dL 2.3-4.7 POCT-GLUCOSE [id number] 06:01:00 Test Item Value Reference Range Comments POC-GLUCOSE METER (BEAKER) 136 mg/dL 70-110 TESTED AT [address] (test xqft=4694) [facility] [address] BASIC METABOLIC [id number] 05:09:00 Test Item Value Reference Range Comments SODIUM (BEAKER) (test 132 meq/L 136-145 gtfj=742) POTASSIUM (BEAKER) (test 4.1 meq/L 3.5-5.1 mexn=085) CHLORIDE (BEAKER) (test 99 meq/L 98-107 nnxr=834) CO2 (BEAKER) (test 26 meq/L 22-29 vmrr=345) BLOOD UREA NITROGEN 54 mg/dL 7-21 (BEAKER) (test mvon=528) CREATININE (BEAKER) (test 4.22 mg/dL 0.57-1.25 ufyf=786) GLUCOSE RANDOM (BEAKER) 114 mg/dL 70-105 (test voeo=775) CALCIUM (BEAKER) (test 8.0 mg/dL 8.4-10.2 khef=305) EGFR (BEAKER) (test 14 mL/min/1.73 sq m ESTIMATED GFR IS NOT getm=4349) ACCURATE CREATININE CLEARANCE IN PREDICTING GLOMERULAR FILTRATION RATE. ESTIMATED GFR IS NOT APPLICABLE FOR DIALYSIS PATIENTS. Specimen slightly ictericHEPATIC FUNCTION [id number] 04:50:00 Test Item Value Reference Range Comments TOTAL PROTEIN (BEAKER) (test actt=985) 4.9 gm/dL 6.0-8.3 ALBUMIN (BEAKER) (test kfpz=0307) 2.7 g/dL 3.5-5.0 BILIRUBIN TOTAL (BEAKER) (test rrqx=006) 2.3 mg/dL 0.2-1.2 BILIRUBIN DIRECT (BEAKER) (test hmgf=132) 1.5 mg/dL 0.1-0.5 ALKALINE PHOSPHATASE (BEAKER) (test afdg=571) 183 U/L 40-150 AST (SGOT) (BEAKER) (test kwxm=503) 41 U/L 5-34 ALT (SGPT) (BEAKER) (test gdeu=704) 23 U/L 6-55 Specimen slightly ictericPROTHROMBIN [id number] 04:44:00 Test Item Value Reference Range Comments PROTIME (BEAKER) (test hrac=597) 16.5 seconds 11.7-14.7 INR (BEAKER) (test rdou=798) 1.3 <=5.9 RECOMMENDED COUMADIN/WARFARIN INR THERAPY RANGESSTANDARD DOSE: 2.0 - 3.0 Includes: PROPHYLAXIS forvenous thrombosis, systemic embolization; TREATMENT for venous thrombosis and/or pulmonary embolus.HIGH RISK: Target INR is 2.5-3.5 for patients with mechanical heart valves.POCT-GLUCOSE [id number] 00:24:00 Test Item Value Reference Range Comments POC-GLUCOSE METER (BEAKER) 107 mg/dL 70-110 TESTED AT [facility] [address] [facility] (test adlh=5779) [facility] [address] POCT-GLUCOSE [id number] 18:10:00 Test Item Value Reference Range Comments POC-GLUCOSE METER (BEAKER) 92 mg/dL 70-110 TESTED AT [address] (test essa=3844) [place] [address] BLOOD [id number] 18:00:00 Test Item Value Reference Range Comments CULTURE (BEAKER) (test xhuh=4479) No growth in 5 days BLOOD [id number] 18:00:00 Test Item Value Reference Range Comments CULTURE (BEAKER) (test hztz=9224) No growth in 5 days POCT-GLUCOSE [id number] 13:28:00 Test Item Value Reference Range Comments POC-GLUCOSE METER (BEAKER) 163 mg/dL 70-110 TESTED AT [address] (test wxod=3777) [place] [address] HEMOGLOBIN AND [id number] 13:20:00 Test Item Value Reference Range Comments HEMOGLOBIN (BEAKER) (test wnbu=531) 8.6 GM/DL 13.7-17.5 HEMATOCRIT (BEAKER) (test azkh=885) 26.8 % 40.1-51.0 [id number] 10:34:00 Test Item Value Reference Range Comments PHOSPHORUS (BEAKER) (test 6.6 mg/dL 2.3-4.7 Specimen slightly hemolyzed ozfh=134) POCT-GLUCOSE [id number] 05:55:00 Test Item Value Reference Range Comments POC-GLUCOSE METER (BEAKER) 125 mg/dL 70-110 TESTED AT [address] (test oicg=0349) [place] [address] PROTHROMBIN [id number] 04:11:00 Test Item Value Reference Range Comments PROTIME (BEAKER) (test liyg=512) 15.7 seconds 11.7-14.7 INR (BEAKER) (test hdra=370) 1.3 <=5.9 RECOMMENDED COUMADIN/WARFARIN INR THERAPY RANGESSTANDARD DOSE: 2.0 - 3.0 Includes: PROPHYLAXIS forvenous thrombosis, systemic embolization; TREATMENT for venous thrombosis and/or pulmonary embolus.HIGH RISK: Target INR is 2.5-3.5 for patients with mechanical heart valves.BASIC METABOLIC [id number] 04:08: 00 Test Item Value Reference Range Comments SODIUM (BEAKER) (test 132 meq/L 136-145 icea=030) POTASSIUM (BEAKER) (test 4.0 meq/L 3.5-5.1 zrxs=880) CHLORIDE (BEAKER) (test 99 meq/L 98-107 pvkm=032) CO2 (BEAKER) (test 27 meq/L 22-29 gjab=689) BLOOD UREA NITROGEN 32 mg/dL 7-21 (BEAKER) (test objs=865) CREATININE (BEAKER) (test 3.07 mg/dL 0.57-1.25 xvhi=343) GLUCOSE RANDOM (BEAKER) 133 mg/dL 70-105 (test njrm=415) CALCIUM (BEAKER) (test 7.6 mg/dL 8.4-10.2 gzpe=144) EGFR (BEAKER) (test 20 mL/min/1.73 sq m ESTIMATED GFR IS NOT pcio=4927) ACCURATE CREATININE CLEARANCE IN PREDICTING GLOMERULAR FILTRATION RATE. ESTIMATED GFR IS NOT APPLICABLE FOR DIALYSIS PATIENTS. HEPATIC FUNCTION [id number] 04:02:00 Test Item Value Reference Range Comments TOTAL PROTEIN (BEAKER) (test fkbr=441) 4.5 gm/dL 6.0-8.3 ALBUMIN (BEAKER) (test wile=6206) 2.6 g/dL 3.5-5.0 BILIRUBIN TOTAL (BEAKER) (test tesb=707) 2.3 mg/dL 0.2-1.2 BILIRUBIN DIRECT (BEAKER) (test lluu=414) 1.4 mg/dL 0.1-0.5 ALKALINE PHOSPHATASE (BEAKER) (test bcpo=146) 163 U/L 40-150 AST (SGOT) (BEAKER) (test zkej=768) 46 U/L 5-34 ALT (SGPT) (BEAKER) (test wysi=169) 24 U/L 6-55 CBC W/PLT COUNT & AUTO [id number] 03:47:00 Test Item Value Reference Range Comments WHITE BLOOD CELL COUNT (BEAKER) (test viyg=124) 6.7 K/ L 3.5-10.5 RED BLOOD CELL COUNT (BEAKER) (test nwgv=464) 2.15 M/ L 4.63-6.08 HEMOGLOBIN (BEAKER) (test nznn=172) 7.0 GM/DL 13.7-17.5 HEMATOCRIT (BEAKER) (test oozx=223) 22.5 % 40.1-51.0 MEAN CORPUSCULAR VOLUME (BEAKER) (test naur=411) 104.7 fL 79.0-92.2 MEAN CORPUSCULAR HEMOGLOBIN (BEAKER) (test 32.6 pg 25.7-32.2 ayhm=942) MEAN CORPUSCULAR HEMOGLOBIN CONC (BEAKER) (test 31.1 GM/DL 32.3-36.5 qbpt=474) RED CELL DISTRIBUTION WIDTH (BEAKER) (test 23.8 % 11.6-14.4 nqtj=689) PLATELET COUNT (BEAKER) (test zxnm=430) 54 K/CU MM 150-450 MEAN PLATELET VOLUME (BEAKER) (test zrbb=158) 11.4 fL 9.4-12.4 NUCLEATED RED BLOOD CELLS (BEAKER) (test 0 /100 WBC 0-0 gphq=368) NEUTROPHILS RELATIVE PERCENT (BEAKER) (test 77 % vxpd=971) LYMPHOCYTES RELATIVE PERCENT (BEAKER) (test 3 % mfjh=252) MONOCYTES RELATIVE PERCENT (BEAKER) (test 17 % ifkq=150) EOSINOPHILS RELATIVE PERCENT (BEAKER) (test 2 % yckk=451) BASOPHILS RELATIVE PERCENT (BEAKER) (test 0 % jlnx=628) NEUTROPHILS ABSOLUTE COUNT (BEAKER) (test 5.21 K/ L 1.78-5.38 bqqs=958) LYMPHOCYTES ABSOLUTE COUNT (BEAKER) (test 0.23 K/ L 1.32-3.57 bjbj=915) MONOCYTES ABSOLUTE COUNT (BEAKER) (test sola=807) 1.11 K/ L 0.30-0.82 EOSINOPHILS ABSOLUTE COUNT (BEAKER) (test 0.14 K/ L 0.04-0.54 uzsl=637) BASOPHILS ABSOLUTE COUNT (BEAKER) (test bjjd=639) 0.01 K/ L 0.01-0.08 IMMATURE GRANULOCYTES-RELATIVE PERCENT (BEAKER) 1 % 0-1 (test pnif=5570) POCT-GLUCOSE [id number] 00:05:00 Test Item Value Reference Range Comments POC-GLUCOSE METER (BEAKER) 150 mg/dL 70-110 TESTED AT [facility] [address] [facility] (test mrwj=0497) [facility] [address] BASIC METABOLIC [id number] 21:19:00 Test Item Value Reference Range Comments SODIUM (BEAKER) (test 133 meq/L 136-145 dvlb=441) POTASSIUM (BEAKER) (test 3.7 meq/L 3.5-5.1 intz=981) CHLORIDE (BEAKER) (test 101 meq/L 98-107 eikj=812) CO2 (BEAKER) (test 26 meq/L 22-29 ylcx=210) BLOOD UREA NITROGEN 24 mg/dL 7-21 (BEAKER) (test hvni=497) CREATININE (BEAKER) (test 2.84 mg/dL 0.57-1.25 gvxd=483) GLUCOSE RANDOM (BEAKER) 115 mg/dL 70-105 (test yuhz=667) CALCIUM (BEAKER) (test 7.6 mg/dL 8.4-10.2 qotm=826) EGFR (BEAKER) (test 22 mL/min/1.73 sq m ESTIMATED GFR IS NOT rthy=1208) ACCURATE CREATININE CLEARANCE IN PREDICTING GLOMERULAR FILTRATION RATE. ESTIMATED GFR IS NOT APPLICABLE FOR DIALYSIS PATIENTS. CBC W/PLT COUNT & AUTO [id number] 20:52:00 Test Item Value Reference Range Comments WHITE BLOOD CELL COUNT 7.7 K/ L 3.5-10.5 (BEAKER) (test kbkh=878) RED BLOOD CELL COUNT (BEAKER) 2.01 M/ L 4.63-6.08 (test ruhz=003) HEMOGLOBIN (BEAKER) (test 6.8 GM/DL 13.7-17.5 rlyy=472) HEMATOCRIT (BEAKER) (test 21.9 % 40.1-51.0 gvxp=708) MEAN CORPUSCULAR VOLUME 109.0 fL 79.0-92.2 (BEAKER) (test nsqy=984) MEAN CORPUSCULAR HEMOGLOBIN 33.8 pg 25.7-32.2 (BEAKER) (test fkck=404) MEAN CORPUSCULAR HEMOGLOBIN 31.1 GM/DL 32.3-36.5 CONC (BEAKER) (test vjqi=316) RED CELL DISTRIBUTION WIDTH % 11.6-14.4 Unable to report due to (BEAKER) (test kwhp=588) abnormal RBC population distribution. PLATELET COUNT (BEAKER) (test 77 K/CU MM 150-450 isnj=711) MEAN PLATELET VOLUME (BEAKER) 11.5 fL 9.4-12.4 (test juri=607) NUCLEATED RED BLOOD CELLS 0 /100 WBC 0-0 (BEAKER) (test ncwf=727) NEUTROPHILS RELATIVE PERCENT 74 % (BEAKER) (test aoty=573) LYMPHOCYTES RELATIVE PERCENT 6 % (BEAKER) (test lmjw=229) MONOCYTES RELATIVE PERCENT 17 % (BEAKER) (test zxfe=721) EOSINOPHILS RELATIVE PERCENT 3 % (BEAKER) (test hnvu=871) BASOPHILS RELATIVE PERCENT 0 % (BEAKER) (test anem=311) NEUTROPHILS ABSOLUTE COUNT 5.68 K/ L 1.78-5.38 (BEAKER) (test cqjo=436) LYMPHOCYTES ABSOLUTE COUNT 0.45 K/ L 1.32-3.57 (BEAKER) (test epgw=247) MONOCYTES ABSOLUTE COUNT 1.30 K/ L 0.30-0.82 (BEAKER) (test bubc=189) EOSINOPHILS ABSOLUTE COUNT 0.21 K/ L 0.04-0.54 (BEAKER) (test sbvs=736) BASOPHILS ABSOLUTE COUNT 0.01 K/ L 0.01-0.08 (BEAKER) (test onrx=215) IMMATURE GRANULOCYTES-RELATIVE 1 % 0-1 PERCENT (BEAKER) (test xybd=1679) POCT-GLUCOSE [id number] 20:28:00 Test Item Value Reference Range Comments POC-GLUCOSE METER (BEAKER) 131 mg/dL 70-110 TESTED AT [address] (test vkqb=0129) [place] [id number] POCT-GLUCOSE [id number] 18:21:00 Test Item Value Reference Range Comments POC-GLUCOSE METER (BEAKER) 132 mg/dL 70-110 TESTED AT [address] (test bpgn=7780) [place] [id number] ANG, TUNNELED CATHETER [id number] 16:07:00FINAL REPORT Tunneled dialysis catheter insertion, 09/28/2017. History: Renal failure. Modality: Sonography and fluoroscopy. Sedation: Versed 0.5 mg and fentanyl 25 mcg was given intravenously for conscious sedation. Vital signs were monitored throughout the procedure by a nurse, and remained stable. Physician intra-service time was 20 minutes. International Manager: Jase. Environmental Conservation Officer: None. Approach: Right internal jugular vein Estimated blood loss: < 5 cc. Specimen: None. Fluoroscopy Time: 0.0 min. Dose (Ka,r): 0.3mGy. Technique: Informed written consent was obtained. Discussion of risks, benefits, and alternatives were made with the patient. The patient expressed understanding and agreed to proceed. All elements maximal sterile barrier technique was utilized for this procedure, including utilization of sterile scrub solution for skin prep, a large sterile sheet to cover the areas of the patient that were not prepped, and hand hygiene , mask, head covering, and sterile gown for [...] needle into the right atrium. A 4 Guinean micropuncture sheath was placed. A subcutaneous tunnel was created in the right anterior chest wall by blunt dissection. A 18 cm 15.5 [place] Duraflow 2 catheter was brought through the tunnel. The vessel tract was serially dilated over a J- wire. A peel-away sheath was placed in the right IJ vein and the catheter was advanced through the sheath, with its distal tip terminating in the right atrium. The peel-away sheath was removed. The ports were flushed and aspirated easily following placement. The catheter was sutured to the skin with2-0 silk to secure its placement. The small [...] guidance and conscious sedation. Signed: Gustavo Laguna MDReport Verified Date/Time: 09/28/2017 16:07:31 Reading Location: [place] [id number] [facility] [place] [facility] Reading Room POCT-GLUCOSE [id number] 12:12:00 Test Item Value Reference Range Comments POC-GLUCOSE METER (BEAKER) 76 mg/dL 70-110 [address] (test ycrf=5205) [facility] [address] POCT-GLUCOSE [id number] 06:23:00 Test Item Value Reference Range Comments POC-GLUCOSE METER (BEAKER) 111 mg/dL 70-110 TESTED AT [facility] [address] [facility] (test pkzz=0055) [facility] [address] BASIC METABOLIC [id number] 06:06:00 Test Item Value Reference Range Comments SODIUM (BEAKER) (test 134 meq/L 136-145 ktmy=836) POTASSIUM (BEAKER) (test 3.7 meq/L 3.5-5.1 qmjg=389) CHLORIDE (BEAKER) (test 101 meq/L 98-107 wdks=298) CO2 (BEAKER) (test 27 meq/L 22-29 oesk=821) BLOOD UREA NITROGEN 19 mg/dL 7-21 (BEAKER) (test yfrx=030) CREATININE (BEAKER) (test 2.08 mg/dL 0.57-1.25 goyq=334) GLUCOSE RANDOM (BEAKER) 99 mg/dL 70-105 (test jctu=899) CALCIUM (BEAKER) (test 7.6 mg/dL 8.4-10.2 xity=207) EGFR (BEAKER) (test 32 mL/min/1.73 sq m ESTIMATED GFR IS NOT bwwp=8930) ACCURATE CREATININE CLEARANCE IN PREDICTING GLOMERULAR FILTRATION RATE. ESTIMATED GFR IS NOT APPLICABLE FOR DIALYSIS PATIENTS. Specimen slightly [id number] 06:05:00 Test Item Value Reference Range Comments PHOSPHORUS (BEAKER) (test hkre=261) 5.3 mg/dL 2.3-4.7 HEPATIC FUNCTION [id number] 06:05:00 Test Item Value Reference Range Comments TOTAL PROTEIN (BEAKER) (test cpco=792) 4.6 gm/dL 6.0-8.3 ALBUMIN (BEAKER) (test jtaq=6321) 2.2 g/dL 3.5-5.0 BILIRUBIN TOTAL (BEAKER) (test rlfv=657) 2.3 mg/dL 0.2-1.2 BILIRUBIN DIRECT (BEAKER) (test tiie=529) 1.5 mg/dL 0.1-0.5 ALKALINE PHOSPHATASE (BEAKER) (test ckgx=933) 197 U/L 40-150 AST (SGOT) (BEAKER) (test ektz=075) 67 U/L 5-34 ALT (SGPT) (BEAKER) (test hbjx=654) 31 U/L 6-55 Specimen slightly ictericCBC W/PLT COUNT & AUTO [id number] 05:45 :00 Test Item Value Reference Range Comments WHITE BLOOD CELL COUNT (BEAKER) (test tyqw=330) 7.9 K/ L 3.5-10.5 RED BLOOD CELL COUNT (BEAKER) (test itxf=242) 2.20 M/ L 4.63-6.08 HEMOGLOBIN (BEAKER) (test ojrj=366) 7.4 GM/DL 13.7-17.5 HEMATOCRIT (BEAKER) (test fmuw=437) 23.7 % 40.1-51.0 MEAN CORPUSCULAR VOLUME (BEAKER) (test rmvt=900) 107.7 fL 79.0-92.2 MEAN CORPUSCULAR HEMOGLOBIN (BEAKER) (test 33.6 pg 25.7-32.2 tydt=232) MEAN CORPUSCULAR HEMOGLOBIN CONC (BEAKER) (test 31.2 GM/DL 32.3-36.5 vlke=140) RED CELL DISTRIBUTION WIDTH (BEAKER) (test 24.3 % 11.6-14.4 jfxe=540) PLATELET COUNT (BEAKER) (test kgzz=648) 85 K/CU MM 150-450 MEAN PLATELET VOLUME (BEAKER) (test owne=441) 11.5 fL 9.4-12.4 NUCLEATED RED BLOOD CELLS (BEAKER) (test 0 /100 WBC 0-0 vtaq=388) NEUTROPHILS RELATIVE PERCENT (BEAKER) (test 74 % acyl=381) LYMPHOCYTES RELATIVE PERCENT (BEAKER) (test 4 % extv=103) MONOCYTES RELATIVE PERCENT (BEAKER) (test 18 % rdgx=562) EOSINOPHILS RELATIVE PERCENT (BEAKER) (test 3 % ohek=955) BASOPHILS RELATIVE PERCENT (BEAKER) (test 0 % xsqv=213) NEUTROPHILS ABSOLUTE COUNT (BEAKER) (test 5.81 K/ L 1.78-5.38 boeo=520) LYMPHOCYTES ABSOLUTE COUNT (BEAKER) (test 0.33 K/ L 1.32-3.57 mkxm=850) MONOCYTES ABSOLUTE COUNT (BEAKER) (test gylk=700) 1.44 K/ L 0.30-0.82 EOSINOPHILS ABSOLUTE COUNT (BEAKER) (test 0.23 K/ L 0.04-0.54 cyxt=592) BASOPHILS ABSOLUTE COUNT (BEAKER) (test gxjv=603) 0.02 K/ L 0.01-0.08 IMMATURE GRANULOCYTES-RELATIVE PERCENT (BEAKER) 1 % 0-1 (test cdul=5347) PROTHROMBIN [id number] 05:44:00 Test Item Value Reference Range Comments PROTIME (BEAKER) (test qfws=466) 15.9 seconds 11.7-14.7 INR (BEAKER) (test juqz=263) 1.3 <=5.9 RECOMMENDED COUMADIN/WARFARIN INR THERAPY RANGESSTANDARD DOSE: 2.0 - 3.0 Includes: PROPHYLAXIS forvenous thrombosis, systemic embolization; TREATMENT for venous thrombosis and/or pulmonary embolus.HIGH RISK: Target INR is 2.5-3.5 for patients with mechanical heart valves.POCT-GLUCOSE [id number] 03:21:00 Test Item Value Reference Range Comments POC-GLUCOSE METER (BEAKER) 118 mg/dL 70-110 TESTED AT [address] (test mhhk=2814) [place] [address] POCT-GLUCOSE [id number] 18:02:00 Test Item Value Reference Range Comments POC-GLUCOSE METER (BEAKER) 130 mg/dL 70-110 TESTED AT [address] (test indb=7296) [place] [address] [id number] 12:57:00 Test Item Value Reference Range Comments PHOSPHORUS (BEAKER) (test nkhg=533) 1.1 mg/dL 2.3-4.7 POCT-GLUCOSE [id number] 12:19:00 Test Item Value Reference Range Comments POC-GLUCOSE METER (BEAKER) 84 mg/dL 70-110 TESTED AT [address] (test evov=6112) [place] [address] POCT-GLUCOSE [id number] 06:59:00 Test Item Value Reference Range Comments POC-GLUCOSE METER (BEAKER) 112 mg/dL 70-110 TESTED AT [address] (test lhwy=2356) [place] [address] BASIC METABOLIC [id number] 06:05:00 Test Item Value Reference Range Comments SODIUM (BEAKER) (test 135 meq/L 136-145 qiaq=205) POTASSIUM (BEAKER) (test 4.3 meq/L 3.5-5.1 unnw=412) CHLORIDE (BEAKER) (test 102 meq/L 98-107 ynhc=271) CO2 (BEAKER) (test 26 meq/L 22-29 eupa=887) BLOOD UREA NITROGEN 44 mg/dL 7-21 (BEAKER) (test dphp=255) CREATININE (BEAKER) (test 3.37 mg/dL 0.57-1.25 odvr=603) GLUCOSE RANDOM (BEAKER) 92 mg/dL 70-105 (test slwu=082) CALCIUM (BEAKER) (test 8.9 mg/dL 8.4-10.2 jkvh=156) EGFR (BEAKER) (test 18 mL/min/1.73 sq m ESTIMATED GFR IS NOT kaet=3774) ACCURATE CREATININE CLEARANCE IN PREDICTING GLOMERULAR FILTRATION RATE. ESTIMATED GFR IS NOT APPLICABLE FOR DIALYSIS PATIENTS. Specimen slightly ictericHEPATIC FUNCTION [id number] 05:56:00 Test Item Value Reference Range Comments TOTAL PROTEIN (BEAKER) (test hzde=215) 4.4 gm/dL 6.0-8.3 ALBUMIN (BEAKER) (test xbjl=5081) 2.1 g/dL 3.5-5.0 BILIRUBIN TOTAL (BEAKER) (test uhdx=340) 2.7 mg/dL 0.2-1.2 BILIRUBIN DIRECT (BEAKER) (test ywaq=533) 1.8 mg/dL 0.1-0.5 ALKALINE PHOSPHATASE (BEAKER) (test hrrp=540) 164 U/L 40-150 AST (SGOT) (BEAKER) (test zimj=957) 51 U/L 5-34 ALT (SGPT) (BEAKER) (test atlb=069) 28 U/L 6-55 Specimen slightly ictericCBC W/PLT COUNT & AUTO [id number] 04:27 :00 Test Item Value Reference Range Comments WHITE BLOOD CELL COUNT (BEAKER) (test enaj=341) 8.1 K/ L 3.5-10.5 RED BLOOD CELL COUNT (BEAKER) (test rwjl=853) 2.20 M/ L 4.63-6.08 HEMOGLOBIN (BEAKER) (test ybya=099) 7.4 GM/DL 13.7-17.5 HEMATOCRIT (BEAKER) (test hfis=219) 23.4 % 40.1-51.0 MEAN CORPUSCULAR VOLUME (BEAKER) (test lisi=610) 106.4 fL 79.0-92.2 MEAN CORPUSCULAR HEMOGLOBIN (BEAKER) (test 33.6 pg 25.7-32.2 beot=806) MEAN CORPUSCULAR HEMOGLOBIN CONC (BEAKER) (test 31.6 GM/DL 32.3-36.5 jtkz=681) RED CELL DISTRIBUTION WIDTH (BEAKER) (test 25.0 % 11.6-14.4 bxln=373) PLATELET COUNT (BEAKER) (test rzmx=291) 90 K/CU MM 150-450 MEAN PLATELET VOLUME (BEAKER) (test qepr=920) 11.7 fL 9.4-12.4 NUCLEATED RED BLOOD CELLS (BEAKER) (test 0 /100 WBC 0-0 ckap=318) NEUTROPHILS RELATIVE PERCENT (BEAKER) (test 75 % amcs=284) LYMPHOCYTES RELATIVE PERCENT (BEAKER) (test 3 % xeel=288) MONOCYTES RELATIVE PERCENT (BEAKER) (test 17 % kdip=314) EOSINOPHILS RELATIVE PERCENT (BEAKER) (test 3 % aool=681) BASOPHILS RELATIVE PERCENT (BEAKER) (test 0 % hkxm=733) NEUTROPHILS ABSOLUTE COUNT (BEAKER) (test 6.12 K/ L 1.78-5.38 qmdy=301) LYMPHOCYTES ABSOLUTE COUNT (BEAKER) (test 0.26 K/ L 1.32-3.57 ckro=605) MONOCYTES ABSOLUTE COUNT (BEAKER) (test auxv=023) 1.41 K/ L 0.30-0.82 EOSINOPHILS ABSOLUTE COUNT (BEAKER) (test 0.21 K/ L 0.04-0.54 ygxl=661) BASOPHILS ABSOLUTE COUNT (BEAKER) (test imiv=096) 0.02 K/ L 0.01-0.08 IMMATURE GRANULOCYTES-RELATIVE PERCENT (BEAKER) 1 % 0-1 (test xfjg=1614) PROTHROMBIN [id number] 04:20:00 Test Item Value Reference Range Comments PROTIME (BEAKER) (test hxhd=773) 15.1 seconds 11.7-14.7 INR (BEAKER) (test nzcm=536) 1.2 <=5.9 RECOMMENDED COUMADIN/WARFARIN INR THERAPY RANGESSTANDARD DOSE: 2.0 - 3.0 Includes: PROPHYLAXIS forvenous thrombosis, systemic embolization; TREATMENT for venous thrombosis and/or pulmonary embolus.HIGH RISK: Target INR is 2.5-3.5 for patients with mechanical heart valves.RAD, ABDOMEN/KUB, 1 VIEW [id number] 02:13:00Referring: Dr. Liz Felipe Reason for exam:->verify corpak placement Should this be performed at the bedside?->YesFINAL REPORT RAD, ABDOMEN/KUB, 1 VIEW AP CLINICAL INDICATION: "verify corpakplacement" COMPARISON: None TECHNIQUE: Single, frontal radiograph of the abdomen. IMPRESSION: Weighted enteric tube terminates in the expected location of the distal second portion of the duodenum.Nonspecific nonobstructive bowel gas pattern.No pneumatosis or obvious pneumoperitoneum.No acute osseous abnormality. Signed: Rashaun Allred MDReport Verified Date/Time: 09/27/2017 02:13:14 Reading Location: [address] Reading Room POCT- GLUCOSE [id number] 01:07:00 Test Item Value Reference Range Comments POC-GLUCOSE METER (BEAKER) 109 mg/dL 70-110 TESTED AT [address] (test xdef=1721) [place] [id number] POCT-GLUCOSE [id number] 18:48:00 Test Item Value Reference Range Comments POC-GLUCOSE METER (BEAKER) 91 mg/dL 70-110 TESTED AT [address] (test ibnv=1103) [place] [id number] POCT-GLUCOSE [id number] 12:47:00 Test Item Value Reference Range Comments POC-GLUCOSE METER (BEAKER) 89 mg/dL 70-110 TESTED AT [address] (test rlub=7725) [place] [id number] 08:50:00 Test Item Value Reference Range Comments PHOSPHORUS (BEAKER) (test 3.3 mg/dL 2.3-4.7 Specimen slightly hemolyzed hwmh=754) BASIC METABOLIC [id number] 05:36:00 Test Item Value Reference Range Comments SODIUM (BEAKER) (test 138 meq/L 136-145 nhom=708) POTASSIUM (BEAKER) (test 4.6 meq/L 3.5-5.1 Specimen slightly yyzo=873) hemolyzed CHLORIDE (BEAKER) (test 104 meq/L 98-107 sorv=434) CO2 (BEAKER) (test 26 meq/L 22-29 vyyx=416) BLOOD UREA NITROGEN 27 mg/dL 7-21 (BEAKER) (test xrbp=457) CREATININE (BEAKER) (test 2.18 mg/dL 0.57-1.25 Specimen slightly khno=237) hemolyzed GLUCOSE RANDOM (BEAKER) 66 mg/dL 70-105 (test xlkh=519) CALCIUM (BEAKER) (test 9.3 mg/dL 8.4-10.2 fkhw=646) EGFR (BEAKER) (test 30 mL/min/1.73 sq m ESTIMATED GFR IS NOT uwdg=7329) ACCURATE CREATININE CLEARANCE IN PREDICTING GLOMERULAR FILTRATION RATE. ESTIMATED GFR IS NOT APPLICABLE FOR DIALYSIS PATIENTS. Specimen slightly ictericHEPATIC FUNCTION [id number] 05:34:00 Test Item Value Reference Range Comments TOTAL PROTEIN (BEAKER) (test 4.9 gm/dL 6.0-8.3 Specimen slightly hemolyzed gpdj=520) ALBUMIN (BEAKER) (test 2.3 g/dL 3.5-5.0 Specimen slightly hemolyzed arwp=0805) BILIRUBIN TOTAL (BEAKER) (test 3.2 mg/dL 0.2-1.2 Specimen slightly hemolyzed ssas=162) BILIRUBIN DIRECT (BEAKER) (test 1.7 mg/dL 0.1-0.5 Specimen slightly hemolyzed ofbs=024) ALKALINE PHOSPHATASE (BEAKER) 190 U/L 40-150 (test pjie=982) AST (SGOT) (BEAKER) (test 68 U/L 5-34 Specimen slightly hemolyzed zivv=218) ALT (SGPT) (BEAKER) (test 36 U/L 6-55 Specimen slightly hemolyzed gjbv=920) Specimen slightly ictericPOCT-GLUCOSE [id number] 05:27:00 Test Item Value Reference Range Comments POC-GLUCOSE METER (BEAKER) 78 mg/dL 70-110 TESTED AT [facility] [address] [place] [address] (test cywq=7358) [place] [address] PROTHROMBIN [id number] 04:56:00 Test Item Value Reference Range Comments PROTIME (BEAKER) (test uguk=184) 14.2 seconds 11.7-14.7 INR (BEAKER) (test xvch=446) 1.1 <=5.9 RECOMMENDED COUMADIN/WARFARIN INR THERAPY RANGESSTANDARD DOSE: 2.0 - 3.0 Includes: PROPHYLAXIS forvenous thrombosis, systemic embolization; TREATMENT for venous thrombosis and/or pulmonary embolus.HIGH RISK: Target INR is 2.5-3.5 for patients with mechanical heart valves.POCT-GLUCOSE [id number] 00:31:00 Test Item Value Reference Range Comments POC-GLUCOSE METER (BEAKER) 98 mg/dL 70-110 TESTED AT [address] (test adhv=1015) [place] [address] POCT-GLUCOSE [id number] 23:44:00 Test Item Value Reference Range Comments POC-GLUCOSE METER (BEAKER) 57 mg/dL 70-110 Notified SHAKIRA SHAFER/TESTED AT [facility] (test fjth=4496) [address] [place] [address] BLOOD [id number] 18:00:00 Test Item Value Reference Range Comments CULTURE (BEAKER) (test kvbm=1596) No growth in 5 days BLOOD [id number] 18:00:00 Test Item Value Reference Range Comments CULTURE (BEAKER) (test aqkl=5108) No growth in 5 days POCT-GLUCOSE [id number] 12:51:00 Test Item Value Reference Range Comments POC-GLUCOSE METER (BEAKER) 91 mg/dL 70-110 [address]ED [address] [address] (test kwik=5345) [place] [address] POCT-GLUCOSE [id number] 12:21:00 Test Item Value Reference Range Comments POC-GLUCOSE METER (BEAKER) 106 mg/dL 70-110 TESTED AT [address] (test ymlx=7078) [place] [address] BASIC METABOLIC [id number] 04:29:00 Test Item Value Reference Range Comments SODIUM (BEAKER) (test 133 meq/L 136-145 hanx=699) POTASSIUM (BEAKER) (test 4.5 meq/L 3.5-5.1 zzhd=008) CHLORIDE (BEAKER) (test 99 meq/L 98-107 oshp=409) CO2 (BEAKER) (test 25 meq/L 22-29 ljqk=333) BLOOD UREA NITROGEN 52 mg/dL 7-21 (BEAKER) (test qhsl=571) CREATININE (BEAKER) (test 3.39 mg/dL 0.57-1.25 qbek=814) GLUCOSE RANDOM (BEAKER) 96 mg/dL 70-105 (test yrsw=010) CALCIUM (BEAKER) (test 7.9 mg/dL 8.4-10.2 jeba=108) EGFR (BEAKER) (test 18 mL/min/1.73 sq m ESTIMATED GFR IS NOT vwbe=7300) ACCURATE CREATININE CLEARANCE IN PREDICTING GLOMERULAR FILTRATION RATE. ESTIMATED GFR IS NOT APPLICABLE FOR DIALYSIS PATIENTS. Specimen slightly ictericHEPATIC FUNCTION [id number] 04:27:00 Test Item Value Reference Range Comments TOTAL PROTEIN (BEAKER) (test cwmw=011) 4.6 gm/dL 6.0-8.3 ALBUMIN (BEAKER) (test vzka=3456) 2.2 g/dL 3.5-5.0 BILIRUBIN TOTAL (BEAKER) (test ebpp=612) 2.9 mg/dL 0.2-1.2 BILIRUBIN DIRECT (BEAKER) (test qysb=051) 1.9 mg/dL 0.1-0.5 ALKALINE PHOSPHATASE (BEAKER) (test tfyt=309) 246 U/L 40-150 AST (SGOT) (BEAKER) (test zjdg=932) 60 U/L 5-34 ALT (SGPT) (BEAKER) (test lgvx=583) 39 U/L 6-55 Specimen slightly ictericCBC (HEMOGRAM ONLY)2017-09-25 04:20:00 Test Item Value Reference Range Comments WHITE BLOOD CELL COUNT (BEAKER) (test eraj=332) 12.1 K/ L 3.5-10.5 RED BLOOD CELL COUNT (BEAKER) (test zqqc=665) 2.48 M/ L 4.63-6.08 HEMOGLOBIN (BEAKER) (test ered=950) 8.3 GM/DL 13.7-17.5 HEMATOCRIT (BEAKER) (test itvx=398) 25.4 % 40.1-51.0 MEAN CORPUSCULAR VOLUME (BEAKER) (test ronh=623) 102.4 fL 79.0-92.2 MEAN CORPUSCULAR HEMOGLOBIN (BEAKER) (test 33.5 pg 25.7-32.2 nxui=819) MEAN CORPUSCULAR HEMOGLOBIN CONC (BEAKER) (test 32.7 GM/DL 32.3-36.5 rtmy=786) RED CELL DISTRIBUTION WIDTH (BEAKER) (test 24.7 % 11.6-14.4 pzzo=162) PLATELET COUNT (BEAKER) (test vlgs=497) 99 K/CU MM 150-450 MEAN PLATELET VOLUME (BEAKER) (test biug=006) 12.0 fL 9.4-12.4 NUCLEATED RED BLOOD CELLS (BEAKER) (test 0 /100 WBC 0-0 ktxw=542) PROTHROMBIN [id number] 04:03:00 Test Item Value Reference Range Comments PROTIME (BEAKER) (test czyf=854) 14.9 seconds 11.7-14.7 INR (BEAKER) (test exja=917) 1.2 <=5.9 RECOMMENDED COUMADIN/WARFARIN INR THERAPY RANGESSTANDARD DOSE: 2.0 - 3.0 Includes: PROPHYLAXIS forvenous thrombosis, systemic embolization; TREATMENT for venous thrombosis and/or pulmonary embolus.HIGH RISK: Target INR is 2.5-3.5 for patients with mechanical heart valves.[id number] 04:03:00 Test Item Value Reference Range Comments PARTIAL THROMBOPLASTIN TIME (BEAKER) (test 43.9 seconds 22.5-36.0 elkm=880) POCT-GLUCOSE [id number] 00:11:00 Test Item Value Reference Range Comments POC-GLUCOSE METER (BEAKER) 109 mg/dL 70-110 TESTED AT [address] (test qodi=0861) [facility] [address] POCT-GLUCOSE [id number] 18:00:00 Test Item Value Reference Range Comments POC-GLUCOSE METER (BEAKER) 164 mg/dL 70-110 TESTED AT [address] (test eyzk=1793) [facility] [address] POCT-GLUCOSE [id number] 13:38:00 Test Item Value Reference Range Comments POC-GLUCOSE METER (BEAKER) 143 mg/dL 70-110 TESTED AT [address] (test fruj=2882) [facility] [address] POCT-GLUCOSE [id number] 07:48:00 Test Item Value Reference Range Comments POC-GLUCOSE METER (BEAKER) 166 mg/dL 70-110 TESTED AT [facility] [address] [facility] (test bmqz=7380) [facility] [address] CALCIUM, [id number] 05:52:00 Test Item Value Reference Range Comments CALCIUM IONIZED (BEAKER) (test nwcf=735) 1.04 mmol/L 1.12-1.27 PH, BLOOD (BEAKER) (test odcx=1745) 7.35 [id number] 05:44:00 Test Item Value Reference Range Comments PROCALCITONIN (BEAKER) (test hsgt=4671) 1.60 ng/mL <0.05 SEPSIS RISK (ng/mL)Low: 0.05-0.50Intermediate: 0.51-2.00High: & gt;=2.01BASIC METABOLIC [id number] 05:10:00 Test Item Value Reference Range Comments SODIUM (BEAKER) (test 134 meq/L 136-145 gkci=506) POTASSIUM (BEAKER) (test 4.0 meq/L 3.5-5.1 jccd=429) CHLORIDE (BEAKER) (test 100 meq/L 98-107 jsdw=251) CO2 (BEAKER) (test 28 meq/L 22-29 ptqx=142) BLOOD UREA NITROGEN 33 mg/dL 7-21 (BEAKER) (test xxlk=292) CREATININE (BEAKER) (test 2.44 mg/dL 0.57-1.25 tnhh=114) GLUCOSE RANDOM (BEAKER) 149 mg/dL 70-105 (test xvcu=113) CALCIUM (BEAKER) (test 7.7 mg/dL 8.4-10.2 tfzg=722) EGFR (BEAKER) (test 27 mL/min/1.73 sq m ESTIMATED GFR IS NOT bbkb=0604) ACCURATE CREATININE CLEARANCE IN PREDICTING GLOMERULAR FILTRATION RATE. ESTIMATED GFR IS NOT APPLICABLE FOR DIALYSIS PATIENTS. [id number] 04:59:00 Test Item Value Reference Range Comments PHOSPHORUS (BEAKER) (test wmjl=964) 3.7 mg/dL 2.3-4.7 [id number] 04:59:00 Test Item Value Reference Range Comments MAGNESIUM (BEAKER) (test csec=792) 2.4 mg/dL 1.6-2.6 CBC W/PLT COUNT & AUTO [id number] 04:57:00 Test Item Value Reference Range Comments WHITE BLOOD CELL COUNT (BEAKER) (test ngrs=043) 10.5 K/ L 3.5-10.5 RED BLOOD CELL COUNT (BEAKER) (test iufr=731) 2.03 M/ L 4.63-6.08 HEMOGLOBIN (BEAKER) (test goin=017) 6.8 GM/DL 13.7-17.5 HEMATOCRIT (BEAKER) (test rvws=347) 22.0 % 40.1-51.0 MEAN CORPUSCULAR VOLUME (BEAKER) (test fihs=830) 108.4 fL 79.0-92.2 MEAN CORPUSCULAR HEMOGLOBIN (BEAKER) (test 33.5 pg 25.7-32.2 ufei=592) MEAN CORPUSCULAR HEMOGLOBIN CONC (BEAKER) (test 30.9 GM/DL 32.3-36.5 vpzl=229) RED CELL DISTRIBUTION WIDTH (BEAKER) (test 24.7 % 11.6-14.4 hogl=956) PLATELET COUNT (BEAKER) (test cvxm=390) 87 K/CU MM 150-450 MEAN PLATELET VOLUME (BEAKER) (test icft=677) 12.1 fL 9.4-12.4 NUCLEATED RED BLOOD CELLS (BEAKER) (test 0 /100 WBC 0-0 yuuz=781) NEUTROPHILS RELATIVE PERCENT (BEAKER) (test 81 % ddqv=315) LYMPHOCYTES RELATIVE PERCENT (BEAKER) (test 2 % evmk=502) MONOCYTES RELATIVE PERCENT (BEAKER) (test 12 % cgig=140) EOSINOPHILS RELATIVE PERCENT (BEAKER) (test 3 % zktr=778) BASOPHILS RELATIVE PERCENT (BEAKER) (test 0 % zhtn=108) NEUTROPHILS ABSOLUTE COUNT (BEAKER) (test 8.54 K/ L 1.78-5.38 uatn=127) LYMPHOCYTES ABSOLUTE COUNT (BEAKER) (test 0.22 K/ L 1.32-3.57 rire=338) MONOCYTES ABSOLUTE COUNT (BEAKER) (test esgt=426) 1.28 K/ L 0.30-0.82 EOSINOPHILS ABSOLUTE COUNT (BEAKER) (test 0.32 K/ L 0.04-0.54 psdz=714) BASOPHILS ABSOLUTE COUNT (BEAKER) (test cqtf=124) 0.01 K/ L 0.01-0.08 IMMATURE GRANULOCYTES-RELATIVE PERCENT (BEAKER) 2 % 0-1 (test btxz=2559) POCT-GLUCOSE [id number] 23:43:00 Test Item Value Reference Range Comments POC-GLUCOSE METER (BEAKER) 144 mg/dL 70-110 TESTED AT [address] (test nypu=8238) [place] [address] POCT-GLUCOSE [id number] 17:39:00 Test Item Value Reference Range Comments POC-GLUCOSE METER (BEAKER) 150 mg/dL 70-110 TESTED AT [address] (test rpjx=8398) [place] [address] POCT-GLUCOSE [id number] 14:19:00 Test Item Value Reference Range Comments POC-GLUCOSE METER (BEAKER) 134 mg/dL 70-110 TESTED AT [address] (test fjsj=6635) [place] [address] [id number] 11:08:00 Test Item Value Reference Range Comments PHOSPHORUS (BEAKER) (test cvvn=977) 6.1 mg/dL 2.3-4.7 POCT-GLUCOSE [id number] 07:19:00 Test Item Value Reference Range Comments POC-GLUCOSE METER (BEAKER) 114 mg/dL 70-110 TESTED AT [address] (test xndb=3543) [place] [address] BASIC METABOLIC [id number] 05:06:00 Test Item Value Reference Range Comments SODIUM (BEAKER) (test 132 meq/L 136-145 scod=662) POTASSIUM (BEAKER) (test 4.5 meq/L 3.5-5.1 msts=840) CHLORIDE (BEAKER) (test 98 meq/L 98-107 gxmd=449) CO2 (BEAKER) (test 24 meq/L 22-29 ijny=483) BLOOD UREA NITROGEN 74 mg/dL 7-21 (BEAKER) (test bggq=021) CREATININE (BEAKER) (test 4.59 mg/dL 0.57-1.25 njxu=014) GLUCOSE RANDOM (BEAKER) 131 mg/dL 70-105 (test qexi=710) CALCIUM (BEAKER) (test 8.0 mg/dL 8.4-10.2 xztt=514) EGFR (BEAKER) (test 13 mL/min/1.73 sq m ESTIMATED GFR IS NOT wpta=5601) ACCURATE CREATININE CLEARANCE IN PREDICTING GLOMERULAR FILTRATION RATE. ESTIMATED GFR IS NOT APPLICABLE FOR DIALYSIS PATIENTS. Specimen slightly [id number] 04:54:00 Test Item Value Reference Range Comments PHOSPHORUS (BEAKER) (test dahf=775) 6.0 mg/dL 2.3-4.7 [id number] 04:54:00 Test Item Value Reference Range Comments MAGNESIUM (BEAKER) (test xksd=331) 3.2 mg/dL 1.6-2.6 CALCIUM, [id number] 04:13:00 Test Item Value Reference Range Comments CALCIUM IONIZED (BEAKER) (test qxgm=226) 1.15 mmol/L 1.12-1.27 PH, BLOOD (BEAKER) (test agvs=2475) 7.29 CBC W/PLT COUNT & AUTO [id number] 03:43:00 Test Item Value Reference Range Comments WHITE BLOOD CELL COUNT (BEAKER) (test fpra=487) 16.3 K/ L 3.5-10.5 RED BLOOD CELL COUNT (BEAKER) (test qwvb=750) 2.29 M/ L 4.63-6.08 HEMOGLOBIN (BEAKER) (test pymz=057) 7.6 GM/DL 13.7-17.5 HEMATOCRIT (BEAKER) (test qloa=848) 24.1 % 40.1-51.0 MEAN CORPUSCULAR VOLUME (BEAKER) (test znxh=879) 105.2 fL 79.0-92.2 MEAN CORPUSCULAR HEMOGLOBIN (BEAKER) (test 33.2 pg 25.7-32.2 injm=980) MEAN CORPUSCULAR HEMOGLOBIN CONC (BEAKER) (test 31.5 GM/DL 32.3-36.5 porg=684) RED CELL DISTRIBUTION WIDTH (BEAKER) (test 23.8 % 11.6-14.4 focj=957) PLATELET COUNT (BEAKER) (test trip=042) 86 K/CU MM 150-450 MEAN PLATELET VOLUME (BEAKER) (test zozv=617) 11.9 fL 9.4-12.4 NUCLEATED RED BLOOD CELLS (BEAKER) (test 0 /100 WBC 0-0 kkvd=457) NEUTROPHILS RELATIVE PERCENT (BEAKER) (test 85 % mflo=110) LYMPHOCYTES RELATIVE PERCENT (BEAKER) (test 2 % cuco=825) MONOCYTES RELATIVE PERCENT (BEAKER) (test 9 % tyzp=049) EOSINOPHILS RELATIVE PERCENT (BEAKER) (test 2 % awok=359) BASOPHILS RELATIVE PERCENT (BEAKER) (test 0 % zfju=168) NEUTROPHILS ABSOLUTE COUNT (BEAKER) (test 13.88 K/ L 1.78-5.38 pkue=963) LYMPHOCYTES ABSOLUTE COUNT (BEAKER) (test 0.27 K/ L 1.32-3.57 ooyo=228) MONOCYTES ABSOLUTE COUNT (BEAKER) (test aans=381) 1.53 K/ L 0.30-0.82 EOSINOPHILS ABSOLUTE COUNT (BEAKER) (test 0.40 K/ L 0.04-0.54 oenl=568) BASOPHILS ABSOLUTE COUNT (BEAKER) (test diba=169) 0.01 K/ L 0.01-0.08 IMMATURE GRANULOCYTES-RELATIVE PERCENT (BEAKER) 2 % 0-1 (test ihfx=5875) POCT-GLUCOSE [id number] 00:56:00 Test Item Value Reference Range Comments POC-GLUCOSE METER (BEAKER) 134 mg/dL 70-110 TESTED AT [address] (test nexu=2516) [place] [id number] POCT-GLUCOSE [id number] 17:47:00 Test Item Value Reference Range Comments POC-GLUCOSE METER (BEAKER) 186 mg/dL 70-110 TESTED AT [address] (test rytx=5749) [place] [id number] POCT-GLUCOSE [id number] 12:46:00 Test Item Value Reference Range Comments POC-GLUCOSE METER (BEAKER) 158 mg/dL 70-110 TESTED AT [address] (test swlf=1598) [place] [id number] 09:04:00 Test Item Value Reference Range Comments PHOSPHORUS (BEAKER) (test knae=095) 5.4 mg/dL 2.3-4.7 POCT-GLUCOSE [id number] 06:27:00 Test Item Value Reference Range Comments POC-GLUCOSE METER (BEAKER) 184 mg/dL 70-110 TESTED AT [facility] [address] (test cqpu=4876) [facility] [address] COMPREHENSIVE METABOLIC [id number] 04:44:00 Test Item Value Reference Range Comments TOTAL PROTEIN (BEAKER) 4.4 gm/dL 6.0-8.3 (test hxmw=827) ALBUMIN (BEAKER) (test 2.1 g/dL 3.5-5.0 psjk=8734) ALKALINE PHOSPHATASE 173 U/L 40-150 (BEAKER) (test jwgd=596) BILIRUBIN TOTAL (BEAKER) 2.9 mg/dL 0.2-1.2 (test icip=282) SODIUM (BEAKER) (test 132 meq/L 136-145 wdux=025) POTASSIUM (BEAKER) (test 4.0 meq/L 3.5-5.1 jzcg=852) CHLORIDE (BEAKER) (test 98 meq/L 98-107 gytb=348) CO2 (BEAKER) (test 24 meq/L 22-29 kqpc=556) BLOOD UREA NITROGEN 55 mg/dL 7-21 (BEAKER) (test rspm=523) CREATININE (BEAKER) (test 3.46 mg/dL 0.57-1.25 eflk=997) GLUCOSE RANDOM (BEAKER) 137 mg/dL 70-105 (test cvrs=887) CALCIUM (BEAKER) (test 7.9 mg/dL 8.4-10.2 mbme=668) AST (SGOT) (BEAKER) (test 62 U/L 5-34 letf=906) ALT (SGPT) (BEAKER) (test 46 U/L 6-55 spsh=662) EGFR (BEAKER) (test 18 mL/min/1.73 sq m ESTIMATED GFR IS NOT tazj=8829) ACCURATE CREATININE CLEARANCE IN PREDICTING GLOMERULAR FILTRATION RATE. ESTIMATED GFR IS NOT APPLICABLE FOR DIALYSIS PATIENTS. Specimen slightly ictericCBC W/PLT COUNT & AUTO [id number] 04:43 :00 Test Item Value Reference Range Comments WHITE BLOOD CELL COUNT (BEAKER) (test vbrl=845) 12.8 K/ L 3.5-10.5 RED BLOOD CELL COUNT (BEAKER) (test kmfb=451) 2.40 M/ L 4.63-6.08 HEMOGLOBIN (BEAKER) (test qwbk=417) 7.6 GM/DL 13.7-17.5 HEMATOCRIT (BEAKER) (test zwfn=687) 24.7 % 40.1-51.0 MEAN CORPUSCULAR VOLUME (BEAKER) (test lofs=459) 102.9 fL 79.0-92.2 MEAN CORPUSCULAR HEMOGLOBIN (BEAKER) (test 31.7 pg 25.7-32.2 utmg=517) MEAN CORPUSCULAR HEMOGLOBIN CONC (BEAKER) (test 30.8 GM/DL 32.3-36.5 hhaj=368) RED CELL DISTRIBUTION WIDTH (BEAKER) (test 22.8 % 11.6-14.4 xkwr=195) PLATELET COUNT (BEAKER) (test qhvl=907) 84 K/CU MM 150-450 MEAN PLATELET VOLUME (BEAKER) (test qqcf=477) 12.4 fL 9.4-12.4 NUCLEATED RED BLOOD CELLS (BEAKER) (test 0 /100 WBC 0-0 dajm=401) NEUTROPHILS RELATIVE PERCENT (BEAKER) (test 86 % ifvs=590) LYMPHOCYTES RELATIVE PERCENT (BEAKER) (test 2 % vpey=889) MONOCYTES RELATIVE PERCENT (BEAKER) (test 9 % zbyl=964) EOSINOPHILS RELATIVE PERCENT (BEAKER) (test 2 % oyrz=839) BASOPHILS RELATIVE PERCENT (BEAKER) (test 0 % ltqb=440) NEUTROPHILS ABSOLUTE COUNT (BEAKER) (test 10.93 K/ L 1.78-5.38 qgok=767) LYMPHOCYTES ABSOLUTE COUNT (BEAKER) (test 0.21 K/ L 1.32-3.57 sviq=903) MONOCYTES ABSOLUTE COUNT (BEAKER) (test ugxd=520) 1.12 K/ L 0.30-0.82 EOSINOPHILS ABSOLUTE COUNT (BEAKER) (test 0.22 K/ L 0.04-0.54 jraj=190) BASOPHILS ABSOLUTE COUNT (BEAKER) (test atic=144) 0.01 K/ L 0.01-0.08 IMMATURE GRANULOCYTES-RELATIVE PERCENT (BEAKER) 2 % 0-1 (test orge=4421) [id number] 04:43:00 Test Item Value Reference Range Comments MAGNESIUM (BEAKER) (test tjri=909) 2.7 mg/dL 1.6-2.6 [id number] 04:42:00 Test Item Value Reference Range Comments PROTIME (BEAKER) (test ougb=679) 15.2 seconds 11.7-14.7 INR (BEAKER) (test lvqy=510) 1.2 <=5.9 PARTIAL THROMBOPLASTIN TIME (BEAKER) (test 41.4 seconds 22.5-36.0 fsvo=246) RECOMMENDED COUMADIN/WARFARIN INR THERAPY RANGESSTANDARD DOSE: 2.0 - 3.0 Includes: PROPHYLAXIS forvenous thrombosis, systemic embolization; TREATMENT for venous thrombosis and/or pulmonary embolus.HIGH RISK: Target INR is 2.5-3.5 for patients with mechanical heart valves.CALCIUM, [id number] 04:24:00 Test Item Value Reference Range Comments CALCIUM IONIZED (BEAKER) (test zqdu=635) 1.12 mmol/L 1.12-1.27 PH, BLOOD (BEAKER) (test pcvn=9861) 7.30 POCT-GLUCOSE [id number] 23:55:00 Test Item Value Reference Range Comments POC-GLUCOSE METER (BEAKER) 137 mg/dL 70-110 TESTED AT [address] (test jvka=3178) [place] [id number] POCT-GLUCOSE [id number] 20:05:00 Test Item Value Reference Range Comments POC-GLUCOSE METER (BEAKER) 136 mg/dL 70-110 TESTED AT [address] (test bnan=5509) [place] [address] BLOOD [id number] 17:00:00 Test Item Value Reference Range Comments CULTURE (BEAKER) (test qnry=9178) No growth in 5 days BLOOD [id number] 17:00:00 Test Item Value Reference Range Comments CULTURE (BEAKER) (test ytxb=3343) No growth in 5 days POCT-GLUCOSE [id number] 11:31:00 Test Item Value Reference Range Comments POC-GLUCOSE METER (BEAKER) 162 mg/dL 70-110 TESTED AT [address] (test nlgu=5138) [place] [id number] POCT-GLUCOSE [id number] 06:36:00 Test Item Value Reference Range Comments POC-GLUCOSE METER (BEAKER) 162 mg/dL 70-110 TESTED AT [address] (test rbhb=1011) [place] [address] CALCIUM, [id number] 05:49:00 Test Item Value Reference Range Comments CALCIUM IONIZED (BEAKER) (test tkvb=456) 1.13 mmol/L 1.12-1.27 PH, BLOOD (BEAKER) (test aqch=2253) 7.34 [id number] 05:45:00 Test Item Value Reference Range Comments PROTIME (BEAKER) (test slll=738) 15.9 seconds 11.7-14.7 INR (BEAKER) (test wmaj=156) 1.3 <=5.9 PARTIAL THROMBOPLASTIN TIME (BEAKER) (test 40.3 seconds 22.5-36.0 zool=846) RECOMMENDED COUMADIN/WARFARIN INR THERAPY RANGESSTANDARD DOSE: 2.0 - 3.0 Includes: PROPHYLAXIS forvenous thrombosis, systemic embolization; TREATMENT for venous thrombosis and/or pulmonary embolus.HIGH RISK: Target INR is 2.5-3.5 for patients with mechanical heart valves.COMPREHENSIVE METABOLIC [id number] 05:33:00 Test Item Value Reference Range Comments TOTAL PROTEIN (BEAKER) 4.3 gm/dL 6.0-8.3 (test psqi=414) ALBUMIN (BEAKER) (test 2.0 g/dL 3.5-5.0 srrk=2586) ALKALINE PHOSPHATASE 145 U/L 40-150 (BEAKER) (test briq=947) BILIRUBIN TOTAL (BEAKER) 2.7 mg/dL 0.2-1.2 (test msup=449) SODIUM (BEAKER) (test 132 meq/L 136-145 duic=324) POTASSIUM (BEAKER) (test 3.7 meq/L 3.5-5.1 boky=627) CHLORIDE (BEAKER) (test 100 meq/L 98-107 uzwp=654) CO2 (BEAKER) (test 27 meq/L 22-29 wtch=272) BLOOD UREA NITROGEN 38 mg/dL 7-21 (BEAKER) (test shhk=279) CREATININE (BEAKER) (test 2.48 mg/dL 0.57-1.25 ecpj=427) GLUCOSE RANDOM (BEAKER) 150 mg/dL 70-105 (test ehxl=190) CALCIUM (BEAKER) (test 7.8 mg/dL 8.4-10.2 fwci=956) AST (SGOT) (BEAKER) (test 76 U/L 5-34 evmu=334) ALT (SGPT) (BEAKER) (test 49 U/L 6-55 ztgn=503) EGFR (BEAKER) (test 26 mL/min/1.73 sq m ESTIMATED GFR IS NOT uqzx=6952) ACCURATE CREATININE CLEARANCE IN PREDICTING GLOMERULAR FILTRATION RATE. ESTIMATED GFR IS NOT APPLICABLE FOR DIALYSIS PATIENTS. Specimen slightly [id number] 05:30:00 Test Item Value Reference Range Comments PHOSPHORUS (BEAKER) (test gtjc=312) 3.4 mg/dL 2.3-4.7 [id number] 05:30:00 Test Item Value Reference Range Comments MAGNESIUM (BEAKER) (test uplv=041) 2.2 mg/dL 1.6-2.6 CBC W/PLT COUNT & AUTO [id number] 05:07:00 Test Item Value Reference Range Comments WHITE BLOOD CELL COUNT (BEAKER) (test beky=336) 15.0 K/ L 3.5-10.5 RED BLOOD CELL COUNT (BEAKER) (test ffdi=240) 2.29 M/ L 4.63-6.08 HEMOGLOBIN (BEAKER) (test lkke=549) 7.5 GM/DL 13.7-17.5 HEMATOCRIT (BEAKER) (test djxh=784) 23.4 % 40.1-51.0 MEAN CORPUSCULAR VOLUME (BEAKER) (test ytvw=138) 102.2 fL 79.0-92.2 MEAN CORPUSCULAR HEMOGLOBIN (BEAKER) (test 32.8 pg 25.7-32.2 iaga=905) MEAN CORPUSCULAR HEMOGLOBIN CONC (BEAKER) (test 32.1 GM/DL 32.3-36.5 mevb=574) RED CELL DISTRIBUTION WIDTH (BEAKER) (test 23.1 % 11.6-14.4 geyd=448) PLATELET COUNT (BEAKER) (test kfyg=933) 71 K/CU MM 150-450 MEAN PLATELET VOLUME (BEAKER) (test uhlv=589) 11.9 fL 9.4-12.4 NUCLEATED RED BLOOD CELLS (BEAKER) (test 0 /100 WBC 0-0 demw=583) NEUTROPHILS RELATIVE PERCENT (BEAKER) (test 90 % xukr=517) LYMPHOCYTES RELATIVE PERCENT (BEAKER) (test 1 % bnnb=132) MONOCYTES RELATIVE PERCENT (BEAKER) (test 6 % osda=978) EOSINOPHILS RELATIVE PERCENT (BEAKER) (test 1 % blfj=804) BASOPHILS RELATIVE PERCENT (BEAKER) (test 0 % ibnv=045) NEUTROPHILS ABSOLUTE COUNT (BEAKER) (test 13.52 K/ L 1.78-5.38 foxy=964) LYMPHOCYTES ABSOLUTE COUNT (BEAKER) (test 0.15 K/ L 1.32-3.57 ysdd=354) MONOCYTES ABSOLUTE COUNT (BEAKER) (test jwum=515) 0.94 K/ L 0.30-0.82 EOSINOPHILS ABSOLUTE COUNT (BEAKER) (test 0.15 K/ L 0.04-0.54 yewn=641) BASOPHILS ABSOLUTE COUNT (BEAKER) (test xatz=955) 0.02 K/ L 0.01-0.08 IMMATURE GRANULOCYTES-RELATIVE PERCENT (BEAKER) 2 % 0-1 (test tbfy=9695) POCT-GLUCOSE [id number] 23:58:00 Test Item Value Reference Range Comments POC-GLUCOSE METER (BEAKER) 156 mg/dL 70-110 TESTED AT [facility] [address] [facility] (test gdnf=6857) [facility] [address] [address], CHEST, WITHOUT [id number] 22:10:00Referring: Dr. Hill Workgran[facility] centerFIN[facility] REPORT HISTORY : Sepsis TECHNIQUE : Multiple [...] coronary atherosclerosis. There is cardiomegaly. There is asmall right-sided pleural effusion with adjacent consolidation likely [...] the lingula. Superimposed pneumonitis cannot be excluded. Multileveldegenerative disc changes of the thoracic spine are seen. No pneumothorax is seen. ABDOMEN/PELVIS: The visualized adrenal glands, kidneys , pancreas, stomach and duodenum are within normal limits. Thereis cirrhotic morphology of the liver. A TIPS shunt is in place. The gallbladder is distended. There is cholelithiasis. If there is a clinical concern for acute cholecystitis, findings should be correlated with a nuclear medicine HIDA scan. A feeding tube catheter is in place. The tip is seen in the distal stomach/ first stage of the duodenum. There is no [...] bowel obstruction. The small bowel is within normallimits. There is colonic diverticulosis. There are no CT findings to suggest diverticulitis. The appendix is visualized and is within normal limits. The prostate gland is mildly enlarged. The seminal vesicles are within normal limits. Impression: 1. Relatively stable left- sided loculated pleural effusion. 2. Increasing consolidation in the left lower lobe with findings suggestive of completeatelectasis/collapse of the left lower lobe. There is also some partial atelectasis of the lingula. 3. Small right-sided pleural effusion with adjacent consolidation. 4. Distended gallbladder. There ischolelithiasis. 5. Cirrhotic morphology of the liver. TIPS shunt is in place. 6. Splenomegaly. Of note, the examination is limited without the administration of IV contrast. Signed: Ga Batreseport Verified Date/ Time: 09/20/2017 22:10:21 Reading Location: [facility] B1 [id number] Consult Reading Room CT, [id number] 22:10:00Referring: Dr. Hill WorkenehFINAL REPORT HISTORY : Sepsis TECHNIQUE : Multiple [...] coronary atherosclerosis. There is cardiomegaly. There is asmall right-sided pleural effusion with adjacent consolidation likely [...] the lingula. Superimposed pneumonitis cannot be excluded. Multileveldegenerative disc changes of the thoracic spine are seen. No pneumothorax is seen. ABDOMEN/PELVIS: The visualized adrenal glands, kidneys, pancreas, stomach and duodenum are within normal limits. Thereis cirrhotic morphology of the liver. A TIPS shunt is in place. The gallbladder is distended. There is cholelithiasis. If there is a clinical concern for acute cholecystitis, findings should be correlated with a nuclear medicine HIDA scan. A feeding tube catheter is in place. The tip is seen in the distal stomach/ first stage of the duodenum. There is no [...] bowel obstruction. The small bowel is within normallimits. There is colonic diverticulosis. There are no CT findings to suggest diverticulitis. The appendix is visualized and is within normal limits. The prostate gland is mildly enlarged. The seminal vesicles are within normal limits. Impression: 1. Relatively stable left- sided loculated pleural effusion. 2. Increasing consolidation in the left lower lobe with findings suggestive of completeatelectasis/collapse of the left lower lobe. There is also some partial atelectasis of the lingula. 3. Small right-sided pleural effusion with adjacent consolidation. 4. Distended gallbladder. There ischolelithiasis. 5. Cirrhotic morphology of the liver. TIPS shunt is in place. 6. Splenomegaly. Of note, the examination is limited without the administration of IV contrast. Signed: Ga Batresort Verified Date/ Time: 09/20/2017 22:10:21 Reading Location: [address] Consult Reading Room CT, SINUS , WITHOUT IV [id number] 22:05:00Referring: Dr. Liz OlivaenehReason for exam:->SEPSISFINAL REPORT CT sinuses Comparison: None Reason for [...] both sides potentially reflecting NG tube placement. Impressions:Left sphenoid fluid and right maxillary sinus partial opacity as discussed. Correlate clinically foracute sinusitis. Signed: Yang Reece Verified Date/Time: 09/20/2017 22:05:30 CT, BRAIN, WITHOUT [id number] 21:51: 00Referring: Dr. Liz FelipeFINAL REPORT CT head without contrast. Comparisons: No Reason for exam: Acromegaly/gigantismams. Discussion: Multiple axial CT images of the head are provided without contrast evaluated in brain and bone windows. Dose modulation, iterative reconstruction, and/or weight based adjustment of the mA/kV was utilized to reduce the radiation dose to as low as reasonably achievable. There is no CT evidence of intracranial hemorrhage, mass-effect, hydrocephalus, shift, or extra -axial collections. The sella has a grossly unremarkable unenhanced head CT appearance. The visualized dural sinus regions, orbital contents, bones and surrounding soft tissues are unremarkable.There is chronic opacification right maxillary sinus with probable fluid. There is also fluid layering in the left sphenoid sinus. Temporal bone airspace opacifications are noted as well. Impressions: 1. No specific evidence of acute intracranial abnormality. Signed: Yang Reece Verified Date/Time: 09/20/2017 21:51:41 POCT- GLUCOSE [id number] 18:24:00 Test Item Value Reference Range Comments POC-GLUCOSE METER (BEAKER) 111 mg/dL 70-110 TESTED AT [facility] [address] [facility] (test owba=0870) [facility] [address] OCCULT BLOOD, [id number] 15:26:00 Test Item Value Reference Range Comments FECAL OCCULT BLOOD (BEAKER) (test rekn=557) Positive Negative LACTIC ACID, ARTERIAL, WHOLE [id number] 13:39:00 Test Item Value Reference Range Comments LACTATE BLOOD ARTERIAL (2) (BEAKER) (test 1.0 mmol/L 0.5-2.2 slbl=3224) Effective 11/16/2015: Units/Reference Range ChangeNew: 0.5-2.2 mmol/L Previous: 5 -20 mg/dLSpecimen slightly ictericRAD, CHEST, 1 VIEW, NON [id number] 13:20: 00Referring: Dr. Hill WorkenehReason for exam:->unresponsiveShould this be performed at the bedside?->YesFINAL REPORT CLINICAL HISTORY: unresponsive TECHNIQUE: 1 view of the chest. COMPARISON: 09/20/2017 IMPRESSION: The supporting lines and tubes are unchanged. Bilateral airspace opacities are slightly decreased except for left lower lung consolidation. A small left effusion is unchanged. The cardiomediastinal silhouette is magnified by technique. Signed: Hardeep De Jesus MDReport Verified Date/Time: 09/20/2017 13: 20:28 Reading Location: [facility] B1 C013W Consult Reading Room BLOOD GAS, [id number] 12:07:00 Test Item Value Reference Range Comments PH ARTERIAL (BEAKER) (test jusr=912) 7.40 7.35-7.45 PCO2 ARTERIAL (BEAKER) (test eqkd=823) 51 mmHg 35-45 PO2 ARTERIAL (BEAKER) (test kuvc=817) 165 mmHg 80-90 O2 SATURATION ARTERIAL (BEAKER) (test dctr=162) 99.1 % 96.0-97.0 HCO3 ARTERIAL (BEAKER) (test pxmu=689) 31 mmol/L 21-29 BASE EXCESS ARTERIAL (BEAKER) (test cztp=824) 5.4 mmol/L -2.0-3.0 PATIENT TEMPERATURE (BEAKER) (test cvfw=8509) 36.4 C FIO2 (BEAKER) (test lqmm=2688) 28.0 % POCT-GLUCOSE [id number] 12:02:00 Test Item Value Reference Range Comments POC-GLUCOSE METER (BEAKER) 129 mg/dL 70-110 TESTED AT [facility] [address] [facility] (test dhcy=7831) [facility] [address] CBC W/PLT COUNT & AUTO [id number] 10:09:00 Test Item Value Reference Range Comments WHITE BLOOD CELL COUNT (BEAKER) (test oixr=116) 22.2 K/ L 3.5-10.5 RED BLOOD CELL COUNT (BEAKER) (test vdii=843) 2.18 M/ L 4.63-6.08 HEMOGLOBIN (BEAKER) (test nnkc=375) 7.0 GM/DL 13.7-17.5 HEMATOCRIT (BEAKER) (test nsgn=425) 22.7 % 40.1-51.0 MEAN CORPUSCULAR VOLUME (BEAKER) (test vphc=662) 104.1 fL 79.0-92.2 MEAN CORPUSCULAR HEMOGLOBIN (BEAKER) (test 32.1 pg 25.7-32.2 fmio=246) MEAN CORPUSCULAR HEMOGLOBIN CONC (BEAKER) (test 30.8 GM/DL 32.3-36.5 dtkx=559) RED CELL DISTRIBUTION WIDTH (BEAKER) (test 23.2 % 11.6-14.4 qwml=209) PLATELET COUNT (BEAKER) (test llbr=915) 85 K/CU MM 150-450 MEAN PLATELET VOLUME (BEAKER) (test iubs=178) 12.4 fL 9.4-12.4 NUCLEATED RED BLOOD CELLS (BEAKER) (test 0 /100 WBC 0-0 rwdq=048) IMMATURE GRANULOCYTES-RELATIVE PERCENT (BEAKER) 1 % 0-1 (test nchx=5775) (MANUAL DIFFERENTIAL)2017-09-20 10:09:00 Test Item Value Reference Range Comments NEUTROPHILS - REL (DIFF) (BEAKER) (test 93 % hryw=7567) LYMPHOCYTES - REL (DIFF) (BEAKER) (test 2 % ltew=3126) MONOCYTES - REL (DIFF) (BEAKER) (test ojtb=3624) 3 % BANDS - REL (DIFF) (BEAKER) (test tszp=6971) 1 % 0-10 ATYPICAL LYMPHOCYTE - REL (DIFF) (BEAKER) (test 1 % 0-0 fpev=306) NEUTROPHILS - ABS (DIFF) (BEAKER) (test 20.65 K/ L 1.80-8.00 exdn=4772) LYMPHOCYTES - ABS (DIFF) (BEAKER) (test 0.44 K/ L 1.48-4.50 aquj=3268) MONOCYTES - ABS (DIFF) (BEAKER) (test twbb=4563) 0.67 K/ L 0.00-1.30 BANDS-ABS (DIFF) (BEAKER) (test snci=3791) 0.2 K/ L 0.0-0.8 ATYPICAL LYMPHOCYTES - ABS (DIFF) (BEAKER) (test 0.22 K/ L 0.00-0.00 pxox=255) TOTAL COUNTED (BEAKER) (test izzk=8893) 100 BANDS + SEGMENTED NEUTROPHILS (BEAKER) (test 20.87 hvly=6020) WBC MORPHOLOGY (BEAKER) (test zyby=637) Normal PLT MORPHOLOGY (BEAKER) (test dops=867) Normal POLYCHROMATOPHILLIC RBCS(BEAKER) (test qwkd=842) 1+ few [id number] 09:20:00 Test Item Value Reference Range Comments FIBRINOGEN LEVEL (BEAKER) (test kzsg=317) 212 mg/dl 225-434 POCT-GLUCOSE [id number] 06:35:00 Test Item Value Reference Range Comments POC-GLUCOSE METER (BEAKER) 193 mg/dL 70-110 TESTED AT [facility] [address] [facility] (test swws=3903) [facility] [address] CALCIUM, [id number] 06:33:00 Test Item Value Reference Range Comments CALCIUM IONIZED (BEAKER) (test mscp=858) 1.11 mmol/L 1.12-1.27 PH, BLOOD (BEAKER) (test xsnc=4893) 7.31 RAD, CHEST, 1 VIEW, NON [id number] 05:54:00Referring: Dr. Hill WorkenehReason for exam:->DyspneaShould this be performed at the bedside?-&gt ;YesFINAL REPORT RAD, CHEST, 1 VIEW, NON DEPT INDICATION : Dyspnea COMPARISON: Chest x-ray 6 days ago TECHNIQUE: Portable frontal view of the chest. IMPRESSION: Interval removal of aleft IJ line. Stable right IJ line and enteric tube.Stable cardiomegaly.Stable moderate left-sided effusion with adjacent airspace disease.Stable interstitial edema.No pneumothorax.No acute osseous abnormality. Signed: Rashaun Allred MDReport Verified Date/Time: 09/20/2017 05:54:03 Reading Location:[address] Ortho Consult Reading Room COMPREHENSIVE METABOLIC [id number] 05:53:00 Test Item Value Reference Range Comments TOTAL PROTEIN (BEAKER) 4.7 gm/dL 6.0-8.3 (test nnub=707) ALBUMIN (BEAKER) (test 2.2 g/dL 3.5-5.0 ihfv=8016) ALKALINE PHOSPHATASE 146 U/L 40-150 (BEAKER) (test tkqm=747) BILIRUBIN TOTAL (BEAKER) 3.0 mg/dL 0.2-1.2 (test kmbr=922) SODIUM (BEAKER) (test 136 meq/L 136-145 ouut=766) POTASSIUM (BEAKER) (test 3.6 meq/L 3.5-5.1 nhsq=580) CHLORIDE (BEAKER) (test 101 meq/L 98-107 mgne=819) CO2 (BEAKER) (test 27 meq/L 22-29 snsl=277) BLOOD UREA NITROGEN 80 mg/dL 7-21 (BEAKER) (test thsj=247) CREATININE (BEAKER) (test 3.83 mg/dL 0.57-1.25 glii=932) GLUCOSE RANDOM (BEAKER) 197 mg/dL 70-105 (test ejim=714) CALCIUM (BEAKER) (test 8.5 mg/dL 8.4-10.2 sdql=819) AST (SGOT) (BEAKER) (test 65 U/L 5-34 fqhj=995) ALT (SGPT) (BEAKER) (test 34 U/L 6-55 suet=192) EGFR (BEAKER) (test 16 mL/min/1.73 sq m ESTIMATED GFR IS NOT wopd=1104) ACCURATE CREATININE CLEARANCE IN PREDICTING GLOMERULAR FILTRATION RATE. ESTIMATED GFR IS NOT APPLICABLE FOR DIALYSIS PATIENTS. Specimen slightly [id number] 05:37:00 Test Item Value Reference Range Comments PHOSPHORUS (BEAKER) (test mpig=542) 5.2 mg/dL 2.3-4.7 [id number] 05:37:00 Test Item Value Reference Range Comments MAGNESIUM (BEAKER) (test lnps=695) 3.0 mg/dL 1.6-2.6 [id number] 05:24:00 Test Item Value Reference Range Comments PROTIME (BEAKER) (test bnom=779) 16.2 seconds 11.7-14.7 INR (BEAKER) (test sejn=121) 1.3 <=5.9 PARTIAL THROMBOPLASTIN TIME (BEAKER) (test 35.9 seconds 22.5-36.0 ioxd=867) RECOMMENDED COUMADIN/WARFARIN INR THERAPY RANGESSTANDARD DOSE: 2.0 - 3.0 Includes: PROPHYLAXIS forvenous thrombosis, systemic embolization; TREATMENT for venous thrombosis and/or pulmonary embolus.HIGH RISK: Target INR is 2.5-3.5 for patients with mechanical heart valves.POCT-GLUCOSE [id number] 00:28:00 Test Item Value Reference Range Comments POC-GLUCOSE METER (BEAKER) 263 mg/dL 70-110 TESTED AT [address] (test rixc=7374) [facility] [address] POCT-GLUCOSE [id number] 18:06:00 Test Item Value Reference Range Comments POC-GLUCOSE METER (BEAKER) 163 mg/dL 70-110 TESTED AT [address] (test vrdv=3250) [place] [address] 1:1 MIXING STUDY, [id number] 16:19:00 Test Item Value Reference Range Comments PROTIME (BEAKER) (test sdyw=371) 19.5 seconds 11.7-14.7 PARTIAL THROMBOPLASTIN TIME (BEAKER) (test 41.5 seconds 22.5-36.0 gwjg=173) PT 1/1 MIX (BEAKER) (test eqoa=7997) 15.7 SECS 11.7-14.7 PTT 1/1 MIX (BEAKER) (test hvue=1853) 32.9 SECS 22.5-36.0 [id number] 16:16:00 Test Item Value Reference Range Comments FIBRINOGEN LEVEL (BEAKER) (test joxb=956) 89 mg/dl 225-434 [id number] 16:10:00 Test Item Value Reference Range Comments PARTIAL THROMBOPLASTIN TIME (BEAKER) (test 41.8 seconds 22.5-36.0 vdae=867) POCT-GLUCOSE [id number] 12:18:00 Test Item Value Reference Range Comments POC-GLUCOSE METER (BEAKER) 169 mg/dL 70-110 TESTED AT [address] (test xxon=0742) [place] [address] [id number] 09:59:00 Test Item Value Reference Range Comments PHOSPHORUS (BEAKER) (test cbpa=559) 4.0 mg/dL 2.3-4.7 POCT-GLUCOSE [id number] 06:59:00 Test Item Value Reference Range Comments POC-GLUCOSE METER (BEAKER) 220 mg/dL 70-110 TESTED AT [address] (test fmrl=6806) [place] [id number] CALCIUM, [id number] 05:46:00 Test Item Value Reference Range Comments CALCIUM IONIZED (BEAKER) (test izos=061) 1.11 mmol/L 1.12-1.27 PH, BLOOD (BEAKER) (test hhth=1575) 7.31 HEPATIC FUNCTION [id number] 04:55:00 Test Item Value Reference Range Comments TOTAL PROTEIN (BEAKER) (test bcbw=182) 4.2 gm/dL 6.0-8.3 ALBUMIN (BEAKER) (test gtqa=4554) 1.9 g/dL 3.5-5.0 BILIRUBIN TOTAL (BEAKER) (test kuax=276) 3.0 mg/dL 0.2-1.2 BILIRUBIN DIRECT (BEAKER) (test nmjm=166) 2.2 mg/dL 0.1-0.5 ALKALINE PHOSPHATASE (BEAKER) (test bqtj=641) 122 U/L 40-150 AST (SGOT) (BEAKER) (test swyb=445) 58 U/L 5-34 ALT (SGPT) (BEAKER) (test zxak=624) 24 U/L 6-55 Specimen slightly ictericBASIC METABOLIC [id number] 04:55:00 Test Item Value Reference Range Comments SODIUM (BEAKER) (test 136 meq/L 136-145 haxx=780) POTASSIUM (BEAKER) (test 3.7 meq/L 3.5-5.1 upag=681) CHLORIDE (BEAKER) (test 102 meq/L 98-107 seeq=396) CO2 (BEAKER) (test 29 meq/L 22-29 rdog=243) BLOOD UREA NITROGEN 47 mg/dL 7-21 (BEAKER) (test cumr=533) CREATININE (BEAKER) (test 2.36 mg/dL 0.57-1.25 gyjh=963) GLUCOSE RANDOM (BEAKER) 186 mg/dL 70-105 (test tzlr=966) CALCIUM (BEAKER) (test 7.8 mg/dL 8.4-10.2 aglv=698) EGFR (BEAKER) (test 28 mL/min/1.73 sq m ESTIMATED GFR IS NOT mnnc=1445) ACCURATE CREATININE CLEARANCE IN PREDICTING GLOMERULAR FILTRATION RATE. ESTIMATED GFR IS NOT APPLICABLE FOR DIALYSIS PATIENTS. Specimen slightly [id number] 04:54:00 Test Item Value Reference Range Comments PHOSPHORUS (BEAKER) (test rzma=292) 3.9 mg/dL 2.3-4.7 [id number] 04:54:00 Test Item Value Reference Range Comments MAGNESIUM (BEAKER) (test ouub=232) 2.3 mg/dL 1.6-2.6 CBC W/PLT COUNT & AUTO [id number] 04:27:00 Test Item Value Reference Range Comments WHITE BLOOD CELL COUNT (BEAKER) (test hvmj=629) 16.5 K/ L 3.5-10.5 RED BLOOD CELL COUNT (BEAKER) (test xyos=278) 2.21 M/ L 4.63-6.08 HEMOGLOBIN (BEAKER) (test owtn=630) 7.1 GM/DL 13.7-17.5 HEMATOCRIT (BEAKER) (test hbdj=813) 22.4 % 40.1-51.0 MEAN CORPUSCULAR VOLUME (BEAKER) (test axki=587) 101.4 fL 79.0-92.2 MEAN CORPUSCULAR HEMOGLOBIN (BEAKER) (test 32.1 pg 25.7-32.2 xvqj=862) MEAN CORPUSCULAR HEMOGLOBIN CONC (BEAKER) (test 31.7 GM/DL 32.3-36.5 xuez=550) RED CELL DISTRIBUTION WIDTH (BEAKER) (test 22.4 % 11.6-14.4 ufkc=065) PLATELET COUNT (BEAKER) (test shzq=335) 52 K/CU MM 150-450 MEAN PLATELET VOLUME (BEAKER) (test yium=885) 12.2 fL 9.4-12.4 NUCLEATED RED BLOOD CELLS (BEAKER) (test 0 /100 WBC 0-0 uifp=042) NEUTROPHILS RELATIVE PERCENT (BEAKER) (test 91 % brpa=851) LYMPHOCYTES RELATIVE PERCENT (BEAKER) (test 1 % wyxf=163) MONOCYTES RELATIVE PERCENT (BEAKER) (test 6 % bcnp=345) EOSINOPHILS RELATIVE PERCENT (BEAKER) (test 0 % fyqq=182) BASOPHILS RELATIVE PERCENT (BEAKER) (test 0 % cose=310) NEUTROPHILS ABSOLUTE COUNT (BEAKER) (test 15.05 K/ L 1.78-5.38 lpwz=939) LYMPHOCYTES ABSOLUTE COUNT (BEAKER) (test 0.15 K/ L 1.32-3.57 wyte=345) MONOCYTES ABSOLUTE COUNT (BEAKER) (test ayic=847) 0.97 K/ L 0.30-0.82 EOSINOPHILS ABSOLUTE COUNT (BEAKER) (test 0.00 K/ L 0.04-0.54 uolc=148) BASOPHILS ABSOLUTE COUNT (BEAKER) (test njyt=748) 0.01 K/ L 0.01-0.08 IMMATURE GRANULOCYTES-RELATIVE PERCENT (BEAKER) 2 % 0-1 (test pakk=3731) PROTHROMBIN [id number] 04:27:00 Test Item Value Reference Range Comments PROTIME (BEAKER) (test pupw=174) 19.4 seconds 11.7-14.7 INR (BEAKER) (test wmcd=244) 1.6 <=5.9 RECOMMENDED COUMADIN/WARFARIN INR THERAPY RANGESSTANDARD DOSE: 2.0 - 3.0 Includes: PROPHYLAXIS forvenous thrombosis, systemic embolization; TREATMENT for venous thrombosis and/or pulmonary embolus.HIGH RISK: Target INR is 2.5-3.5 for patients with mechanical heart valves.POCT-GLUCOSE [id number] 23:16:00 Test Item Value Reference Range Comments POC-GLUCOSE METER (BEAKER) 169 mg/dL 70-110 TESTED AT [address] (test dwdd=6770) [place] [id number] BLOOD [id number] 23:00:00 Test Item Value Reference Range Comments CULTURE (BEAKER) (test bbcd=2296) No growth in 5 days BLOOD [id number] 23:00:00 Test Item Value Reference Range Comments CULTURE (BEAKER) (test trlk=9656) No growth in 5 days POCT-GLUCOSE [id number] 17:58:00 Test Item Value Reference Range Comments POC-GLUCOSE METER (BEAKER) 138 mg/dL 70-110 TESTED AT [address] (test rlta=1140) [place] [id number] HEMOGLOBIN AND [id number] 15:44:00 Test Item Value Reference Range Comments HEMOGLOBIN (BEAKER) (test quxc=770) 7.8 GM/DL 13.7-17.5 HEMATOCRIT (BEAKER) (test fxin=040) 24.3 % 40.1-51.0 RAD, ABDOMEN/KUB, 1 VIEW [id number] 14:42:00Referring: Dr. Liz Felipe Reason for exam:->feeding tube placement Should this be performed at the bedside?->YesFINAL REPORT CLINICAL HISTORY: feeding tube placement TECHNIQUE: Supine abdomen IMPRESSION: The tip of the feeding tube is in the distal stomach. The partially visualized bowel gas pattern is nonspecific. Signed: Hardeep De Jesus MDReport Verified Date/Time: 09/18/2017 14: 42:43 Reading Location: [address] Consult Reading Room Electronically signed by: HARDEEP DE JESUS M.D.on 09/18/2017 02:42 PMPOCT-GLUCOSE [id number] 11:56:00 Test Item Value Reference Range Comments POC-GLUCOSE METER ([employer] The[employer]AKER) 127 mg/dL 70-110 TESTED AT [address] (test ufzv=7793) [facility] [address] CLOSTRIDIUM DIFFICILE TOXIN [id number] 08:33:00 Test Item Value Reference Range Comments CLOSTRIDIUM DIFFICILE TOXIN, PCR (BEAKER) (test Not Detected Not Detected eaxv=6765) This qualitative real-time polymerase chain reaction assay detects the tcdB gene , encoded on the C.difficile pathogenicity locus (PaLoc). The product of tcdB, toxin B, is a cytotoxin essential for causing C.difficile-associated disease ( CDAD) and is found in virtually all toxigenic C.difficile.This assay is performed for patients suspected of having either community-acquired or nosocomial CDAD. Accordingly, only symptomatic patients should be tested and formed stools will be rejected unless ileus is present (i.e., specified when ordering). Patients may be colonized with toxigenic C.difficile strains not causing active disease; therefore, clinical correlation is needed when deciding how to manage patients with a positive test result.The assay has not been validated as a test of cure as amplifiable nucleic acid may persist after effective treatment; therefore, follow-up testing of a positive result is not recommended.CALCIUM, [id number] 05:16:00 Test Item Value Reference Range Comments CALCIUM IONIZED (BEAKER) (test lxhb=485) 1.26 mmol/L 1.12-1.27 PH, BLOOD (BEAKER) (test zjyx=6567) 7.31 [id number] 04:28:00 Test Item Value Reference Range Comments FERRITIN (BEAKER) (test wuxp=167) 228 ng/mL 5-275 IRON, TIBC, % SAT. (WITHOUT FERRITIN)2017-09-18 04:16:00 Test Item Value Reference Range Comments IRON (BEAKER) (test bxrs=285) 81 ug/dL 40-160 TOTAL IRON BINDING CAPACITY (BEAKER) (test 126 ug/dL 250-450 bmmm=712) IRON % SATURATION (2) (BEAKER) (test enie=8702) 64 % 20-55 BASIC METABOLIC [id number] 04:14:00 Test Item Value Reference Range Comments SODIUM (BEAKER) (test 139 meq/L 136-145 debt=060) POTASSIUM (BEAKER) (test 4.5 meq/L 3.5-5.1 jjub=841) CHLORIDE (BEAKER) (test 108 meq/L 98-107 ssxp=642) CO2 (BEAKER) (test 27 meq/L 22-29 dlcg=402) BLOOD UREA NITROGEN 90 mg/dL 7-21 (BEAKER) (test frml=465) CREATININE (BEAKER) (test 3.71 mg/dL 0.57-1.25 rxju=609) GLUCOSE RANDOM (BEAKER) 122 mg/dL 70-105 (test lttz=754) CALCIUM (BEAKER) (test 8.5 mg/dL 8.4-10.2 cdin=703) EGFR (BEAKER) (test 16 mL/min/1.73 sq m ESTIMATED GFR IS NOT qxtp=5871) ACCURATE CREATININE CLEARANCE IN PREDICTING GLOMERULAR FILTRATION RATE. ESTIMATED GFR IS NOT APPLICABLE FOR DIALYSIS PATIENTS. Specimen slightly [id number] 04:08:00 Test Item Value Reference Range Comments PHOSPHORUS (BEAKER) (test ppmh=633) 4.4 mg/dL 2.3-4.7 [id number] 04:08:00 Test Item Value Reference Range Comments MAGNESIUM (BEAKER) (test ihae=446) 2.6 mg/dL 1.6-2.6 HEPATIC FUNCTION [id number] 04:08:00 Test Item Value Reference Range Comments TOTAL PROTEIN (BEAKER) (test ssiu=688) 4.4 gm/dL 6.0-8.3 ALBUMIN (BEAKER) (test jmms=8905) 2.0 g/dL 3.5-5.0 BILIRUBIN TOTAL (BEAKER) (test jtsw=287) 3.0 mg/dL 0.2-1.2 BILIRUBIN DIRECT (BEAKER) (test ytqq=555) 2.2 mg/dL 0.1-0.5 ALKALINE PHOSPHATASE (BEAKER) (test stgm=362) 128 U/L 40-150 AST (SGOT) (BEAKER) (test scsj=348) 52 U/L 5-34 ALT (SGPT) (BEAKER) (test hsxz=426) 20 U/L 6-55 Specimen slightly ictericCOMPREHENSIVE METABOLIC [id number] 04:07:00 Test Item Value Reference Range Comments TOTAL PROTEIN (BEAKER) 4.3 gm/dL 6.0-8.3 (test tmgm=595) ALBUMIN (BEAKER) (test 2.0 g/dL 3.5-5.0 hnlp=6854) ALKALINE PHOSPHATASE 126 U/L 40-150 (BEAKER) (test pwrt=293) BILIRUBIN TOTAL (BEAKER) 3.0 mg/dL 0.2-1.2 (test qsdn=090) SODIUM (BEAKER) (test 138 meq/L 136-145 wsed=298) POTASSIUM (BEAKER) (test 4.5 meq/L 3.5-5.1 qmkx=039) CHLORIDE (BEAKER) (test 107 meq/L 98-107 thyb=228) CO2 (BEAKER) (test 26 meq/L 22-29 ajth=787) BLOOD UREA NITROGEN 89 mg/dL 7-21 (BEAKER) (test negu=204) CREATININE (BEAKER) (test 3.73 mg/dL 0.57-1.25 syem=313) GLUCOSE RANDOM (BEAKER) 122 mg/dL 70-105 (test hfcs=506) CALCIUM (BEAKER) (test 8.5 mg/dL 8.4-10.2 qkqq=494) AST (SGOT) (BEAKER) (test 51 U/L 5-34 mumm=717) ALT (SGPT) (BEAKER) (test 20 U/L 6-55 lqgi=344) EGFR (BEAKER) (test 16 mL/min/1.73 sq m ESTIMATED GFR IS NOT xmim=5720) ACCURATE CREATININE CLEARANCE IN PREDICTING GLOMERULAR FILTRATION RATE. ESTIMATED GFR IS NOT APPLICABLE FOR DIALYSIS PATIENTS. Specimen slightly ictericLACTIC ACID, VENOUS, WHOLE [id number] 04:04:00 Test Item Value Reference Range Comments LACTATE BLOOD VENOUS (2) (BEAKER) (test 0.6 mmol/L 0.5-2.2 yqtb=9910) Effective 11/16/2015: Units/Reference Range ChangeNew: 0.5-2.2 mmol/L Previous: 5 -20 mg/dLSpecimen slightly ictericPROTHROMBIN [id number] 03:57:00 Test Item Value Reference Range Comments PROTIME (BEAKER) (test esyc=111) 20.0 seconds 11.7-14.7 INR (BEAKER) (test gock=355) 1.7 <=5.9 RECOMMENDED COUMADIN/WARFARIN INR THERAPY RANGESSTANDARD DOSE: 2.0 - 3.0 Includes: PROPHYLAXIS forvenous thrombosis, systemic embolization; TREATMENT for venous thrombosis and/or pulmonary embolus.HIGH RISK: Target INR is 2.5-3.5 for patients with mechanical heart valves.CBC W/PLT COUNT & AUTO [id number] 03:54:00 Test Item Value Reference Range Comments WHITE BLOOD CELL COUNT (BEAKER) (test iuso=241) 13.9 K/ L 3.5-10.5 RED BLOOD CELL COUNT (BEAKER) (test fduq=461) 2.45 M/ L 4.63-6.08 HEMOGLOBIN (BEAKER) (test hwon=556) 7.6 GM/DL 13.7-17.5 HEMATOCRIT (BEAKER) (test vgko=258) 24.3 % 40.1-51.0 MEAN CORPUSCULAR VOLUME (BEAKER) (test cmsi=679) 99.2 fL 79.0-92.2 MEAN CORPUSCULAR HEMOGLOBIN (BEAKER) (test 31.0 pg 25.7-32.2 cfde=755) MEAN CORPUSCULAR HEMOGLOBIN CONC (BEAKER) (test 31.3 GM/DL 32.3-36.5 gttn=966) RED CELL DISTRIBUTION WIDTH (BEAKER) (test 21.1 % 11.6-14.4 lytp=423) PLATELET COUNT (BEAKER) (test dcrz=822) 45 K/CU MM 150-450 MEAN PLATELET VOLUME (BEAKER) (test xsfw=358) 12.4 fL 9.4-12.4 NUCLEATED RED BLOOD CELLS (BEAKER) (test 0 /100 WBC 0-0 dbvc=688) NEUTROPHILS RELATIVE PERCENT (BEAKER) (test 91 % oprx=856) LYMPHOCYTES RELATIVE PERCENT (BEAKER) (test 1 % ffdr=477) MONOCYTES RELATIVE PERCENT (BEAKER) (test 6 % jsnm=533) EOSINOPHILS RELATIVE PERCENT (BEAKER) (test 0 % rbfo=480) BASOPHILS RELATIVE PERCENT (BEAKER) (test 0 % spzk=411) NEUTROPHILS ABSOLUTE COUNT (BEAKER) (test 12.59 K/ L 1.78-5.38 ymix=089) LYMPHOCYTES ABSOLUTE COUNT (BEAKER) (test 0.14 K/ L 1.32-3.57 jmyq=477) MONOCYTES ABSOLUTE COUNT (BEAKER) (test rdgd=404) 0.83 K/ L 0.30-0.82 EOSINOPHILS ABSOLUTE COUNT (BEAKER) (test 0.00 K/ L 0.04-0.54 avuz=149) BASOPHILS ABSOLUTE COUNT (BEAKER) (test wtgt=507) 0.01 K/ L 0.01-0.08 IMMATURE GRANULOCYTES-RELATIVE PERCENT (BEAKER) 2 % 0-1 (test wico=7529) POCT-GLUCOSE [id number] 23:30:00 Test Item Value Reference Range Comments POC-GLUCOSE METER (BEAKER) 166 mg/dL 70-110 TESTED AT [facility] [address] [facility] (test cben=4191) [facility] [id number] BASIC METABOLIC [id number] 17:43:00 Test Item Value Reference Range Comments SODIUM (BEAKER) (test 138 meq/L 136-145 dwws=510) POTASSIUM (BEAKER) (test 4.6 meq/L 3.5-5.1 iodt=215) CHLORIDE (BEAKER) (test 106 meq/L 98-107 iyfz=425) CO2 (BEAKER) (test 29 meq/L 22-29 pfrb=793) BLOOD UREA NITROGEN 74 mg/dL 7-21 (BEAKER) (test ycth=070) CREATININE (BEAKER) (test 3.11 mg/dL 0.57-1.25 qyie=509) GLUCOSE RANDOM (BEAKER) 180 mg/dL 70-105 (test agch=943) CALCIUM (BEAKER) (test 8.4 mg/dL 8.4-10.2 aldt=785) EGFR (BEAKER) (test 20 mL/min/1.73 sq m ESTIMATED GFR IS NOT nhfi=6484) ACCURATE CREATININE CLEARANCE IN PREDICTING GLOMERULAR FILTRATION RATE. ESTIMATED GFR IS NOT APPLICABLE FOR DIALYSIS PATIENTS. Specimen slightly ictericLACTATE DEHYDROGENASE (LDH)2017-09-17 17:40:00 Test Item Value Reference Range Comments LACTATE DEHYDROGENASE (BEAKER) (test mezd=446) 178 U/L 125-220 HEMOGLOBIN AND [id number] 17:24:00 Test Item Value Reference Range Comments HEMOGLOBIN (BEAKER) (test nwei=788) 6.9 GM/DL 13.7-17.5 HEMATOCRIT (BEAKER) (test oouv=222) 21.7 % 40.1-51.0 BASIC METABOLIC [id number] 14:56:00 Test Item Value Reference Range Comments SODIUM (BEAKER) (test 137 meq/L 136-145 safb=263) POTASSIUM (BEAKER) (test 4.2 meq/L 3.5-5.1 vmqs=203) CHLORIDE (BEAKER) (test 106 meq/L 98-107 ezxl=314) CO2 (BEAKER) (test 29 meq/L 22-29 miqi=590) BLOOD UREA NITROGEN 63 mg/dL 7-21 (BEAKER) (test spai=021) CREATININE (BEAKER) (test 2.79 mg/dL 0.57-1.25 oiqq=970) GLUCOSE RANDOM (BEAKER) 165 mg/dL 70-105 (test dgng=085) CALCIUM (BEAKER) (test 8.2 mg/dL 8.4-10.2 ipkw=386) EGFR (BEAKER) (test 23 mL/min/1.73 sq m ESTIMATED GFR IS NOT bpfd=4952) ACCURATE CREATININE CLEARANCE IN PREDICTING GLOMERULAR FILTRATION RATE. ESTIMATED GFR IS NOT APPLICABLE FOR DIALYSIS PATIENTS. Specimen slightly ictericHEMORRHAGE IMAGING, [id number] 14:36:00Referring: Dr. Liz Arnold perform at bedsideFINAL REPORT PROCEDURE: HEMORRHAGE STUDY with RBCs CPT CODE: 55594 INDICATION: Gastrointestinal Bleeding PROTOCOL: 20.7 mCi of Tc-99m was injected intravenously as labeled autologous red blood cells. Flow images of the abdomen were obtained, followed by serial images for approximately 75 minutes. FINDINGS : There is early and progressive traceraccumulation in a curvilinear pattern arising in the left upper-mid abdomen and proceeding towards the right lower quadrant. IMPRESSION:1. Mild, active, GI hemorrhage arising in the proximal to mid small bowel. Signed: Gordo Nobles MDReport Verified Date/Time: 09/17/2017 14:36:52 Reading Location: [address] [address] Reading Room POCT-GLUCOSE [id number] 12:04:00 Test Item Value Reference Range Comments POC-GLUCOSE METER (BEAKER) 186 mg/dL 70-110 TESTED AT [facility] [address] [facility] (test tzkx=0836) [facility] [address] [id number] 08:50:00 Test Item Value Reference Range Comments PHOSPHORUS (BEAKER) (test yyny=480) 3.4 mg/dL 2.3-4.7 CALCIUM, [id number] 05:51:00 Test Item Value Reference Range Comments CALCIUM IONIZED (BEAKER) (test uzfd=073) 1.24 mmol/L 1.12-1.27 PH, BLOOD (BEAKER) (test vgho=0630) 7.28 BASIC METABOLIC [id number] 05:14:00 Test Item Value Reference Range Comments SODIUM (BEAKER) (test 136 meq/L 136-145 xaci=070) POTASSIUM (BEAKER) (test 4.0 meq/L 3.5-5.1 llke=070) CHLORIDE (BEAKER) (test 105 meq/L 98-107 xafw=598) CO2 (BEAKER) (test 26 meq/L 22-29 fxxm=412) BLOOD UREA NITROGEN 45 mg/dL 7-21 (BEAKER) (test srzp=258) CREATININE (BEAKER) (test 2.26 mg/dL 0.57-1.25 zdnk=428) GLUCOSE RANDOM (BEAKER) 179 mg/dL 70-105 (test hyht=762) CALCIUM (BEAKER) (test 8.2 mg/dL 8.4-10.2 xxpk=850) EGFR (BEAKER) (test 29 mL/min/1.73 sq m ESTIMATED GFR IS NOT gptm=5027) ACCURATE CREATININE CLEARANCE IN PREDICTING GLOMERULAR FILTRATION RATE. ESTIMATED GFR IS NOT APPLICABLE FOR DIALYSIS PATIENTS. Specimen slightly [id number] 05:13:00 Test Item Value Reference Range Comments PHOSPHORUS (BEAKER) (test aybr=337) 3.1 mg/dL 2.3-4.7 [id number] 05:13:00 Test Item Value Reference Range Comments MAGNESIUM (BEAKER) (test floz=691) 1.8 mg/dL 1.6-2.6 HEPATIC FUNCTION [id number] 05:13:00 Test Item Value Reference Range Comments TOTAL PROTEIN (BEAKER) (test eagz=653) 4.9 gm/dL 6.0-8.3 ALBUMIN (BEAKER) (test grxo=6098) 2.2 g/dL 3.5-5.0 BILIRUBIN TOTAL (BEAKER) (test ifoz=766) 3.6 mg/dL 0.2-1.2 BILIRUBIN DIRECT (BEAKER) (test wovi=590) 2.5 mg/dL 0.1-0.5 ALKALINE PHOSPHATASE (BEAKER) (test paae=294) 146 U/L 40-150 AST (SGOT) (BEAKER) (test gxyr=050) 53 U/L 5-34 ALT (SGPT) (BEAKER) (test vvky=976) 15 U/L 6-55 Specimen slightly ictericPROTHROMBIN [id number] 04:54:00 Test Item Value Reference Range Comments PROTIME (BEAKER) (test wzsb=501) 19.7 seconds 11.7-14.7 INR (BEAKER) (test thgh=553) 1.7 <=5.9 RECOMMENDED COUMADIN/WARFARIN INR THERAPY RANGESSTANDARD DOSE: 2.0 - 3.0 Includes: PROPHYLAXIS forvenous thrombosis, systemic embolization; TREATMENT for venous thrombosis and/or pulmonary embolus.HIGH RISK: Target INR is 2.5-3.5 for patients with mechanical heart valves.CBC W/PLT COUNT & AUTO [id number] 04:53:00 Test Item Value Reference Range Comments WHITE BLOOD CELL COUNT (BEAKER) (test hoos=643) 20.2 K/ L 3.5-10.5 RED BLOOD CELL COUNT (BEAKER) (test qslw=068) 2.49 M/ L 4.63-6.08 HEMOGLOBIN (BEAKER) (test rpke=511) 7.8 GM/DL 13.7-17.5 HEMATOCRIT (BEAKER) (test zrib=880) 24.6 % 40.1-51.0 MEAN CORPUSCULAR VOLUME (BEAKER) (test twqq=656) 98.8 fL 79.0-92.2 MEAN CORPUSCULAR HEMOGLOBIN (BEAKER) (test 31.3 pg 25.7-32.2 piqm=494) MEAN CORPUSCULAR HEMOGLOBIN CONC (BEAKER) (test 31.7 GM/DL 32.3-36.5 dbnw=274) RED CELL DISTRIBUTION WIDTH (BEAKER) (test 21.3 % 11.6-14.4 oifc=752) PLATELET COUNT (BEAKER) (test uvol=253) 39 K/CU MM 150-450 MEAN PLATELET VOLUME (BEAKER) (test vsog=989) 11.4 fL 9.4-12.4 NUCLEATED RED BLOOD CELLS (BEAKER) (test 0 /100 WBC 0-0 ljpz=562) NEUTROPHILS RELATIVE PERCENT (BEAKER) (test 92 % tvlw=773) LYMPHOCYTES RELATIVE PERCENT (BEAKER) (test 1 % dxux=054) MONOCYTES RELATIVE PERCENT (BEAKER) (test 6 % gdgy=047) EOSINOPHILS RELATIVE PERCENT (BEAKER) (test 0 % eodm=313) BASOPHILS RELATIVE PERCENT (BEAKER) (test 0 % pmoz=844) NEUTROPHILS ABSOLUTE COUNT (BEAKER) (test 18.57 K/ L 1.78-5.38 vavt=786) LYMPHOCYTES ABSOLUTE COUNT (BEAKER) (test 0.16 K/ L 1.32-3.57 cqlt=763) MONOCYTES ABSOLUTE COUNT (BEAKER) (test shlc=678) 1.10 K/ L 0.30-0.82 EOSINOPHILS ABSOLUTE COUNT (BEAKER) (test 0.00 K/ L 0.04-0.54 ncvb=428) BASOPHILS ABSOLUTE COUNT (BEAKER) (test kloq=467) 0.02 K/ L 0.01-0.08 IMMATURE GRANULOCYTES-RELATIVE PERCENT (BEAKER) 2 % 0-1 (test hrbu=5001) BASIC METABOLIC [id number] 01:53:00 Test Item Value Reference Range Comments SODIUM (BEAKER) (test 137 meq/L 136-145 yjub=940) POTASSIUM (BEAKER) (test 3.9 meq/L 3.5-5.1 gkyk=278) CHLORIDE (BEAKER) (test 106 meq/L 98-107 ohjp=140) CO2 (BEAKER) (test 26 meq/L 22-29 kopx=901) BLOOD UREA NITROGEN 51 mg/dL 7-21 (BEAKER) (test shau=470) CREATININE (BEAKER) (test 2.74 mg/dL 0.57-1.25 gcik=972) GLUCOSE RANDOM (BEAKER) 176 mg/dL 70-105 (test idxr=543) CALCIUM (BEAKER) (test 8.5 mg/dL 8.4-10.2 vpcu=843) EGFR (BEAKER) (test 23 mL/min/1.73 sq m ESTIMATED GFR IS NOT auqx=8326) ACCURATE CREATININE CLEARANCE IN PREDICTING GLOMERULAR FILTRATION RATE. ESTIMATED GFR IS NOT APPLICABLE FOR DIALYSIS PATIENTS. Specimen slightly [id number] 01:41:00 Test Item Value Reference Range Comments PHOSPHORUS (BEAKER) (test wfdh=936) 3.6 mg/dL 2.3-4.7 [id number] 01:41:00 Test Item Value Reference Range Comments MAGNESIUM (BEAKER) (test cyia=208) 1.9 mg/dL 1.6-2.6 CALCIUM, [id number] 01:23:00 Test Item Value Reference Range Comments CALCIUM IONIZED (BEAKER) (test aogf=194) 1.17 mmol/L 1.12-1.27 PH, BLOOD (BEAKER) (test bgft=8307) 7.38 POCT-GLUCOSE [id number] 00:23:00 Test Item Value Reference Range Comments POC-GLUCOSE METER (BEAKER) 190 mg/dL 70-110 TESTED AT [address] (test gelj=9551) [facility] [address] BASIC METABOLIC [id number] 20:28:00 Test Item Value Reference Range Comments SODIUM (BEAKER) (test 138 meq/L 136-145 wsen=120) POTASSIUM (BEAKER) (test 3.7 meq/L 3.5-5.1 ilvu=556) CHLORIDE (BEAKER) (test 106 meq/L 98-107 aidf=921) CO2 (BEAKER) (test 24 meq/L 22-29 wrnc=498) BLOOD UREA NITROGEN 72 mg/dL 7-21 (BEAKER) (test icmu=996) CREATININE (BEAKER) (test 4.13 mg/dL 0.57-1.25 vcwd=357) GLUCOSE RANDOM (BEAKER) 170 mg/dL 70-105 (test hfhl=563) CALCIUM (BEAKER) (test 8.9 mg/dL 8.4-10.2 tpoj=546) EGFR (BEAKER) (test 15 mL/min/1.73 sq m ESTIMATED GFR IS NOT ohwx=8027) ACCURATE CREATININE CLEARANCE IN PREDICTING GLOMERULAR FILTRATION RATE. ESTIMATED GFR IS NOT APPLICABLE FOR DIALYSIS PATIENTS. Specimen slightly ictericPOCT-GLUCOSE [id number] 18:03:00 Test Item Value Reference Range Comments POC-GLUCOSE METER (BEAKER) 174 mg/dL 70-110 TESTED AT [facility] [address] [facility] (test sdbi=7850) [facility] [address] LACTIC ACID, ARTERIAL, WHOLE [id number] 14:17:00 Test Item Value Reference Range Comments LACTATE BLOOD ARTERIAL (2) (BEAKER) (test 1.2 mmol/L 0.5-2.2 bsle=0050) Effective 11/16/2015: Units/Reference Range ChangeNew: 0.5-2.2 mmol/L Previous: 5 -20 mg/dLSpecimen slightly ictericBASIC METABOLIC [id number] 12:39:00 Test Item Value Reference Range Comments SODIUM (BEAKER) (test 138 meq/L 136-145 bpcr=725) POTASSIUM (BEAKER) (test 3.9 meq/L 3.5-5.1 cimc=448) CHLORIDE (BEAKER) (test 105 meq/L 98-107 mucr=438) CO2 (BEAKER) (test 25 meq/L 22-29 jyhd=990) BLOOD UREA NITROGEN 65 mg/dL 7-21 (BEAKER) (test dtck=899) CREATININE (BEAKER) (test 3.62 mg/dL 0.57-1.25 dvcp=324) GLUCOSE RANDOM (BEAKER) 130 mg/dL 70-105 (test msdm=816) CALCIUM (BEAKER) (test 9.0 mg/dL 8.4-10.2 pnnc=631) EGFR (BEAKER) (test 17 mL/min/1.73 sq m ESTIMATED GFR IS NOT obuv=8952) ACCURATE CREATININE CLEARANCE IN PREDICTING GLOMERULAR FILTRATION RATE. ESTIMATED GFR IS NOT APPLICABLE FOR DIALYSIS PATIENTS. Specimen slightly ictericHEMOGLOBIN AND [id number] 12:14:00 Test Item Value Reference Range Comments HEMOGLOBIN (BEAKER) (test ormp=962) 8.6 GM/DL 13.7-17.5 HEMATOCRIT (BEAKER) (test svqi=102) 26.9 % 40.1-51.0 [id number] 08:30:00 Test Item Value Reference Range Comments PHOSPHORUS (BEAKER) (test lbiq=970) 5.6 mg/dL 2.3-4.7 CBC W/PLT COUNT & AUTO [id number] 05:30:00 Test Item Value Reference Range Comments WHITE BLOOD CELL COUNT (BEAKER) (test vqau=756) 15.3 K/ L 3.5-10.5 RED BLOOD CELL COUNT (BEAKER) (test yibv=492) 2.66 M/ L 4.63-6.08 HEMOGLOBIN (BEAKER) (test kpih=464) 8.4 GM/DL 13.7-17.5 HEMATOCRIT (BEAKER) (test gvvo=365) 26.1 % 40.1-51.0 MEAN CORPUSCULAR VOLUME (BEAKER) (test ixql=323) 98.1 fL 79.0-92.2 MEAN CORPUSCULAR HEMOGLOBIN (BEAKER) (test 31.6 pg 25.7-32.2 mitm=855) MEAN CORPUSCULAR HEMOGLOBIN CONC (BEAKER) (test 32.2 GM/DL 32.3-36.5 soqu=640) RED CELL DISTRIBUTION WIDTH (BEAKER) (test 21.0 % 11.6-14.4 yrcs=171) PLATELET COUNT (BEAKER) (test pbdm=923) 52 K/CU MM 150-450 MEAN PLATELET VOLUME (BEAKER) (test yuic=569) 11.8 fL 9.4-12.4 NUCLEATED RED BLOOD CELLS (BEAKER) (test 0 /100 WBC 0-0 qfqb=298) NEUTROPHILS RELATIVE PERCENT (BEAKER) (test 90 % vzee=295) LYMPHOCYTES RELATIVE PERCENT (BEAKER) (test 2 % jiyj=643) MONOCYTES RELATIVE PERCENT (BEAKER) (test 7 % wwrk=145) EOSINOPHILS RELATIVE PERCENT (BEAKER) (test 0 % xbin=101) BASOPHILS RELATIVE PERCENT (BEAKER) (test 0 % vvjk=691) NEUTROPHILS ABSOLUTE COUNT (BEAKER) (test 13.71 K/ L 1.78-5.38 rkni=484) LYMPHOCYTES ABSOLUTE COUNT (BEAKER) (test 0.33 K/ L 1.32-3.57 vsys=313) MONOCYTES ABSOLUTE COUNT (BEAKER) (test migl=492) 1.02 K/ L 0.30-0.82 EOSINOPHILS ABSOLUTE COUNT (BEAKER) (test 0.01 K/ L 0.04-0.54 yulz=271) BASOPHILS ABSOLUTE COUNT (BEAKER) (test oyyw=531) 0.01 K/ L 0.01-0.08 IMMATURE GRANULOCYTES-RELATIVE PERCENT (BEAKER) 1 % 0-1 (test rkqb=2509) BASIC METABOLIC [id number] 05:29:00 Test Item Value Reference Range Comments SODIUM (BEAKER) (test 133 meq/L 136-145 nexs=353) POTASSIUM (BEAKER) (test 4.0 meq/L 3.5-5.1 siis=823) CHLORIDE (BEAKER) (test 104 meq/L 98-107 mjpn=964) CO2 (BEAKER) (test 23 meq/L 22-29 enox=137) BLOOD UREA NITROGEN 55 mg/dL 7-21 (BEAKER) (test tsvd=911) CREATININE (BEAKER) (test 3.08 mg/dL 0.57-1.25 idwb=381) GLUCOSE RANDOM (BEAKER) 126 mg/dL 70-105 (test tsme=358) CALCIUM (BEAKER) (test 8.9 mg/dL 8.4-10.2 ekpa=927) EGFR (BEAKER) (test 20 mL/min/1.73 sq m ESTIMATED GFR IS NOT icxp=7907) ACCURATE CREATININE CLEARANCE IN PREDICTING GLOMERULAR FILTRATION RATE. ESTIMATED GFR IS NOT APPLICABLE FOR DIALYSIS PATIENTS. Specimen slightly ictericHEPATIC FUNCTION [id number] 05:28:00 Test Item Value Reference Range Comments TOTAL PROTEIN (BEAKER) (test wpqf=862) 5.1 gm/dL 6.0-8.3 ALBUMIN (BEAKER) (test jejk=0745) 2.2 g/dL 3.5-5.0 BILIRUBIN TOTAL (BEAKER) (test njty=736) 3.6 mg/dL 0.2-1.2 BILIRUBIN DIRECT (BEAKER) (test djhl=430) 2.5 mg/dL 0.1-0.5 ALKALINE PHOSPHATASE (BEAKER) (test uyxj=157) 152 U/L 40-150 AST (SGOT) (BEAKER) (test iihq=733) 57 U/L 5-34 ALT (SGPT) (BEAKER) (test urcq=267) 13 U/L 6-55 Specimen slightly ictericPOCT-GLUCOSE [id number] 05:16:00 Test Item Value Reference Range Comments POC-GLUCOSE METER (BEAKER) 146 mg/dL 70-110 TESTED AT [facility] [address] [facility] (test mbwp=6000) [facility] [address] PROTHROMBIN [id number] 04:54:00 Test Item Value Reference Range Comments PROTIME (BEAKER) (test znsc=571) 17.3 seconds 11.7-14.7 INR (BEAKER) (test vsox=666) 1.4 <=5.9 RECOMMENDED COUMADIN/WARFARIN INR THERAPY RANGESSTANDARD DOSE: 2.0 - 3.0 Includes: PROPHYLAXIS forvenous thrombosis, systemic embolization; TREATMENT for venous thrombosis and/or pulmonary embolus.HIGH RISK: Target INR is 2.5-3.5 for patients with mechanical heart valves.BASIC METABOLIC [id number] 20:43: 00 Test Item Value Reference Range Comments SODIUM (BEAKER) (test 137 meq/L 136-145 zrje=094) POTASSIUM (BEAKER) (test 4.0 meq/L 3.5-5.1 nhwy=021) CHLORIDE (BEAKER) (test 105 meq/L 98-107 jvdn=029) CO2 (BEAKER) (test 27 meq/L 22-29 ripg=185) BLOOD UREA NITROGEN 48 mg/dL 7-21 (BEAKER) (test edoq=257) CREATININE (BEAKER) (test 2.76 mg/dL 0.57-1.25 lpbm=526) GLUCOSE RANDOM (BEAKER) 136 mg/dL 70-105 (test jyms=598) CALCIUM (BEAKER) (test 9.0 mg/dL 8.4-10.2 jafv=504) EGFR (BEAKER) (test 23 mL/min/1.73 sq m ESTIMATED GFR IS NOT repm=8893) ACCURATE CREATININE CLEARANCE IN PREDICTING GLOMERULAR FILTRATION RATE. ESTIMATED GFR IS NOT APPLICABLE FOR DIALYSIS PATIENTS. Specimen slightly ictericHEMOGLOBIN AND [id number] 20:22:00 Test Item Value Reference Range Comments HEMOGLOBIN (BEAKER) (test bcmf=035) 8.4 GM/DL 13.7-17.5 HEMATOCRIT (BEAKER) (test ylee=562) 26.1 % 40.1-51.0 POCT-GLUCOSE [id number] 18:26:00 Test Item Value Reference Range Comments POC-GLUCOSE METER (BEAKER) 157 mg/dL 70-110 TESTED AT [address] (test qjls=2983) [place] [id number] OCCULT BLOOD, [id number] 17:38:00 Test Item Value Reference Range Comments FECAL OCCULT BLOOD (BEAKER) (test eexy=148) Positive Negative BASIC METABOLIC [id number] 15:04:00 Test Item Value Reference Range Comments SODIUM (BEAKER) (test 138 meq/L 136-145 jbaz=728) POTASSIUM (BEAKER) (test 3.8 meq/L 3.5-5.1 hyvy=055) CHLORIDE (BEAKER) (test 105 meq/L 98-107 refq=140) CO2 (BEAKER) (test 28 meq/L 22-29 gprq=238) BLOOD UREA NITROGEN 43 mg/dL 7-21 (BEAKER) (test sokn=173) CREATININE (BEAKER) (test 2.44 mg/dL 0.57-1.25 wqhb=374) GLUCOSE RANDOM (BEAKER) 120 mg/dL 70-105 (test jzow=169) CALCIUM (BEAKER) (test 8.7 mg/dL 8.4-10.2 aviw=376) EGFR (BEAKER) (test 27 mL/min/1.73 sq m ESTIMATED GFR IS NOT eoej=0212) ACCURATE CREATININE CLEARANCE IN PREDICTING GLOMERULAR FILTRATION RATE. ESTIMATED GFR IS NOT APPLICABLE FOR DIALYSIS PATIENTS. Specimen slightly ictericPOCT-GLUCOSE [id number] 12:23:00 Test Item Value Reference Range Comments POC-GLUCOSE METER (BEAKER) 131 mg/dL 70-110 TESTED AT [address] (test zfpf=6061) [place] [id number] HEMOGLOBIN AND [id number] 10:15:00 Test Item Value Reference Range Comments HEMOGLOBIN (BEAKER) (test yqyr=329) 7.1 GM/DL 13.7-17.5 HEMATOCRIT (BEAKER) (test gdda=582) 21.2 % 40.1-51.0 BLOOD [id number] 10:00:00 Test Item Value Reference Range Comments CULTURE (BEAKER) (test bthc=6475) No growth in 5 days BLOOD [id number] 10:00:00 Test Item Value Reference Range Comments CULTURE (BEAKER) (test lenf=1715) No growth in 5 days [id number] 09:18:00 Test Item Value Reference Range Comments MAGNESIUM (BEAKER) (test dvly=857) 1.8 mg/dL 1.6-2.6 [id number] 09:18:00 Test Item Value Reference Range Comments PHOSPHORUS (BEAKER) (test tbzw=920) 2.6 mg/dL 2.3-4.7 RETICULOCYTE [id number] 08:44:00 Test Item Value Reference Range Comments RETICULOCYTE COUNT PCT (BEAKER) (test mmua=459) 3.8 % 0.5-1.8 BASIC METABOLIC [id number] 07:51:00 Test Item Value Reference Range Comments SODIUM (BEAKER) (test 137 meq/L 136-145 mvek=656) POTASSIUM (BEAKER) (test 3.6 meq/L 3.5-5.1 Specimen slightly hsql=166) hemolyzed CHLORIDE (BEAKER) (test 105 meq/L 98-107 kxnw=705) CO2 (BEAKER) (test 27 meq/L 22-29 bsfo=880) BLOOD UREA NITROGEN 34 mg/dL 7-21 (BEAKER) (test vzyd=638) CREATININE (BEAKER) (test 1.74 mg/dL 0.57-1.25 Specimen slightly izmo=607) hemolyzed GLUCOSE RANDOM (BEAKER) 122 mg/dL 70-105 (test izho=083) CALCIUM (BEAKER) (test 8.6 mg/dL 8.4-10.2 yxay=322) EGFR (BEAKER) (test 39 mL/min/1.73 sq m ESTIMATED GFR IS NOT jspf=7553) ACCURATE CREATININE CLEARANCE IN PREDICTING GLOMERULAR FILTRATION RATE. ESTIMATED GFR IS NOT APPLICABLE FOR DIALYSIS PATIENTS. Specimen slightly ictericHEPATIC FUNCTION [id number] 07:51:00 Test Item Value Reference Range Comments TOTAL PROTEIN (BEAKER) (test 5.1 gm/dL 6.0-8.3 Specimen slightly hemolyzed fzts=356) ALBUMIN (BEAKER) (test 2.2 g/dL 3.5-5.0 Specimen slightly hemolyzed knxr=4594) BILIRUBIN TOTAL (BEAKER) (test 3.9 mg/dL 0.2-1.2 Specimen slightly hemolyzed swym=529) BILIRUBIN DIRECT (BEAKER) (test 2.6 mg/dL 0.1-0.5 Specimen slightly hemolyzed ogre=961) ALKALINE PHOSPHATASE (BEAKER) 143 U/L 40-150 (test lmer=991) AST (SGOT) (BEAKER) (test 61 U/L 5-34 Specimen slightly hemolyzed jpht=000) ALT (SGPT) (BEAKER) (test 12 U/L 6-55 Specimen slightly hemolyzed bxng=720) Specimen slightly ictericPOCT-GLUCOSE [id number] 07:02:00 Test Item Value Reference Range Comments POC-GLUCOSE METER (BEAKER) 118 mg/dL 70-110 TESTED AT [address] (test fzya=5326) [facility] [address] PROTHROMBIN [id number] 06:57:00 Test Item Value Reference Range Comments PROTIME (BEAKER) (test dmbz=634) 18.3 seconds 11.7-14.7 INR (BEAKER) (test tujt=183) 1.5 <=5.9 RECOMMENDED COUMADIN/WARFARIN INR THERAPY RANGESSTANDARD DOSE: 2.0 - 3.0 Includes: PROPHYLAXIS forvenous thrombosis, systemic embolization; TREATMENT for venous thrombosis and/or pulmonary embolus.HIGH RISK: Target INR is 2.5-3.5 for patients with mechanical heart valves.BASIC METABOLIC [id number] 03:07: 00 Test Item Value Reference Range Comments SODIUM (BEAKER) (test 137 meq/L 136-145 asnn=742) POTASSIUM (BEAKER) (test 3.7 meq/L 3.5-5.1 fons=005) CHLORIDE (BEAKER) (test 106 meq/L 98-107 zfhf=113) CO2 (BEAKER) (test 25 meq/L 22-29 lnos=338) BLOOD UREA NITROGEN 51 mg/dL 7-21 (BEAKER) (test ajzl=092) CREATININE (BEAKER) (test 2.53 mg/dL 0.57-1.25 rxoa=928) GLUCOSE RANDOM (BEAKER) 131 mg/dL 70-105 (test iruv=306) CALCIUM (BEAKER) (test 8.5 mg/dL 8.4-10.2 rcqs=594) EGFR (BEAKER) (test 26 mL/min/1.73 sq m ESTIMATED GFR IS NOT qxaa=7920) ACCURATE CREATININE CLEARANCE IN PREDICTING GLOMERULAR FILTRATION RATE. ESTIMATED GFR IS NOT APPLICABLE FOR DIALYSIS PATIENTS. Specimen moderately ictericPOCT-GLUCOSE [id number] 00:16:00 Test Item Value Reference Range Comments POC-GLUCOSE METER (BEAKER) 137 mg/dL 70-110 TESTED AT [address] (test rxmf=9201) [place] [address] OCCULT BLOOD, [id number] 23:28:00 Test Item Value Reference Range Comments FECAL OCCULT BLOOD (BEAKER) (test yutz=150) Positive Negative HEMOGLOBIN AND [id number] 18:59:00 Test Item Value Reference Range Comments HEMOGLOBIN (BEAKER) (test cfpu=609) 7.9 GM/DL 13.7-17.5 HEMATOCRIT (BEAKER) (test twco=309) 23.4 % 40.1-51.0 POCT-GLUCOSE [id number] 18:02:00 Test Item Value Reference Range Comments POC-GLUCOSE METER (BEAKER) 140 mg/dL 70-110 TESTED AT [address] (test uclz=1679) [place] [address] BASIC METABOLIC [id number] 13:39:00 Test Item Value Reference Range Comments SODIUM (BEAKER) (test 135 meq/L 136-145 bbbx=783) POTASSIUM (BEAKER) (test 4.5 meq/L 3.5-5.1 yizz=997) CHLORIDE (BEAKER) (test 104 meq/L 98-107 pbiw=018) CO2 (BEAKER) (test 24 meq/L 22-29 nsfk=346) BLOOD UREA NITROGEN 69 mg/dL 7-21 (BEAKER) (test xcdq=259) CREATININE (BEAKER) (test 3.59 mg/dL 0.57-1.25 zwzq=526) GLUCOSE RANDOM (BEAKER) 125 mg/dL 70-105 (test pync=297) CALCIUM (BEAKER) (test 8.7 mg/dL 8.4-10.2 jkzk=013) EGFR (BEAKER) (test 17 mL/min/1.73 sq m ESTIMATED GFR IS NOT lqfu=3662) ACCURATE CREATININE CLEARANCE IN PREDICTING GLOMERULAR FILTRATION RATE. ESTIMATED GFR IS NOT APPLICABLE FOR DIALYSIS PATIENTS. Specimen moderately ictericPOCT-GLUCOSE [id number] 12:12:00 Test Item Value Reference Range Comments POC-GLUCOSE METER (BEAKER) 124 mg/dL 70-110 TESTED AT [address] (test xvsf=9879) [place] [id number] RAD, ABDOMEN/KUB, 1 VIEW [id number] 09:39:00Referring: Dr. Hill WorkenehReason for exam:->Gastric distentionFINAL REPORT Two abdomen images Discussion: Air-filled stomach has been decompressed with suction tube placement. Feeding tube extends to the proximal duodenum. Normal bowel gas pattern. No evidence of free intraperitoneal air. Signed: Yang Reece Verified Date/Time: 09/14/2017 09:39:59 Reading Location: [address] Reading Room Electronically signedby: YANG REECE M.D. on 09/14/2017 09:39 AMHEMOGLOBIN AND [id number] 08 :30:00 Test Item Value Reference Range Comments HEMOGLOBIN (BEAKER) (test hboz=518) 7.7 GM/DL 13.7-17.5 HEMATOCRIT (BEAKER) (test gkfz=518) 23.2 % 40.1-51.0 POCT-GLUCOSE [id number] 05:59:00 Test Item Value Reference Range Comments POC-GLUCOSE METER (BEAKER) 115 mg/dL 70-110 TESTED AT [address] (test pein=8754) [place] [id number] BASIC METABOLIC [id number] 05:40:00 Test Item Value Reference Range Comments SODIUM (BEAKER) (test 139 meq/L 136-145 rrxl=418) POTASSIUM (BEAKER) (test 4.9 meq/L 3.5-5.1 syad=078) CHLORIDE (BEAKER) (test 109 meq/L 98-107 hxzc=507) CO2 (BEAKER) (test 25 meq/L 22-29 bmiy=202) BLOOD UREA NITROGEN 61 mg/dL 7-21 (BEAKER) (test qfiy=513) CREATININE (BEAKER) (test 3.10 mg/dL 0.57-1.25 drkc=743) GLUCOSE RANDOM (BEAKER) 103 mg/dL 70-105 (test iuwo=227) CALCIUM (BEAKER) (test 8.6 mg/dL 8.4-10.2 ujly=036) EGFR (BEAKER) (test 20 mL/min/1.73 sq m ESTIMATED GFR IS NOT mpcn=1110) ACCURATE CREATININE CLEARANCE IN PREDICTING GLOMERULAR FILTRATION RATE. ESTIMATED GFR IS NOT APPLICABLE FOR DIALYSIS PATIENTS. Specimen moderately ictericHEPATIC FUNCTION [id number] 05:07:00 Test Item Value Reference Range Comments TOTAL PROTEIN (BEAKER) (test mmki=508) 4.8 gm/dL 6.0-8.3 ALBUMIN (BEAKER) (test thpg=2091) 2.1 g/dL 3.5-5.0 BILIRUBIN TOTAL (BEAKER) (test oyvz=880) 5.7 mg/dL 0.2-1.2 BILIRUBIN DIRECT (BEAKER) (test qequ=455) 3.9 mg/dL 0.1-0.5 ALKALINE PHOSPHATASE (BEAKER) (test tarn=436) 113 U/L 40-150 AST (SGOT) (BEAKER) (test rkyh=356) 57 U/L 5-34 ALT (SGPT) (BEAKER) (test nxmq=941) 13 U/L 6-55 Specimen moderately ictericPROTHROMBIN TIME/[id number] 04:57:00 Test Item Value Reference Range Comments PROTIME (BEAKER) (test lckl=073) 17.5 seconds 11.7-14.7 INR (BEAKER) (test kgzu=312) 1.4 <=5.9 RECOMMENDED COUMADIN/WARFARIN INR THERAPY RANGESSTANDARD DOSE: 2.0 - 3.0 Includes: PROPHYLAXIS forvenous thrombosis, systemic embolization; TREATMENT for venous thrombosis and/or pulmonary embolus.HIGH RISK: Target INR is 2.5-3.5 for patients with mechanical heart valves.CBC W/PLT COUNT & AUTO [id number] 04:47:00 Test Item Value Reference Range Comments WHITE BLOOD CELL COUNT (BEAKER) (test kyga=614) 9.2 K/ L 3.5-10.5 RED BLOOD CELL COUNT (BEAKER) (test tykt=428) 2.41 M/ L 4.63-6.08 HEMOGLOBIN (BEAKER) (test ibwk=262) 7.5 GM/DL 13.7-17.5 HEMATOCRIT (BEAKER) (test suua=537) 22.9 % 40.1-51.0 MEAN CORPUSCULAR VOLUME (BEAKER) (test vmyr=452) 95.0 fL 79.0-92.2 MEAN CORPUSCULAR HEMOGLOBIN (BEAKER) (test 31.1 pg 25.7-32.2 vavi=071) MEAN CORPUSCULAR HEMOGLOBIN CONC (BEAKER) (test 32.8 GM/DL 32.3-36.5 dimn=841) RED CELL DISTRIBUTION WIDTH (BEAKER) (test 19.9 % 11.6-14.4 rtqu=381) PLATELET COUNT (BEAKER) (test vghu=053) 47 K/CU MM 150-450 MEAN PLATELET VOLUME (BEAKER) (test nsrh=714) 11.9 fL 9.4-12.4 NUCLEATED RED BLOOD CELLS (BEAKER) (test 0 /100 WBC 0-0 eqiz=358) NEUTROPHILS RELATIVE PERCENT (BEAKER) (test 85 % bbal=298) LYMPHOCYTES RELATIVE PERCENT (BEAKER) (test 4 % lirt=388) MONOCYTES RELATIVE PERCENT (BEAKER) (test 7 % ipzw=312) EOSINOPHILS RELATIVE PERCENT (BEAKER) (test 0 % vafp=282) BASOPHILS RELATIVE PERCENT (BEAKER) (test 0 % vykl=783) NEUTROPHILS ABSOLUTE COUNT (BEAKER) (test 7.74 K/ L 1.78-5.38 hxxm=621) LYMPHOCYTES ABSOLUTE COUNT (BEAKER) (test 0.32 K/ L 1.32-3.57 pbqd=048) MONOCYTES ABSOLUTE COUNT (BEAKER) (test oehh=560) 0.63 K/ L 0.30-0.82 EOSINOPHILS ABSOLUTE COUNT (BEAKER) (test 0.03 K/ L 0.04-0.54 rldv=831) BASOPHILS ABSOLUTE COUNT (BEAKER) (test nsvq=457) 0.02 K/ L 0.01-0.08 IMMATURE GRANULOCYTES-RELATIVE PERCENT (BEAKER) 5 % 0-1 (test gimy=9419) POCT-GLUCOSE [id number] 23:57:00 Test Item Value Reference Range Comments POC-GLUCOSE METER (BEAKER) 101 mg/dL 70-110 TESTED AT [facility] [address] [facility] (test eifm=3367) [place] [facility] [address] BASIC METABOLIC [id number] 20:38:00 Test Item Value Reference Range Comments SODIUM (BEAKER) (test 139 meq/L 136-145 kyna=635) POTASSIUM (BEAKER) (test 4.3 meq/L 3.5-5.1 lzzx=022) CHLORIDE (BEAKER) (test 109 meq/L 98-107 nbqa=021) CO2 (BEAKER) (test 28 meq/L 22-29 rypr=957) BLOOD UREA NITROGEN 54 mg/dL 7-21 (BEAKER) (test jvuj=753) CREATININE (BEAKER) (test 2.56 mg/dL 0.57-1.25 aeqr=820) GLUCOSE RANDOM (BEAKER) 96 mg/dL 70-105 (test dgti=162) CALCIUM (BEAKER) (test 8.4 mg/dL 8.4-10.2 jime=136) EGFR (BEAKER) (test 25 mL/min/1.73 sq m ESTIMATED GFR IS NOT wxmk=6879) ACCURATE CREATININE CLEARANCE IN PREDICTING GLOMERULAR FILTRATION RATE. ESTIMATED GFR IS NOT APPLICABLE FOR DIALYSIS PATIENTS. Specimen moderately ictericBLOOD GAS, [id number] 20:03:00 Test Item Value Reference Range Comments PH ARTERIAL (BEAKER) (test pbud=753) 7.27 7.35-7.45 PCO2 ARTERIAL (BEAKER) (test fusj=288) 65 mmHg 35-45 PO2 ARTERIAL (BEAKER) (test vjms=793) 179 mmHg 80-90 O2 SATURATION ARTERIAL (BEAKER) (test tkno=211) 99.0 % 96.0-97.0 HCO3 ARTERIAL (BEAKER) (test bfqp=140) 29 mmol/L 21-29 BASE EXCESS ARTERIAL (BEAKER) (test fqko=579) 1.8 mmol/L -2.0-3.0 PATIENT TEMPERATURE (BEAKER) (test htbs=1187) 36.5 C FIO2 (BEAKER) (test mwee=4368) 32.0 % HEMOGLOBIN AND [id number] 18:50:00 Test Item Value Reference Range Comments HEMOGLOBIN (BEAKER) (test uvkm=392) 6.8 GM/DL 13.7-17.5 HEMATOCRIT (BEAKER) (test lggr=308) 21.2 % 40.1-51.0 POCT-GLUCOSE [id number] 18:05:00 Test Item Value Reference Range Comments POC-GLUCOSE METER (BEAKER) 112 mg/dL 70-110 TESTED AT [facility] [address] [facility] (test ompg=6418) [place] [facility] [address] [id number] 16:50:00 Test Item Value Reference Range Comments CORTISOL, TOTAL (BEAKER) (test fdgv=4342) 11.3 ug/dL 3.7-19.4 HEMOGLOBIN AND [id number] 15:30:00 Test Item Value Reference Range Comments HEMOGLOBIN (BEAKER) (test mpxp=235) 7.1 GM/DL 13.7-17.5 HEMATOCRIT (BEAKER) (test todw=182) 21.9 % 40.1-51.0 POCT-GLUCOSE [id number] 12:09:00 Test Item Value Reference Range Comments POC-GLUCOSE METER (BEAKER) 91 mg/dL 70-110 TESTED AT [address] (test bzwh=9365) [place] [address] RAD, ABDOMEN/KUB, 1 VIEW [id number] 10:57:00Referring: Dr. Liz Felipe Reason for exam:->evaluate Corpak, has vomiting Should this be performed at the bedside?->YesFINAL REPORT TECHNIQUE: Single radiograph of the abdomen dated 09/13/2017. HISTORY: Evaluate Corpak placement. COMPARISON: Abdominal radiograph dated 09/06/2017. IMPRESSION:Enteric tube is seen with the tip in the second portion of the duodenum. There is gaseous distention of the stomach. No air-filled, dilated loops of bowel to suggest obstruction. No free intraperitoneal air. Noabnormal soft tissue mass. A stent is seen in the right upper quadrant. Left pleural effusion and left retrocardiac opacity is again noted. Degenerative changes are seen in the spine. Signed: Khadra Huntleyeport Verified Date/Time: 09/13/2017 10:57 :40 Reading Location: [facility] Radiology Reading Room CALCIUM, [id number] 10:16: 00 Test Item Value Reference Range Comments CALCIUM IONIZED (BEAKER) (test rjhw=774) 1.19 mmol/L 1.12-1.27 PH, BLOOD (BEAKER) (test jbwt=2519) 7.28 [id number] 09:46:00 Test Item Value Reference Range Comments PHOSPHORUS (BEAKER) (test lxdv=990) 2.7 mg/dL 2.3-4.7 HEMOGLOBIN AND [id number] 09:44:00 Test Item Value Reference Range Comments HEMOGLOBIN (BEAKER) (test ufyp=417) 6.1 GM/DL 13.7-17.5 HEMATOCRIT (BEAKER) (test zsny=237) 18.5 % 40.1-51.0 RAD, CHEST, 1 VIEW, NON [id number] 09:44:00Referring: Dr. Hill WorkenehReason for exam:->ro pnaShould this be performed at the bedside?-> YesFINAL REPORT TECHNIQUE: Frontal chest radiograph dated 09/13/2017. CLINICAL HISTORY: PNA COMPARISON STUDY: Chest radiograph dated IMPRESSION:Life support tubes and linesare unchanged in position. Stable, moderate left pleural effusion with compressive atelectasis. No pneumothorax. Cardiomediastinal silhouette is stable in size. No pulmonary edema. No fracture. Signed:Khadra Huntleyeport Verified Date/Time: 08/2017 09:44:47 Reading Location: [facility] Radiology Reading Room [id number] 09:30:00 Test Item Value Reference Range Comments PHOSPHORUS (BEAKER) (test vekd=205) 2.4 mg/dL 2.3-4.7 [id number] 09:30:00 Test Item Value Reference Range Comments MAGNESIUM (BEAKER) (test epjp=006) 1.9 mg/dL 1.6-2.6 BASIC METABOLIC [id number] 09:30:00 Test Item Value Reference Range Comments SODIUM (BEAKER) (test 138 meq/L 136-145 wipw=090) POTASSIUM (BEAKER) (test 4.2 meq/L 3.5-5.1 qzld=212) CHLORIDE (BEAKER) (test 108 meq/L 98-107 wbmw=410) CO2 (BEAKER) (test 26 meq/L 22-29 vncy=081) BLOOD UREA NITROGEN 39 mg/dL 7-21 (BEAKER) (test hcwf=888) CREATININE (BEAKER) (test 1.57 mg/dL 0.57-1.25 krgi=239) GLUCOSE RANDOM (BEAKER) 120 mg/dL 70-105 (test tdcv=727) CALCIUM (BEAKER) (test 8.4 mg/dL 8.4-10.2 gpgh=740) EGFR (BEAKER) (test 44 mL/min/1.73 sq m ESTIMATED GFR IS NOT csgo=1848) ACCURATE CREATININE CLEARANCE IN PREDICTING GLOMERULAR FILTRATION RATE. ESTIMATED GFR IS NOT APPLICABLE FOR DIALYSIS PATIENTS. Specimen moderately ictericHEPATIC FUNCTION [id number] 09:30:00 Test Item Value Reference Range Comments TOTAL PROTEIN (BEAKER) (test yjdm=926) 5.0 gm/dL 6.0-8.3 ALBUMIN (BEAKER) (test ddyg=6349) 2.3 g/dL 3.5-5.0 BILIRUBIN TOTAL (BEAKER) (test usyb=807) 6.5 mg/dL 0.2-1.2 BILIRUBIN DIRECT (BEAKER) (test xdxn=613) 3.9 mg/dL 0.1-0.5 ALKALINE PHOSPHATASE (BEAKER) (test fjux=841) 130 U/L 40-150 AST (SGOT) (BEAKER) (test bnmu=765) 53 U/L 5-34 ALT (SGPT) (BEAKER) (test drwk=628) 13 U/L 6-55 Specimen moderately ictericCBC W/PLT COUNT & AUTO [id number] 08: 53:00 Test Item Value Reference Range Comments WHITE BLOOD CELL COUNT (BEAKER) (test kmkt=712) 17.7 K/ L 3.5-10.5 RED BLOOD CELL COUNT (BEAKER) (test lylo=062) 2.18 M/ L 4.63-6.08 HEMOGLOBIN (BEAKER) (test fggb=933) 6.8 GM/DL 13.7-17.5 HEMATOCRIT (BEAKER) (test wbgn=809) 20.7 % 40.1-51.0 MEAN CORPUSCULAR VOLUME (BEAKER) (test bbeh=926) 95.0 fL 79.0-92.2 MEAN CORPUSCULAR HEMOGLOBIN (BEAKER) (test 31.2 pg 25.7-32.2 tjrv=111) MEAN CORPUSCULAR HEMOGLOBIN CONC (BEAKER) (test 32.9 GM/DL 32.3-36.5 dcnq=738) RED CELL DISTRIBUTION WIDTH (BEAKER) (test 22.1 % 11.6-14.4 gmtr=488) PLATELET COUNT (BEAKER) (test tpwk=228) 25 K/CU MM 150-450 MEAN PLATELET VOLUME (BEAKER) (test zopn=689) 11.9 fL 9.4-12.4 NUCLEATED RED BLOOD CELLS (BEAKER) (test 0 /100 WBC 0-0 dsem=439) NEUTROPHILS RELATIVE PERCENT (BEAKER) (test 80 % xkvx=874) LYMPHOCYTES RELATIVE PERCENT (BEAKER) (test 3 % otra=211) MONOCYTES RELATIVE PERCENT (BEAKER) (test 12 % hofn=718) EOSINOPHILS RELATIVE PERCENT (BEAKER) (test 1 % yddw=808) BASOPHILS RELATIVE PERCENT (BEAKER) (test 0 % vmoc=335) NEUTROPHILS ABSOLUTE COUNT (BEAKER) (test 14.22 K/ L 1.78-5.38 alni=638) LYMPHOCYTES ABSOLUTE COUNT (BEAKER) (test 0.48 K/ L 1.32-3.57 oobx=857) MONOCYTES ABSOLUTE COUNT (BEAKER) (test fvyk=978) 2.09 K/ L 0.30-0.82 EOSINOPHILS ABSOLUTE COUNT (BEAKER) (test 0.17 K/ L 0.04-0.54 gewx=996) BASOPHILS ABSOLUTE COUNT (BEAKER) (test hill=244) 0.05 K/ L 0.01-0.08 IMMATURE GRANULOCYTES-RELATIVE PERCENT (BEAKER) 4 % 0-1 (test cnre=8898) PROTHROMBIN [id number] 08:52:00 Test Item Value Reference Range Comments PROTIME (BEAKER) (test vcey=133) 18.4 seconds 11.7-14.7 INR (BEAKER) (test awsp=402) 1.5 <=5.9 RECOMMENDED COUMADIN/WARFARIN INR THERAPY RANGESSTANDARD DOSE: 2.0 - 3.0 Includes: PROPHYLAXIS forvenous thrombosis, systemic embolization; TREATMENT for venous thrombosis and/or pulmonary embolus.HIGH RISK: Target INR is 2.5-3.5 for patients with mechanical heart valves.BLOOD GAS, [id number] 08:47:00 Test Item Value Reference Range Comments PH ARTERIAL (BEAKER) (test jjjn=392) 7.27 7.35-7.45 PCO2 ARTERIAL (BEAKER) (test olsm=654) 71 mmHg 35-45 PO2 ARTERIAL (BEAKER) (test khun=749) 193 mmHg 80-90 O2 SATURATION ARTERIAL (BEAKER) (test tyut=309) 99.1 % 96.0-97.0 HCO3 ARTERIAL (BEAKER) (test hkkq=075) 32 mmol/L 21-29 BASE EXCESS ARTERIAL (BEAKER) (test akrh=394) 4.1 mmol/L -2.0-3.0 PATIENT TEMPERATURE (BEAKER) (test ptcn=2070) 36.7 C FIO2 (BEAKER) (test jhww=4861) 28.0 % [id number] 02:45:00 Test Item Value Reference Range Comments PHOSPHORUS (BEAKER) (test gple=909) 3.1 mg/dL 2.3-4.7 [id number] 02:45:00 Test Item Value Reference Range Comments MAGNESIUM (BEAKER) (test mums=496) 1.9 mg/dL 1.6-2.6 BASIC METABOLIC [id number] 02:45:00 Test Item Value Reference Range Comments SODIUM (BEAKER) (test 138 meq/L 136-145 gvxy=806) POTASSIUM (BEAKER) (test 4.1 meq/L 3.5-5.1 lhiq=240) CHLORIDE (BEAKER) (test 108 meq/L 98-107 bzyb=260) CO2 (BEAKER) (test 26 meq/L 22-29 nylq=739) BLOOD UREA NITROGEN 49 mg/dL 7-21 (BEAKER) (test rsma=994) CREATININE (BEAKER) (test 2.12 mg/dL 0.57-1.25 hwry=938) GLUCOSE RANDOM (BEAKER) 143 mg/dL 70-105 (test vncq=250) CALCIUM (BEAKER) (test 8.0 mg/dL 8.4-10.2 tfge=058) EGFR (BEAKER) (test 31 mL/min/1.73 sq m ESTIMATED GFR IS NOT qnyw=3275) ACCURATE CREATININE CLEARANCE IN PREDICTING GLOMERULAR FILTRATION RATE. ESTIMATED GFR IS NOT APPLICABLE FOR DIALYSIS PATIENTS. Specimen moderately ictericPOCT-GLUCOSE [id number] 02:31:00 Test Item Value Reference Range Comments POC-GLUCOSE METER (BEAKER) 161 mg/dL 70-110 TESTED AT [address] (test yica=8024) [facility] [address] CALCIUM, [id number] 02:23:00 Test Item Value Reference Range Comments CALCIUM IONIZED (BEAKER) (test wnub=659) 1.16 mmol/L 1.12-1.27 PH, BLOOD (BEAKER) (test lnvu=3085) 7.32 POCT-GLUCOSE [id number] 17:59:00 Test Item Value Reference Range Comments POC-GLUCOSE METER (BEAKER) 124 mg/dL 70-110 TESTED AT [address] (test pdsi=9684) [facility] [address] HEMOGLOBIN AND [id number] 17:35:00 Test Item Value Reference Range Comments HEMOGLOBIN (BEAKER) (test xvml=473) 6.9 GM/DL 13.7-17.5 HEMATOCRIT (BEAKER) (test lxai=507) 21.2 % 40.1-51.0 BLOOD [id number] 17:00:00 Test Item Value Reference Range Comments CULTURE (BEAKER) (test ddog=8400) No growth in 5 days BLOOD [id number] 17:00:00 Test Item Value Reference Range Comments CULTURE (BEAKER) (test jysp=2566) No growth in 5 days [id number] 13:03:00 Test Item Value Reference Range Comments CORTISOL, TOTAL (BEAKER) (test wkns=1454) 14.2 ug/dL 3.7-19.4 BASIC METABOLIC [id number] 11:47:00 Test Item Value Reference Range Comments SODIUM (BEAKER) (test 139 meq/L 136-145 obwb=264) POTASSIUM (BEAKER) (test 4.2 meq/L 3.5-5.1 ffol=173) CHLORIDE (BEAKER) (test 107 meq/L 98-107 nxly=890) CO2 (BEAKER) (test 29 meq/L 22-29 glbs=397) BLOOD UREA NITROGEN 44 mg/dL 7-21 (BEAKER) (test apmb=245) CREATININE (BEAKER) (test 1.91 mg/dL 0.57-1.25 mblr=062) GLUCOSE RANDOM (BEAKER) 121 mg/dL 70-105 (test qjel=814) CALCIUM (BEAKER) (test 8.3 mg/dL 8.4-10.2 mlyf=239) EGFR (BEAKER) (test 35 mL/min/1.73 sq m ESTIMATED GFR IS NOT urfu=1078) ACCURATE CREATININE CLEARANCE IN PREDICTING GLOMERULAR FILTRATION RATE. ESTIMATED GFR IS NOT APPLICABLE FOR DIALYSIS PATIENTS. Specimen moderately ictericPOCT-GLUCOSE [id number] 11:37:00 Test Item Value Reference Range Comments POC-GLUCOSE METER (BEAKER) 134 mg/dL 70-110 TESTED AT [facility] [address] [facility] (test cshu=8860) [facility] [address] HEMOGLOBIN AND [id number] 11:33:00 Test Item Value Reference Range Comments HEMOGLOBIN (BEAKER) (test fxiw=783) 7.0 GM/DL 13.7-17.5 HEMATOCRIT (BEAKER) (test edul=789) 22.0 % 40.1-51.0 CBC W/PLT COUNT & AUTO [id number] 07:55:00 Test Item Value Reference Range Comments WHITE BLOOD CELL COUNT (BEAKER) (test cgng=535) 15.8 K/ L 3.5-10.5 RED BLOOD CELL COUNT (BEAKER) (test izeu=853) 1.99 M/ L 4.63-6.08 HEMOGLOBIN (BEAKER) (test ijuc=644) 6.3 GM/DL 13.7-17.5 HEMATOCRIT (BEAKER) (test ajms=077) 19.3 % 40.1-51.0 MEAN CORPUSCULAR VOLUME (BEAKER) (test eepl=252) 97.0 fL 79.0-92.2 MEAN CORPUSCULAR HEMOGLOBIN (BEAKER) (test 31.7 pg 25.7-32.2 nekx=953) MEAN CORPUSCULAR HEMOGLOBIN CONC (BEAKER) (test 32.6 GM/DL 32.3-36.5 llwc=142) RED CELL DISTRIBUTION WIDTH (BEAKER) (test 22.4 % 11.6-14.4 mvna=323) PLATELET COUNT (BEAKER) (test mams=341) 36 K/CU MM 150-450 MEAN PLATELET VOLUME (BEAKER) (test qrsc=734) 11.5 fL 9.4-12.4 NUCLEATED RED BLOOD CELLS (BEAKER) (test 0 /100 WBC 0-0 rksu=922) NEUTROPHILS RELATIVE PERCENT (BEAKER) (test 81 % osvh=398) LYMPHOCYTES RELATIVE PERCENT (BEAKER) (test 3 % wixh=500) MONOCYTES RELATIVE PERCENT (BEAKER) (test 14 % orcy=523) EOSINOPHILS RELATIVE PERCENT (BEAKER) (test 1 % moec=440) BASOPHILS RELATIVE PERCENT (BEAKER) (test 0 % tpyv=225) NEUTROPHILS ABSOLUTE COUNT (BEAKER) (test 12.71 K/ L 1.78-5.38 lzxi=273) LYMPHOCYTES ABSOLUTE COUNT (BEAKER) (test 0.46 K/ L 1.32-3.57 jgij=103) MONOCYTES ABSOLUTE COUNT (BEAKER) (test bxqq=426) 2.14 K/ L 0.30-0.82 EOSINOPHILS ABSOLUTE COUNT (BEAKER) (test 0.17 K/ L 0.04-0.54 tkpa=375) BASOPHILS ABSOLUTE COUNT (BEAKER) (test djyp=854) 0.02 K/ L 0.01-0.08 IMMATURE GRANULOCYTES-RELATIVE PERCENT (BEAKER) 2 % 0-1 (test hntn=9085) PROTHROMBIN [id number] 06:25:00 Test Item Value Reference Range Comments PROTIME (BEAKER) (test loae=256) 18.5 seconds 11.7-14.7 INR (BEAKER) (test zzny=858) 1.5 <=5.9 RECOMMENDED COUMADIN/WARFARIN INR THERAPY RANGESSTANDARD DOSE: 2.0 - 3.0 Includes: PROPHYLAXIS forvenous thrombosis, systemic embolization; TREATMENT for venous thrombosis and/or pulmonary embolus.HIGH RISK: Target INR is 2.5-3.5 for patients with mechanical heart valves.[id number] 06:22:00 Test Item Value Reference Range Comments PHOSPHORUS (BEAKER) (test vjpt=137) 3.6 mg/dL 2.3-4.7 BASIC METABOLIC [id number] 06:22:00 Test Item Value Reference Range Comments SODIUM (BEAKER) (test 138 meq/L 136-145 uoac=821) POTASSIUM (BEAKER) (test 3.7 meq/L 3.5-5.1 jbmy=155) CHLORIDE (BEAKER) (test 106 meq/L 98-107 vkda=737) CO2 (BEAKER) (test 27 meq/L 22-29 ffvm=222) BLOOD UREA NITROGEN 34 mg/dL 7-21 (BEAKER) (test riwc=598) CREATININE (BEAKER) (test 1.38 mg/dL 0.57-1.25 qxrb=671) GLUCOSE RANDOM (BEAKER) 119 mg/dL 70-105 (test xkwx=186) CALCIUM (BEAKER) (test 8.0 mg/dL 8.4-10.2 wutg=456) EGFR (BEAKER) (test 52 mL/min/1.73 sq m ESTIMATED GFR IS NOT jdsq=9135) ACCURATE CREATININE CLEARANCE IN PREDICTING GLOMERULAR FILTRATION RATE. ESTIMATED GFR IS NOT APPLICABLE FOR DIALYSIS PATIENTS. Specimen moderately ictericHEPATIC FUNCTION [id number] 06:22:00 Test Item Value Reference Range Comments TOTAL PROTEIN (BEAKER) (test ojxu=883) 4.7 gm/dL 6.0-8.3 ALBUMIN (BEAKER) (test mita=6817) 2.2 g/dL 3.5-5.0 BILIRUBIN TOTAL (BEAKER) (test dkps=095) 7.7 mg/dL 0.2-1.2 BILIRUBIN DIRECT (BEAKER) (test frax=814) 4.5 mg/dL 0.1-0.5 ALKALINE PHOSPHATASE (BEAKER) (test iydy=575) 107 U/L 40-150 AST (SGOT) (BEAKER) (test gspg=024) 37 U/L 5-34 ALT (SGPT) (BEAKER) (test lkrc=350) 14 U/L 6-55 Specimen moderately ictericHEMOGLOBIN AND [id number] 06:20:00 Test Item Value Reference Range Comments HEMOGLOBIN (BEAKER) (test fjbs=636) 6.2 GM/DL 13.7-17.5 HEMATOCRIT (BEAKER) (test unca=828) 19.4 % 40.1-51.0 [id number] 01:17:00 Test Item Value Reference Range Comments PHOSPHORUS (BEAKER) (test bkxx=565) 2.6 mg/dL 2.3-4.7 [id number] 01:17:00 Test Item Value Reference Range Comments MAGNESIUM (BEAKER) (test fsoa=821) 1.9 mg/dL 1.6-2.6 BASIC METABOLIC [id number] 01:17:00 Test Item Value Reference Range Comments SODIUM (BEAKER) (test 138 meq/L 136-145 fehp=522) POTASSIUM (BEAKER) (test 4.0 meq/L 3.5-5.1 vxrz=535) CHLORIDE (BEAKER) (test 107 meq/L 98-107 yzyn=789) CO2 (BEAKER) (test 26 meq/L 22-29 yelp=658) BLOOD UREA NITROGEN 38 mg/dL 7-21 (BEAKER) (test wike=552) CREATININE (BEAKER) (test 1.66 mg/dL 0.57-1.25 dfxf=567) GLUCOSE RANDOM (BEAKER) 122 mg/dL 70-105 (test xcqs=716) CALCIUM (BEAKER) (test 8.2 mg/dL 8.4-10.2 nutu=842) EGFR (BEAKER) (test 42 mL/min/1.73 sq m ESTIMATED GFR IS NOT yjui=7144) ACCURATE CREATININE CLEARANCE IN PREDICTING GLOMERULAR FILTRATION RATE. ESTIMATED GFR IS NOT APPLICABLE FOR DIALYSIS PATIENTS. Specimen moderately ictericCALCIUM, [id number] 00:57:00 Test Item Value Reference Range Comments CALCIUM IONIZED (BEAKER) (test pvdh=116) 1.21 mmol/L 1.12-1.27 PH, BLOOD (BEAKER) (test zmjw=5430) 7.34 POCT-GLUCOSE [id number] 00:52:00 Test Item Value Reference Range Comments POC-GLUCOSE METER (BEAKER) 134 mg/dL 70-110 TESTED AT [facility] [address] [facility] (test nehy=5881) [facility] [address] BASIC METABOLIC [id number] 20:28:00 Test Item Value Reference Range Comments SODIUM (BEAKER) (test 139 meq/L 136-145 fqgg=757) POTASSIUM (BEAKER) (test 4.7 meq/L 3.5-5.1 gzzm=833) CHLORIDE (BEAKER) (test 109 meq/L 98-107 apzh=408) CO2 (BEAKER) (test 26 meq/L 22-29 kyil=261) BLOOD UREA NITROGEN 49 mg/dL 7-21 (BEAKER) (test goal=467) CREATININE (BEAKER) (test 2.17 mg/dL 0.57-1.25 hvyp=307) GLUCOSE RANDOM (BEAKER) 125 mg/dL 70-105 (test pkdj=082) CALCIUM (BEAKER) (test 8.2 mg/dL 8.4-10.2 adbg=468) EGFR (BEAKER) (test 31 mL/min/1.73 sq m ESTIMATED GFR IS NOT gjcu=6455) ACCURATE CREATININE CLEARANCE IN PREDICTING GLOMERULAR FILTRATION RATE. ESTIMATED GFR IS NOT APPLICABLE FOR DIALYSIS PATIENTS. Specimen moderately ictericPROTEIN ELECTROPHORESIS, [id number] 17:16:00 Test Item Value Reference Range Comments ALBUMIN FRACTION (BEAKER) 2.3 g/dL 3.5-5.5 (test rgny=242) ALPHA 1 FRACTION (BEAKER) 0.2 g/dL 0.2-0.4 (test ipws=968) ALPHA 2 FRACTION (BEAKER) 0.3 g/dL 0.5-0.9 (test gmvd=508) BETA FRACTION (BEAKER) (test 0.5 g/dL 0.6-1.1 viph=762) GAMMA GLOBULIN FRACTION 1.4 g/dL 0.7-1.7 (BEAKER) (test rrgh=111) INTERPRETATION-119 (BEAKER) Decreased albumin with minor (test gcad=5735) fluctuations in alpha and beta globulins. No monoclonal bands detected. [id number] Melanie Cedeno MD (BEAKER) (test vnkp=1261) (electronic signature) PROTEIN TOTAL SERUM, SPEP 4.7 gm/dL 6.0-8.3 (BEAKER) (test holu=7932) BASIC METABOLIC [id number] 16:39:00 Test Item Value Reference Range Comments SODIUM (BEAKER) (test 139 meq/L 136-145 jpue=207) POTASSIUM (BEAKER) (test 4.8 meq/L 3.5-5.1 shjz=679) CHLORIDE (BEAKER) (test 109 meq/L 98-107 rskc=087) CO2 (BEAKER) (test 25 meq/L - bxno=195) BLOOD UREA NITROGEN 45 mg/dL 7-21 (BEAKER) (test ykds=982) CREATININE (BEAKER) (test 1.87 mg/dL 0.57-1.25 sdxa=009) GLUCOSE RANDOM (BEAKER) 126 mg/dL 70-105 (test ewot=168) CALCIUM (BEAKER) (test 8.1 mg/dL 8.4-10.2 yesy=109) EGFR (BEAKER) (test 36 mL/min/1.73 sq m ESTIMATED GFR IS NOT lmyb=2801) ACCURATE CREATININE CLEARANCE IN PREDICTING GLOMERULAR FILTRATION RATE. ESTIMATED GFR IS NOT APPLICABLE FOR DIALYSIS PATIENTS. Specimen moderately ictericRAD, CHEST, 1 VIEW, NON [id number] 15:52: 00Referring: Dr. Liz Felipe Reason for exam:->s/p central line placement Should this be performed at the bedside?->YesFINAL REPORT Chest One view: Reason for exam: Line placement Comparison Study: Chest x-ray, yesterday Discussion: A new right internal jugular central venous catheter is noted with tip in the mid SVC. A left internal jugular central venous catheter is noted tip in the mid SVC. The ET tube has been removed. A feeding tube is present. There is gaseous distention of the stomach and proximal duodenum. The cardiac silhouette is enlarged. A small left pleural effusion is present. Pulmonary edema and left lung consolidation are again seen. A TIPS is present. Impression: Support lines, described above. Signed: Anil Hratmann MDReport Verified Date/Time: 09/11/2017 15:52:19 Reading Location : [address] Radiology Reading Room Electronically signed by: ANIL HARTMANN M.D. 09/11/2017 03:52 PMCBC W/PLT COUNT & AUTO [id number] 10:23:00 Test Item Value Reference Range Comments WHITE BLOOD CELL COUNT (BEAKER) (test crws=256) 14.4 K/ L 3.5-10.5 RED BLOOD CELL COUNT (BEAKER) (test rsuy=507) 2.09 M/ L 4.63-6.08 HEMOGLOBIN (BEAKER) (test hxbl=461) 6.5 GM/DL 13.7-17.5 HEMATOCRIT (BEAKER) (test ahej=022) 20.6 % 40.1-51.0 MEAN CORPUSCULAR VOLUME (BEAKER) (test upmn=117) 98.6 fL 79.0-92.2 MEAN CORPUSCULAR HEMOGLOBIN (BEAKER) (test 31.1 pg 25.7-32.2 zkyx=881) MEAN CORPUSCULAR HEMOGLOBIN CONC (BEAKER) (test 31.6 GM/DL 32.3-36.5 gian=950) RED CELL DISTRIBUTION WIDTH (BEAKER) (test 22.2 % 11.6-14.4 vqfc=957) PLATELET COUNT (BEAKER) (test lwmp=085) 18 K/CU MM 150-450 MEAN PLATELET VOLUME (BEAKER) (test jdxs=946) 13.5 fL 9.4-12.4 NUCLEATED RED BLOOD CELLS (BEAKER) (test 0 /100 WBC 0-0 qqho=247) NEUTROPHILS RELATIVE PERCENT (BEAKER) (test 76 % djha=287) LYMPHOCYTES RELATIVE PERCENT (BEAKER) (test 5 % lwhk=996) MONOCYTES RELATIVE PERCENT (BEAKER) (test 16 % wsbk=417) EOSINOPHILS RELATIVE PERCENT (BEAKER) (test 2 % yuvs=607) BASOPHILS RELATIVE PERCENT (BEAKER) (test 0 % dtrb=095) NEUTROPHILS ABSOLUTE COUNT (BEAKER) (test 10.91 K/ L 1.78-5.38 qauo=273) LYMPHOCYTES ABSOLUTE COUNT (BEAKER) (test 0.73 K/ L 1.32-3.57 mely=463) MONOCYTES ABSOLUTE COUNT (BEAKER) (test hkqc=616) 2.35 K/ L 0.30-0.82 EOSINOPHILS ABSOLUTE COUNT (BEAKER) (test 0.24 K/ L 0.04-0.54 qjkw=279) BASOPHILS ABSOLUTE COUNT (BEAKER) (test jxsr=128) 0.02 K/ L 0.01-0.08 IMMATURE GRANULOCYTES-RELATIVE PERCENT (BEAKER) 1 % 0-1 (test ibtt=2939) CALCIUM, [id number] 07:25:00 Test Item Value Reference Range Comments CALCIUM IONIZED (BEAKER) (test bnle=316) 1.14 mmol/L 1.12-1.27 PH, BLOOD (BEAKER) (test euvp=5938) 7.37 HEPATIC FUNCTION [id number] 06:37:00 Test Item Value Reference Range Comments TOTAL PROTEIN (BEAKER) (test spmh=533) 4.1 gm/dL 6.0-8.3 ALBUMIN (BEAKER) (test lmwr=9617) 1.8 g/dL 3.5-5.0 BILIRUBIN TOTAL (BEAKER) (test difo=209) 6.0 mg/dL 0.2-1.2 BILIRUBIN DIRECT (BEAKER) (test bqew=403) 3.5 mg/dL 0.1-0.5 ALKALINE PHOSPHATASE (BEAKER) (test xwiq=018) 90 U/L 40-150 AST (SGOT) (BEAKER) (test ecbw=597) 32 U/L 5-34 ALT (SGPT) (BEAKER) (test ehvv=664) 10 U/L 6-55 Specimen moderately ictericBASIC METABOLIC [id number] 06:37:00 Test Item Value Reference Range Comments SODIUM (BEAKER) (test 137 meq/L 136-145 zkpk=376) POTASSIUM (BEAKER) (test 4.7 meq/L 3.5-5.1 yczb=559) CHLORIDE (BEAKER) (test 110 meq/L 98-107 etpe=951) CO2 (BEAKER) (test 26 meq/L 22-29 uomz=475) BLOOD UREA NITROGEN 27 mg/dL 7-21 (BEAKER) (test gozs=064) CREATININE (BEAKER) (test 1.16 mg/dL 0.57-1.25 gauf=643) GLUCOSE RANDOM (BEAKER) 114 mg/dL 70-105 (test bnbb=687) CALCIUM (BEAKER) (test 7.9 mg/dL 8.4-10.2 hllb=872) EGFR (BEAKER) (test 63 mL/min/1.73 sq m ESTIMATED GFR IS NOT btwy=7191) ACCURATE CREATININE CLEARANCE IN PREDICTING GLOMERULAR FILTRATION RATE. ESTIMATED GFR IS NOT APPLICABLE FOR DIALYSIS PATIENTS. Specimen moderately ictericPROTHROMBIN [id number] 06:15:00 Test Item Value Reference Range Comments PROTIME (BEAKER) (test phtc=882) 24.7 seconds 11.7-14.7 INR (BEAKER) (test iylg=842) 2.2 <=5.9 RECOMMENDED COUMADIN/WARFARIN INR THERAPY RANGESSTANDARD DOSE: 2.0 - 3.0 Includes: PROPHYLAXIS forvenous thrombosis, systemic embolization; TREATMENT for venous thrombosis and/or pulmonary embolus.HIGH RISK: Target INR is 2.5-3.5 for patients with mechanical heart valves.POCT-GLUCOSE [id number] 06:03:00 Test Item Value Reference Range Comments POC-GLUCOSE METER (BEAKER) 121 mg/dL 70-110 TESTED AT [facility] [address] [facility] (test snvl=3905) [facility] [address] POCT-GLUCOSE [id number] 00:16:00 Test Item Value Reference Range Comments POC-GLUCOSE METER (BEAKER) 105 mg/dL 70-110 TESTED AT [address] (test yjdh=6206) [facility] [address] BASIC METABOLIC [id number] 22:49:00 Test Item Value Reference Range Comments SODIUM (BEAKER) (test 137 meq/L 136-145 kpyw=120) POTASSIUM (BEAKER) (test 4.6 meq/L 3.5-5.1 zzuz=768) CHLORIDE (BEAKER) (test 107 meq/L 98-107 qiio=304) CO2 (BEAKER) (test 27 meq/L 22-29 ibwh=156) BLOOD UREA NITROGEN 17 mg/dL 7-21 (BEAKER) (test hilg=715) CREATININE (BEAKER) (test 1.00 mg/dL 0.57-1.25 caum=286) GLUCOSE RANDOM (BEAKER) 115 mg/dL 70-105 (test mbwy=843) CALCIUM (BEAKER) (test 7.7 mg/dL 8.4-10.2 adup=641) EGFR (BEAKER) (test 75 mL/min/1.73 sq m ESTIMATED GFR IS NOT mjfz=9877) ACCURATE CREATININE CLEARANCE IN PREDICTING GLOMERULAR FILTRATION RATE. ESTIMATED GFR IS NOT APPLICABLE FOR DIALYSIS PATIENTS. Specimen moderately [id number] 22:47:00 Test Item Value Reference Range Comments PHOSPHORUS (BEAKER) (test wzrm=698) 3.0 mg/dL 2.3-4.7 [id number] 22:47:00 Test Item Value Reference Range Comments MAGNESIUM (BEAKER) (test lxop=611) 1.8 mg/dL 1.6-2.6 CALCIUM, [id number] 22:40:00 Test Item Value Reference Range Comments CALCIUM IONIZED (BEAKER) (test nvzb=039) 1.06 mmol/L 1.12-1.27 PH, BLOOD (BEAKER) (test oigi=1150) 7.38 PH, [id number] 22:40:00 Test Item Value Reference Range Comments PH ARTERIAL (BEAKER) (test tswy=071) 7.33 7.35-7.45 POCT-GLUCOSE [id number] 18:16:00 Test Item Value Reference Range Comments POC-GLUCOSE METER (BEAKER) 109 mg/dL 70-110 TESTED AT [facility] [address] [facility] (test yiwe=3930) [facility] [address] HEMOGLOBIN AND [id number] 17:48:00 Test Item Value Reference Range Comments HEMOGLOBIN (BEAKER) (test ydul=944) 8.0 GM/DL 13.7-17.5 HEMATOCRIT (BEAKER) (test xayq=508) 25.1 % 40.1-51.0 [id number] 14:53:00 Test Item Value Reference Range Comments PHOSPHORUS (BEAKER) (test obaw=192) 2.4 mg/dL 2.3-4.7 [id number] 14:53:00 Test Item Value Reference Range Comments MAGNESIUM (BEAKER) (test xgnz=890) 1.8 mg/dL 1.6-2.6 BASIC METABOLIC [id number] 14:53:00 Test Item Value Reference Range Comments SODIUM (BEAKER) (test 138 meq/L 136-145 zmxr=203) POTASSIUM (BEAKER) (test 4.4 meq/L 3.5-5.1 botg=770) CHLORIDE (BEAKER) (test 108 meq/L 98-107 lvrz=899) CO2 (BEAKER) (test 26 meq/L 22-29 oomy=875) BLOOD UREA NITROGEN 19 mg/dL 7-21 (BEAKER) (test rvto=117) CREATININE (BEAKER) (test 1.31 mg/dL 0.57-1.25 tfrz=447) GLUCOSE RANDOM (BEAKER) 110 mg/dL 70-105 (test nxbk=264) CALCIUM (BEAKER) (test 7.8 mg/dL 8.4-10.2 dlqq=367) EGFR (BEAKER) (test 55 mL/min/1.73 sq m ESTIMATED GFR IS NOT nhkj=4278) ACCURATE CREATININE CLEARANCE IN PREDICTING GLOMERULAR FILTRATION RATE. ESTIMATED GFR IS NOT APPLICABLE FOR DIALYSIS PATIENTS. Specimen moderately ictericRAD, CHEST, 1 VIEW, NON [id number] 13:39: 00Referring: Dr. Liz Grove for exam:->r/o PNAShould this be performed at the bedside?->YesFINAL REPORT Chest one view compared to September 07, 2017 Discussion: Supporttubes and lines are again noted unchanged. There is interstitial congestion on the right and airspace disease in the left mid to low lung unchanged. There is probable left-sided effusion. No pneumothorax. IMPRESSIONS: No change Signed: Yang Reeceeport Verified Date/Time: 09/10/2017 13:39:38 Reading Location: [address] Consult Reading Room 01 :39 PMCALCIUM, [id number] 13:15:00 Test Item Value Reference Range Comments CALCIUM IONIZED (BEAKER) (test doqx=612) 1.16 mmol/L 1.12-1.27 PH, BLOOD (BEAKER) (test qlfe=3578) 7.39 POCT-GLUCOSE [id number] 12:26:00 Test Item Value Reference Range Comments POC-GLUCOSE METER (BEAKER) 116 mg/dL 70-110 TESTED AT [facility] [address] [place] [address] (test ofjs=1696) [facility] [address] [id number] 08:37:00 Test Item Value Reference Range Comments PHOSPHORUS (BEAKER) (test ntob=330) 2.6 mg/dL 2.3-4.7 [id number] 08:37:00 Test Item Value Reference Range Comments MAGNESIUM (BEAKER) (test psyn=450) 1.8 mg/dL 1.6-2.6 VANCOMYCIN LEVEL, [id number] 08:29:00 Test Item Value Reference Range Comments VANCOMYCIN RANDOM (BEAKER) (test zueq=787) 11.6 ug/mL Reference Range: No NormalsPH, [id number] 08:14:00 Test Item Value Reference Range Comments PH ARTERIAL (BEAKER) (test veqh=882) 7.45 7.35-7.45 HEMOGLOBIN AND [id number] 08:11:00 Test Item Value Reference Range Comments HEMOGLOBIN (BEAKER) (test dwcx=565) 7.3 GM/DL 13.7-17.5 HEMATOCRIT (BEAKER) (test ccpd=135) 22.9 % 40.1-51.0 POCT-GLUCOSE [id number] 08:10:00 Test Item Value Reference Range Comments POC-GLUCOSE METER (BEAKER) 113 mg/dL 70-110 TESTED AT [facility] [address] [facility] (test ezbf=5146) [facility] [address] CALCIUM, [id number] 05:17:00 Test Item Value Reference Range Comments CALCIUM IONIZED (BEAKER) (test mqxa=895) 1.11 mmol/L 1.12-1.27 PH, BLOOD (BEAKER) (test cumo=0393) 7.43 BASIC METABOLIC [id number] 05:16:00 Test Item Value Reference Range Comments SODIUM (BEAKER) (test 138 meq/L 136-145 jwkl=413) POTASSIUM (BEAKER) (test 4.4 meq/L 3.5-5.1 lgng=571) CHLORIDE (BEAKER) (test 108 meq/L 98-107 otlr=417) CO2 (BEAKER) (test 26 meq/L 22-29 ygzx=795) BLOOD UREA NITROGEN 16 mg/dL 7-21 (BEAKER) (test efdg=771) CREATININE (BEAKER) (test 1.16 mg/dL 0.57-1.25 faup=373) GLUCOSE RANDOM (BEAKER) 116 mg/dL 70-105 (test hezm=734) CALCIUM (BEAKER) (test 7.9 mg/dL 8.4-10.2 jrqs=278) EGFR (BEAKER) (test 63 mL/min/1.73 sq m ESTIMATED GFR IS NOT avcw=1044) ACCURATE CREATININE CLEARANCE IN PREDICTING GLOMERULAR FILTRATION RATE. ESTIMATED GFR IS NOT APPLICABLE FOR DIALYSIS PATIENTS. Specimen moderately ictericHEPATIC FUNCTION [id number] 05:13:00 Test Item Value Reference Range Comments TOTAL PROTEIN (BEAKER) (test ekbo=756) 4.7 gm/dL 6.0-8.3 ALBUMIN (BEAKER) (test eehr=8516) 2.2 g/dL 3.5-5.0 BILIRUBIN TOTAL (BEAKER) (test ozer=904) 6.2 mg/dL 0.2-1.2 BILIRUBIN DIRECT (BEAKER) (test bczc=055) 3.1 mg/dL 0.1-0.5 ALKALINE PHOSPHATASE (BEAKER) (test ajmm=952) 85 U/L 40-150 AST (SGOT) (BEAKER) (test lroy=378) 31 U/L 5-34 ALT (SGPT) (BEAKER) (test gfwp=070) 9 U/L 6-55 Specimen moderately ictericPROTHROMBIN [id number] 05:06:00 Test Item Value Reference Range Comments PROTIME (BEAKER) (test nqwe=348) 21.7 seconds 11.7-14.7 INR (BEAKER) (test grxf=302) 1.9 <=5.9 RECOMMENDED COUMADIN/WARFARIN INR THERAPY RANGESSTANDARD DOSE: 2.0 - 3.0 Includes: PROPHYLAXIS forvenous thrombosis, systemic embolization; TREATMENT for venous thrombosis and/or pulmonary embolus.HIGH RISK: Target INR is 2.5-3.5 for patients with mechanical heart valves.CBC W/PLT COUNT & AUTO [id number] 04:58:00 Test Item Value Reference Range Comments WHITE BLOOD CELL COUNT (BEAKER) (test rtdi=534) 19.7 K/ L 3.5-10.5 RED BLOOD CELL COUNT (BEAKER) (test xayk=017) 2.25 M/ L 4.63-6.08 HEMOGLOBIN (BEAKER) (test plht=931) 7.1 GM/DL 13.7-17.5 HEMATOCRIT (BEAKER) (test prmp=706) 22.2 % 40.1-51.0 MEAN CORPUSCULAR VOLUME (BEAKER) (test szho=096) 98.7 fL 79.0-92.2 MEAN CORPUSCULAR HEMOGLOBIN (BEAKER) (test 31.6 pg 25.7-32.2 bkmj=104) MEAN CORPUSCULAR HEMOGLOBIN CONC (BEAKER) (test 32.0 GM/DL 32.3-36.5 izzq=686) RED CELL DISTRIBUTION WIDTH (BEAKER) (test 21.9 % 11.6-14.4 jdxq=424) PLATELET COUNT (BEAKER) (test wjaz=317) 25 K/CU MM 150-450 MEAN PLATELET VOLUME (BEAKER) (test lptt=509) 11.2 fL 9.4-12.4 NUCLEATED RED BLOOD CELLS (BEAKER) (test 0 /100 WBC 0-0 zrom=860) NEUTROPHILS RELATIVE PERCENT (BEAKER) (test 87 % ufjz=092) LYMPHOCYTES RELATIVE PERCENT (BEAKER) (test 3 % nrnk=424) MONOCYTES RELATIVE PERCENT (BEAKER) (test 8 % adxn=389) EOSINOPHILS RELATIVE PERCENT (BEAKER) (test 1 % vpnj=876) BASOPHILS RELATIVE PERCENT (BEAKER) (test 0 % gdpo=816) NEUTROPHILS ABSOLUTE COUNT (BEAKER) (test 17.04 K/ L 1.78-5.38 qbmb=911) LYMPHOCYTES ABSOLUTE COUNT (BEAKER) (test 0.59 K/ L 1.32-3.57 gdgw=046) MONOCYTES ABSOLUTE COUNT (BEAKER) (test dbji=118) 1.62 K/ L 0.30-0.82 EOSINOPHILS ABSOLUTE COUNT (BEAKER) (test 0.13 K/ L 0.04-0.54 spcg=324) BASOPHILS ABSOLUTE COUNT (BEAKER) (test wusl=046) 0.02 K/ L 0.01-0.08 IMMATURE GRANULOCYTES-RELATIVE PERCENT (BEAKER) 1 % 0-1 (test sloy=7099) POCT-GLUCOSE [id number] 00:23:00 Test Item Value Reference Range Comments POC-GLUCOSE METER (BEAKER) 103 mg/dL 70-110 TESTED AT [facility] [address] [facility] (test ndgt=4556) [facility] [address] BLOOD GAS, [id number] 00:20:00 Test Item Value Reference Range Comments PH ARTERIAL (BEAKER) (test xgvm=265) 7.44 7.35-7.45 PCO2 ARTERIAL (BEAKER) (test xjxm=726) 41 mmHg 35-45 PO2 ARTERIAL (BEAKER) (test fwhc=794) 183 mmHg 80-90 O2 SATURATION ARTERIAL (BEAKER) (test xvxk=381) 99.3 % 96.0-97.0 HCO3 ARTERIAL (BEAKER) (test neqj=887) 27 mmol/L 21-29 BASE EXCESS ARTERIAL (BEAKER) (test ycve=027) 3.0 mmol/L -2.0-3.0 PATIENT TEMPERATURE (BEAKER) (test xnct=2232) 37.0 C FIO2 (BEAKER) (test xyfj=5916) 40.0 % [id number] 21:22:00 Test Item Value Reference Range Comments POTASSIUM (BEAKER) (test fmmz=523) 4.4 meq/L 3.5-5.1 Add to specimen collected 17 mins [id number] 21:22:00 Test Item Value Reference Range Comments MAGNESIUM (BEAKER) (test ujhp=402) 1.8 mg/dL 1.6-2.6 Add to specimen collected 17 mins [id number] 21:22:00 Test Item Value Reference Range Comments PHOSPHORUS (BEAKER) (test hxdj=072) 2.4 mg/dL 2.3-4.7 Add to specimen collected 17 mins agoPH, [id number] 20:53:00 Test Item Value Reference Range Comments PH ARTERIAL (BEAKER) (test jppn=320) 7.50 7.35-7.45 CALCIUM, [id number] 20:53:00 Test Item Value Reference Range Comments CALCIUM IONIZED (BEAKER) (test yvwc=999) 1.11 mmol/L 1.12-1.27 PH, BLOOD (BEAKER) (test sprv=2892) 7.50 POCT-GLUCOSE [id number] 18:52:00 Test Item Value Reference Range Comments POC-GLUCOSE METER (BEAKER) 96 mg/dL 70-110 TESTED AT [address] (test gxso=5150) [facility] [address] HEMOGLOBIN AND [id number] 18:36:00 Test Item Value Reference Range Comments HEMOGLOBIN (BEAKER) (test pjyk=842) 7.5 GM/DL 13.7-17.5 HEMATOCRIT (BEAKER) (test zhrj=536) 24.0 % 40.1-51.0 BASIC METABOLIC [id number] 12:45:00 Test Item Value Reference Range Comments SODIUM (BEAKER) (test 135 meq/L 136-145 eosx=222) POTASSIUM (BEAKER) (test 4.4 meq/L 3.5-5.1 sqbu=289) CHLORIDE (BEAKER) (test 105 meq/L 98-107 vkub=088) CO2 (BEAKER) (test 26 meq/L 22-29 vpcy=114) BLOOD UREA NITROGEN 17 mg/dL 7-21 (BEAKER) (test ygph=542) CREATININE (BEAKER) (test 1.49 mg/dL 0.57-1.25 elqv=897) GLUCOSE RANDOM (BEAKER) 85 mg/dL 70-105 (test ltzo=939) CALCIUM (BEAKER) (test 8.0 mg/dL 8.4-10.2 ynhl=105) EGFR (BEAKER) (test 47 mL/min/1.73 sq m ESTIMATED GFR IS NOT fmrj=1210) ACCURATE CREATININE CLEARANCE IN PREDICTING GLOMERULAR FILTRATION RATE. ESTIMATED GFR IS NOT APPLICABLE FOR DIALYSIS PATIENTS. Specimen moderately ictericPOCT-GLUCOSE [id number] 12:31:00 Test Item Value Reference Range Comments POC-GLUCOSE METER (BEAKER) 88 mg/dL 70-110 TESTED AT [facility] [address] [facility] (test pcmr=1695) [facility] [address] CALCIUM, [id number] 12:11:00 Test Item Value Reference Range Comments CALCIUM IONIZED (BEAKER) (test qqxx=419) 1.13 mmol/L 1.12-1.27 PH, BLOOD (BEAKER) (test bdkt=1957) 7.44 CBC W/PLT COUNT & AUTO [id number] 11:03:00 Test Item Value Reference Range Comments WHITE BLOOD CELL COUNT (BEAKER) (test pgdl=973) 24.0 K/ L 3.5-10.5 RED BLOOD CELL COUNT (BEAKER) (test jibc=620) 2.76 M/ L 4.63-6.08 HEMOGLOBIN (BEAKER) (test mvyb=215) 8.5 GM/DL 13.7-17.5 HEMATOCRIT (BEAKER) (test rkqt=207) 26.8 % 40.1-51.0 MEAN CORPUSCULAR VOLUME (BEAKER) (test lsxa=354) 97.1 fL 79.0-92.2 MEAN CORPUSCULAR HEMOGLOBIN (BEAKER) (test 30.8 pg 25.7-32.2 hdes=616) MEAN CORPUSCULAR HEMOGLOBIN CONC (BEAKER) (test 31.7 GM/DL 32.3-36.5 caty=899) RED CELL DISTRIBUTION WIDTH (BEAKER) (test 20.6 % 11.6-14.4 buzc=791) PLATELET COUNT (BEAKER) (test pnyr=524) 17 K/CU MM 150-450 MEAN PLATELET VOLUME (BEAKER) (test vttw=417) 11.3 fL 9.4-12.4 NUCLEATED RED BLOOD CELLS (BEAKER) (test 0 /100 WBC 0-0 tpbw=375) NEUTROPHILS RELATIVE PERCENT (BEAKER) (test 88 % nqyg=821) LYMPHOCYTES RELATIVE PERCENT (BEAKER) (test 2 % xlyz=047) MONOCYTES RELATIVE PERCENT (BEAKER) (test 6 % oxtb=656) EOSINOPHILS RELATIVE PERCENT (BEAKER) (test 0 % fdey=375) BASOPHILS RELATIVE PERCENT (BEAKER) (test 0 % jyqr=441) NEUTROPHILS ABSOLUTE COUNT (BEAKER) (test 21.22 K/ L 1.78-5.38 ycfn=678) LYMPHOCYTES ABSOLUTE COUNT (BEAKER) (test 0.50 K/ L 1.32-3.57 bamd=326) MONOCYTES ABSOLUTE COUNT (BEAKER) (test lfbs=623) 1.35 K/ L 0.30-0.82 EOSINOPHILS ABSOLUTE COUNT (BEAKER) (test 0.09 K/ L 0.04-0.54 dshs=240) BASOPHILS ABSOLUTE COUNT (BEAKER) (test fmqj=325) 0.05 K/ L 0.01-0.08 IMMATURE GRANULOCYTES-RELATIVE PERCENT (BEAKER) 3 % 0-1 (test lhrn=1391) (MANUAL DIFFERENTIAL)2017-09-09 11:03:00 Test Item Value Reference Range Comments TOTAL COUNTED (BEAKER) (test scjo=5822) WBC MORPHOLOGY (BEAKER) (test deml=486) Normal PLT MORPHOLOGY (BEAKER) (test xnih=615) Normal ANISOCYTOSIS (BEAKER) (test neqz=906) 1+ few POLYCHROMATOPHILLIC RBCS(BEAKER) (test cvte=704) 1+ few [id number] 08:54:00 Test Item Value Reference Range Comments PHOSPHORUS (BEAKER) (test pngi=829) 2.1 mg/dL 2.3-4.7 [id number] 08:54:00 Test Item Value Reference Range Comments MAGNESIUM (BEAKER) (test uptb=601) 1.7 mg/dL 1.6-2.6 PH, [id number] 08:25:00 Test Item Value Reference Range Comments PH ARTERIAL (BEAKER) (test ocai=915) 7.41 7.35-7.45 POCT-GLUCOSE [id number] 06:03:00 Test Item Value Reference Range Comments POC-GLUCOSE METER (BEAKER) 96 mg/dL 70-110 TESTED AT [facility] [address] (test nqxr=5198) [place] [address] CALCIUM, [id number] 04:01:00 Test Item Value Reference Range Comments CALCIUM IONIZED (BEAKER) (test lfxq=376) 1.15 mmol/L 1.12-1.27 PH, BLOOD (BEAKER) (test otig=0631) 7.44 BASIC METABOLIC [id number] 03:45:00 Test Item Value Reference Range Comments SODIUM (BEAKER) (test 139 meq/L 136-145 kvgm=900) POTASSIUM (BEAKER) (test 4.0 meq/L 3.5-5.1 xujj=209) CHLORIDE (BEAKER) (test 107 meq/L 98-107 nryo=617) CO2 (BEAKER) (test 25 meq/L 22-29 nfwv=235) BLOOD UREA NITROGEN 21 mg/dL 7-21 (BEAKER) (test hvnf=663) CREATININE (BEAKER) (test 2.01 mg/dL 0.57-1.25 wrsy=220) GLUCOSE RANDOM (BEAKER) 121 mg/dL 70-105 (test kbwm=924) CALCIUM (BEAKER) (test 8.1 mg/dL 8.4-10.2 sipa=847) EGFR (BEAKER) (test 33 mL/min/1.73 sq m ESTIMATED GFR IS NOT rvjz=7393) ACCURATE CREATININE CLEARANCE IN PREDICTING GLOMERULAR FILTRATION RATE. ESTIMATED GFR IS NOT APPLICABLE FOR DIALYSIS PATIENTS. Specimen moderately ictericHEPATIC FUNCTION [id number] 03:45:00 Test Item Value Reference Range Comments TOTAL PROTEIN (BEAKER) (test kkkk=183) 5.2 gm/dL 6.0-8.3 ALBUMIN (BEAKER) (test fqsa=6891) 2.4 g/dL 3.5-5.0 BILIRUBIN TOTAL (BEAKER) (test kabi=989) 5.6 mg/dL 0.2-1.2 BILIRUBIN DIRECT (BEAKER) (test dwqt=908) 2.3 mg/dL 0.1-0.5 ALKALINE PHOSPHATASE (BEAKER) (test vtdk=624) 101 U/L 40-150 AST (SGOT) (BEAKER) (test ddmz=425) 27 U/L 5-34 ALT (SGPT) (BEAKER) (test vjol=929) 9 U/L 6-55 Specimen moderately ictericVANCOMYCIN LEVEL, [id number] 03:42:00 Test Item Value Reference Range Comments VANCOMYCIN RANDOM (BEAKER) (test ssoz=418) 10.8 ug/mL Reference Range: No NormalsPROTHROMBIN [id number] 03:32:00 Test Item Value Reference Range Comments PROTIME (BEAKER) (test seax=938) 21.9 seconds 11.7-14.7 INR (BEAKER) (test podw=311) 1.9 <=5.9 RECOMMENDED COUMADIN/WARFARIN INR THERAPY RANGESSTANDARD DOSE: 2.0 - 3.0 Includes: PROPHYLAXIS forvenous thrombosis, systemic embolization; TREATMENT for venous thrombosis and/or pulmonary embolus.HIGH RISK: Target INR is 2.5-3.5 for patients with mechanical heart valves.POCT-GLUCOSE [id number] 23:28:00 Test Item Value Reference Range Comments POC-GLUCOSE METER (BEAKER) 100 mg/dL 70-110 TESTED AT [facility] [address] [facility] (test hmpy=2253) [facility] [address] BASIC METABOLIC [id number] 20:27:00 Test Item Value Reference Range Comments SODIUM (BEAKER) (test 140 meq/L 136-145 iasz=433) POTASSIUM (BEAKER) (test 3.5 meq/L 3.5-5.1 cdwv=130) CHLORIDE (BEAKER) (test 110 meq/L 98-107 tndl=207) CO2 (BEAKER) (test 25 meq/L 22-29 homu=726) BLOOD UREA NITROGEN 27 mg/dL 7-21 (BEAKER) (test hibp=050) CREATININE (BEAKER) (test 2.82 mg/dL 0.57-1.25 pkxp=704) GLUCOSE RANDOM (BEAKER) 128 mg/dL 70-105 (test phrl=740) CALCIUM (BEAKER) (test 8.1 mg/dL 8.4-10.2 bmpe=680) EGFR (BEAKER) (test 23 mL/min/1.73 sq m ESTIMATED GFR IS NOT fazy=8446) ACCURATE CREATININE CLEARANCE IN PREDICTING GLOMERULAR FILTRATION RATE. ESTIMATED GFR IS NOT APPLICABLE FOR DIALYSIS PATIENTS. Specimen moderately [id number] 20:26:00 Test Item Value Reference Range Comments PHOSPHORUS (BEAKER) (test mdii=591) 2.0 mg/dL 2.3-4.7 [id number] 20:26:00 Test Item Value Reference Range Comments MAGNESIUM (BEAKER) (test dqot=778) 1.6 mg/dL 1.6-2.6 CALCIUM, [id number] 20:09:00 Test Item Value Reference Range Comments CALCIUM IONIZED (BEAKER) (test wsnz=936) 1.17 mmol/L 1.12-1.27 PH, BLOOD (BEAKER) (test mqeu=4020) 7.43 HEMOGLOBIN AND [id number] 18:07:00 Test Item Value Reference Range Comments HEMOGLOBIN (BEAKER) (test ypgc=040) 8.1 GM/DL 13.7-17.5 HEMATOCRIT (BEAKER) (test wuwx=706) 25.2 % 40.1-51.0 POCT-GLUCOSE [id number] 18:03:00 Test Item Value Reference Range Comments POC-GLUCOSE METER (BEAKER) 155 mg/dL 70-110 TESTED AT [address] (test ngcq=6999) [facility] [address] POCT-GLUCOSE [id number] 12:09:00 Test Item Value Reference Range Comments POC-GLUCOSE METER (BEAKER) 130 mg/dL 70-110 TESTED AT [address] (test hahc=2589) [facility] [address] [id number] 11:41:00 Test Item Value Reference Range Comments FIBRINOGEN LEVEL (BEAKER) (test adqd=211) 170 mg/dl 225-434 CBC W/PLT COUNT & AUTO [id number] 08:53:00 Test Item Value Reference Range Comments WHITE BLOOD CELL COUNT (BEAKER) (test dpkd=117) 10.8 K/ L 3.5-10.5 RED BLOOD CELL COUNT (BEAKER) (test hefg=732) 2.27 M/ L 4.63-6.08 HEMOGLOBIN (BEAKER) (test qpfl=520) 6.9 GM/DL 13.7-17.5 HEMATOCRIT (BEAKER) (test cwsx=851) 22.5 % 40.1-51.0 MEAN CORPUSCULAR VOLUME (BEAKER) (test hwai=245) 99.1 fL 79.0-92.2 MEAN CORPUSCULAR HEMOGLOBIN (BEAKER) (test 30.4 pg 25.7-32.2 hcgr=334) MEAN CORPUSCULAR HEMOGLOBIN CONC (BEAKER) (test 30.7 GM/DL 32.3-36.5 rzqb=326) RED CELL DISTRIBUTION WIDTH (BEAKER) (test 20.1 % 11.6-14.4 clyk=969) PLATELET COUNT (BEAKER) (test pftf=357) 37 K/CU MM 150-450 MEAN PLATELET VOLUME (BEAKER) (test fnnk=710) 11.8 fL 9.4-12.4 NUCLEATED RED BLOOD CELLS (BEAKER) (test 0 /100 WBC 0-0 adqf=908) NEUTROPHILS RELATIVE PERCENT (BEAKER) (test 87 % gzui=011) LYMPHOCYTES RELATIVE PERCENT (BEAKER) (test 4 % iocm=016) MONOCYTES RELATIVE PERCENT (BEAKER) (test 7 % gcgh=478) EOSINOPHILS RELATIVE PERCENT (BEAKER) (test 1 % dkem=870) BASOPHILS RELATIVE PERCENT (BEAKER) (test 0 % bdgd=756) NEUTROPHILS ABSOLUTE COUNT (BEAKER) (test 9.35 K/ L 1.78-5.38 kpvp=210) LYMPHOCYTES ABSOLUTE COUNT (BEAKER) (test 0.41 K/ L 1.32-3.57 traa=481) MONOCYTES ABSOLUTE COUNT (BEAKER) (test kfeh=551) 0.79 K/ L 0.30-0.82 EOSINOPHILS ABSOLUTE COUNT (BEAKER) (test 0.12 K/ L 0.04-0.54 cnlo=080) BASOPHILS ABSOLUTE COUNT (BEAKER) (test znvu=179) 0.01 K/ L 0.01-0.08 IMMATURE GRANULOCYTES-RELATIVE PERCENT (BEAKER) 1 % 0-1 (test utlv=1870) POCT-GLUCOSE [id number] 06:16:00 Test Item Value Reference Range Comments POC-GLUCOSE METER (BEAKER) 87 mg/dL 70-110 TESTED AT [facility] [address] [facility] (test ndoo=0618) [place] [address] PROTHROMBIN [id number] 04:53:00 Test Item Value Reference Range Comments PROTIME (BEAKER) (test bavj=109) 19.9 seconds 11.7-14.7 INR (BEAKER) (test asnc=187) 1.7 <=5.9 RECOMMENDED COUMADIN/WARFARIN INR THERAPY RANGESSTANDARD DOSE: 2.0 - 3.0 Includes: PROPHYLAXIS forvenous thrombosis, systemic embolization; TREATMENT for venous thrombosis and/or pulmonary embolus.HIGH RISK: Target INR is 2.5-3.5 for patients with mechanical heart valves.[id number] 04:52:00 Test Item Value Reference Range Comments PHOSPHORUS (BEAKER) (test oefc=759) 2.0 mg/dL 2.3-4.7 BASIC METABOLIC [id number] 04:52:00 Test Item Value Reference Range Comments SODIUM (BEAKER) (test 140 meq/L 136-145 ljfm=086) POTASSIUM (BEAKER) (test 3.9 meq/L 3.5-5.1 zces=056) CHLORIDE (BEAKER) (test 109 meq/L 98-107 nsdr=935) CO2 (BEAKER) (test 26 meq/L 22-29 wnut=084) BLOOD UREA NITROGEN 18 mg/dL 7-21 (BEAKER) (test tqoh=618) CREATININE (BEAKER) (test 2.15 mg/dL 0.57-1.25 rose=511) GLUCOSE RANDOM (BEAKER) 95 mg/dL 70-105 (test cazk=384) CALCIUM (BEAKER) (test 8.6 mg/dL 8.4-10.2 pgfv=196) EGFR (BEAKER) (test 31 mL/min/1.73 sq m ESTIMATED GFR IS NOT wsgb=8792) ACCURATE CREATININE CLEARANCE IN PREDICTING GLOMERULAR FILTRATION RATE. ESTIMATED GFR IS NOT APPLICABLE FOR DIALYSIS PATIENTS. Specimen moderately ictericHEPATIC FUNCTION [id number] 04:52:00 Test Item Value Reference Range Comments TOTAL PROTEIN (BEAKER) (test pdhm=036) 5.3 gm/dL 6.0-8.3 ALBUMIN (BEAKER) (test dhua=2991) 2.6 g/dL 3.5-5.0 BILIRUBIN TOTAL (BEAKER) (test jblz=321) 4.8 mg/dL 0.2-1.2 BILIRUBIN DIRECT (BEAKER) (test gbfp=722) 1.7 mg/dL 0.1-0.5 ALKALINE PHOSPHATASE (BEAKER) (test gplw=880) 77 U/L 40-150 AST (SGOT) (BEAKER) (test ybyn=383) 30 U/L 5-34 ALT (SGPT) (BEAKER) (test orng=614) 10 U/L 6-55 Specimen moderately ictericPOCT-GLUCOSE [id number] 23:44:00 Test Item Value Reference Range Comments POC-GLUCOSE METER (BEAKER) 103 mg/dL 70-110 TESTED AT [facility] [address] [facility] (test lzfl=0139) [facility] [address] BLOOD GAS, [id number] 23:23:00 Test Item Value Reference Range Comments PH ARTERIAL (BEAKER) (test ohjw=706) 7.43 7.35-7.45 PCO2 ARTERIAL (BEAKER) (test dvkb=491) 41 mmHg 35-45 PO2 ARTERIAL (BEAKER) (test rfhp=551) 170 mmHg 80-90 O2 SATURATION ARTERIAL (BEAKER) (test wowr=310) 99.2 % 96.0-97.0 HCO3 ARTERIAL (BEAKER) (test dozg=731) 27 mmol/L 21-29 BASE EXCESS ARTERIAL (BEAKER) (test puoq=020) 2.4 mmol/L -2.0-3.0 PATIENT TEMPERATURE (BEAKER) (test omtp=6368) 36.1 C FIO2 (BEAKER) (test kukf=0795) 40.0 % [id number] 23:08:00 Test Item Value Reference Range Comments PHOSPHORUS (BEAKER) (test ybzq=651) 1.3 mg/dL 2.3-4.7 BASIC METABOLIC [id number] 23:06:00 Test Item Value Reference Range Comments SODIUM (BEAKER) (test 141 meq/L 136-145 esac=616) POTASSIUM (BEAKER) (test 3.8 meq/L 3.5-5.1 hclc=511) CHLORIDE (BEAKER) (test 109 meq/L 98-107 mwzt=267) CO2 (BEAKER) (test 24 meq/L 22-29 qtcv=962) BLOOD UREA NITROGEN 20 mg/dL 7-21 (BEAKER) (test zspb=789) CREATININE (BEAKER) (test 2.34 mg/dL 0.57-1.25 crsw=735) GLUCOSE RANDOM (BEAKER) 102 mg/dL 70-105 (test qyiv=439) CALCIUM (BEAKER) (test 8.8 mg/dL 8.4-10.2 pkbf=067) EGFR (BEAKER) (test 28 mL/min/1.73 sq m ESTIMATED GFR IS NOT kqsb=5260) ACCURATE CREATININE CLEARANCE IN PREDICTING GLOMERULAR FILTRATION RATE. ESTIMATED GFR IS NOT APPLICABLE FOR DIALYSIS PATIENTS. Specimen moderately [id number] 23:05:00 Test Item Value Reference Range Comments MAGNESIUM (BEAKER) (test wols=419) 1.8 mg/dL 1.6-2.6 CALCIUM, [id number] 22:55:00 Test Item Value Reference Range Comments CALCIUM IONIZED (BEAKER) (test yrcy=853) 1.22 mmol/L 1.12-1.27 PH, BLOOD (BEAKER) (test gvvc=7216) 7.43 BLOOD GAS, [id number] 21:38:00 Test Item Value Reference Range Comments PH ARTERIAL (BEAKER) (test xhmg=924) 7.52 7.35-7.45 PCO2 ARTERIAL (BEAKER) (test fmhs=454) 30 mmHg 35-45 PO2 ARTERIAL (BEAKER) (test imec=027) 135 mmHg 80-90 O2 SATURATION ARTERIAL (BEAKER) (test zvwf=164) 99.0 % 96.0-97.0 HCO3 ARTERIAL (BEAKER) (test gffb=500) 24 mmol/L 21-29 BASE EXCESS ARTERIAL (BEAKER) (test tzib=275) 1.7 mmol/L -2.0-3.0 PATIENT TEMPERATURE (BEAKER) (test saac=2042) 36.6 C FIO2 (BEAKER) (test dcbc=5670) 60.0 % RAD, CHEST, 1 VIEW, NON [id number] 20:50:00Referring: Dr. Hill WorkenehReason for exam:->ETT tube placementShould this be performed at the bedside?->YesFINAL REPORT RAD, CHEST, 1 VIEW, NON DEPT INDICATION: ETT tube placement COMPARISON: 10 hours prior FINDINGS: Portable frontal view of the chest. IMPRESSION: Support Lines: Endotracheal tube terminates 4 cm above the gurinder. Remaining support hardware is stable. Lungs and pleura: Interval improved aeration bilaterally. Persistent left retrocardiac opacity at least partially explained by moderate to large volume effusion. No pneumothorax.Heart and mediastinum: Stable contours. Additional findings: None. Signed: JR Chucky, Bianca Oshea Verified Date/Time: 09/07/2017 20:50:03 Reading Location: [facility] C013Y CT Body Reading Room CBC W/ PLT COUNT & AUTO [id number] 19:30:00 Test Item Value Reference Range Comments WHITE BLOOD CELL COUNT (BEAKER) (test xtqu=041) 14.4 K/ L 3.5-10.5 RED BLOOD CELL COUNT (BEAKER) (test ekcp=940) 2.32 M/ L 4.63-6.08 HEMOGLOBIN (BEAKER) (test cakk=158) 7.2 GM/DL 13.7-17.5 HEMATOCRIT (BEAKER) (test frxj=647) 23.6 % 40.1-51.0 MEAN CORPUSCULAR VOLUME (BEAKER) (test jzlw=118) 100.9 fL 79.0-92.2 MEAN CORPUSCULAR HEMOGLOBIN (BEAKER) (test 31.0 pg 25.7-32.2 ddnl=608) MEAN CORPUSCULAR HEMOGLOBIN CONC (BEAKER) (test 30.8 GM/DL 32.3-36.5 mhec=557) RED CELL DISTRIBUTION WIDTH (BEAKER) (test 19.9 % 11.6-14.4 bgxq=140) PLATELET COUNT (BEAKER) (test kzwm=932) 47 K/CU MM 150-450 MEAN PLATELET VOLUME (BEAKER) (test cvnq=720) 10.7 fL 9.4-12.4 NUCLEATED RED BLOOD CELLS (BEAKER) (test 0 /100 WBC 0-0 zhkg=632) NEUTROPHILS RELATIVE PERCENT (BEAKER) (test 88 % ahgx=037) LYMPHOCYTES RELATIVE PERCENT (BEAKER) (test 2 % hxxn=630) MONOCYTES RELATIVE PERCENT (BEAKER) (test 7 % qurj=701) EOSINOPHILS RELATIVE PERCENT (BEAKER) (test 1 % kmul=685) BASOPHILS RELATIVE PERCENT (BEAKER) (test 0 % gcht=695) NEUTROPHILS ABSOLUTE COUNT (BEAKER) (test 12.71 K/ L 1.78-5.38 kloc=084) LYMPHOCYTES ABSOLUTE COUNT (BEAKER) (test 0.31 K/ L 1.32-3.57 zcoy=947) MONOCYTES ABSOLUTE COUNT (BEAKER) (test ksbb=106) 0.96 K/ L 0.30-0.82 EOSINOPHILS ABSOLUTE COUNT (BEAKER) (test 0.08 K/ L 0.04-0.54 nssj=573) BASOPHILS ABSOLUTE COUNT (BEAKER) (test ciib=362) 0.01 K/ L 0.01-0.08 IMMATURE GRANULOCYTES-RELATIVE PERCENT (BEAKER) 2 % 0-1 (test cpxy=1810) POCT-GLUCOSE [id number] 19:27:00 Test Item Value Reference Range Comments POC-GLUCOSE METER (BEAKER) 106 mg/dL 70-110 TESTED AT [address] (test arsr=5439) [place] [id number] HEMOGLOBIN AND [id number] 19:18:00 Test Item Value Reference Range Comments HEMOGLOBIN (BEAKER) (test czaw=198) 7.2 GM/DL 13.7-17.5 HEMATOCRIT (BEAKER) (test lcdb=496) 23.6 % 40.1-51.0 BLOOD GAS, [id number] 16:03:00 Test Item Value Reference Range Comments PH ARTERIAL (BEAKER) (test ybon=900) 7.29 7.35-7.45 PCO2 ARTERIAL (BEAKER) (test owwf=642) 61 mmHg 35-45 PO2 ARTERIAL (BEAKER) (test pwmw=253) 114 mmHg 80-90 O2 SATURATION ARTERIAL (BEAKER) (test nnsv=042) 97.6 % 96.0-97.0 HCO3 ARTERIAL (BEAKER) (test goaz=256) 29 mmol/L 21-29 BASE EXCESS ARTERIAL (BEAKER) (test gnvc=804) 1.5 mmol/L -2.0-3.0 PATIENT TEMPERATURE (BEAKER) (test ircy=6525) 36.8 C FIO2 (BEAKER) (test pnos=0566) 40.0 % POCT-GLUCOSE [id number] 12:23:00 Test Item Value Reference Range Comments POC-GLUCOSE METER (BEAKER) 168 mg/dL 70-110 TESTED AT [address] (test xqrl=6915) [place] [id number] BLOOD GAS, [id number] 12:20:00 Test Item Value Reference Range Comments PH ARTERIAL (BEAKER) (test uanr=716) 7.30 7.35-7.45 PCO2 ARTERIAL (BEAKER) (test oxnq=537) 58 mmHg 35-45 PO2 ARTERIAL (BEAKER) (test hciv=368) 95 mmHg 80-90 O2 SATURATION ARTERIAL (BEAKER) (test aqem=529) 96.5 % 96.0-97.0 HCO3 ARTERIAL (BEAKER) (test umkj=045) 28 mmol/L 21-29 BASE EXCESS ARTERIAL (BEAKER) (test mios=363) 1.0 mmol/L -2.0-3.0 PATIENT TEMPERATURE (BEAKER) (test oqap=9163) 36.7 C FIO2 (BEAKER) (test wnft=4457) 40.0 % RAD, CHEST, 1 VIEW, NON [id number] 10:22:00Referring: Dr. Hill WorkenehReason for exam:->increasing oxygen requirementFINAL REPORT INDICATION: increasing oxygen requirement COMPARISON: August TECHNIQUE: Chest radiograph, single view, portable technique. FINDINGS / IMPRESSION: There ispulmonary venous congestion and a left pleural effusion with left retrocardiac opacity likely related atelectasis. Heart shadow is enlarged. No pneumothorax. Right internal jugular line terminates at the cavoatrial junction. Left internal jugular line terminates in the mid SVC. Feeding tube noted. Signed: Mariela Jacob MDReport Verified Date/Time: 09/07 10:22:46 Reading Location: [facility] [id number] Ortho Consult Reading Room BLOOD GAS, [id number] 10:10:00 Test Item Value Reference Range Comments PH ARTERIAL (BEAKER) (test jder=554) 7.24 7.35-7.45 PCO2 ARTERIAL (BEAKER) (test wgkb=904) 70 mmHg 35-45 PO2 ARTERIAL (BEAKER) (test qzml=337) 174 mmHg 80-90 O2 SATURATION ARTERIAL (BEAKER) (test mcpg=864) 98.9 % 96.0-97.0 HCO3 ARTERIAL (BEAKER) (test mulm=771) 29 mmol/L 21-29 BASE EXCESS ARTERIAL (BEAKER) (test gkgt=929) 0.8 mmol/L -2.0-3.0 PATIENT TEMPERATURE (BEAKER) (test sacf=2526) 36.7 C FIO2 (BEAKER) (test kkgw=7202) 32.0 % HEMOGLOBIN AND [id number] 08:01:00 Test Item Value Reference Range Comments HEMOGLOBIN (BEAKER) (test ixee=887) 7.4 GM/DL 13.7-17.5 HEMATOCRIT (BEAKER) (test spui=313) 25.0 % 40.1-51.0 POCT-GLUCOSE [id number] 07:52:00 Test Item Value Reference Range Comments POC-GLUCOSE METER (BEAKER) 174 mg/dL 70-110 TESTED AT [facility] [address] [facility] (test zext=0460) [facility] [address] CALCIUM, [id number] 06:27:00 Test Item Value Reference Range Comments CALCIUM IONIZED (BEAKER) (test wtpd=595) 1.23 mmol/L 1.12-1.27 PH, BLOOD (BEAKER) (test asux=1107) 7.21 BASIC METABOLIC [id number] 06:05:00 Test Item Value Reference Range Comments SODIUM (BEAKER) (test 140 meq/L 136-145 ndef=153) POTASSIUM (BEAKER) (test 4.6 meq/L 3.5-5.1 Specimen slightly wwow=459) hemolyzed CHLORIDE (BEAKER) (test 109 meq/L 98-107 nhqv=650) CO2 (BEAKER) (test 26 meq/L 22-29 uqun=472) BLOOD UREA NITROGEN 30 mg/dL 7-21 (BEAKER) (test ixxl=642) CREATININE (BEAKER) (test 3.58 mg/dL 0.57-1.25 Specimen slightly vqxo=212) hemolyzed GLUCOSE RANDOM (BEAKER) 139 mg/dL 70-105 (test aisv=727) CALCIUM (BEAKER) (test 8.6 mg/dL 8.4-10.2 phiz=987) EGFR (BEAKER) (test 17 mL/min/1.73 sq m ESTIMATED GFR IS NOT wgev=1932) ACCURATE CREATININE CLEARANCE IN PREDICTING GLOMERULAR FILTRATION RATE. ESTIMATED GFR IS NOT APPLICABLE FOR DIALYSIS PATIENTS. Specimen slightly [id number] 05:59:00 Test Item Value Reference Range Comments MAGNESIUM (BEAKER) (test 1.9 mg/dL 1.6-2.6 Specimen slightly hemolyzed zcpz=673) [id number] 05:59:00 Test Item Value Reference Range Comments PHOSPHORUS (BEAKER) (test 4.4 mg/dL 2.3-4.7 Specimen slightly hemolyzed yoxt=685) HEPATIC FUNCTION [id number] 05:59:00 Test Item Value Reference Range Comments TOTAL PROTEIN (BEAKER) (test 5.6 gm/dL 6.0-8.3 Specimen slightly hemolyzed zpzq=885) ALBUMIN (BEAKER) (test 2.7 g/dL 3.5-5.0 Specimen slightly hemolyzed wgak=1742) BILIRUBIN TOTAL (BEAKER) (test 3.7 mg/dL 0.2-1.2 Specimen slightly hemolyzed wfku=555) BILIRUBIN DIRECT (BEAKER) (test 1.4 mg/dL 0.1-0.5 Specimen slightly hemolyzed plxs=874) ALKALINE PHOSPHATASE (BEAKER) 77 U/L 40-150 (test evoq=950) AST (SGOT) (BEAKER) (test 33 U/L 5-34 Specimen slightly hemolyzed cejj=380) ALT (SGPT) (BEAKER) (test 12 U/L 6-55 Specimen slightly hemolyzed jcfs=875) Specimen slightly ictericPROTHROMBIN [id number] 05:51:00 Test Item Value Reference Range Comments PROTIME (BEAKER) (test ixce=729) 20.6 seconds 11.7-14.7 INR (BEAKER) (test iaok=638) 1.8 <=5.9 RECOMMENDED COUMADIN/WARFARIN INR THERAPY RANGESSTANDARD DOSE: 2.0 - 3.0 Includes: PROPHYLAXIS forvenous thrombosis, systemic embolization; TREATMENT for venous thrombosis and/or pulmonary embolus.HIGH RISK: Target INR is 2.5-3.5 for patients with mechanical heart valves.POCT-GLUCOSE [id number] 02:10:00 Test Item Value Reference Range Comments POC-GLUCOSE METER (BEAKER) 121 mg/dL 70-110 TESTED AT [address] (test pfpi=6255) [facility] [address] POCT-GLUCOSE [id number] 23:59:00 Test Item Value Reference Range Comments POC-GLUCOSE METER (BEAKER) 117 mg/dL 70-110 TESTED AT [facility] [address] [facility] (test efda=8303) [facility] [address] POCT-GLUCOSE [id number] 22:46:00 Test Item Value Reference Range Comments POC-GLUCOSE METER (BEAKER) 132 mg/dL 70-110 TESTED AT [facility] [address] [facility] (test fkrb=5225) [facility] [address] COMPREHENSIVE METABOLIC [id number] 20:57:00 Test Item Value Reference Range Comments TOTAL PROTEIN (BEAKER) 5.3 gm/dL 6.0-8.3 (test vrnz=621) ALBUMIN (BEAKER) (test 2.7 g/dL 3.5-5.0 ykag=3635) ALKALINE PHOSPHATASE 75 U/L 40-150 (BEAKER) (test eotz=441) BILIRUBIN TOTAL (BEAKER) 4.2 mg/dL 0.2-1.2 (test lzhm=610) SODIUM (BEAKER) (test 141 meq/L 136-145 woge=364) POTASSIUM (BEAKER) (test 4.3 meq/L 3.5-5.1 lxlb=055) CHLORIDE (BEAKER) (test 109 meq/L 98-107 mzeo=571) CO2 (BEAKER) (test 27 meq/L 22-29 dgbn=345) BLOOD UREA NITROGEN 25 mg/dL 7-21 (BEAKER) (test dito=001) CREATININE (BEAKER) (test 3.11 mg/dL 0.57-1.25 mcyp=493) GLUCOSE RANDOM (BEAKER) 121 mg/dL 70-105 (test fekg=072) CALCIUM (BEAKER) (test 9.0 mg/dL 8.4-10.2 vvab=300) AST (SGOT) (BEAKER) (test 34 U/L 5-34 ouyc=399) ALT (SGPT) (BEAKER) (test 12 U/L 6-55 hwqa=026) EGFR (BEAKER) (test 20 mL/min/1.73 sq m ESTIMATED GFR IS NOT gced=6199) ACCURATE CREATININE CLEARANCE IN PREDICTING GLOMERULAR FILTRATION RATE. ESTIMATED GFR IS NOT APPLICABLE FOR DIALYSIS PATIENTS. Specimen moderately ictericLACTATE DEHYDROGENASE (LDH)2017-09-06 20:40:00 Test Item Value Reference Range Comments LACTATE DEHYDROGENASE (BEAKER) (test icgb=221) 249 U/L 125-220 POCT-GLUCOSE [id number] 20:07:00 Test Item Value Reference Range Comments POC-GLUCOSE METER (BEAKER) 118 mg/dL 70-110 TESTED AT [facility] [address] [facility] (test kbta=0088) [place] [address] CBC W/PLT COUNT & AUTO [id number] 19:35:00 Test Item Value Reference Range Comments WHITE BLOOD CELL COUNT (BEAKER) (test xkps=311) 8.7 K/ L 3.5-10.5 RED BLOOD CELL COUNT (BEAKER) (test wgkt=006) 2.48 M/ L 4.63-6.08 HEMOGLOBIN (BEAKER) (test xaum=600) 7.4 GM/DL 13.7-17.5 HEMATOCRIT (BEAKER) (test uvgj=523) 24.7 % 40.1-51.0 MEAN CORPUSCULAR VOLUME (BEAKER) (test msxf=486) 99.2 fL 79.0-92.2 MEAN CORPUSCULAR HEMOGLOBIN (BEAKER) (test 30.2 pg 25.7-32.2 eplp=550) MEAN CORPUSCULAR HEMOGLOBIN CONC (BEAKER) (test 30.5 GM/DL 32.3-36.5 ranf=459) RED CELL DISTRIBUTION WIDTH (BEAKER) (test 19.3 % 11.6-14.4 mdld=174) PLATELET COUNT (BEAKER) (test udgh=978) 29 K/CU MM 150-450 MEAN PLATELET VOLUME (BEAKER) (test xmxk=989) 11.2 fL 9.4-12.4 NUCLEATED RED BLOOD CELLS (BEAKER) (test 0 /100 WBC 0-0 ttuk=855) NEUTROPHILS RELATIVE PERCENT (BEAKER) (test 80 % ktjm=717) LYMPHOCYTES RELATIVE PERCENT (BEAKER) (test 5 % wgpa=807) MONOCYTES RELATIVE PERCENT (BEAKER) (test 11 % cawa=455) EOSINOPHILS RELATIVE PERCENT (BEAKER) (test 2 % hgxb=019) BASOPHILS RELATIVE PERCENT (BEAKER) (test 0 % udpm=907) NEUTROPHILS ABSOLUTE COUNT (BEAKER) (test 6.99 K/ L 1.78-5.38 sqbh=076) LYMPHOCYTES ABSOLUTE COUNT (BEAKER) (test 0.43 K/ L 1.32-3.57 fdfe=261) MONOCYTES ABSOLUTE COUNT (BEAKER) (test rcmo=886) 0.98 K/ L 0.30-0.82 EOSINOPHILS ABSOLUTE COUNT (BEAKER) (test 0.17 K/ L 0.04-0.54 fkbg=576) BASOPHILS ABSOLUTE COUNT (BEAKER) (test kgsa=397) 0.01 K/ L 0.01-0.08 IMMATURE GRANULOCYTES-RELATIVE PERCENT (BEAKER) 2 % 0-1 (test nxsd=1281) RAD, ABDOMEN/KUB, 1 VIEW [id number] 19:26:00Referring: Dr. Hill WorkenehReason for exam:->NG placementFINAL REPORT Abdomen x-ray Clinical Diagnosis: NG tube placementComparison: 09/05/2017Views: 1 view Impression:Enteric tube courses below the diaphragm with distal tip now terminating over the right mid abdomen and is potentially transpyloric. Bowel gas pattern is nonspecific. TIPS shunt noted. Remainder of examination is unchanged from the recent prior examination. Signed: Julius Sow MDReport Verified Date/Time: 09/06/2017 19:26:48 Reading Location: [address] Consult Reading Room 07 :26 PMHEMOGLOBIN AND [id number] 18:59:00 Test Item Value Reference Range Comments HEMOGLOBIN (BEAKER) (test wbue=864) 7.4 GM/DL 13.7-17.5 HEMATOCRIT (BEAKER) (test qgcm=584) 24.7 % 40.1-51.0 POCT-GLUCOSE [id number] 18:01:00 Test Item Value Reference Range Comments POC-GLUCOSE METER (BEAKER) 132 mg/dL 70-110 TESTED AT [facility] [address] [place] [address] (test jxbq=1978) [facility] [address] BLOOD [id number] 17:00:00 Test Item Value Reference Range Comments CULTURE (BEAKER) (test mqjh=6379) No growth in 5 days BLOOD [id number] 17:00:00 Test Item Value Reference Range Comments CULTURE (BEAKER) (test dhhu=6329) No growth in 5 days POCT-GLUCOSE [id number] 15:55:00 Test Item Value Reference Range Comments POC-GLUCOSE METER (BEAKER) 120 mg/dL 70-110 TESTED AT [place] [id number] [facility] (test ouzp=8343) [place] [address] POCT-GLUCOSE [id number] 12:27:00 Test Item Value Reference Range Comments POC-GLUCOSE METER (BEAKER) 88 mg/dL 70-110 TESTED AT [address] (test gudn=5875) [place] [address] POCT-GLUCOSE [id number] 10:28:00 Test Item Value Reference Range Comments POC-GLUCOSE METER (BEAKER) 113 mg/dL 70-110 TESTED AT [address] (test zsrm=3554) [place] [address] [id number] 09:45:00 Test Item Value Reference Range Comments PHOSPHORUS (BEAKER) (test kmyn=751) 3.6 mg/dL 2.3-4.7 [id number] 09:45:00 Test Item Value Reference Range Comments MAGNESIUM (BEAKER) (test dqoh=138) 1.7 mg/dL 1.6-2.6 BASIC METABOLIC [id number] 09:45:00 Test Item Value Reference Range Comments SODIUM (BEAKER) (test 137 meq/L 136-145 vfdo=336) POTASSIUM (BEAKER) (test 4.3 meq/L 3.5-5.1 amwg=807) CHLORIDE (BEAKER) (test 106 meq/L 98-107 vnnb=905) CO2 (BEAKER) (test 27 meq/L 22-29 sqeb=564) BLOOD UREA NITROGEN 20 mg/dL 7-21 (BEAKER) (test lasi=355) CREATININE (BEAKER) (test 2.17 mg/dL 0.57-1.25 rmph=563) GLUCOSE RANDOM (BEAKER) 107 mg/dL 70-105 (test hokw=505) CALCIUM (BEAKER) (test 8.7 mg/dL 8.4-10.2 oice=046) EGFR (BEAKER) (test 31 mL/min/1.73 sq m ESTIMATED GFR IS NOT eipp=6684) ACCURATE CREATININE CLEARANCE IN PREDICTING GLOMERULAR FILTRATION RATE. ESTIMATED GFR IS NOT APPLICABLE FOR DIALYSIS PATIENTS. Specimen moderately ictericHEMOGLOBIN AND [id number] 09:10:00 Test Item Value Reference Range Comments HEMOGLOBIN (BEAKER) (test jidq=320) 8.0 GM/DL 13.7-17.5 HEMATOCRIT (BEAKER) (test stey=128) 26.6 % 40.1-51.0 CALCIUM, [id number] 08:50:00 Test Item Value Reference Range Comments CALCIUM IONIZED (BEAKER) (test nbof=540) 1.22 mmol/L 1.12-1.27 PH, BLOOD (BEAKER) (test mhki=8802) 7.23 POCT-GLUCOSE [id number] 08:04:00 Test Item Value Reference Range Comments POC-GLUCOSE METER (BEAKER) 99 mg/dL 70-110 TESTED AT [address] (test zjkw=8577) [place] [address] POCT-GLUCOSE [id number] 06:44:00 Test Item Value Reference Range Comments POC-GLUCOSE METER (BEAKER) 111 mg/dL 70-110 TESTED AT [address] (test mdjk=7149) [place] [address] BASIC METABOLIC [id number] 05:11:00 Test Item Value Reference Range Comments SODIUM (BEAKER) (test 138 meq/L 136-145 vjcp=564) POTASSIUM (BEAKER) (test 4.3 meq/L 3.5-5.1 tdrk=686) CHLORIDE (BEAKER) (test 109 meq/L 98-107 ozua=168) CO2 (BEAKER) (test 23 meq/L 22-29 pjlz=089) BLOOD UREA NITROGEN 25 mg/dL 7-21 (BEAKER) (test cirg=610) CREATININE (BEAKER) (test 2.76 mg/dL 0.57-1.25 jqkh=970) GLUCOSE RANDOM (BEAKER) 105 mg/dL 70-105 (test pnrx=340) CALCIUM (BEAKER) (test 9.1 mg/dL 8.4-10.2 doou=702) EGFR (BEAKER) (test 23 mL/min/1.73 sq m ESTIMATED GFR IS NOT awch=2868) ACCURATE CREATININE CLEARANCE IN PREDICTING GLOMERULAR FILTRATION RATE. ESTIMATED GFR IS NOT APPLICABLE FOR DIALYSIS PATIENTS. Specimen moderately ictericBASIC METABOLIC [id number] 05:11:00 Test Item Value Reference Range Comments SODIUM (BEAKER) (test 138 meq/L 136-145 lcaj=564) POTASSIUM (BEAKER) (test 4.3 meq/L 3.5-5.1 kdjn=978) CHLORIDE (BEAKER) (test 107 meq/L 98-107 ksxz=379) CO2 (BEAKER) (test 25 meq/L 22-29 xywk=173) BLOOD UREA NITROGEN 25 mg/dL 7-21 (BEAKER) (test lggl=963) CREATININE (BEAKER) (test 2.72 mg/dL 0.57-1.25 kgmw=024) GLUCOSE RANDOM (BEAKER) 104 mg/dL 70-105 (test fpff=524) CALCIUM (BEAKER) (test 9.0 mg/dL 8.4-10.2 vbqx=588) EGFR (BEAKER) (test 24 mL/min/1.73 sq m ESTIMATED GFR IS NOT nicq=8190) ACCURATE CREATININE CLEARANCE IN PREDICTING GLOMERULAR FILTRATION RATE. ESTIMATED GFR IS NOT APPLICABLE FOR DIALYSIS PATIENTS. Specimen moderately [id number] 05:10:00 Test Item Value Reference Range Comments PHOSPHORUS (BEAKER) (test fvpp=662) 2.7 mg/dL 2.3-4.7 [id number] 05:10:00 Test Item Value Reference Range Comments MAGNESIUM (BEAKER) (test hsda=999) 1.8 mg/dL 1.6-2.6 [id number] 05:07:00 Test Item Value Reference Range Comments PHOSPHORUS (BEAKER) (test ddnj=952) 2.8 mg/dL 2.3-4.7 [id number] 05:07:00 Test Item Value Reference Range Comments MAGNESIUM (BEAKER) (test hddt=498) 1.9 mg/dL 1.6-2.6 HEPATIC FUNCTION [id number] 05:07:00 Test Item Value Reference Range Comments TOTAL PROTEIN (BEAKER) (test jwyf=871) 5.6 gm/dL 6.0-8.3 ALBUMIN (BEAKER) (test uljn=5033) 2.9 g/dL 3.5-5.0 BILIRUBIN TOTAL (BEAKER) (test evaa=451) 4.7 mg/dL 0.2-1.2 BILIRUBIN DIRECT (BEAKER) (test nigu=989) 1.7 mg/dL 0.1-0.5 ALKALINE PHOSPHATASE (BEAKER) (test pqqn=052) 71 U/L 40-150 AST (SGOT) (BEAKER) (test ipis=375) 36 U/L 5-34 ALT (SGPT) (BEAKER) (test ersj=850) 13 U/L 6-55 Specimen moderately ictericCBC W/PLT COUNT & AUTO [id number] 05: 04:00 Test Item Value Reference Range Comments WHITE BLOOD CELL COUNT (BEAKER) (test ncnz=870) 8.6 K/ L 3.5-10.5 RED BLOOD CELL COUNT (BEAKER) (test tgcw=438) 2.75 M/ L 4.63-6.08 HEMOGLOBIN (BEAKER) (test oluu=747) 8.1 GM/DL 13.7-17.5 HEMATOCRIT (BEAKER) (test wcai=010) 26.8 % 40.1-51.0 MEAN CORPUSCULAR VOLUME (BEAKER) (test ptgf=946) 97.5 fL 79.0-92.2 MEAN CORPUSCULAR HEMOGLOBIN (BEAKER) (test 29.5 pg 25.7-32.2 qvao=551) MEAN CORPUSCULAR HEMOGLOBIN CONC (BEAKER) (test 30.2 GM/DL 32.3-36.5 tnxp=942) RED CELL DISTRIBUTION WIDTH (BEAKER) (test 19.4 % 11.6-14.4 dvbi=943) PLATELET COUNT (BEAKER) (test xfqv=670) 25 K/CU MM 150-450 MEAN PLATELET VOLUME (BEAKER) (test hrql=705) 10.8 fL 9.4-12.4 NUCLEATED RED BLOOD CELLS (BEAKER) (test 0 /100 WBC 0-0 vglx=972) NEUTROPHILS RELATIVE PERCENT (BEAKER) (test 88 % bgif=913) LYMPHOCYTES RELATIVE PERCENT (BEAKER) (test 5 % bgmj=534) MONOCYTES RELATIVE PERCENT (BEAKER) (test 4 % wepx=307) EOSINOPHILS RELATIVE PERCENT (BEAKER) (test 1 % giny=499) BASOPHILS RELATIVE PERCENT (BEAKER) (test 0 % nxrw=829) NEUTROPHILS ABSOLUTE COUNT (BEAKER) (test 7.59 K/ L 1.78-5.38 ttek=114) LYMPHOCYTES ABSOLUTE COUNT (BEAKER) (test 0.41 K/ L 1.32-3.57 gmjj=131) MONOCYTES ABSOLUTE COUNT (BEAKER) (test qljj=318) 0.33 K/ L 0.30-0.82 EOSINOPHILS ABSOLUTE COUNT (BEAKER) (test 0.12 K/ L 0.04-0.54 vpnd=949) BASOPHILS ABSOLUTE COUNT (BEAKER) (test ngcm=959) 0.02 K/ L 0.01-0.08 IMMATURE GRANULOCYTES-RELATIVE PERCENT (BEAKER) 2 % 0-1 (test puhz=2419) CALCIUM, [id number] 05:00:00 Test Item Value Reference Range Comments CALCIUM IONIZED (BEAKER) (test bvml=763) 1.25 mmol/L 1.12-1.27 PH, BLOOD (BEAKER) (test wxnf=6351) 7.27 PROTHROMBIN [id number] 04:59:00 Test Item Value Reference Range Comments PROTIME (BEAKER) (test bfwi=410) 21.2 seconds 11.7-14.7 INR (BEAKER) (test sxau=077) 1.8 <=5.9 RECOMMENDED COUMADIN/WARFARIN INR THERAPY RANGESSTANDARD DOSE: 2.0 - 3.0 Includes: PROPHYLAXIS forvenous thrombosis, systemic embolization; TREATMENT for venous thrombosis and/or pulmonary embolus.HIGH RISK: Target INR is 2.5-3.5 for patients with mechanical heart valves.POCT-GLUCOSE [id number] 04:04:00 Test Item Value Reference Range Comments POC-GLUCOSE METER (BEAKER) 107 mg/dL 70-110 TESTED AT [address] (test atom=7553) [place] [id number] HEMOGLOBIN AND [id number] 02:18:00 Test Item Value Reference Range Comments HEMOGLOBIN (BEAKER) (test bref=772) 7.9 GM/DL 13.7-17.5 HEMATOCRIT (BEAKER) (test nvrr=015) 25.4 % 40.1-51.0 POCT-GLUCOSE [id number] 01:47:00 Test Item Value Reference Range Comments POC-GLUCOSE METER (BEAKER) 102 mg/dL 70-110 TESTED AT [address] (test sysz=1718) [place] [id number] POCT-GLUCOSE [id number] 21:50:00 Test Item Value Reference Range Comments POC-GLUCOSE METER (BEAKER) 83 mg/dL 70-110 TESTED AT [address] (test soda=2451) [place] [address] HEMOGLOBIN AND [id number] 20:16:00 Test Item Value Reference Range Comments HEMOGLOBIN (BEAKER) (test epod=945) 7.7 GM/DL 13.7-17.5 HEMATOCRIT (BEAKER) (test jyxs=303) 25.2 % 40.1-51.0 POCT-GLUCOSE [id number] 20:11:00 Test Item Value Reference Range Comments POC-GLUCOSE METER (BEAKER) 97 mg/dL 70-110 TESTED AT [address] (test kvcy=0332) [place] [address] POCT-GLUCOSE [id number] 17:46:00 Test Item Value Reference Range Comments POC-GLUCOSE METER (BEAKER) 70 mg/dL 70-110 TESTED AT [address] (test ftwa=9309) [place] [address] RAD, ABDOMEN/KUB, 1 VIEW [id number] 17:28:00Referring: Dr. Liz Felipe Reason for exam:->core pack placement Should this be performed at the bedside ?->YesFINAL REPORT Comparison: 09/04/2017 TECHNIQUE: Frontal image of the abdomen FINDINGS: Tip of feeding tube projects in the gastric antrum/duodenal pylorus. Bowel gas pattern is nonspecific. Signed: Brad Bagley MDReport Verified Date/Time: 09/05/2017 17:28:34 Reading Location: [facility] Radiology Reading Room FL, FLUORO, NON-SPECIFIC, UP TO 1 [id number] 16:43: 00Referring: Dr. Liz Joneseason for exam:->Adjust corpackFINAL REPORT Fluoroscopy guided feeding tube placement Technique: Feeding tube placement was performed under fluoroscopy. Total fluoroscopy time: 1.2 minutes Total number of films: 5 FINDINGS: A feeding tube was placed under fluoroscopic guidance. Approximately, 30 cc of contrast was injected to confirm the location of the feeding tube. The feeding tube was negotiated into thegastroduodenal junction but could not be advanced further despite multiple attempts. IMPRESSION: Fluoroscopy guided feeding tube placement as above. Signed: Axel Lopezeport Verified Date/Time: 09/05/2017 16:43:17 Reading Location: [facility] C013X [facility] Reading Room POCT-GLUCOSE [id number] 15:20:00 Test Item Value Reference Range Comments POC-GLUCOSE METER (BEAKER) 90 mg/dL 70-110 TESTED AT [address] (test gjts=1096) [place] [address] POCT-GLUCOSE [id number] 13:37:00 Test Item Value Reference Range Comments POC-GLUCOSE METER (BEAKER) 76 mg/dL 70-110 TESTED AT [address] (test atae=7009) [place] [address] HEPARIN [id number] 12:59:00 Test Item Value Reference Range Comments HEPARIN ANTIBODY (BEAKER) (test ttda=604) Negative Negative HEPARIN ANTIBODY OD (BEAKER) (test rpjr=5997) 0.152 <0.400 4T TOTAL SCORE (BEAKER) (test zwtb=1329) 5 Probability of HIT based on scoring system: 6-8=High probability; 4-5= intermediate probability; 0-3=low probabilityPOCT-GLUCOSE [id number] 11:52: 00 Test Item Value Reference Range Comments POC-GLUCOSE METER (BEAKER) 83 mg/dL 70-110 TESTED AT [address] (test ikkj=0376) [place] [id number] POCT-GLUCOSE [id number] 10:06:00 Test Item Value Reference Range Comments POC-GLUCOSE METER (BEAKER) 79 mg/dL 70-110 TESTED AT [address] (test fayv=4768) [place] [id number] POCT-GLUCOSE [id number] 08:06:00 Test Item Value Reference Range Comments POC-GLUCOSE METER (BEAKER) 92 mg/dL 70-110 TESTED AT [address] (test drug=7619) [place] [address] PERIPHERAL BLOOD SMEAR - HOLD [id number] 07:52:00 Test Item Value Reference Range Comments PERIPHERAL SMEAR SAVE (BEAKER) (test vxte=2757) saved POCT-GLUCOSE [id number] 06:46:00 Test Item Value Reference Range Comments POC-GLUCOSE METER (BEAKER) 68 mg/dL 70-110 TESTED AT [address] (test hfzn=1057) [facility] [address] RAD, CHEST, 1 VIEW, NON [id number] 06:32:00Referring: Dr. Liz GarciahRrandion for exam:->shortness of breath, productive coughShould this be performed at the bedside?->YesFINAL REPORT RAD, CHEST, 1 VIEW, NON DEPT INDICATION: shortness of breath, productive cough COMPARISON: Prior day's exam FINDINGS: Portable frontal view of the chest. IMPRESSION: Support Lines: Interval extubation. Feeding tube loops in the thoracic esophagus to return cephalad. The distal tip is beyond the imaged volume superiorly. Stable right IJ central venous catheter. Stable left IJ central venous catheter. Lungs and pleura: Worsening congestion and left effusion. Right interstitial congestion is stable. No pneumothorax.Heart and mediastinum: Stable contours. Additional findings: None. Signed: JR Locke Robert MDReport Verified Date/Time: 09/05/2017 06:32:19Reading Location: [facility] C013Y CT Body Reading Room POCT-GLUCOSE [id number] 05:00:00 Test Item Value Reference Range Comments POC-GLUCOSE METER (BEAKER) 75 mg/dL 70-110 TESTED AT [address] (test bpms=1826) [facility] [address] BASIC METABOLIC [id number] 05:00:00 Test Item Value Reference Range Comments SODIUM (BEAKER) (test 139 meq/L 136-145 hove=532) POTASSIUM (BEAKER) (test 4.6 meq/L 3.5-5.1 qvgm=902) CHLORIDE (BEAKER) (test 108 meq/L 98-107 wwls=681) CO2 (BEAKER) (test 24 meq/L 22-29 ebvp=107) BLOOD UREA NITROGEN 23 mg/dL 7-21 (BEAKER) (test jnzy=547) CREATININE (BEAKER) (test 2.42 mg/dL 0.57-1.25 jaok=962) GLUCOSE RANDOM (BEAKER) 75 mg/dL 70-105 (test ohnx=997) CALCIUM (BEAKER) (test 8.6 mg/dL 8.4-10.2 hpzq=750) EGFR (BEAKER) (test 27 mL/min/1.73 sq m ESTIMATED GFR IS NOT lvyj=4978) ACCURATE CREATININE CLEARANCE IN PREDICTING GLOMERULAR FILTRATION RATE. ESTIMATED GFR IS NOT APPLICABLE FOR DIALYSIS PATIENTS. Specimen moderately ictericCALCIUM, [id number] 04:59:00 Test Item Value Reference Range Comments CALCIUM IONIZED (BEAKER) (test yrcq=927) 0.94 mmol/L 1.12-1.27 PH, BLOOD (BEAKER) (test hbov=9826) 7.34 CBC W/PLT COUNT & AUTO [id number] 04:52:00 Test Item Value Reference Range Comments WHITE BLOOD CELL COUNT (BEAKER) (test whgb=971) 7.0 K/ L 3.5-10.5 RED BLOOD CELL COUNT (BEAKER) (test hrhz=429) 2.82 M/ L 4.63-6.08 HEMOGLOBIN (BEAKER) (test wqqy=209) 8.5 GM/DL 13.7-17.5 HEMATOCRIT (BEAKER) (test evrf=133) 26.7 % 40.1-51.0 MEAN CORPUSCULAR VOLUME (BEAKER) (test ovql=367) 94.7 fL 79.0-92.2 MEAN CORPUSCULAR HEMOGLOBIN (BEAKER) (test 30.1 pg 25.7-32.2 kxvv=914) MEAN CORPUSCULAR HEMOGLOBIN CONC (BEAKER) (test 31.8 GM/DL 32.3-36.5 jpsv=651) RED CELL DISTRIBUTION WIDTH (BEAKER) (test 19.3 % 11.6-14.4 rxuj=418) PLATELET COUNT (BEAKER) (test ijxt=316) 38 K/CU MM 150-450 MEAN PLATELET VOLUME (BEAKER) (test znrq=938) 11.4 fL 9.4-12.4 NUCLEATED RED BLOOD CELLS (BEAKER) (test 0 /100 WBC 0-0 scgt=668) NEUTROPHILS RELATIVE PERCENT (BEAKER) (test 72 % scoc=528) LYMPHOCYTES RELATIVE PERCENT (BEAKER) (test 7 % vfyj=382) MONOCYTES RELATIVE PERCENT (BEAKER) (test 18 % qtxr=665) EOSINOPHILS RELATIVE PERCENT (BEAKER) (test 2 % javv=685) BASOPHILS RELATIVE PERCENT (BEAKER) (test 0 % zkyk=739) NEUTROPHILS ABSOLUTE COUNT (BEAKER) (test 5.01 K/ L 1.78-5.38 mlvb=857) LYMPHOCYTES ABSOLUTE COUNT (BEAKER) (test 0.47 K/ L 1.32-3.57 rwym=558) MONOCYTES ABSOLUTE COUNT (BEAKER) (test ezef=439) 1.24 K/ L 0.30-0.82 EOSINOPHILS ABSOLUTE COUNT (BEAKER) (test 0.17 K/ L 0.04-0.54 xbss=250) BASOPHILS ABSOLUTE COUNT (BEAKER) (test wahx=601) 0.01 K/ L 0.01-0.08 IMMATURE GRANULOCYTES-RELATIVE PERCENT (BEAKER) 2 % 0-1 (test tdzb=0391) PROTHROMBIN [id number] 04:49:00 Test Item Value Reference Range Comments PROTIME (BEAKER) (test htgi=939) 22.9 seconds 11.7-14.7 INR (BEAKER) (test mcne=058) 2.0 <=5.9 RECOMMENDED COUMADIN/WARFARIN INR THERAPY RANGESSTANDARD DOSE: 2.0 - 3.0 Includes: PROPHYLAXIS forvenous thrombosis, systemic embolization; TREATMENT for venous thrombosis and/or pulmonary embolus.HIGH RISK: Target INR is 2.5-3.5 for patients with mechanical heart valves.[id number] 04:46:00 Test Item Value Reference Range Comments PHOSPHORUS (BEAKER) (test lbln=490) 3.2 mg/dL 2.3-4.7 [id number] 04:44:00 Test Item Value Reference Range Comments MAGNESIUM (BEAKER) (test tksx=330) 1.8 mg/dL 1.6-2.6 HEPATIC FUNCTION [id number] 04:44:00 Test Item Value Reference Range Comments TOTAL PROTEIN (BEAKER) (test tzve=546) 5.3 gm/dL 6.0-8.3 ALBUMIN (BEAKER) (test dkaj=5996) 2.5 g/dL 3.5-5.0 BILIRUBIN TOTAL (BEAKER) (test pbgn=835) 4.3 mg/dL 0.2-1.2 BILIRUBIN DIRECT (BEAKER) (test hxqv=856) 1.8 mg/dL 0.1-0.5 ALKALINE PHOSPHATASE (BEAKER) (test avps=563) 71 U/L 40-150 AST (SGOT) (BEAKER) (test bypc=087) 31 U/L 5-34 ALT (SGPT) (BEAKER) (test mzxm=500) 18 U/L 6-55 Specimen moderately ictericRETICULOCYTE [id number] 04:34:00 Test Item Value Reference Range Comments RETICULOCYTE COUNT PCT (BEAKER) (test hysp=442) 3.0 % 0.5-1.8 CRYPTOCOCCAL [id number] 03:18:00 Test Item Value Reference Range Comments CRYPTOCOCCAL ANTIGEN, SERUM (AKER) (test Negative Negative, Interference pplj=9935) POCT-GLUCOSE [id number] 02:57:00 Test Item Value Reference Range Comments POC-GLUCOSE METER (BEAKER) 82 mg/dL 70-110 TESTED AT [address] (test ydhy=9478) [place] [id number] POCT-GLUCOSE [id number] 01:07:00 Test Item Value Reference Range Comments POC-GLUCOSE METER (BEAKER) 118 mg/dL 70-110 TESTED AT [address] (test tbti=8657) [place] [id number] POCT-GLUCOSE [id number] 01:07:00 Test Item Value Reference Range Comments POC-GLUCOSE METER (BEAKER) 34 mg/dL 70-110 TESTED AT [address] (test hhaz=5509) [facility] [address] POCT-GLUCOSE [id number] 21:54:00 Test Item Value Reference Range Comments POC-GLUCOSE METER (BEAKER) 64 mg/dL 70-110 TESTED AT [address] (test bvaz=5579) [place] [id number] POCT-GLUCOSE [id number] 19:25:00 Test Item Value Reference Range Comments POC-GLUCOSE METER (BEAKER) 69 mg/dL 70-110 Notified SHAKIRA SHAFER/TESTED AT [facility] (test acra=4096) [address] [place], [place] [id number] 16:02:00 Test Item Value Reference Range Comments HAPTOGLOBIN (BEAKER) (test trsn=582) 41 mg/dL 14-258 [id number] 15:54:00 Test Item Value Reference Range Comments FIBRINOGEN LEVEL (BEAKER) (test mnii=348) < mg/dl 225-434 [id number] 15:48:00 Test Item Value Reference Range Comments FERRITIN (BEAKER) (test zntj=648) 117 ng/mL 5-275 IRON, TIBC, % SAT. (WITHOUT FERRITIN)2017-09-04 15:28:00 Test Item Value Reference Range Comments IRON (BEAKER) (test cntv=544) 119 ug/dL 40-160 TOTAL IRON BINDING CAPACITY (BEAKER) (test 128 ug/dL 250-450 kczv=495) IRON % SATURATION (2) (BEAKER) (test jvyc=6797) 93 % 20-55 LACTATE DEHYDROGENASE (LDH)2017-09-04 15:24:00 Test Item Value Reference Range Comments LACTATE DEHYDROGENASE (BEAKER) (test jbae=718) 249 U/L 125-220 HEMOGLOBIN AND [id number] 15:00:00 Test Item Value Reference Range Comments HEMOGLOBIN (BEAKER) (test qgbu=333) 8.7 GM/DL 13.7-17.5 HEMATOCRIT (BEAKER) (test vohy=336) 27.2 % 40.1-51.0 POCT-GLUCOSE [id number] 12:23:00 Test Item Value Reference Range Comments POC-GLUCOSE METER (BEAKER) 75 mg/dL 70-110 TESTED AT [address] (test rcxz=0043) [facility] [address] BLOOD [id number] 10:00:00 Test Item Value Reference Range Comments CULTURE (BEAKER) (test imxk=2829) No growth in 5 days RAD, ABDOMEN/KUB, 1 VIEW [id number] 07:47:00Referring: Dr. Liz Felipe Reason for exam:->ngt placementFINAL REPORT Abdomen one view INDICATION: NG tube placement COMPARISON: 08/30/2017 IMPRESSION: The tip of the feeding tube overlies the expected location of the lower esophagus. Advise repositioning. There is diffuse gaseous distention of small and large bowel in the imaged abdomen, increased since before. This could reflect worsening adynamic ileus but bowel obstruction cannot be excluded. Advise full abdominal series or CT. Free air and fluid levels are not well assessed on asupine study. A TIPS shunt is present. There are hypertrophic spine changes. The imaged chest is similar to recent prior. Signed: Bryant Wood MDReport Verified Date/Time: 09/04/2017 07:47:22 Reading Location: [facility] Radiology Reading Room CALCIUM, [id number] 05:11:00 Test Item Value Reference Range Comments CALCIUM IONIZED (BEAKER) (test ecah=234) 1.07 mmol/L 1.12-1.27 PH, BLOOD (BEAKER) (test ychd=1156) 7.35 BASIC METABOLIC [id number] 05:02:00 Test Item Value Reference Range Comments SODIUM (BEAKER) (test 138 meq/L 136-145 jnvp=921) POTASSIUM (BEAKER) (test 4.6 meq/L 3.5-5.1 oyac=798) CHLORIDE (BEAKER) (test 107 meq/L 98-107 zbgl=609) CO2 (BEAKER) (test 25 meq/L 22-29 fxmf=180) BLOOD UREA NITROGEN 12 mg/dL 7-21 (BEAKER) (test ouiu=566) CREATININE (BEAKER) (test 1.17 mg/dL 0.57-1.25 dtaj=162) GLUCOSE RANDOM (BEAKER) 86 mg/dL 70-105 (test arop=815) CALCIUM (BEAKER) (test 8.2 mg/dL 8.4-10.2 mvtz=478) EGFR (BEAKER) (test 62 mL/min/1.73 sq m ESTIMATED GFR IS NOT xvjl=1503) ACCURATE CREATININE CLEARANCE IN PREDICTING GLOMERULAR FILTRATION RATE. ESTIMATED GFR IS NOT APPLICABLE FOR DIALYSIS PATIENTS. Specimen slightly ictericHEPATIC FUNCTION [id number] 05:02:00 Test Item Value Reference Range Comments TOTAL PROTEIN (BEAKER) (test yqhx=556) 5.0 gm/dL 6.0-8.3 ALBUMIN (BEAKER) (test ibws=7539) 2.5 g/dL 3.5-5.0 BILIRUBIN TOTAL (BEAKER) (test jump=071) 3.8 mg/dL 0.2-1.2 BILIRUBIN DIRECT (BEAKER) (test uyoz=964) 1.9 mg/dL 0.1-0.5 ALKALINE PHOSPHATASE (BEAKER) (test gbir=019) 72 U/L 40-150 AST (SGOT) (BEAKER) (test upux=645) 32 U/L 5-34 ALT (SGPT) (BEAKER) (test bqee=349) 20 U/L 6-55 Specimen slightly ictericBLOOD [id number] 05:01:00 Test Item Value Reference Range Comments CULTURE (BEAKER) (test ozec=2795) No growth in 5 days PROTHROMBIN [id number] 04:54:00 Test Item Value Reference Range Comments PROTIME (BEAKER) (test hsso=075) 25.7 seconds 11.7-14.7 INR (BEAKER) (test wjkx=394) 2.4 <=5.9 RECOMMENDED COUMADIN/WARFARIN INR THERAPY RANGESSTANDARD DOSE: 2.0 - 3.0 Includes: PROPHYLAXIS forvenous thrombosis, systemic embolization; TREATMENT for venous thrombosis and/or pulmonary embolus.HIGH RISK: Target INR is 2.5-3.5 for patients with mechanical heart valves.CBC W/PLT COUNT & AUTO [id number] 04:49:00 Test Item Value Reference Range Comments WHITE BLOOD CELL COUNT (BEAKER) (test tpyz=846) 8.1 K/ L 3.5-10.5 RED BLOOD CELL COUNT (BEAKER) (test oiku=428) 2.06 M/ L 4.63-6.08 HEMOGLOBIN (BEAKER) (test ztyw=870) 6.3 GM/DL 13.7-17.5 HEMATOCRIT (BEAKER) (test xyia=735) 20.3 % 40.1-51.0 MEAN CORPUSCULAR VOLUME (BEAKER) (test lkio=380) 98.5 fL 79.0-92.2 MEAN CORPUSCULAR HEMOGLOBIN (BEAKER) (test 30.6 pg 25.7-32.2 zumj=670) MEAN CORPUSCULAR HEMOGLOBIN CONC (BEAKER) (test 31.0 GM/DL 32.3-36.5 hniz=598) RED CELL DISTRIBUTION WIDTH (BEAKER) (test 18.6 % 11.6-14.4 bgde=985) PLATELET COUNT (BEAKER) (test ffjp=616) 32 K/CU MM 150-450 MEAN PLATELET VOLUME (BEAKER) (test modo=235) 10.3 fL 9.4-12.4 NUCLEATED RED BLOOD CELLS (BEAKER) (test 0 /100 WBC 0-0 ncpc=525) NEUTROPHILS RELATIVE PERCENT (BEAKER) (test 78 % fkeg=327) LYMPHOCYTES RELATIVE PERCENT (BEAKER) (test 4 % tusy=986) MONOCYTES RELATIVE PERCENT (BEAKER) (test 14 % uafq=298) EOSINOPHILS RELATIVE PERCENT (BEAKER) (test 3 % ckyz=746) BASOPHILS RELATIVE PERCENT (BEAKER) (test 0 % nqrr=772) NEUTROPHILS ABSOLUTE COUNT (BEAKER) (test 6.31 K/ L 1.78-5.38 lchd=357) LYMPHOCYTES ABSOLUTE COUNT (BEAKER) (test 0.36 K/ L 1.32-3.57 vbrr=166) MONOCYTES ABSOLUTE COUNT (BEAKER) (test xmnx=846) 1.14 K/ L 0.30-0.82 EOSINOPHILS ABSOLUTE COUNT (BEAKER) (test 0.20 K/ L 0.04-0.54 xiyi=408) BASOPHILS ABSOLUTE COUNT (BEAKER) (test aama=961) 0.01 K/ L 0.01-0.08 IMMATURE GRANULOCYTES-RELATIVE PERCENT (BEAKER) 1 % 0-1 (test vgzj=3785) [id number] 01:16:00 Test Item Value Reference Range Comments PHOSPHORUS (BEAKER) (test ldtp=073) 2.7 mg/dL 2.3-4.7 [id number] 01:16:00 Test Item Value Reference Range Comments MAGNESIUM (BEAKER) (test lphs=301) 2.5 mg/dL 1.6-2.6 PH, [id number] 00:59:00 Test Item Value Reference Range Comments PH ARTERIAL (BEAKER) (test muqu=023) 7.33 7.35-7.45 POCT-GLUCOSE [id number] 00:52:00 Test Item Value Reference Range Comments POC-GLUCOSE METER (BEAKER) 96 mg/dL 70-110 TESTED AT [address] (test fxem=9462) [facility] [address] BASIC METABOLIC [id number] 22:36:00 Test Item Value Reference Range Comments SODIUM (BEAKER) (test 138 meq/L 136-145 zcvd=663) POTASSIUM (BEAKER) (test 4.8 meq/L 3.5-5.1 lwae=185) CHLORIDE (BEAKER) (test 107 meq/L 98-107 aoor=398) CO2 (BEAKER) (test 25 meq/L 22-29 ivsm=781) BLOOD UREA NITROGEN 14 mg/dL 7-21 (BEAKER) (test vzuj=778) CREATININE (BEAKER) (test 1.32 mg/dL 0.57-1.25 pjqs=937) GLUCOSE RANDOM (BEAKER) 91 mg/dL 70-105 (test iyzs=607) CALCIUM (BEAKER) (test 8.3 mg/dL 8.4-10.2 zqpi=966) EGFR (BEAKER) (test 54 mL/min/1.73 sq m ESTIMATED GFR IS NOT fjha=3491) ACCURATE CREATININE CLEARANCE IN PREDICTING GLOMERULAR FILTRATION RATE. ESTIMATED GFR IS NOT APPLICABLE FOR DIALYSIS PATIENTS. Specimen moderately ictericCALCIUM, [id number] 22:20:00 Test Item Value Reference Range Comments CALCIUM IONIZED (BEAKER) (test oawd=795) 1.14 mmol/L 1.12-1.27 PH, BLOOD (BEAKER) (test kgbj=6535) 7.34 HEMOGLOBIN AND [id number] 17:50:00 Test Item Value Reference Range Comments HEMOGLOBIN (BEAKER) (test ijvr=065) 7.2 GM/DL 13.7-17.5 HEMATOCRIT (BEAKER) (test aprz=059) 23.0 % 40.1-51.0 POCT-GLUCOSE [id number] 17:50:00 Test Item Value Reference Range Comments POC-GLUCOSE METER (BEAKER) 113 mg/dL 70-110 TESTED AT [address] (test yzdn=7168) [place] [id number] 15:58:00 Test Item Value Reference Range Comments PHOSPHORUS (BEAKER) (test dyda=939) 3.0 mg/dL 2.3-4.7 [id number] 15:58:00 Test Item Value Reference Range Comments MAGNESIUM (BEAKER) (test uymq=405) 1.9 mg/dL 1.6-2.6 PH, [id number] 15:48:00 Test Item Value Reference Range Comments PH ARTERIAL (BEAKER) (test aplr=459) 7.33 7.35-7.45 BASIC METABOLIC [id number] 11:49:00 Test Item Value Reference Range Comments SODIUM (BEAKER) (test 138 meq/L 136-145 lyui=525) POTASSIUM (BEAKER) (test 4.6 meq/L 3.5-5.1 mmov=933) CHLORIDE (BEAKER) (test 107 meq/L 98-107 gubn=728) CO2 (BEAKER) (test 26 meq/L 22-29 rhxc=648) BLOOD UREA NITROGEN 11 mg/dL 7-21 (BEAKER) (test whxy=764) CREATININE (BEAKER) (test 1.27 mg/dL 0.57-1.25 kxot=457) GLUCOSE RANDOM (BEAKER) 107 mg/dL 70-105 (test csor=729) CALCIUM (BEAKER) (test 8.4 mg/dL 8.4-10.2 kijw=171) EGFR (BEAKER) (test 57 mL/min/1.73 sq m ESTIMATED GFR IS NOT izdh=2608) ACCURATE CREATININE CLEARANCE IN PREDICTING GLOMERULAR FILTRATION RATE. ESTIMATED GFR IS NOT APPLICABLE FOR DIALYSIS PATIENTS. Specimen slightly ictericBLOOD GAS, [id number] 11:27:00 Test Item Value Reference Range Comments PH ARTERIAL (BEAKER) (test apfa=862) 7.32 7.35-7.45 PCO2 ARTERIAL (BEAKER) (test rkjk=668) 56 mmHg 35-45 PO2 ARTERIAL (BEAKER) (test xaeo=563) 91 mmHg 80-90 O2 SATURATION ARTERIAL (BEAKER) (test lfjr=206) 96.2 % 96.0-97.0 HCO3 ARTERIAL (BEAKER) (test xoak=462) 28 mmol/L 21-29 BASE EXCESS ARTERIAL (BEAKER) (test aryv=929) 1.5 mmol/L -2.0-3.0 PATIENT TEMPERATURE (BEAKER) (test rwup=2171) 37.0 C FIO2 (BEAKER) (test brob=0867) 40.0 % POCT-GLUCOSE [id number] 11:23:00 Test Item Value Reference Range Comments POC-GLUCOSE METER (BEAKER) 117 mg/dL 70-110 TESTED AT [facility] [address] [place] [address] (test zbvt=7294) [facility] [address] CALCIUM, [id number] 11:23:00 Test Item Value Reference Range Comments CALCIUM IONIZED (BEAKER) (test gjmo=516) 1.12 mmol/L 1.12-1.27 PH, BLOOD (BEAKER) (test rsyz=2652) 7.32 POCT-GLUCOSE [id number] 06:45:00 Test Item Value Reference Range Comments POC-GLUCOSE METER (BEAKER) 101 mg/dL 70-110 TESTED AT [address] (test vmec=6134) [facility] [address] CALCIUM, [id number] 04:29:00 Test Item Value Reference Range Comments CALCIUM IONIZED (BEAKER) (test kpth=722) 1.12 mmol/L 1.12-1.27 PH, BLOOD (BEAKER) (test sbgt=9163) 7.32 PH, [id number] 04:29:00 Test Item Value Reference Range Comments PH ARTERIAL (BEAKER) (test pavc=875) 7.32 7.35-7.45 [id number] 04:26:00 Test Item Value Reference Range Comments PHOSPHORUS (BEAKER) (test need=288) 3.7 mg/dL 2.3-4.7 [id number] 04:26:00 Test Item Value Reference Range Comments MAGNESIUM (BEAKER) (test foax=117) 1.8 mg/dL 1.6-2.6 BASIC METABOLIC [id number] 04:26:00 Test Item Value Reference Range Comments SODIUM (BEAKER) (test 138 meq/L 136-145 sysh=379) POTASSIUM (BEAKER) (test 4.5 meq/L 3.5-5.1 jeur=070) CHLORIDE (BEAKER) (test 107 meq/L 98-107 dlii=898) CO2 (BEAKER) (test 25 meq/L 22-29 ucjr=521) BLOOD UREA NITROGEN 10 mg/dL 7-21 (BEAKER) (test nuzl=732) CREATININE (BEAKER) (test 1.36 mg/dL 0.57-1.25 gjii=666) GLUCOSE RANDOM (BEAKER) 107 mg/dL 70-105 (test mngx=247) CALCIUM (BEAKER) (test 8.3 mg/dL 8.4-10.2 ndbm=585) EGFR (BEAKER) (test 52 mL/min/1.73 sq m ESTIMATED GFR IS NOT srob=1151) ACCURATE CREATININE CLEARANCE IN PREDICTING GLOMERULAR FILTRATION RATE. ESTIMATED GFR IS NOT APPLICABLE FOR DIALYSIS PATIENTS. Specimen slightly ictericHEPATIC FUNCTION [id number] 04:26:00 Test Item Value Reference Range Comments TOTAL PROTEIN (BEAKER) (test fpph=523) 5.2 gm/dL 6.0-8.3 ALBUMIN (BEAKER) (test dghp=4747) 2.5 g/dL 3.5-5.0 BILIRUBIN TOTAL (BEAKER) (test txut=671) 3.1 mg/dL 0.2-1.2 BILIRUBIN DIRECT (BEAKER) (test pcyt=552) 1.6 mg/dL 0.1-0.5 ALKALINE PHOSPHATASE (BEAKER) (test rfmk=122) 77 U/L 40-150 AST (SGOT) (BEAKER) (test xsti=650) 37 U/L 5-34 ALT (SGPT) (BEAKER) (test hiei=535) 19 U/L 6-55 Specimen slightly ictericCBC W/PLT COUNT & AUTO [id number] 04:04 :00 Test Item Value Reference Range Comments WHITE BLOOD CELL COUNT 10.5 K/ L 3.5-10.5 (BEAKER) (test dpay=410) RED BLOOD CELL COUNT (BEAKER) 2.38 M/ L 4.63-6.08 (test ixsd=699) HEMOGLOBIN (BEAKER) (test 7.1 GM/DL 13.7-17.5 qooi=927) HEMATOCRIT (BEAKER) (test 23.4 % 40.1-51.0 hhpr=883) MEAN CORPUSCULAR VOLUME 98.3 fL 79.0-92.2 (BEAKER) (test kqxz=558) MEAN CORPUSCULAR HEMOGLOBIN 29.8 pg 25.7-32.2 (BEAKER) (test fham=731) MEAN CORPUSCULAR HEMOGLOBIN 30.3 GM/DL 32.3-36.5 CONC (BEAKER) (test iqok=182) RED CELL DISTRIBUTION WIDTH 19.4 % 11.6-14.4 (BEAKER) (test kzwn=093) PLATELET COUNT (BEAKER) (test 15 K/CU MM 150-450 Discordant PLT result avdf=449) Compared to previous one, Clinical correlation required. MEAN PLATELET VOLUME (BEAKER) 11.2 fL 9.4-12.4 (test xvfh=580) NUCLEATED RED BLOOD CELLS 0 /100 WBC 0-0 (BEAKER) (test gsgl=338) NEUTROPHILS RELATIVE PERCENT 85 % (BEAKER) (test zbsp=743) LYMPHOCYTES RELATIVE PERCENT 4 % (BEAKER) (test ybdv=947) MONOCYTES RELATIVE PERCENT 10 % (BEAKER) (test zaso=290) EOSINOPHILS RELATIVE PERCENT 1 % (BEAKER) (test kcog=450) BASOPHILS RELATIVE PERCENT 0 % (BEAKER) (test eovb=064) NEUTROPHILS ABSOLUTE COUNT 8.90 K/ L 1.78-5.38 (BEAKER) (test mrjz=479) LYMPHOCYTES ABSOLUTE COUNT 0.37 K/ L 1.32-3.57 (BEAKER) (test hucg=373) MONOCYTES ABSOLUTE COUNT 1.01 K/ L 0.30-0.82 (BEAKER) (test qomt=692) EOSINOPHILS ABSOLUTE COUNT 0.08 K/ L 0.04-0.54 (BEAKER) (test fyxa=482) BASOPHILS ABSOLUTE COUNT 0.02 K/ L 0.01-0.08 (BEAKER) (test urxo=044) IMMATURE GRANULOCYTES-RELATIVE 1 % 0-1 PERCENT (BEAKER) (test ezgm=2216) PROTHROMBIN [id number] 04:00:00 Test Item Value Reference Range Comments PROTIME (BEAKER) (test zgat=245) 26.5 seconds 11.7-14.7 INR (BEAKER) (test gzrm=830) 2.4 <=5.9 RECOMMENDED COUMADIN/WARFARIN INR THERAPY RANGESSTANDARD DOSE: 2.0 - 3.0 Includes: PROPHYLAXIS forvenous thrombosis, systemic embolization; TREATMENT for venous thrombosis and/or pulmonary embolus.HIGH RISK: Target INR is 2.5-3.5 for patients with mechanical heart valves.POCT-GLUCOSE [id number] 03:13:00 Test Item Value Reference Range Comments POC-GLUCOSE METER (BEAKER) 115 mg/dL 70-110 TESTED AT [address] (test orut=7148) [facility] [address] POCT-GLUCOSE [id number] 01:32:00 Test Item Value Reference Range Comments POC-GLUCOSE METER (BEAKER) 77 mg/dL 70-110 TESTED AT [place] [id number] [facility] (test ebkw=5804) [facility] [address] BASIC METABOLIC [id number] 20:08:00 Test Item Value Reference Range Comments SODIUM (BEAKER) (test 138 meq/L 136-145 wnts=985) POTASSIUM (BEAKER) (test 4.3 meq/L 3.5-5.1 zktm=129) CHLORIDE (BEAKER) (test 108 meq/L 98-107 losx=751) CO2 (BEAKER) (test 24 meq/L 22-29 ahyx=237) BLOOD UREA NITROGEN 10 mg/dL 7-21 (BEAKER) (test peph=617) CREATININE (BEAKER) (test 1.65 mg/dL 0.57-1.25 xphq=775) GLUCOSE RANDOM (BEAKER) 95 mg/dL 70-105 (test shgf=134) CALCIUM (BEAKER) (test 7.7 mg/dL 8.4-10.2 hsnf=399) EGFR (BEAKER) (test 42 mL/min/1.73 sq m ESTIMATED GFR IS NOT aaml=0448) ACCURATE CREATININE CLEARANCE IN PREDICTING GLOMERULAR FILTRATION RATE. ESTIMATED GFR IS NOT APPLICABLE FOR DIALYSIS PATIENTS. Specimen slightly [id number] 20:06:00 Test Item Value Reference Range Comments PHOSPHORUS (BEAKER) (test etdn=034) 3.6 mg/dL 2.3-4.7 [id number] 20:06:00 Test Item Value Reference Range Comments MAGNESIUM (BEAKER) (test rmwm=334) 1.8 mg/dL 1.6-2.6 CALCIUM, [id number] 19:45:00 Test Item Value Reference Range Comments CALCIUM IONIZED (BEAKER) (test zdtg=146) 1.06 mmol/L 1.12-1.27 PH, BLOOD (BEAKER) (test tqlf=4575) 7.29 PH, [id number] 19:45:00 Test Item Value Reference Range Comments PH ARTERIAL (BEAKER) (test ktcy=247) 7.29 7.35-7.45 POCT-GLUCOSE [id number] 17:28:00 Test Item Value Reference Range Comments POC-GLUCOSE METER (BEAKER) 95 mg/dL 70-110 TESTED AT [facility] [address] [facility] (test dhhd=9354) [facility] [address] CALCIUM, [id number] 12:34:00 Test Item Value Reference Range Comments CALCIUM IONIZED (BEAKER) (test qhhg=540) 1.08 mmol/L 1.12-1.27 PH, BLOOD (BEAKER) (test owoq=2399) 7.32 BASIC METABOLIC [id number] 12:31:00 Test Item Value Reference Range Comments SODIUM (BEAKER) (test 139 meq/L 136-145 cfie=573) POTASSIUM (BEAKER) (test 4.2 meq/L 3.5-5.1 gzex=171) CHLORIDE (BEAKER) (test 108 meq/L 98-107 wrpn=231) CO2 (BEAKER) (test 27 meq/L 22-29 klwi=047) BLOOD UREA NITROGEN 9 mg/dL 7-21 (BEAKER) (test enet=043) CREATININE (BEAKER) (test 1.47 mg/dL 0.57-1.25 iofk=397) GLUCOSE RANDOM (BEAKER) 83 mg/dL 70-105 (test txug=062) CALCIUM (BEAKER) (test 8.1 mg/dL 8.4-10.2 imqc=604) EGFR (BEAKER) (test 48 mL/min/1.73 sq m ESTIMATED GFR IS NOT lqra=3737) ACCURATE CREATININE CLEARANCE IN PREDICTING GLOMERULAR FILTRATION RATE. ESTIMATED GFR IS NOT APPLICABLE FOR DIALYSIS PATIENTS. Specimen slightly ictericPOCT-GLUCOSE [id number] 11:53:00 Test Item Value Reference Range Comments POC-GLUCOSE METER (BEAKER) 80 mg/dL 70-110 TESTED AT [place] [id number] [facility] (test ufza=5967) [facility] [address] RAD, CHEST, 1 VIEW, NON [id number] 10:37:00Referring: Dr. Liz Grove for exam:->RO PNAShould this be performed at the bedside?-> YesFINAL REPORT Chest one view AP 09/02/2017 10:37 AM CLINICAL INDICATION: RO PNACOMPARISON: 08/31/2017 IMPRESSION: Cardiomediastinal contours are within normal limits. There is mildpulmonary edema. There is a small to moderate volume left pleural effusion with adjacent dependent opacity, atelectasis versus pneumonia. Support hardware is unchanged in position. Signed : Shreif Selby Verified Date/Time: 09/02/2017 10:37:35 Reading Location: [facility] Radiology Reading Room [facility] PANEL [id number] 09 :51:00 Test Item Value Reference Range Comments HUMAN METAPNEUMOVIRUS (BEAKER) (test Not detected Not detected, Inconclusive aqdp=3923) RHINOVIRUS (BEAKER) (test pngd=8580) Not detected Not detected, Inconclusive INFLUENZA A (BEAKER) (test Not detected Not detected, Inconclusive knfx=9390) INFLUENZA A SUBTYPE H1 (BEAKER) Not detected Not detected, Inconclusive (test jzdn=7989) INFLUENZA A SUBTYPE H3 (BEAKER) Not detected Not detected, Inconclusive (test fuwl=5540) INFLUENZA A SUBTYPE H1-2009 (BEAKER) Not detected Not detected, Inconclusive (test oahl=7228) INFLUENZA B (BEAKER) (test Not detected Not detected, Inconclusive zofu=0889) RESPIRATORY SYNCYTIAL VIRUS (BEAKER) Not detected Not detected, Inconclusive (test hrpi=8838) PARAINFLUENZA VIRUS 1 (BEAKER) (test Not detected Not detected, Inconclusive oenq=0577) PARAINFLUENZA VIRUS 2 (BEAKER) (test Not detected Not detected, Inconclusive fshk=4266) PARAINFLUENZA VIRUS 3 (BEAKER) (test Not detected Not detected, Inconclusive cmga=8376) PARAINFLUENZA VIRUS 4 (BEAKER) (test Not detected Not detected, Inconclusive sdiq=6021) ADENOVIRUS (BEAKER) (test svvu=8321) Not detected Not detected, Inconclusive CORONAVIRUS 229E (BEAKER) (test Not detected Not detected, Inconclusive rmth=9566) CORONAVIRUS HKU1 (BEAKER) (test Not detected Not detected, Inconclusive srth=8460) CORONAVIRUS NL63 (BEAKER) (test Not detected Not detected, Inconclusive jjgc=1951) CORONAVIRUS OC43 (BEAKER) (test Not detected Not detected, Inconclusive imeh=8200) BORDETELLA PERTUSSIS (BEAKER) (test Not detected Not detected, Inconclusive viua=9041) CHLAMYDOPHILA PNEUMONIAE (BEAKER) Not detected Not detected, Inconclusive (test auxg=5504) MYCOPLASMA PNEUMONIAE (BEAKER) (test Not detected Not detected, Inconclusive yrgf=7880) VANCOMYCIN LEVEL, [id number] 09:15:00 Test Item Value Reference Range Comments VANCOMYCIN TROUGH (BEAKER) (test zjth=596) 14.2 ug/mL 10.0-20.0 SPUTUM CULTURE + GRAM [id number] 09:09:00 Test Item Value Reference Range Comments CULTURE (BEAKER) (test ypma=6677) Amikacin (test code=1) Susceptible 0-16 , Resistant <0 or >16 Aztreonam (test Susceptible 0-8 , code=32) Resistant <0 or >8 Cefepime (test code=51) Susceptible 0-8 , Resistant <0 or >8 Ceftazidime (test Susceptible 0-8 , code=27) Resistant <0 or >8 Ciprofloxacin (test Susceptible 0-1 , code=7) Resistant <0 or >1 Doripenem (test Susceptible 0-2 , slxh=092) Resistant <0 or >2 Gentamicin (test Susceptible 0-4 , code=18) Resistant <0 or >4 Imipenem (test code=19) Susceptible 0-2 , Resistant <0 or >2 Levofloxacin (test Susceptible 0-2 , code=22) Resistant <0 or >2 Meropenem (test Susceptible 0-2 , code=34) Resistant <0 or >2 Piperacillin (test Susceptible 0-16 , code=24) Resistant <0 or >16 Piperacillin + Susceptible 0-16 , Tazobactam (test Resistant <0 or code=29) >16 Tobramycin (test Susceptible 0-4 , code=25) Resistant <0 or >4 CULTURE (BEAKER) (test <1+ Pseudomonas cxvw=3691) aeruginosa GRAM STAIN RESULT 1+ WBCs (BEAKER) (test lqsr=8449) GRAM STAIN RESULT 20-25 epithelial (BEAKER) (test cells kgwo=175686) GRAM STAIN RESULT No organisms seen (BEAKER) (test plub=823774) 2+ [facility] AUTO [id number] 07:16:00 Test Item Value Reference Range Comments WHITE BLOOD CELL COUNT (BEAKER) (test opld=524) 8.5 K/ L 3.5-10.5 RED BLOOD CELL COUNT (BEAKER) (test ngnw=252) 2.36 M/ L 4.63-6.08 HEMOGLOBIN (BEAKER) (test ecth=217) 7.2 GM/DL 13.7-17.5 HEMATOCRIT (BEAKER) (test riyv=206) 23.4 % 40.1-51.0 MEAN CORPUSCULAR VOLUME (BEAKER) (test rhkk=915) 99.2 fL 79.0-92.2 MEAN CORPUSCULAR HEMOGLOBIN (BEAKER) (test 30.5 pg 25.7-32.2 jwlf=931) MEAN CORPUSCULAR HEMOGLOBIN CONC (BEAKER) (test 30.8 GM/DL 32.3-36.5 djvl=590) RED CELL DISTRIBUTION WIDTH (BEAKER) (test 18.6 % 11.6-14.4 krap=916) PLATELET COUNT (BEAKER) (test clvs=311) 25 K/CU MM 150-450 MEAN PLATELET VOLUME (BEAKER) (test tcvp=283) 11.6 fL 9.4-12.4 NUCLEATED RED BLOOD CELLS (BEAKER) (test 0 /100 WBC 0-0 vrlq=224) NEUTROPHILS RELATIVE PERCENT (BEAKER) (test 82 % uvso=770) LYMPHOCYTES RELATIVE PERCENT (BEAKER) (test 5 % zgvs=489) MONOCYTES RELATIVE PERCENT (BEAKER) (test 11 % wqyv=518) EOSINOPHILS RELATIVE PERCENT (BEAKER) (test 2 % qdlm=247) BASOPHILS RELATIVE PERCENT (BEAKER) (test 0 % pakn=848) NEUTROPHILS ABSOLUTE COUNT (BEAKER) (test 6.96 K/ L 1.78-5.38 ipis=395) LYMPHOCYTES ABSOLUTE COUNT (BEAKER) (test 0.40 K/ L 1.32-3.57 bbhy=030) MONOCYTES ABSOLUTE COUNT (BEAKER) (test kqeg=267) 0.89 K/ L 0.30-0.82 EOSINOPHILS ABSOLUTE COUNT (BEAKER) (test 0.16 K/ L 0.04-0.54 kwbw=004) BASOPHILS ABSOLUTE COUNT (BEAKER) (test zgky=129) 0.02 K/ L 0.01-0.08 IMMATURE GRANULOCYTES-RELATIVE PERCENT (BEAKER) 1 % 0-1 (test qqhm=1400) (MANUAL DIFFERENTIAL)2017-09-02 07:16:00 Test Item Value Reference Range Comments TOTAL COUNTED (BEAKER) (test tqud=4081) WBC MORPHOLOGY (BEAKER) (test qeei=251) Normal PLT MORPHOLOGY (BEAKER) (test rfzu=032) Normal HYPOCHROMIA (BEAKER) (test juno=941) 1+ few POLYCHROMATOPHILLIC RBCS(BEAKER) (test epek=874) 1+ few POCT-GLUCOSE [id number] 05:57:00 Test Item Value Reference Range Comments POC-GLUCOSE METER (BEAKER) 70 mg/dL 70-110 TESTED AT [facility] [address] [facility] (test typk=4514) [facility] [address] CALCIUM, [id number] 04:57:00 Test Item Value Reference Range Comments CALCIUM IONIZED (BEAKER) (test vduz=651) 1.11 mmol/L 1.12-1.27 PH, BLOOD (BEAKER) (test qbum=2464) 7.43 [id number] 04:19:00 Test Item Value Reference Range Comments PHOSPHORUS (BEAKER) (test xmbp=606) 2.4 mg/dL 2.3-4.7 [id number] 04:19:00 Test Item Value Reference Range Comments MAGNESIUM (BEAKER) (test cpjx=635) 1.8 mg/dL 1.6-2.6 BASIC METABOLIC [id number] 04:19:00 Test Item Value Reference Range Comments SODIUM (BEAKER) (test 139 meq/L 136-145 ppik=370) POTASSIUM (BEAKER) (test 4.4 meq/L 3.5-5.1 hmsi=068) CHLORIDE (BEAKER) (test 107 meq/L 98-107 kfkv=714) CO2 (BEAKER) (test 25 meq/L 22-29 yhbl=047) BLOOD UREA NITROGEN 10 mg/dL 7-21 (BEAKER) (test axpq=716) CREATININE (BEAKER) (test 1.46 mg/dL 0.57-1.25 kbui=830) GLUCOSE RANDOM (BEAKER) 84 mg/dL 70-105 (test jlsc=050) CALCIUM (BEAKER) (test 8.3 mg/dL 8.4-10.2 pboq=884) EGFR (BEAKER) (test 48 mL/min/1.73 sq m ESTIMATED GFR IS NOT yomt=9438) ACCURATE CREATININE CLEARANCE IN PREDICTING GLOMERULAR FILTRATION RATE. ESTIMATED GFR IS NOT APPLICABLE FOR DIALYSIS PATIENTS. Specimen slightly ictericHEPATIC FUNCTION [id number] 04:19:00 Test Item Value Reference Range Comments TOTAL PROTEIN (BEAKER) (test qfej=083) 5.5 gm/dL 6.0-8.3 ALBUMIN (BEAKER) (test moey=4878) 2.6 g/dL 3.5-5.0 BILIRUBIN TOTAL (BEAKER) (test kqbu=005) 2.4 mg/dL 0.2-1.2 BILIRUBIN DIRECT (BEAKER) (test exad=003) 1.2 mg/dL 0.1-0.5 ALKALINE PHOSPHATASE (BEAKER) (test hhfo=387) 81 U/L 40-150 AST (SGOT) (BEAKER) (test qkar=747) 46 U/L 5-34 ALT (SGPT) (BEAKER) (test xnuo=549) 18 U/L 6-55 Specimen slightly ictericPROTHROMBIN [id number] 04:06:00 Test Item Value Reference Range Comments PROTIME (BEAKER) (test sshc=944) 22.8 seconds 11.7-14.7 INR (BEAKER) (test kpyq=339) 2.0 <=5.9 RECOMMENDED COUMADIN/WARFARIN INR THERAPY RANGESSTANDARD DOSE: 2.0 - 3.0 Includes: PROPHYLAXIS forvenous thrombosis, systemic embolization; TREATMENT for venous thrombosis and/or pulmonary embolus.HIGH RISK: Target INR is 2.5-3.5 for patients with mechanical heart valves.POCT-GLUCOSE [id number] 23:59:00 Test Item Value Reference Range Comments POC-GLUCOSE METER (BEAKER) 76 mg/dL 70-110 TESTED AT [facility] [address] [facility] (test vmut=3699) [facility] [address] BASIC METABOLIC [id number] 20:38:00 Test Item Value Reference Range Comments SODIUM (BEAKER) (test 140 meq/L 136-145 fmmq=298) POTASSIUM (BEAKER) (test 3.9 meq/L 3.5-5.1 idvr=363) CHLORIDE (BEAKER) (test 108 meq/L 98-107 zkzd=869) CO2 (BEAKER) (test 24 meq/L 22-29 udqy=328) BLOOD UREA NITROGEN 11 mg/dL 7-21 (BEAKER) (test cxwe=460) CREATININE (BEAKER) (test 1.61 mg/dL 0.57-1.25 rfel=492) GLUCOSE RANDOM (BEAKER) 82 mg/dL 70-105 (test vlnn=496) CALCIUM (BEAKER) (test 8.3 mg/dL 8.4-10.2 vikt=615) EGFR (BEAKER) (test 43 mL/min/1.73 sq m ESTIMATED GFR IS NOT mqgb=6226) ACCURATE CREATININE CLEARANCE IN PREDICTING GLOMERULAR FILTRATION RATE. ESTIMATED GFR IS NOT APPLICABLE FOR DIALYSIS PATIENTS. Specimen slightly ictericCALCIUM, [id number] 20:20:00 Test Item Value Reference Range Comments CALCIUM IONIZED (BEAKER) (test sbkm=673) 1.10 mmol/L 1.12-1.27 PH, BLOOD (BEAKER) (test dvbn=7522) 7.43 POCT-GLUCOSE [id number] 16:55:00 Test Item Value Reference Range Comments POC-GLUCOSE METER (BEAKER) 94 mg/dL 70-110 TESTED AT [facility] [address] [facility] (test eyxn=1356) [facility] [address] [id number] 16:37:00 Test Item Value Reference Range Comments PHOSPHORUS (BEAKER) (test ipdi=415) 2.0 mg/dL 2.3-4.7 [id number] 16:37:00 Test Item Value Reference Range Comments MAGNESIUM (BEAKER) (test runz=956) 1.7 mg/dL 1.6-2.6 PH, [id number] 16:14:00 Test Item Value Reference Range Comments PH ARTERIAL (BEAKER) (test iein=747) 7.39 7.35-7.45 POCT-GLUCOSE [id number] 13:42:00 Test Item Value Reference Range Comments POC-GLUCOSE METER (BEAKER) 66 mg/dL 70-110 TESTED AT [facility] [address] (test gvpb=4162) [facility] [address] BASIC METABOLIC [id number] 12:35:00 Test Item Value Reference Range Comments SODIUM (BEAKER) (test 139 meq/L 136-145 jmur=714) POTASSIUM (BEAKER) (test 4.0 meq/L 3.5-5.1 cktj=801) CHLORIDE (BEAKER) (test 107 meq/L 98-107 nkbd=203) CO2 (BEAKER) (test 24 meq/L 22-29 vsvz=125) BLOOD UREA NITROGEN 15 mg/dL 7-21 (BEAKER) (test iiwk=764) CREATININE (BEAKER) (test 1.94 mg/dL 0.57-1.25 dddx=204) GLUCOSE RANDOM (BEAKER) 69 mg/dL 70-105 (test fuaa=363) CALCIUM (BEAKER) (test 8.5 mg/dL 8.4-10.2 yhyp=687) EGFR (BEAKER) (test 35 mL/min/1.73 sq m ESTIMATED GFR IS NOT eple=2114) ACCURATE CREATININE CLEARANCE IN PREDICTING GLOMERULAR FILTRATION RATE. ESTIMATED GFR IS NOT APPLICABLE FOR DIALYSIS PATIENTS. Specimen slightly ictericCALCIUM, [id number] 12:08:00 Test Item Value Reference Range Comments CALCIUM IONIZED (BEAKER) (test gfis=668) 1.16 mmol/L 1.12-1.27 PH, BLOOD (BEAKER) (test wddk=7625) 7.40 PH, [id number] 04:41:00 Test Item Value Reference Range Comments PH ARTERIAL (BEAKER) (test xcul=282) 7.40 7.35-7.45 CBC W/PLT COUNT & AUTO [id number] 04:35:00 Test Item Value Reference Range Comments WHITE BLOOD CELL COUNT (BEAKER) (test ycmn=387) 8.0 K/ L 3.5-10.5 RED BLOOD CELL COUNT (BEAKER) (test lnfr=199) 2.45 M/ L 4.63-6.08 HEMOGLOBIN (BEAKER) (test qren=983) 7.6 GM/DL 13.7-17.5 HEMATOCRIT (BEAKER) (test elnz=319) 24.3 % 40.1-51.0 MEAN CORPUSCULAR VOLUME (BEAKER) (test cdgw=152) 99.2 fL 79.0-92.2 MEAN CORPUSCULAR HEMOGLOBIN (BEAKER) (test 31.0 pg 25.7-32.2 iyoc=113) MEAN CORPUSCULAR HEMOGLOBIN CONC (BEAKER) (test 31.3 GM/DL 32.3-36.5 quls=555) RED CELL DISTRIBUTION WIDTH (BEAKER) (test 19.1 % 11.6-14.4 riss=423) PLATELET COUNT (BEAKER) (test qgyc=182) 22 K/CU MM 150-450 MEAN PLATELET VOLUME (BEAKER) (test xjyn=553) 10.5 fL 9.4-12.4 NUCLEATED RED BLOOD CELLS (BEAKER) (test 0 /100 WBC 0-0 ngbf=268) NEUTROPHILS RELATIVE PERCENT (BEAKER) (test 85 % pzxd=470) LYMPHOCYTES RELATIVE PERCENT (BEAKER) (test 4 % ptsw=357) MONOCYTES RELATIVE PERCENT (BEAKER) (test 9 % yiwc=411) EOSINOPHILS RELATIVE PERCENT (BEAKER) (test 1 % glfl=428) BASOPHILS RELATIVE PERCENT (BEAKER) (test 0 % hiul=770) NEUTROPHILS ABSOLUTE COUNT (BEAKER) (test 6.83 K/ L 1.78-5.38 ewyz=179) LYMPHOCYTES ABSOLUTE COUNT (BEAKER) (test 0.33 K/ L 1.32-3.57 ebxj=231) MONOCYTES ABSOLUTE COUNT (BEAKER) (test xqtr=106) 0.70 K/ L 0.30-0.82 EOSINOPHILS ABSOLUTE COUNT (BEAKER) (test 0.10 K/ L 0.04-0.54 ksqg=748) BASOPHILS ABSOLUTE COUNT (BEAKER) (test juhu=224) 0.02 K/ L 0.01-0.08 IMMATURE GRANULOCYTES-RELATIVE PERCENT (BEAKER) 1 % 0-1 (test jjuf=2826) CALCIUM, [id number] 04:34:00 Test Item Value Reference Range Comments CALCIUM IONIZED (BEAKER) (test issp=010) 1.18 mmol/L 1.12-1.27 PH, BLOOD (BEAKER) (test nchv=7342) 7.40 BASIC METABOLIC [id number] 04:22:00 Test Item Value Reference Range Comments SODIUM (BEAKER) (test 140 meq/L 136-145 xist=290) POTASSIUM (BEAKER) (test 4.1 meq/L 3.5-5.1 tbhg=725) CHLORIDE (BEAKER) (test 108 meq/L 98-107 kbsr=079) CO2 (BEAKER) (test 24 meq/L 22-29 ylqb=535) BLOOD UREA NITROGEN 19 mg/dL 7-21 (BEAKER) (test pmwn=339) CREATININE (BEAKER) (test 2.47 mg/dL 0.57-1.25 xthn=982) GLUCOSE RANDOM (BEAKER) 74 mg/dL 70-105 (test wyjj=621) CALCIUM (BEAKER) (test 8.9 mg/dL 8.4-10.2 ooem=617) EGFR (BEAKER) (test 26 mL/min/1.73 sq m ESTIMATED GFR IS NOT wfdv=3636) ACCURATE CREATININE CLEARANCE IN PREDICTING GLOMERULAR FILTRATION RATE. ESTIMATED GFR IS NOT APPLICABLE FOR DIALYSIS PATIENTS. Specimen slightly [id number] 04:16:00 Test Item Value Reference Range Comments PHOSPHORUS (BEAKER) (test hkmp=139) 1.9 mg/dL 2.3-4.7 [id number] 04:16:00 Test Item Value Reference Range Comments MAGNESIUM (BEAKER) (test rfek=528) 1.6 mg/dL 1.6-2.6 HEPATIC FUNCTION [id number] 04:16:00 Test Item Value Reference Range Comments TOTAL PROTEIN (BEAKER) (test fdps=141) 5.7 gm/dL 6.0-8.3 ALBUMIN (BEAKER) (test nrvd=6857) 2.9 g/dL 3.5-5.0 BILIRUBIN TOTAL (BEAKER) (test anhe=127) 2.0 mg/dL 0.2-1.2 BILIRUBIN DIRECT (BEAKER) (test lnxy=242) 1.0 mg/dL 0.1-0.5 ALKALINE PHOSPHATASE (BEAKER) (test pbph=640) 84 U/L 40-150 AST (SGOT) (BEAKER) (test zwmw=995) 42 U/L 5-34 ALT (SGPT) (BEAKER) (test nafl=007) 16 U/L 6-55 Specimen slightly ictericPROTHROMBIN [id number] 04:10:00 Test Item Value Reference Range Comments PROTIME (BEAKER) (test ftjz=736) 23.2 seconds 11.7-14.7 INR (BEAKER) (test agnw=463) 2.1 <=5.9 RECOMMENDED COUMADIN/WARFARIN INR THERAPY RANGESSTANDARD DOSE: 2.0 - 3.0 Includes: PROPHYLAXIS forvenous thrombosis, systemic embolization; TREATMENT for venous thrombosis and/or pulmonary embolus.HIGH RISK: Target INR is 2.5-3.5 for patients with mechanical heart valves.POCT-GLUCOSE [id number] 02:00:00 Test Item Value Reference Range Comments POC-GLUCOSE METER (BEAKER) 72 mg/dL 70-110 TESTED AT [facility] [address] [facility] (test hbjd=4994) [facility] [address] BASIC METABOLIC [id number] 20:27:00 Test Item Value Reference Range Comments SODIUM (BEAKER) (test 141 meq/L 136-145 tswy=309) POTASSIUM (BEAKER) (test 3.9 meq/L 3.5-5.1 yzcz=299) CHLORIDE (BEAKER) (test 110 meq/L 98-107 fmgp=931) CO2 (BEAKER) (test 25 meq/L 22-29 jrua=973) BLOOD UREA NITROGEN 25 mg/dL 7-21 (BEAKER) (test wlto=738) CREATININE (BEAKER) (test 3.16 mg/dL 0.57-1.25 qldh=077) GLUCOSE RANDOM (BEAKER) 84 mg/dL 70-105 (test qszc=034) CALCIUM (BEAKER) (test 8.3 mg/dL 8.4-10.2 olfz=427) EGFR (BEAKER) (test 20 mL/min/1.73 sq m ESTIMATED GFR IS NOT fvny=5071) ACCURATE CREATININE CLEARANCE IN PREDICTING GLOMERULAR FILTRATION RATE. ESTIMATED GFR IS NOT APPLICABLE FOR DIALYSIS PATIENTS. Specimen slightly ictericCALCIUM, [id number] 20:14:00 Test Item Value Reference Range Comments CALCIUM IONIZED (BEAKER) (test tyke=066) 0.95 mmol/L 1.12-1.27 PH, BLOOD (BEAKER) (test igxr=6195) 7.43 POCT-GLUCOSE [id number] 17:56:00 Test Item Value Reference Range Comments POC-GLUCOSE METER (BEAKER) 92 mg/dL 70-110 TESTED AT [address] (test bvfn=6412) [facility] [address] BASIC METABOLIC [id number] 12:57:00 Test Item Value Reference Range Comments SODIUM (BEAKER) (test 140 meq/L 136-145 wibc=673) POTASSIUM (BEAKER) (test 4.1 meq/L 3.5-5.1 xndh=317) CHLORIDE (BEAKER) (test 106 meq/L 98-107 mjgo=138) CO2 (BEAKER) (test 24 meq/L 22-29 qcjn=937) BLOOD UREA NITROGEN 29 mg/dL 7-21 (BEAKER) (test dtyo=153) CREATININE (BEAKER) (test 3.53 mg/dL 0.57-1.25 lnpx=763) GLUCOSE RANDOM (BEAKER) 75 mg/dL 70-105 (test yfpj=463) CALCIUM (BEAKER) (test 8.4 mg/dL 8.4-10.2 ndau=161) EGFR (BEAKER) (test 17 mL/min/1.73 sq m ESTIMATED GFR IS NOT qlvm=4033) ACCURATE CREATININE CLEARANCE IN PREDICTING GLOMERULAR FILTRATION RATE. ESTIMATED GFR IS NOT APPLICABLE FOR DIALYSIS PATIENTS. Specimen slightly ictericCALCIUM, [id number] 12:26:00 Test Item Value Reference Range Comments CALCIUM IONIZED (BEAKER) (test cmne=198) 0.92 mmol/L 1.12-1.27 PH, BLOOD (BEAKER) (test tmxm=5069) 7.45 POCT-GLUCOSE [id number] 12:07:00 Test Item Value Reference Range Comments POC-GLUCOSE METER (BEAKER) 67 mg/dL 70-110 Will Repeat Test/TESTED AT (test wsyu=0505) [address] [address] POCT-GLUCOSE [id number] 08:27:00 Test Item Value Reference Range Comments POC-GLUCOSE METER (BEAKER) 77 mg/dL 70-110 TESTED AT [address] (test kkkn=6808) [facility] [address] [id number] 08:04:00 Test Item Value Reference Range Comments MAGNESIUM (BEAKER) (test lkso=157) 2.2 mg/dL 1.6-2.6 VANCOMYCIN LEVEL, [id number] 04:39:00 Test Item Value Reference Range Comments VANCOMYCIN RANDOM (BEAKER) (test wgxj=555) 9.7 ug/mL Reference Range: No NormalsCBC W/PLT COUNT & AUTO [id number] 04: 30:00 Test Item Value Reference Range Comments WHITE BLOOD CELL COUNT (BEAKER) (test eirz=273) 8.8 K/ L 3.5-10.5 RED BLOOD CELL COUNT (BEAKER) (test flpc=377) 2.46 M/ L 4.63-6.08 HEMOGLOBIN (BEAKER) (test miqp=043) 7.5 GM/DL 13.7-17.5 HEMATOCRIT (BEAKER) (test matt=486) 23.8 % 40.1-51.0 MEAN CORPUSCULAR VOLUME (BEAKER) (test qtwe=871) 96.7 fL 79.0-92.2 MEAN CORPUSCULAR HEMOGLOBIN (BEAKER) (test 30.5 pg 25.7-32.2 zeqj=945) MEAN CORPUSCULAR HEMOGLOBIN CONC (BEAKER) (test 31.5 GM/DL 32.3-36.5 paxh=389) RED CELL DISTRIBUTION WIDTH (BEAKER) (test 19.0 % 11.6-14.4 czoa=183) PLATELET COUNT (BEAKER) (test nvzt=670) 60 K/CU MM 150-450 MEAN PLATELET VOLUME (BEAKER) (test xggn=277) 10.6 fL 9.4-12.4 NUCLEATED RED BLOOD CELLS (BEAKER) (test 0 /100 WBC 0-0 hmkl=033) NEUTROPHILS RELATIVE PERCENT (BEAKER) (test 89 % fycc=158) LYMPHOCYTES RELATIVE PERCENT (BEAKER) (test 3 % lqrt=304) MONOCYTES RELATIVE PERCENT (BEAKER) (test 7 % swve=950) EOSINOPHILS RELATIVE PERCENT (BEAKER) (test 0 % jqvf=172) BASOPHILS RELATIVE PERCENT (BEAKER) (test 0 % wmfl=898) NEUTROPHILS ABSOLUTE COUNT (BEAKER) (test 7.78 K/ L 1.78-5.38 litp=257) LYMPHOCYTES ABSOLUTE COUNT (BEAKER) (test 0.30 K/ L 1.32-3.57 czji=746) MONOCYTES ABSOLUTE COUNT (BEAKER) (test fgge=424) 0.63 K/ L 0.30-0.82 EOSINOPHILS ABSOLUTE COUNT (BEAKER) (test 0.02 K/ L 0.04-0.54 prxb=421) BASOPHILS ABSOLUTE COUNT (BEAKER) (test evjc=303) 0.01 K/ L 0.01-0.08 IMMATURE GRANULOCYTES-RELATIVE PERCENT (BEAKER) 1 % 0-1 (test xewg=8327) BASIC METABOLIC [id number] 04:22:00 Test Item Value Reference Range Comments SODIUM (BEAKER) (test 139 meq/L 136-145 sxry=997) POTASSIUM (BEAKER) (test 4.4 meq/L 3.5-5.1 etmj=708) CHLORIDE (BEAKER) (test 105 meq/L 98-107 kydk=588) CO2 (BEAKER) (test 23 meq/L 22-29 vxeu=593) BLOOD UREA NITROGEN 37 mg/dL 7-21 (BEAKER) (test awyg=232) CREATININE (BEAKER) (test 4.31 mg/dL 0.57-1.25 wdxr=054) GLUCOSE RANDOM (BEAKER) 90 mg/dL 70-105 (test xodj=283) CALCIUM (BEAKER) (test 8.6 mg/dL 8.4-10.2 vuia=553) EGFR (BEAKER) (test 14 mL/min/1.73 sq m ESTIMATED GFR IS NOT bntu=2288) ACCURATE CREATININE CLEARANCE IN PREDICTING GLOMERULAR FILTRATION RATE. ESTIMATED GFR IS NOT APPLICABLE FOR DIALYSIS PATIENTS. [id number] 04:16:00 Test Item Value Reference Range Comments PHOSPHORUS (BEAKER) (test anrc=498) 4.5 mg/dL 2.3-4.7 HEPATIC FUNCTION [id number] 04:16:00 Test Item Value Reference Range Comments TOTAL PROTEIN (BEAKER) (test znzi=760) 6.0 gm/dL 6.0-8.3 ALBUMIN (BEAKER) (test fmvq=4463) 3.1 g/dL 3.5-5.0 BILIRUBIN TOTAL (BEAKER) (test xspb=123) 1.7 mg/dL 0.2-1.2 BILIRUBIN DIRECT (BEAKER) (test ttxe=096) 0.9 mg/dL 0.1-0.5 ALKALINE PHOSPHATASE (BEAKER) (test sajt=202) 87 U/L 40-150 AST (SGOT) (BEAKER) (test eqag=445) 28 U/L 5-34 ALT (SGPT) (BEAKER) (test nbkk=103) 12 U/L 6-55 PROTHROMBIN [id number] 04:10:00 Test Item Value Reference Range Comments PROTIME (BEAKER) (test eczi=334) 22.0 seconds 11.7-14.7 INR (BEAKER) (test uekn=268) 1.9 <=5.9 RECOMMENDED COUMADIN/WARFARIN INR THERAPY RANGESSTANDARD DOSE: 2.0 - 3.0 Includes: PROPHYLAXIS forvenous thrombosis, systemic embolization; TREATMENT for venous thrombosis and/or pulmonary embolus.HIGH RISK: Target INR is 2.5-3.5 for patients with mechanical heart valves.BLOOD GAS, [id number] 04:07:00 Test Item Value Reference Range Comments PH ARTERIAL (BEAKER) (test yhxr=371) 7.41 7.35-7.45 PCO2 ARTERIAL (BEAKER) (test gnxq=418) 40 mmHg 35-45 PO2 ARTERIAL (BEAKER) (test vhkp=198) 134 mmHg 80-90 O2 SATURATION ARTERIAL (BEAKER) (test jgth=170) 98.8 % 96.0-97.0 HCO3 ARTERIAL (BEAKER) (test ieri=608) 25 mmol/L 21-29 BASE EXCESS ARTERIAL (BEAKER) (test rrqy=089) 0.6 mmol/L -2.0-3.0 PATIENT TEMPERATURE (BEAKER) (test lyld=4831) 36.4 C FIO2 (BEAKER) (test kmzt=9873) 40.0 % RAD, CHEST, 1 VIEW, NON [id number] 03:08:00Referring: Dr. Hill WorkenehReason for exam:->resp failureShould this be performed at the bedside ?->YesFINAL REPORT EXAMINATION: AP PORTABLE CHEST RADIOGRAPH CLINICAL INDICATION:Respiratory failure IMPRESSION: Compared with . Support tube and catheter positions are unchanged. The heart is enlarged as before. Opacities are again noted in both lungs with a predominantlycentral and basilar distribution. Findings are nonspecific but concerning for a combination of edemaand atelectasis. An underlying pneumonia would also be a consideration in the appropriate setting. The superimposed bilateral pleural effusions are grossly stable. No evidence of new lung consolidationor pneumothorax. In summary, no significant interval change. Signed : Jani Daly MDReport Verified Date/Time: 08/31/2017 03:08:47 Reading Location: [address] Reading Room BASIC METABOLIC [id number] 00:31: 00 Test Item Value Reference Range Comments SODIUM (BEAKER) (test 138 meq/L 136-145 ylae=086) POTASSIUM (BEAKER) (test 4.3 meq/L 3.5-5.1 hibn=268) CHLORIDE (BEAKER) (test 105 meq/L 98-107 flgx=464) CO2 (BEAKER) (test 22 meq/L 22-29 hhxr=866) BLOOD UREA NITROGEN 40 mg/dL 7-21 (BEAKER) (test wcyv=550) CREATININE (BEAKER) (test 4.71 mg/dL 0.57-1.25 ikhp=649) GLUCOSE RANDOM (BEAKER) 89 mg/dL 70-105 (test tbhe=852) CALCIUM (BEAKER) (test 8.4 mg/dL 8.4-10.2 nmvh=001) EGFR (BEAKER) (test 13 mL/min/1.73 sq m ESTIMATED GFR IS NOT xcjk=3693) ACCURATE CREATININE CLEARANCE IN PREDICTING GLOMERULAR FILTRATION RATE. ESTIMATED GFR IS NOT APPLICABLE FOR DIALYSIS PATIENTS. POCT-GLUCOSE [id number] 23:48:00 Test Item Value Reference Range Comments POC-GLUCOSE METER (BEAKER) 92 mg/dL 70-110 TESTED AT [address] (test xvpi=8619) [facility] [address] CALCIUM, [id number] 23:34:00 Test Item Value Reference Range Comments CALCIUM IONIZED (BEAKER) (test lkwh=031) 1.11 mmol/L 1.12-1.27 PH, BLOOD (BEAKER) (test gjso=1475) 7.42 HEMOGLOBIN AND [id number] 23:28:00 Test Item Value Reference Range Comments HEMOGLOBIN (BEAKER) (test taoc=612) 7.7 GM/DL 13.7-17.5 HEMATOCRIT (BEAKER) (test ipca=690) 24.3 % 40.1-51.0 RAD, ABDOMEN/KUB, 1 VIEW [id number] 21:41:00Referring: Dr. Liz Felipe Reason for exam:->tube placementFINAL REPORT EXAMINATION: SUPINE ABDOMEN CLINICAL INDICATION: FEEDING TUBE PLACEMENT IMPRESSION: Compared with 08/30/2017. 1813 hours Tip of the feeding tube projects over left upper abdomen in the region of the stomach. Mild gaseous distention of the small bowel and colon is again noted, nonspecific but possible ileus. Moderate volume of formed stool is noted within the right colon. A transjugular intrahepatic portal-systemic shunt is again noted. Signed : Jani Dalyort Verified Date/Time: 08/30/2017 21:41:50 Reading Location: [address] Reading Room [id number] 20:36:00 Test Item Value Reference Range Comments PHOSPHORUS (BEAKER) (test xilj=957) 6.1 mg/dL 2.3-4.7 [id number] 20:36:00 Test Item Value Reference Range Comments MAGNESIUM (BEAKER) (test beof=426) 2.0 mg/dL 1.6-2.6 PH, [id number] 20:25:00 Test Item Value Reference Range Comments PH ARTERIAL (BEAKER) (test ouji=792) 7.42 7.35-7.45 RAD, ABDOMEN/KUB, 1 VIEW [id number] 18:34:00Referring: Dr. Liz Felipe Reason for exam:->repositioned corpak again Should this be performed at the bedside?->YesFINAL REPORT Abdomen x-ray Clinical Diagnosis: Repositioned enteric tubeComparison: 08/30/2017 at 1702Views: 1 view Impression: Enteric tube has been repositioned. Tube now courses below the diaphragm and coils within the stomach with tip heading back upwards terminating within the distal esophagus/GE junction. Recommend retracting tube several additional centimeters. Remaining examination is unchanged from the recent prior radiograph. Signed: Julius Sow MDReport Verified Date/Time: 18:34:08 Reading Location: [facility] B1 C013W Consult Reading Room Electronicallysigned by: JULIUS SOW MD on 08/30/2017 06:34 PMRAD, CHEST, 1 VIEW, NON [id number] 18:31:00Referring: Dr. Liz Felipe Reason for exam :->repositioned central line again Should this be performed at the bedside?-& gt;YesFINAL REPORT Chest, 1 view. History: Left central line repositioning. Comparison: 08/30/2017 at 1659. Impression: Left IJ central line has been repositioned with distal tip now superimposed over the junction of the SVC and left brachiocephalic vein. Right nontunneled dialysis catheter in stable position. Enteric tube traverses below the diaphragm and then coils back upward within the distal esophagus. Endotracheal tube is in stable position. There is a stable small left pleural effusion with associated atelectasis of the left lower lobe. There is no evidence for any large focal consolidation or pneumothorax. No acute osseous abnormalities are identified. Signed: Julius Sow MDReport Verified Date/Time: 08/30/2017 18:31:26 Reading Location: [facility] B1 C013W Consult Reading Room [facility] METABOLIC [id number] 17:53:00 Test Item Value Reference Range Comments SODIUM (BEAKER) (test 142 meq/L 136-145 ousg=482) POTASSIUM (BEAKER) (test 4.5 meq/L 3.5-5.1 gmfm=981) CHLORIDE (BEAKER) (test 105 meq/L 98-107 ypmp=055) CO2 (BEAKER) (test 23 meq/L 22-29 cgnq=819) BLOOD UREA NITROGEN 51 mg/dL 7-21 (BEAKER) (test kafh=375) CREATININE (BEAKER) (test 5.96 mg/dL 0.57-1.25 qbpr=662) GLUCOSE RANDOM (BEAKER) 101 mg/dL 70-105 (test rqrw=877) CALCIUM (BEAKER) (test 8.3 mg/dL 8.4-10.2 pltj=569) EGFR (BEAKER) (test 10 mL/min/1.73 sq m ESTIMATED GFR IS NOT equb=5908) ACCURATE CREATININE CLEARANCE IN PREDICTING GLOMERULAR FILTRATION RATE. ESTIMATED GFR IS NOT APPLICABLE FOR DIALYSIS PATIENTS. CALCIUM, [id number] 17:23:00 Test Item Value Reference Range Comments CALCIUM IONIZED (BEAKER) (test dwul=869) 1.02 mmol/L 1.12-1.27 PH, BLOOD (BEAKER) (test rjmu=1651) 7.38 HEMOGLOBIN AND [id number] 17:23:00 Test Item Value Reference Range Comments HEMOGLOBIN (BEAKER) (test uxhl=809) 7.2 GM/DL 13.7-17.5 HEMATOCRIT (BEAKER) (test vfjm=083) 23.1 % 40.1-51.0 RAD, CHEST, 1 VIEW, NON [id number] 17:17:00Referring: Dr. Liz Felipe Reason for exam:->post central line repositioning Should this be performed at the bedside?->YesFINAL REPORT TECHNIQUE: Frontal radiographs of the chest and abdomen dated 08/30/2017. CLINICAL HISTORY: Central line placement and feeding tube placement COMPARISON STUDY: Radiograph of the chest and abdomen performed earlier the same day. FINDINGS: Left-sided internal jugularvenous catheter tip has been advanced and the tip projects over the region of the superior vena cava/right brachiocephalic junction. The enteric feeding tube has been repositioned. It coils in the stomach and heads superiorly with the tip in the midesophagus. Remaining tubes and lines are unchanged. Stable small left pleural effusion with compressive atelectasis. Stable pulmonary vascular congestion.No pneumothorax. Cardiomediastinal silhouette is stable in size. No air-filled, dilated loops of bowel to suggest obstruction. Stool is seen in the right colon. No free intraperitoneal air. No abnormal soft tissue mass or calcification. Degenerative changes are seen in the spine. No fracture. IMPRESSION: Left-sided vascular line and enteric tube is described above. Signed: Khadra Huntleyeport Verified Date/Time: 17:17:42 Reading Location: [facility] Radiology Reading Room RAD, ABDOMEN/KUB, 1 VIEW [id number] 17:17:00Referring: Dr. Liz Felipe Reason for exam:->feeding tube placementFINAL REPORT TECHNIQUE: Frontal radiographs of the chest and abdomen dated 08/30/2017. CLINICAL HISTORY: Central line placement and feeding tube placement COMPARISON STUDY: Radiograph of the chest and abdomen performed earlier the same day. FINDINGS: Left-sided internal jugularvenous catheter tip has been advanced and the tip projects over the region of the superior vena cava/right brachiocephalic junction. The enteric feeding tube has been repositioned. It coils in the stomach and heads superiorly with the tip in the midesophagus. Remaining tubes and lines are unchanged. Stable small left pleural effusion with compressive atelectasis. Stable pulmonary vascular congestion.No pneumothorax. Cardiomediastinal silhouette is stable in size. No air-filled, dilated loops of bowel to suggest obstruction. Stool is seen in the right colon. No free intraperitoneal air. No abnormal soft tissue mass or calcification. Degenerative changes are seen in the spine. No fracture. IMPRESSION: Left-sided vascular line and enteric tube is described above. Signed : Khadra Huntleyeport Verified Date/Time: 08/30/2017 17:17:42 Reading Location: [facility] Radiology Reading Room POCT-GLUCOSE [id number] 16:59:00 Test Item Value Reference Range Comments POC-GLUCOSE METER (BEAKER) 103 mg/dL 70-110 TESTED AT [address] (test hsod=5861) [facility] [address] RAD, ABDOMEN/KUB, 1 VIEW [id number] 15:19:00Referring: Dr. Liz Felipe Reason for exam:->corpak Should this be performed at the bedside?-> YesFINAL REPORT TECHNIQUE: Single radiograph of the abdomen dated 08/30/2017. HISTORY: Corpak placement. COMPARISON: Abdominal radiograph dated 09/05/2016 IMPRESSION:Enteric tube is seen taking one tablet within the stomach and the tip is in the gastric fundus. No air-filled, dilatedloops of bowel to suggest obstruction. No free intraperitoneal air. No abnormal soft tissue mass or calcification. Clips is visualized in the right upper quadrant. Small left pleural effusion with associated atelectasis. Vascular line is partially visualized. Signed: Khadra Huntleyeport Verified Date/Time: 08/30/2017 15:19:06 Reading Location: [facility] Radiology Reading Room Electronically signed by: KHADRA HUNTLEY on 2017 03:19 PMRAD, CHEST, 1 VIEW, NON [id number] 15:01:00Referring: Dr. Liz Felipe Reason for exam:->intuabted/CVL Should this be performed at the bedside?->YesFINAL REPORT Chest one view compared to August 30, 2017 Discussion: Left IJline at the left brachiocephalic vein level and right IJ line at the lower SVC level. ET tube and feeding tube in place. There is semiconfluent opacity left mid to low lung with effusion. A lateral pulmonary congestion is visible. No pneumothorax. Signed: Yang Reece Verified Date/Time: 08/30/2017 15:01:52 Reading Location: [facility] B1 C013W Consult Reading Room LACTIC ACID, ARTERIAL, WHOLE [id number] 13:11:00 Test Item Value Reference Range Comments LACTATE BLOOD ARTERIAL (2) (BEAKER) (test 2.1 mmol/L 0.5-2.2 vyxc=8352) Effective 11/16/2015: Units/Reference Range ChangeNew: 0.5-2.2 mmol/L Previous: 5 -20 mg/dLPOCT-GLUCOSE [id number] 12:59:00 Test Item Value Reference Range Comments POC-GLUCOSE METER (BEAKER) 108 mg/dL 70-110 TESTED AT [facility] [address] [facility] (test cytn=7383) [facility] [address] BLOOD GAS, [id number] 12:58:00 Test Item Value Reference Range Comments PH ARTERIAL (BEAKER) (test gacw=464) 7.47 7.35-7.45 PCO2 ARTERIAL (BEAKER) (test vwui=369) 32 mmHg 35-45 PO2 ARTERIAL (BEAKER) (test tcty=983) 240 mmHg 80-90 O2 SATURATION ARTERIAL (BEAKER) (test jcuj=393) 99.6 % 96.0-97.0 HCO3 ARTERIAL (BEAKER) (test hdac=765) 23 mmol/L 21-29 BASE EXCESS ARTERIAL (BEAKER) (test jzzs=532) -1.3 mmol/L -2.0-3.0 PATIENT TEMPERATURE (BEAKER) (test jfrn=5811) 36.0 C FIO2 (BEAKER) (test rhdi=4917) 60.0 % BASIC METABOLIC [id number] 12:03:00 Test Item Value Reference Range Comments SODIUM (BEAKER) (test 143 meq/L 136-145 vjst=260) POTASSIUM (BEAKER) (test 3.9 meq/L 3.5-5.1 izju=242) CHLORIDE (BEAKER) (test 111 meq/L 98-107 pnyg=359) CO2 (BEAKER) (test 20 meq/L 22-29 vgvv=258) BLOOD UREA NITROGEN 46 mg/dL 7-21 (BEAKER) (test iyaz=740) CREATININE (BEAKER) (test 5.47 mg/dL 0.57-1.25 hrjy=298) GLUCOSE RANDOM (BEAKER) 84 mg/dL 70-105 (test dewm=640) CALCIUM (BEAKER) (test 6.9 mg/dL 8.4-10.2 inft=009) EGFR (BEAKER) (test 11 mL/min/1.73 sq m ESTIMATED GFR IS NOT cdha=4040) ACCURATE CREATININE CLEARANCE IN PREDICTING GLOMERULAR FILTRATION RATE. ESTIMATED GFR IS NOT APPLICABLE FOR DIALYSIS PATIENTS. CBC W/PLT COUNT & AUTO [id number] 11:47:00 Test Item Value Reference Range Comments WHITE BLOOD CELL COUNT (BEAKER) (test ildh=397) 8.3 K/ L 3.5-10.5 RED BLOOD CELL COUNT (BEAKER) (test vamy=088) 2.08 M/ L 4.63-6.08 HEMOGLOBIN (BEAKER) (test vsck=410) 6.4 GM/DL 13.7-17.5 HEMATOCRIT (BEAKER) (test lfhy=700) 21.3 % 40.1-51.0 MEAN CORPUSCULAR VOLUME (BEAKER) (test wkoi=381) 102.4 fL 79.0-92.2 MEAN CORPUSCULAR HEMOGLOBIN (BEAKER) (test 30.8 pg 25.7-32.2 vizv=503) MEAN CORPUSCULAR HEMOGLOBIN CONC (BEAKER) (test 30.0 GM/DL 32.3-36.5 cuaw=712) RED CELL DISTRIBUTION WIDTH (BEAKER) (test 19.0 % 11.6-14.4 udgj=222) PLATELET COUNT (BEAKER) (test ituu=347) 122 K/CU MM 150-450 MEAN PLATELET VOLUME (BEAKER) (test ettt=506) 10.2 fL 9.4-12.4 NUCLEATED RED BLOOD CELLS (BEAKER) (test 1 /100 WBC 0-0 stzz=528) NEUTROPHILS RELATIVE PERCENT (BEAKER) (test 89 % fwgw=761) LYMPHOCYTES RELATIVE PERCENT (BEAKER) (test 2 % uout=461) MONOCYTES RELATIVE PERCENT (BEAKER) (test 8 % zrhq=244) EOSINOPHILS RELATIVE PERCENT (BEAKER) (test 0 % ysne=033) BASOPHILS RELATIVE PERCENT (BEAKER) (test 0 % nhaf=736) NEUTROPHILS ABSOLUTE COUNT (BEAKER) (test 7.41 K/ L 1.78-5.38 tuac=195) LYMPHOCYTES ABSOLUTE COUNT (BEAKER) (test 0.17 K/ L 1.32-3.57 gfod=883) MONOCYTES ABSOLUTE COUNT (BEAKER) (test 0.66 K/ L 0.30-0.82 xjqh=863) EOSINOPHILS ABSOLUTE COUNT (BEAKER) (test 0.00 K/ L 0.04-0.54 kaps=382) BASOPHILS ABSOLUTE COUNT (BEAKER) (test 0.01 K/ L 0.01-0.08 jjdm=340) IMMATURE GRANULOCYTES-RELATIVE PERCENT (BEAKER) 1 % 0-1 (test tsro=9007) BLOOD GAS, [id number] 10:18:00 Test Item Value Reference Range Comments PH ARTERIAL (BEAKER) (test jfej=493) 7.17 7.35-7.45 PCO2 ARTERIAL (BEAKER) (test bziv=765) 70 mmHg 35-45 PO2 ARTERIAL (BEAKER) (test xgws=727) 294 mmHg 80-90 O2 SATURATION ARTERIAL (BEAKER) (test cgkl=861) 99.5 % 96.0-97.0 HCO3 ARTERIAL (BEAKER) (test eljl=915) 25 mmol/L 21-29 BASE EXCESS ARTERIAL (BEAKER) (test plcw=699) -3.9 mmol/L -2.0-3.0 PATIENT TEMPERATURE (BEAKER) (test efcb=8817) 36.0 C FIO2 (BEAKER) (test nlxj=0410) 40.0 % BLOOD GAS, [id number] 09:45:00 Test Item Value Reference Range Comments PH ARTERIAL (BEAKER) (test rbpz=043) 7.17 7.35-7.45 PCO2 ARTERIAL (BEAKER) (test qucl=009) 73 mmHg 35-45 PO2 ARTERIAL (BEAKER) (test sllu=477) 31 mmHg 80-90 O2 SATURATION ARTERIAL (BEAKER) (test gwtt=442) 46.7 % 96.0-97.0 HCO3 ARTERIAL (BEAKER) (test dbdb=343) 27 mmol/L 21-29 BASE EXCESS ARTERIAL (BEAKER) (test ihuz=815) -2.5 mmol/L -2.0-3.0 PATIENT TEMPERATURE (BEAKER) (test jaab=8416) 36.0 C FIO2 (BEAKER) (test etlr=3486) 40.0 % HEPATITIS B SURFACE [id number] 09:24:00 Test Item Value Reference Range Comments HEPATITIS B SURFACE ANTIGEN (2) (BEAKER) (test Reactive Nonreactive mqjf=3125) [id number] 07:25:00 Test Item Value Reference Range Comments PHOSPHORUS (BEAKER) (test kvcx=847) 9.1 mg/dL 2.3-4.7 BASIC METABOLIC [id number] 07:13:00 Test Item Value Reference Range Comments SODIUM (BEAKER) (test 141 meq/L 136-145 kcut=917) POTASSIUM (BEAKER) (test 4.7 meq/L 3.5-5.1 acve=084) CHLORIDE (BEAKER) (test 104 meq/L 98-107 sspl=132) CO2 (BEAKER) (test 22 meq/L 22-29 gyhn=553) BLOOD UREA NITROGEN 53 mg/dL 7-21 (BEAKER) (test nbqu=896) CREATININE (BEAKER) (test 6.60 mg/dL 0.57-1.25 asty=545) GLUCOSE RANDOM (BEAKER) 103 mg/dL 70-105 (test msfn=396) CALCIUM (BEAKER) (test 8.3 mg/dL 8.4-10.2 xiys=786) EGFR (BEAKER) (test 8 mL/min/1.73 sq m ESTIMATED GFR IS NOT vyxz=0009) ACCURATE CREATININE CLEARANCE IN PREDICTING GLOMERULAR FILTRATION RATE. ESTIMATED GFR IS NOT APPLICABLE FOR DIALYSIS PATIENTS. VITAMIN D, [id number] 07:12:00 Test Item Value Reference Range Comments VITAMIN D 25-OH (BEAKER) (test zybn=5866) 7.5 ng/mL 6.6-49.9 Effective 04/24/2017: Reference Range ChangeNew: 6.6-49.9 ng/mL Previous: 13.0 -47.8 ng/mLRecommended Vitamin D Target Range: 30.0-40.0 ng/mLTSH/FREE T4 IF [id number] 07:12:00 Test Item Value Reference Range Comments THYROID STIMULATING HORMONE (BEAKER) (test 2.39 uIU/mL 0.35-4.94 eqpy=285) [id number] 07:08:00 Test Item Value Reference Range Comments MAGNESIUM (BEAKER) (test ysvm=177) 2.5 mg/dL 1.6-2.6 HEPATIC FUNCTION [id number] 07:08:00 Test Item Value Reference Range Comments TOTAL PROTEIN (BEAKER) (test yxzq=041) 7.0 gm/dL 6.0-8.3 ALBUMIN (BEAKER) (test jevk=3767) 3.7 g/dL 3.5-5.0 BILIRUBIN TOTAL (BEAKER) (test oamq=090) 1.1 mg/dL 0.2-1.2 BILIRUBIN DIRECT (BEAKER) (test beqa=105) 0.7 mg/dL 0.1-0.5 ALKALINE PHOSPHATASE (BEAKER) (test rwzg=960) 102 U/L 40-150 AST (SGOT) (BEAKER) (test foie=924) 22 U/L 5-34 ALT (SGPT) (BEAKER) (test xtwt=703) 11 U/L 6-55 CREATINE KINASE (CK)2017-08-30 07:08:00 Test Item Value Reference Range Comments CREATINE KINASE TOTAL (BEAKER) (test dtcn=154) 200 U/L 29-200 B-TYPE NATRIURETIC FACTOR (BNP)2017-08-30 06:57:00 Test Item Value Reference Range Comments B-TYPE NATRIURETIC PEPTIDE (BEAKER) (test 3409 pg/mL 0-100 ntpl=129) PTH, [id number] 06:57:00 Test Item Value Reference Range Comments PARATHYROID HORMONE INTACT (BEAKER) (test 269.7 pg/mL 8.5-72.5 npyd=099) PROTHROMBIN [id number] 06:48:00 Test Item Value Reference Range Comments PROTIME (BEAKER) (test cicp=674) 18.6 seconds 11.7-14.7 INR (BEAKER) (test qvfi=481) 1.6 <=5.9 RECOMMENDED COUMADIN/WARFARIN INR THERAPY RANGESSTANDARD DOSE: 2.0 - 3.0 Includes: PROPHYLAXIS forvenous thrombosis, systemic embolization; TREATMENT for venous thrombosis and/or pulmonary embolus.HIGH RISK: Target INR is 2.5-3.5 for patients with mechanical heart valves.CBC W/PLT COUNT & AUTO [id number] 06:42:00 Test Item Value Reference Range Comments WHITE BLOOD CELL COUNT (BEAKER) (test qemk=384) 10.7 K/ L 3.5-10.5 RED BLOOD CELL COUNT (BEAKER) (test coty=278) 2.22 M/ L 4.63-6.08 HEMOGLOBIN (BEAKER) (test mxwq=131) 6.9 GM/DL 13.7-17.5 HEMATOCRIT (BEAKER) (test qpyo=522) 23.0 % 40.1-51.0 MEAN CORPUSCULAR VOLUME (BEAKER) (test mmyi=682) 103.6 fL 79.0-92.2 MEAN CORPUSCULAR HEMOGLOBIN (BEAKER) (test 31.1 pg 25.7-32.2 mwdc=254) MEAN CORPUSCULAR HEMOGLOBIN CONC (BEAKER) (test 30.0 GM/DL 32.3-36.5 ggck=905) RED CELL DISTRIBUTION WIDTH (BEAKER) (test 19.4 % 11.6-14.4 kwos=302) PLATELET COUNT (BEAKER) (test ltfe=566) 149 K/CU MM 150-450 MEAN PLATELET VOLUME (BEAKER) (test rizq=689) 10.8 fL 9.4-12.4 NUCLEATED RED BLOOD CELLS (BEAKER) (test 0 /100 WBC 0-0 xsya=317) NEUTROPHILS RELATIVE PERCENT (BEAKER) (test 87 % ggqh=667) LYMPHOCYTES RELATIVE PERCENT (BEAKER) (test 4 % wcmv=193) MONOCYTES RELATIVE PERCENT (BEAKER) (test 8 % zxvr=706) EOSINOPHILS RELATIVE PERCENT (BEAKER) (test 0 % eczv=989) BASOPHILS RELATIVE PERCENT (BEAKER) (test 0 % wpck=999) NEUTROPHILS ABSOLUTE COUNT (BEAKER) (test 9.34 K/ L 1.78-5.38 cgob=043) LYMPHOCYTES ABSOLUTE COUNT (BEAKER) (test 0.41 K/ L 1.32-3.57 xrzu=662) MONOCYTES ABSOLUTE COUNT (BEAKER) (test 0.85 K/ L 0.30-0.82 plag=218) EOSINOPHILS ABSOLUTE COUNT (BEAKER) (test 0.00 K/ L 0.04-0.54 gcdk=650) BASOPHILS ABSOLUTE COUNT (BEAKER) (test 0.01 K/ L 0.01-0.08 yglb=332) IMMATURE GRANULOCYTES-RELATIVE PERCENT (BEAKER) 1 % 0-1 (test wpyu=3095) CALCIUM, [id number] 06:35:00 Test Item Value Reference Range Comments CALCIUM IONIZED (BEAKER) (test fzxp=205) 0.92 mmol/L 1.12-1.27 PH, BLOOD (BEAKER) (test bizk=3275) 7.27 POCT-LACTIC ACID, [id number] 06:30:00 Test Item Value Reference Range Comments POC-LACTIC ACID, ARTERIAL 2.3 mmol/L 0.4-1.3 TESTED AT [address] (BEAKER) (test hyfn=0150) [facility] [address] POCT-BLOOD GASES, [id number] 06:30:00 Test Item Value Reference Range Comments TEMP, CELSIUS-POC (BEAKER) 35.4 (test elqb=4676) FIO2-POC (BEAKER) (test 36 TESTED AT [address] mapj=7339) [place] [id number] PH, ARTERIAL-POC (BEAKER) 7.230 7.350-7.450 (test rkkr=5275) PCO2, ARTERIAL-POC (BEAKER) 60.8 mm Hg 35.0-45.0 (test tbua=0288) PO2, ARTERIAL-POC (BEAKER) 68.0 mm Hg 80.0-90.0 (test xzip=7413) SO2, ARTERIAL-POC (BEAKER) 91.0 % 96.0-97.0 (test yvyh=4261) HCO3, ARTERIAL-POC (BEAKER) 26.0 meq/L 21.0-29.0 (test dpfs=0874) BASE EXCESS, ARTERIAL-POC -2.0 meq/L -2.0-3.0 (BEAKER) (test iugx=8020) [id number] 06:30:00 Test Item Value Reference Range Comments POC-SODIUM (BEAKER) (test 139 meq/L 135-148 TESTED AT [address] cscq=0855) [place] [address] [id number] 06:30:00 Test Item Value Reference Range Comments POC-POTASSIUM (BEAKER) (test 4.5 meq/L 3.6-5.5 TESTED AT [address] nnbv=4740) [place] [address] [id number] 06:30:00 Test Item Value Reference Range Comments POC-GLUCOSE (BEAKER) (test 101 mg/dL 70-110 TESTED AT [address] oomh=0987) [place] [address] POCT-CALCIUM [id number] 06:30:00 Test Item Value Reference Range Comments POC-CALCIUM IONIZED (BEAKER) 1.06 mmol/L 1.12-1.27 TESTED AT [address] (test hubc=7417) [place] [address] [id number] 06:30:00 Test Item Value Reference Range Comments POC-HEMATOCRIT (BEAKER) (test 24 % 40-50 TESTED AT [address] oznc=7307) [place] [address] [id number] 06:30:00 Test Item Value Reference Range Comments POC-HEMOGLOBIN (BEAKER) 8.2 g/dL 13.0-16.8 TESTED AT [address] (test qjhg=8330) [place] [address] U/S, RENAL, [id number] 23:00:00Referring: Dr. Hill WorkenehReason for exam:->akiShould this be performed at the bedside?->YesFINAL REPORT Ultrasound of the Kidneys Clinical History: [...] Unremarkable renal ultrasound. No hydronephrosis. Signed: Gustavo Blanc3D FUTURE VISION II Verified Date /Time: 08/29/2017 23:00:08 Reading Location: [facility] C013 Consult Reading Room [id number] 21:48:00 Test Item Value Reference Range Comments AMMONIA (BEAKER) (test gwos=186) 39 mol/L 18-72 RAD, CHEST, 1 VIEW, NON [id number] 20:40:00Referring: Dr. Hill WorkenehReason for exam:->shortness of breathShould [facility]?->YesFINAL REPORT Chest, one view. HISTORY : Shortness of breath COMPARISON: None. IMPRESSION: Moderate left pleural effusion with atelectasis or consolidation in the left lower lung.Moderate interstitial edema and enlargement of the cardiomediastinal silhouette. No pneumothorax. Right-sided vascular catheter tip overlies the upper right atrium. A TIPS stent is seen in the right upper quadrant. Signed: Gustavo Blanc MDRanaort Verified Date/Time: 08/29/2017 20:40:02 Reading Location: [facility] B1 C013W Consult Reading Room PROTHROMBIN [id number] 19:29:00 Test Item Value Reference Range Comments PROTIME (BEAKER) (test ugmu=235) 18.8 seconds 11.7-14.7 INR (BEAKER) (test zfga=204) 1.6 <=5.9 RECOMMENDED COUMADIN/WARFARIN INR THERAPY RANGESSTANDARD DOSE: 2.0 - 3.0 Includes: PROPHYLAXIS forvenous thrombosis, systemic embolization; TREATMENT for venous thrombosis and/or pulmonary embolus.HIGH RISK: Target INR is 2.5-3.5 for patients with mechanical heart valves.CBC W/PLT COUNT & AUTO [id number] 19:24:00 Test Item Value Reference Range Comments WHITE BLOOD CELL COUNT (BEAKER) (test ykfq=038) 9.8 K/ L 3.5-10.5 RED BLOOD CELL COUNT (BEAKER) (test xvny=305) 2.19 M/ L 4.63-6.08 HEMOGLOBIN (BEAKER) (test rsah=707) 6.9 GM/DL 13.7-17.5 HEMATOCRIT (BEAKER) (test ftfe=109) 22.5 % 40.1-51.0 MEAN CORPUSCULAR VOLUME (BEAKER) (test huur=673) 102.7 fL 79.0-92.2 MEAN CORPUSCULAR HEMOGLOBIN (BEAKER) (test 31.5 pg 25.7-32.2 sojr=890) MEAN CORPUSCULAR HEMOGLOBIN CONC (BEAKER) (test 30.7 GM/DL 32.3-36.5 btmt=381) RED CELL DISTRIBUTION WIDTH (BEAKER) (test 19.3 % 11.6-14.4 tasq=203) PLATELET COUNT (BEAKER) (test fuud=072) 162 K/CU MM 150-450 MEAN PLATELET VOLUME (BEAKER) (test llbv=586) 10.8 fL 9.4-12.4 NUCLEATED RED BLOOD CELLS (BEAKER) (test 0 /100 WBC 0-0 wbzr=726) NEUTROPHILS RELATIVE PERCENT (BEAKER) (test 86 % paiz=520) LYMPHOCYTES RELATIVE PERCENT (BEAKER) (test 4 % tvhi=938) MONOCYTES RELATIVE PERCENT (BEAKER) (test 9 % puaw=517) EOSINOPHILS RELATIVE PERCENT (BEAKER) (test 0 % hujk=344) BASOPHILS RELATIVE PERCENT (BEAKER) (test 0 % kejh=375) NEUTROPHILS ABSOLUTE COUNT (BEAKER) (test 8.48 K/ L 1.78-5.38 zaje=455) LYMPHOCYTES ABSOLUTE COUNT (BEAKER) (test 0.41 K/ L 1.32-3.57 jwcs=333) MONOCYTES ABSOLUTE COUNT (BEAKER) (test 0.86 K/ L 0.30-0.82 urlz=426) EOSINOPHILS ABSOLUTE COUNT (BEAKER) (test 0.01 K/ L 0.04-0.54 bpsr=640) BASOPHILS ABSOLUTE COUNT (BEAKER) (test 0.01 K/ L 0.01-0.08 dfjs=479) IMMATURE GRANULOCYTES-RELATIVE PERCENT (BEAKER) 1 % 0-1 (test kspn=9360) ANG, NON-TUNNELED CATH >5 Y.O. [id number] 19:11:00Referring: Dr. Liz GarciahRrandion for exam:->trialysis catheter, need hdFINAL REPORT Nontunneled dialysis catheter insertion,. History: Renal failure. Modality: Fluoroscopy and sonography. Sedation: None. International Manager: Julius Sow MD. Environmental Conservation Officer: None. Approach: Right internal jugular vein Estimated blood loss: < 5 cc. Specimen: None. Fluoroscopy Time: 0.7 min.Reference Air Kerma (Ka, r): 4.6 mGy. Technique: [...] tract was dilated. The 15 cm 13 [place] Trialysis catheter was placed over the wire [...] ready for immediate use. Signed: Julius Sow MDReport Verified Date/ Time: 08/29/2017 19:11:26 Reading Location: [facility] P048 Angio Body Reading Room POCT-GLUCOSE [id number] 16:53:00 Test Item Value Reference Range Comments POC-GLUCOSE METER (BEAKER) 79 mg/dL 70-110 TESTED AT [facility] [address] [facility] (test xadq=5462) [facility] [address] [id number] 12:53:00 Test Item Value Reference Range Comments PHOSPHORUS (BEAKER) (test jfnm=514) 11.2 mg/dL 2.3-4.7 BASIC METABOLIC [id number] 12:50:00 Test Item Value Reference Range Comments SODIUM (BEAKER) (test 142 meq/L 136-145 ucpg=619) POTASSIUM (BEAKER) (test 5.7 meq/L 3.5-5.1 zpny=128) CHLORIDE (BEAKER) (test 103 meq/L 98-107 noak=838) CO2 (BEAKER) (test 20 meq/L 22-29 dgvd=585) BLOOD UREA NITROGEN 74 mg/dL 7-21 (BEAKER) (test pgtf=808) CREATININE (BEAKER) (test 8.05 mg/dL 0.57-1.25 hzdq=835) GLUCOSE RANDOM (BEAKER) 65 mg/dL 70-105 (test gaef=916) CALCIUM (BEAKER) (test 8.6 mg/dL 8.4-10.2 izdp=873) EGFR (BEAKER) (test 7 mL/min/1.73 sq m ESTIMATED GFR IS NOT lvvk=0507) ACCURATE CREATININE CLEARANCE IN PREDICTING GLOMERULAR FILTRATION RATE. ESTIMATED GFR IS NOT APPLICABLE FOR DIALYSIS PATIENTS. [id number] 12:45:00 Test Item Value Reference Range Comments MAGNESIUM (BEAKER) (test yhrm=731) 2.8 mg/dL 1.6-2.6 HEPATIC FUNCTION [id number] 12:45:00 Test Item Value Reference Range Comments TOTAL PROTEIN (BEAKER) (test htaa=542) 7.3 gm/dL 6.0-8.3 ALBUMIN (BEAKER) (test voop=5873) 3.6 g/dL 3.5-5.0 BILIRUBIN TOTAL (BEAKER) (test sxvb=059) 1.1 mg/dL 0.2-1.2 BILIRUBIN DIRECT (BEAKER) (test fget=667) 0.7 mg/dL 0.1-0.5 ALKALINE PHOSPHATASE (BEAKER) (test xdqk=980) 111 U/L 40-150 AST (SGOT) (BEAKER) (test ussw=977) 22 U/L 5-34 ALT (SGPT) (BEAKER) (test xwru=745) 12 U/L 6-55 VITAMIN B12 AND [id number] 08:55:00 Test Item Value Reference Range Comments VITAMIN B12 (BEAKER) (test rvio=084) 1784 pg/mL 213-816 FOLATE (BEAKER) (test msmk=100) 11.7 ng/mL >=7.0 IRON, TIBC, % SAT. (WITHOUT FERRITIN)2017-08-29 08:18:00 Test Item Value Reference Range Comments IRON (BEAKER) (test tdvd=850) 37 ug/dL 40-160 TOTAL IRON BINDING CAPACITY (BEAKER) (test 159 ug/dL 250-450 jlkz=883) IRON % SATURATION (2) (BEAKER) (test tqib=9818) 23 % 20-55 CBC W/PLT COUNT & AUTO [id number] 07:51:00 Test Item Value Reference Range Comments WHITE BLOOD CELL COUNT (BEAKER) (test jium=823) 9.4 K/ L 3.5-10.5 RED BLOOD CELL COUNT (BEAKER) (test tjuf=983) 2.44 M/ L 4.63-6.08 HEMOGLOBIN (BEAKER) (test ksap=812) 7.5 GM/DL 13.7-17.5 HEMATOCRIT (BEAKER) (test vkfw=533) 25.2 % 40.1-51.0 MEAN CORPUSCULAR VOLUME (BEAKER) (test atok=882) 103.3 fL 79.0-92.2 MEAN CORPUSCULAR HEMOGLOBIN (BEAKER) (test 30.7 pg 25.7-32.2 ptqe=640) MEAN CORPUSCULAR HEMOGLOBIN CONC (BEAKER) (test 29.8 GM/DL 32.3-36.5 yxnn=936) RED CELL DISTRIBUTION WIDTH (BEAKER) (test 19.9 % 11.6-14.4 gmuo=655) PLATELET COUNT (BEAKER) (test xnuc=378) 195 K/CU MM 150-450 MEAN PLATELET VOLUME (BEAKER) (test wwdf=259) 10.9 fL 9.4-12.4 NUCLEATED RED BLOOD CELLS (BEAKER) (test 0 /100 WBC 0-0 wmxy=505) NEUTROPHILS RELATIVE PERCENT (BEAKER) (test 87 % nszm=008) LYMPHOCYTES RELATIVE PERCENT (BEAKER) (test 5 % ptzl=509) MONOCYTES RELATIVE PERCENT (BEAKER) (test 8 % mfvs=782) EOSINOPHILS RELATIVE PERCENT (BEAKER) (test 0 % jgem=271) BASOPHILS RELATIVE PERCENT (BEAKER) (test 0 % hlpd=847) NEUTROPHILS ABSOLUTE COUNT (BEAKER) (test 8.12 K/ L 1.78-5.38 qxjk=839) LYMPHOCYTES ABSOLUTE COUNT (BEAKER) (test 0.44 K/ L 1.32-3.57 lcgh=689) MONOCYTES ABSOLUTE COUNT (BEAKER) (test 0.73 K/ L 0.30-0.82 mlfa=153) EOSINOPHILS ABSOLUTE COUNT (BEAKER) (test 0.01 K/ L 0.04-0.54 gpxe=752) BASOPHILS ABSOLUTE COUNT (BEAKER) (test 0.03 K/ L 0.01-0.08 kbhr=684) IMMATURE GRANULOCYTES-RELATIVE PERCENT (BEAKER) 1 % 0-1 (test xkjo=0159) TUMOR LOCAL, WB, 2 OR MORE [id number] 16:21:00Referring: Dr. 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 Hepatic lesionsFINAL REPORT PROCEDURE: OCTREOSCAN - Tumor Localization CPT CODE:[id number], [id number], [id number] INDICATION: Carcinoid tumor of the ileum PROTOCOL: [...] positive neoplasm is identified. Signed: Gordo Nobles MDReport Verified Date/Time: 05/16/2017 16:21:04 Reading Location: [address] [place] [address] Reading Room Electronically signed by: GORDO NOBLES MD on 04:21 [facility] [id number] 12:24:00 Test Item Value Reference Range Comments SODIUM (BEAKER) (test 137 meq/L 136-145 fqtq=701) POTASSIUM (BEAKER) (test 3.5 meq/L 3.5-5.1 oagv=886) CHLORIDE (BEAKER) (test 105 meq/L 98-107 ciki=939) CO2 (BEAKER) (test 26 meq/L 22-29 cype=452) BLOOD UREA NITROGEN 20 mg/dL 7-21 (BEAKER) (test dvwm=438) CREATININE (BEAKER) (test 2.15 mg/dL 0.57-1.25 ohfl=275) GLUCOSE RANDOM (BEAKER) 100 mg/dL 70-105 (test pxxc=642) CALCIUM (BEAKER) (test 8.3 mg/dL 8.4-10.2 wfud=142) EGFR (BEAKER) (test 31 mL/min/1.73 sq m ESTIMATED GFR IS NOT gjad=0734) ACCURATE CREATININE CLEARANCE IN PREDICTING GLOMERULAR FILTRATION RATE. ESTIMATED GFR IS NOT APPLICABLE FOR DIALYSIS PATIENTS. TISSUE [id number] 11:49:00Surgical Pathology Report Case: [id number] Authorizing Provider: Marycarmen Alanis MD Ordering Provider: Marycarmen Alanis MD [facility]ingLocation: [facility] Radiology Angio Collected: 154 Pathologist: Mera Du MD Received: 09/26/2016 1543 Specimen: Biopsy, Liver The addendum is being issued to report the results of amyloid typing on this patient's liver biopsy, as requested by the psych rn. The quantification was performed by, liquid chromatography tandem mass spectroscopy (LCMS/MS), at the [facility], [address] [place] [address]. The diagnosis remains unchanged.ResultsLiver amyloid type: Alect-2 (leukocyte cell-derived chemotaxin) -type (see comment).Comment:Alect-2 amyloidosis is a type of systemic amyloidosis that primarily involves the kidneys, liver, spleen and adrenal gland.The most clinically significant feature is usually slowly progressive renal failure. Although, there are limited number of cases reported in the literature, most patients appear to be of either or ethnicity. However, Alect 2 is not an inherited form of amyloidosis and no mutations affecting the LECT2 gene have been identified. Alect2 in the liver isoften encountered as an incidental finding in specimens biopsied for other liver diseases. (see reference)Reference: Venessa MOSCOSO et al. Leukocyte cell- derived chemotaxin 2 (LECT2)-associated amyloidosis is a frequent cause of hepatic amyloidosis in the [place]. Blood. 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 There is focal mild portal and periportal fibrosis, consistent with stage 1-2 fibrosis. There features of nodule regenerative hyperplasia.09930, 91154 X4, 94014 X2, 65018, 96498Sgxom biopsy for transplant evaluationNative right liver biopsyReceived in formalin labeled with the patient 's information only are three light ibrahim cores of soft tissue ranging in length from 0.3 cm to 1.5 cm. The specimen is entirely submitted in cassette A1. DB/ plSection shows two cores of liver parenchyma with greaterthan 10 portal tracts and is adequate for evaluation. There is mild centrilobular sinusoidal dilatation and congestion causing indistinct nodularity bordered by atrophic hepatocytes (reticulin stain). Lipofuscin is increased in areas of sinusoidal congestion. There is globular deposits of amorphous eosinophilic congophilic material in the space of Disse in the centrilobular region (zone 3) and in the portal/periportal regions. In addition there is deposition of amyloid in the vascular batres. Mild lobular inflammation is present and there is occasional non -necrotizing epithelioid granuloma is seen in the lobule. The hepatocytes show regenerative changes. No steatosis, ballooning degeneration or cholestasis is seen. Glyogenated nuclei are present. The portal tracts are expanded with fibrosis and chronic lymphoplasmacytic inflammation, and show grade 2 interface hepatitis. The bile ducts are preserved. Focal periductal inflammation is present. No hyaline globules are seen on PAS with diastase stain. Iron stain shows rare focal 1+ staining in the hepatocytes. Iron deposition is also seen in the kupffer cells. Trichrome stain shows perisinusoidal fibrosis and portal/ periportal fibrosis. AFB andGMS stains are negative for micro- organisms.Immunostains for Hepatitis B surface antigen and Hepatitis B core antigen were performed with adequate controls. The results are as followsHBsAG: Focal scattered cytoplasmic positivity in hepatocytesHBcAG; negativeImmunostain for LECT-2 is positive in foci of amyloid deposition.The following special studies were performed on this case and the interpretationis incorporated in the diagnostic report above:The immunohistochemistry test was developed and its performance characteristics determined by [facility], Pathology Laboratory. It has not been cleared or approved by the U.S. Food and Drug Administration. The FDA has determined that such clearance or approval is not necessary. The test is used for clinical purposes. It should not be regarded as investigational or for research. This laboratory is certified under the Clinical LaboratoryImprovement Amendments of 1988 (CLIA-88) as qualified to perform high complexity clinical laboratorytesting.URINE PROTEIN ELECTROPHORESIS , [id number] 10:47:00 Test Item Value Reference Range Comments PROTEIN, URINE (BEAKER) (test < mg/dL 0-14 efqu=5178) ALBUMIN URINE ELP (BEAKER) 6.8 % (test mbbx=5764) GAMMA GLOBULIN URINE (BEAKER) 93.2 % (test mleo=5021) UPEP, ID-438 (BEAKER) (test No monoclonal bands detected. esgj=2821) [id number] (BEAKER) Melanie Cedeno MD (test nmvo=3014) (electronic signature) PROTEIN ELECTROPHORESIS, [id number] 10:21:00 Test Item Value Reference Range Comments ALBUMIN FRACTION (BEAKER) 2.8 g/dL 3.5-5.5 (test mlfi=025) ALPHA 1 FRACTION (BEAKER) 0.2 g/dL 0.2-0.4 (test jrxl=008) ALPHA 2 FRACTION (BEAKER) 0.6 g/dL 0.5-0.9 (test bvie=095) BETA FRACTION (BEAKER) (test 0.8 g/dL 0.6-1.1 wsfy=501) GAMMA GLOBULIN FRACTION 2.1 g/dL 0.7-1.7 (BEAKER) (test bbmd=694) INTERPRETATION-119 (BEAKER) Decreased albumin, beta-gamma (test ynxz=9506) bridging, and polyclonal elevation of gamma globulins, consistent with hepatic dysfunction. No monoclonal bands detected. [id number] ([facility]) Melanie Cedeno MD (test zfhp=3432) (electronic signature) PROTEIN TOTAL SERUM, SPEP 6.5 gm/dL 6.0-8.3 (BEAKER) (test othe=0356) [id number] 11:53:00 Test Item Value Reference Range Comments POC-CREATININE (BEAKER) 1.9 mg/dL 0.6-1.3 TESTED AT [facility] [address] [facility] (test adlv=4926) [facility] [address] POC-EGFR (BEAKER) (test 36 mL/min/1.73M2 qbpk=5197) BLOOD GAS, [id number] 11:04:00 Test Item Value Reference Range Comments PH ARTERIAL (BEAKER) (test ommu=143) 7.45 7.35-7.45 PCO2 ARTERIAL (BEAKER) (test zgkq=676) 36 mmHg 35-45 PO2 ARTERIAL (BEAKER) (test tfsz=381) 92 mmHg 80-90 O2 SATURATION ARTERIAL (BEAKER) (test thmi=541) 97.4 % 96.0-97.0 HCO3 ARTERIAL (BEAKER) (test vves=588) 25 mmol/L 21-29 BASE EXCESS ARTERIAL (BEAKER) (test nycd=011) 1.0 mmol/L -2.0-3.0 PATIENT TEMPERATURE (BEAKER) (test lpdp=1347) 37.0 C FIO2 (BEAKER) (test gima=9972) 21.0 % TISSUE [id number] 07:59:00Surgical Pathology Report Case: [id number] Authorizing Provider: Joe Rouse MD Ordering Provider: Joe Rouse MD OrderingLocation: [facility] Endoscopy Collected: [phone] Services Pathologist: Steven Babb MD Received: 10/11/2016 5051 Specimens: A) - Stomach, STOMACH BX B) - Biopsy, Terminal Ileum C) - Biopsy, Ileocecal Valve PART A GASTRIC BIOPSY:MILD CHRONIC INACTIVE GASTRITIS.WARTHIN STARRY STAIN FOR HELICOBACTER IS NEGATIVE.PART B TERMINAL ILEUM BIOPSY:SMALL INTESTINAL MUCOSA WITH PRESERVED VILLOUS ARCHITECTURE AND SUBEPTITHELIAL LYMPHOID AGGREGATE.NO GRANULOMAS, ULCERATION, DYSPLASIA, OR INVASIVE CARCINOMA SEEN.PART C ILEOCECAL VALVE BIOPSY:COLONIC MUCOSA WITHOUT SIGNIFICANT HISTOPATHOLOGIC ALTERATION.NO SIGNIFICANT ARCHITECTURAL DISTORTION, GRANULOMAS, INCREASED EPITHELIAL LYMPHOCYTES, OR ABNORMAL COLLAGEN DEPOSITION.NO DYSPLASIA OR INVASIVE CARCINOMA SEE. Signing Pathologist Direct Phone Line: [phone], esophageal varciesA. Stomach biopsy; B. Terminal ileum biopsy; C. Ileocecal valve biopsySpecimen A: Received in formalin labeled "stomach" is a single fragment measuring 0.2 cm in greatest dimension. Entirely submitted A1. Specimen B: Received in formalin labeled "biopsy, terminal ileum" is a single fragment measuring 0.4 cm in greatest dimension. Entirely submitted B1. Specimen C: Received in formalin labeled "biopsy, ileocecal valve" are four fragments measuring 0.8 x 0.6 x 0.1 cm in aggregate. Entirely submitted C1. DB/ plThe following special studies were performed on this case and the interpretation is incorporated in the diagnostic report above:BLOCK A1- JUAN MANUEL NAVASASSIUM-STAT [id number] 11:15:00 Test Item Value Reference Range Comments POTASSIUM (BEAKER) (test fryf=916) 3.6 meq/L 3.6-5.5 COMPREHENSIVE METABOLIC [id number] 02:22:00 Test Item Value Reference Range Comments TOTAL PROTEIN (BEAKER) 5.8 gm/dL 6.0-8.3 (test gzko=530) ALBUMIN (BEAKER) (test 2.5 g/dL 3.5-5.0 kwil=7481) ALKALINE PHOSPHATASE 194 U/L 40-150 (BEAKER) (test jwwa=362) BILIRUBIN TOTAL (BEAKER) 1.8 mg/dL 0.2-1.2 (test oput=649) SODIUM (BEAKER) (test 140 meq/L 136-145 wnde=194) POTASSIUM (BEAKER) (test 3.4 meq/L 3.5-5.1 nqor=663) CHLORIDE (BEAKER) (test 113 meq/L 98-107 mfig=510) CO2 (BEAKER) (test 20 meq/L 22-29 mnod=716) BLOOD UREA NITROGEN 16 mg/dL 7-21 (BEAKER) (test horc=720) CREATININE (BEAKER) (test 1.78 mg/dL 0.57-1.25 aocr=620) GLUCOSE RANDOM (BEAKER) 98 mg/dL 70-105 (test njku=133) CALCIUM (BEAKER) (test 8.1 mg/dL 8.4-10.2 dtbw=676) AST (SGOT) (BEAKER) (test 42 U/L 5-34 ksqv=968) ALT (SGPT) (BEAKER) (test 18 U/L 6-55 cagr=909) EGFR (BEAKER) (test 39 mL/min/1.73 sq m ESTIMATED GFR IS NOT xxzp=9987) ACCURATE CREATININE CLEARANCE IN PREDICTING GLOMERULAR FILTRATION RATE. ESTIMATED GFR IS NOT APPLICABLE FOR DIALYSIS PATIENTS. Specimen slightly ictericCBC W/PLT COUNT & AUTO [id number] 02:17 :00 Test Item Value Reference Range Comments WHITE BLOOD CELL COUNT (BEAKER) (test orta=918) 3.3 K/ L 4.0-10.0 RED BLOOD CELL COUNT (BEAKER) (test zrjc=650) 2.51 M/ L 4.20-5.80 HEMOGLOBIN (BEAKER) (test gbzk=392) 8.3 GM/DL 13.0-16.8 HEMATOCRIT (BEAKER) (test ocsb=896) 24.8 % 40.0-50.0 MEAN CORPUSCULAR VOLUME (BEAKER) (test qypy=647) 98.7 fL 82.0-98.0 MEAN CORPUSCULAR HEMOGLOBIN (BEAKER) (test 32.9 pg 27.0-33.0 nqzb=240) MEAN CORPUSCULAR HEMOGLOBIN CONC (BEAKER) (test 33.3 GM/DL 32.0-36.0 lyjh=992) RED CELL DISTRIBUTION WIDTH (BEAKER) (test 14.6 % 10.3-14.2 zvhs=596) PLATELET COUNT (BEAKER) (test mrfd=883) 108 K/CU MM 150-430 MEAN PLATELET VOLUME (BEAKER) (test fhfq=225) 7.3 fL 6.5-10.5 NUCLEATED RED BLOOD CELLS (BEAKER) (test 0 /100 WBC 0-0 mzor=434) NEUTROPHILS RELATIVE PERCENT (BEAKER) (test 61 % ulvt=462) LYMPHOCYTES RELATIVE PERCENT (BEAKER) (test 17 % yhdn=667) MONOCYTES RELATIVE PERCENT (BEAKER) (test 15 % dxww=127) EOSINOPHILS RELATIVE PERCENT (BEAKER) (test 6 % oumh=005) BASOPHILS RELATIVE PERCENT (BEAKER) (test 1 % xrfw=142) NEUTROPHILS ABSOLUTE COUNT (BEAKER) (test 1.99 K/ L 1.80-8.00 wjcp=344) LYMPHOCYTES ABSOLUTE COUNT (BEAKER) (test 0.56 K/ L 1.48-4.50 eosw=478) MONOCYTES ABSOLUTE COUNT (BEAKER) (test 0.50 K/ L 0.00-1.30 vcmr=567) EOSINOPHILS ABSOLUTE COUNT (BEAKER) (test 0.18 K/ L 0.00-0.50 msdi=816) BASOPHILS ABSOLUTE COUNT (BEAKER) (test 0.03 K/ L 0.00-0.20 vquo=692) 0.00PROTHROMBIN TIME/[id number] 02:10:00 Test Item Value Reference Range Comments PROTIME (BEAKER) (test kips=063) 15.3 seconds 11.7-14.7 INR (BEAKER) (test tsjk=979) 1.2 <=5.9 RECOMMENDED COUMADIN/WARFARIN INR THERAPY RANGESSTANDARD DOSE: 2.0 - 3.0 Includes: PROPHYLAXIS forvenous thrombosis, systemic embolization; TREATMENT for venous thrombosis and/or pulmonary embolus.HIGH RISK: Target INR is 2.5-3.5 for patients with mechanical heart valves.PT/[id number] 11:23:00 Test Item Value Reference Range Comments PROTIME (BEAKER) (test mjxo=669) 15.0 seconds 11.7-14.7 INR (BEAKER) (test ovxa=659) 1.2 <=5.9 PARTIAL THROMBOPLASTIN TIME (BEAKER) (test 34.2 seconds 22.5-36.0 wvhd=775) RECOMMENDED COUMADIN/WARFARIN INR THERAPY RANGESSTANDARD DOSE: 2.0 - 3.0 Includes: PROPHYLAXIS forvenous thrombosis, systemic embolization; TREATMENT for venous thrombosis and/or pulmonary embolus.HIGH RISK: Target INR is 2.5-3.5 for patients with mechanical heart valves.PLATELET [id number] 10:30:00 Test Item Value Reference Range Comments PLATELET COUNT (QUINTONAKER) (test hbra=117) 136 K/CU MM 150-430 HEPATITIS B PCR, [id number] 19:54:00 Test Item Value Reference Range Comments HBV RESULT COMPONENT Less than 20 IU/mL HBV DNA HBV DNA not detected (BEAKER) (test iqvi=5605) detected This test uses a Real-Time Polymerase Chain Reaction (RT-PCR) methodology and was performed using [employer] AmpliPrep/[employer] TaqMan HBV Test, v2.0 ([employer]Reportable range for this assay is 20 - 170,000,000 IU per mL (1.30 - 8.23 Log IU/mL).HEPATITIS B CORE ANTIBODY, [id number] 17:45: 00 Test Item Value Reference Range Comments HEPATITIS B CORE TOTAL ANTIBODY (BEAKER) (test Reactive Nonreactive hnoc=271) HEPATITIS B SURFACE [id number] 17:45:00 Test Item Value Reference Range Comments HEPATITIS B SURFACE ANTIGEN (2) (BEAKER) (test Reactive Nonreactive rilk=3798) HEPATITIS B SURFACE [id number] 17:44:00 Test Item Value Reference Range Comments HEPATITIS B SURFACE ANTIBODY (BEAKER) (test < mIU/mL <8.0 hlhu=939) PROTEIN, RANDOM [id number] 17:32:00 Test Item Value Reference Range Comments PROTEIN, URINE (BEAKER) (test ehlt=9877) < mg/dL 0-14 CREATININE, RANDOM [id number] 17:28:00 Test Item Value Reference Range Comments CREATININE URINE (BEAKER) (test tuju=358) 54.0 mg/dL Reference Range: No NormalsURINALYSIS W/ REFLEX URINE [id number] 17:12:00 Test Item Value Reference Range Comments COLOR (BEAKER) (test piiq=161) Light Yellow CLARITY (BEAKER) (test uvha=434) Clear SPECIFIC GRAVITY UA (BEAKER) (test ogwc=291) 1.008 1.001-1.035 PH UA (BEAKER) (test kiva=396) 5.0 5.0-8.0 PROTEIN UA (BEAKER) (test hckd=732) Negative Negative GLUCOSE UA (BEAKER) (test loqx=000) Negative Negative KETONES UA (BEAKER) (test tjxp=947) Negative Negative BILIRUBIN UA (BEAKER) (test enup=408) Negative Negative BLOOD UA (BEAKER) (test lmyk=831) Negative Negative NITRITE UA (BEAKER) (test mzjr=502) Negative Negative LEUKOCYTE ESTERASE UA (BEAKER) (test reoj=746) Negative Negative UROBILINOGEN UA (BEAKER) (test bqjl=405) 0.2 mg/dL 0.2-1.0 RBC UA (BEAKER) (test rwxx=520) < /HPF WBC UA (BEAKER) (test livq=183) < /HPF BACTERIA (BEAKER) (test dfuj=994) Rare MUCUS (BEAKER) (test hzoc=7516) Rare SQUAMOUS EPITHELIAL (BEAKER) (test empm=176) < /HPF HYALINE CASTS (BEAKER) (test vevj=175) 2 /LPF SOURCE([employer]) (test cnxy=9146) PTH, [id number] 08:56:00 Test Item Value Reference Range Comments PARATHYROID HORMONE INTACT (QUINTONAKER) (test 49.1 pg/mL 8.5-72.5 hutv=922) Effective 06/01/2014: Reference Range ChangeNew: 8.5-72.5 Previous: 15.0-90.0
[2017-11-10] MEDS ORDERED: D50W 25 GM/50 ML SYRINGE IV ONE (11:21)
[2017-11-10 11:42] LABS: Arterial Blood Carboxyhemoglob 1.1 % (0-1.5); Blood Gas Oxyhemoglobin 69.9 % (94-97); Blood O2 Saturation 71.1 % (92-98.5)
[2017-11-10 11:54] LABS: Absolute Lymphocytes (CBC) 0.3 K/uL (0.7-4.9); Absolute Monocytes 1.6 K/uL (0.1-1.3); Absolute Neutrophil 6.9 K/uL (1.8-8.0); Basophils % 0.6 % (0-1.3); Eosinophils % 0.1 % (0-4.4); Hematocrit 29.9 % (39.6-49.0); Lymphocytes % 3.5 % (15.3-44.8); MCH 34.2 pg (27.0-35.0); MCV 104.2 fL (80-100); MPV 10.8 fL (7.6-11.3); Protime INR 1.02; RBC Red Blood Cell Count 2.87 M/uL (4.33-5.43)
[2017-11-10 12:15] LABS: Bicarbonate 25 mEq/L (21-31); Glucose Level 66 mg/dL (65-120); Lipase 27 U/L (22-51); Potassium 3.7 mEq/L (3.6-5.0); Sodium Level 136 mEq/L (135-145)
[2017-11-10 12:21] LABS: AST/SGOT 24 IU/L (10-42); Albumin 1.7 g/dL (3.2-5.5); Alkaline Phosphatase 103 IU/L (42-121); BUN Blood Urea Nitrogen 21 mg/dL (6-20); Bilirubin Direct 0.5 mg/dL (0-0.2); Bilirubin Total 1.3 mg/dL (0.3-1.2); Protein, Total 5.3 g/dL (6.0-8.3)
[2017-11-10 12:22] LABS: ALT/SGPT < 5 IU/L (10-60)
[2017-11-10] MEDS ORDERED: ALBUTEROL 2.5 MG/3 ML NEB SOL ONE (12:33)
[2017-11-10] MEDS ORDERED: IPRATROPIUM BROM 0.5MG/2.5ML ONE (12:33)
--- NOTE | 2017-11-10 14:17 | RAD REPORT ---
EXAM DESCRIPTION: CT - Thorax Wo Con - 11/10/2017 1:38 pm CLINICAL HISTORY: Pneumonia, abnormal chest film COMPARISON: Portable chest same date, no remote imaging available TECHNIQUE: Axial 5 mm thick images of the chest were obtained without IV contrast. All CT scans are performed using dose optimization technique as appropriate and may include automated exposure control or mA/KV adjustment according to patient size. FINDINGS: A 6 millimeter nodule is present lateral right midlung field (image 22/52). As a scan christa e finding, this warrants CT re-evaluation in 6-12 months. Patient has right lower lobe posterior and medial base atelectasis. Atelectasis is favored over infiltrate. In trace amount of pleural fluid see n on the right. A 10 x 3 centimeter loculated pleural fluid collection is present in the posterior gutter on the left . There is consolidation involving the majority of the left lung parenchyma. No air bronchograms in t he lower lobe. There are some air bronchograms present in the left upper lobe consolidation. Mucous p lugging or other debris fills the left upper and left lower lobe bronchi. Calcifications are scattere d in the left lung parenchyma. No pleural based mass suspected. No pneumothorax. No abnormal mediastinal or hilar masses or lymphadenopathy seen. Aorta and pulmonary artery assessmen t is limited. Heart size is upper normal. No pericardial thickening or effusion. Assessment is limite d in the absence of IV contrast. No chest wall mass. No abnormal axillary lymphadenopathy. Soft tissue mass left chest is likely promi nent asymmetric gynecomastia. Limited upper abdomen imaging shows TIPS shunt tube in place. Liver has a nodular contour. Liver and spleen are incompletely assessed. IMPRESSION: Opacification of the majority left hemithorax. Left upper lobe is partially opacified an d believed to be consolidated pneumonia. Left lower lobe opacification is mixed infiltrate and atelec tasis. The patient has a 10 x 3 centimeter loculated pleural effusion and/or empyema in the posterior gutter on the left. Occlusion of the left upper and left lower lobe bronchi from mucous plugging or inflammatory debris. Partial atelectasis of the posterior and medial right lower lobe. Right upper lobe 6 mm pulmonary nodule warranting re-evaluation in 6-12 months. Noncontrast imaging limits the ability to evaluate for any possible malignancy contributing to the le ft lung field findings. Continued close follow-up is needed. Partially upper abdomen imaging shows evidence for cirrhosis with TIPS shunt in place.
[2017-11-10 15:10] LABS: Arterial Blood Carboxyhemoglob 0.9 % (0-1.5); Blood Gas Oxyhemoglobin 96.9 % (94-97); Blood O2 Saturation 98.3 % (92-98.5)
--- NOTE | 2017-11-10 15:18 | EDPHYS ---
Physician Documentation [facility] Name: Juan David Oreilly Age: 67 yrs Sex: Male : 1950 Arrival Date: 11/10/2017 Time: 10:56 Bed 5 Private MD: Out, [facility] ED Physician Jeffrey Duvall HPI: 11/10 15:12 This 67 yrs old Male presents to ER via Ambulatory with complaints of gs Shortness Of Breath. 15:12 The patient has shortness of breath at rest. Onset: The symptoms/episode began/occurred gs 2 day(s) ago, and became worse and became persistent. Duration: The symptoms are continuous. The patient's shortness of breath has no apparent modifying factors. Associated signs and symptoms: Pertinent negatives: chest pain, fever. Severity of symptoms: At their worst the symptoms were severe in the emergency department the symptoms are unchanged. The patient has experienced similar episodes in the past, a few times. The patient has been recently seen by a physician: in the hospital, 3 week(s) ago. currently ltac getting abx brought here by family as wasn't doing well. Historical: - Allergies: 11:03 No Known Allergies; hb - PMHx: 11:03 On transplant list - liver and kidney; Anemia; Cirrhosis; hb - Immunization history:: Adult Immunizations up to date. - Social history:: Smoking status: Patient/guardian denies using tobacco. ROS: 15:12 All other systems are negative. gs Exam: 15:12 Head/Face: Normocephalic, atraumatic. Eyes: Pupils equal round and reactive to light, gs extra-ocular motions intact. Lids and lashes normal. Conjunctiva and sclera are non-icteric and not injected. Cornea within normal limits. Periorbital areas with no swelling, redness, or edema. ENT: Nares patent. No nasal discharge, no septal abnormalities noted. Tympanic membranes are normal and external auditory canals are clear. Oropharynx with no redness, swelling, or masses, exudates, or evidence of obstruction, uvula midline. Mucous membranes moist. Neck: Trachea midline, no thyromegaly or masses palpated, and no cervical lymphadenopathy. Supple, full range of motion without nuchal rigidity, or vertebral point tenderness. No Meningismus. Chest/axilla: Normal chest wall appearance and motion. Nontender with no deformity. No lesions are appreciated. 15:12 Abdomen/GI: Soft, non-tender, with normal bowel sounds. No distension or tympany. No guarding or rebound. No evidence of tenderness throughout. Back: No spinal tenderness. No costovertebral tenderness. Full range of motion. Skin: Warm, dry with normal turgor. Normal color with no rashes, no lesions, and no evidence of cellulitis. MS/ Extremity: Pulses equal, no cyanosis. Neurovascular intact. Full, normal range of motion. Neuro: Awake and alert, GCS 15, oriented to person, place, time, and situation. Cranial nerves II-XII grossly intact. Motor strength 5/5 in all extremities. Sensory grossly intact. Cerebellar exam normal. Normal gait. 15:12 Constitutional: The patient appears alert, awake, in obvious distress, severely distressed. 15:12 Cardiovascular: Rate: tachycardic, Rhythm: regular, Pulses: no pulse deficits are appreciated. 15:12 ECG was reviewed by the Attending Physician. 15:12 Respiratory: severe repiratory distress is noted, Respirations: tachypnea, Breath sounds: rhonchi, that are mild, are scattered. Vital Signs: 10:59 BP 94 / 65; Pulse 93; Resp 18; Temp 98.9(TE); Pulse Ox 93% on R/A; Pain 0/10; hb 12:07 BP 112 / 60; Pulse 94; Resp 29; Pulse Ox 97% on BiPAP; la1 13:24 BP 115 / 46; Pulse 91; Resp 18; Pulse Ox 100% on BiPAP; hj 14:36 BP 112 / 57; Pulse 90; Resp 18; Pulse Ox 100% on 4 lpm NC; hj 15:08 BP 106 / 45; Pulse 93; Resp 18; Pulse Ox 100% on 4 lpm NC; hj MDM: 11:11 Patient medically screened. 15:12 Differential diagnosis: Anemia CHF exacerbation, Chronic Obstructive Pulmonary Disease gs pneumonia. Data reviewed: vital signs, nurses notes. Response to treatment: the patient's symptoms have mildly improved after treatment. ED course: was taken off bipap for a period clinically awake looked better, rechecked abg worse sats good will place back on bipap. 11/10 11:13 Order name: ABG; Complete Time: 12:03 11/10 11:14 Order name: Basic Metabolic Panel; Complete Time: 12:23 11/10 11:14 Order name: Blood Culture Adult (2) 11/10 11:14 Order name: BNP; Complete Time: 14: 11/10 11:14 Order name: CBC with Diff; Complete Time: 15:40 11/10 11:14 Order name: Lactate; Complete Time: 12:23 11/10 11:13 Order name: BIPAP 11/10 11:14 Order name: LFT's; Complete Time: 12:23 11/10 11:14 Order name: Lipase; Complete Time: 12:23 11/10 11:14 Order name: Procalcitonin; Complete Time: 14: 11/10 11:14 Order name: Protime (+inr); Complete Time: 12:23 11/10 11:14 Order name: Troponin (emerg Dept Use Only); Complete Time: 12: 11/10 12:00 Order name: Manual Differential; Complete Time: 15:40 EDMS 11/10 14:59 Order name: ABG; Complete Time: 15:40 11/10 11:14 Order name: Chest Single View XRAY; Complete Time: 15:40 11/10 11:14 Order name: Accucheck; Complete Time: 11:16 11/10 11:14 Order name: Cardiac monitoring; Complete Time: 11:11/10 11:14 Order name: EKG - Nurse/Tech; Complete Time: 11:16 11/10 11:14 Order name: IV Saline Lock - Large Bore; Complete Time: 11:46 11/10 11:14 Order name: Labs collected and sent; Complete Time: 11: 11/10 11:14 Order name: O2 Per Protocol; Complete Time: 11:11/10 11:14 Order name: O2 Sat Monitoring; Complete Time: 11: 11/10 12:44 Order name: CT Chest Wo Con; Complete Time: 14:36 11/10 14:13 Order name: Blood Glucose Level; Complete Time: 14:20 gs EC:12 Rate is 91 beats/min. Rhythm is regular. DE interval is normal. QRS interval is normal. gs T waves are Inverted. Clinical impression: NSR w/ Non-specific ST/T Changes and Abnormal EKG without significant change. Interpreted by me. Administered Medications: 11:45 Drug: D50W 25 ml Route: IVP; Site: right upper arm; hj 12:38 Follow up: Response: Other hj 12:28 Drug: Albuterol 2.5 mg Route: Inhalation; hj 12:28 Drug: AtroVENT Aerosol 0.5 mg Route: Inhalation; hj 15:15 Drug: vancoMYCIN 1 grams Route: IVPB; Infused Over: 2 hrs; Site: right upper arm; la1 16:49 Follow up: IV Status: Infusion continued upon transfer hj Point of Care Testing: Blood Glucose: 11:19 Blood Glucose: 59 mg/dL; hj 12:36 Blood Glucose: 124 mg/dL; la1 14:25 Blood Glucose: 100 mg/dL; hj Ranges: Critical Glucose Levels:Adult <50 mg/dl or >400 mg/dl <40 mg/dl or >180 mg/dl Disposition: 15:12 Critical Care:. gs Disposition: 11/10/17 15:17 Transfer ordered to [facility]. Diagnosis is Acute respiratory failure. - Reason for transfer: Higher level of care. - Accepting physician is sadia. - Condition is Stable. - Problem is an acute exacerbation. - Symptoms have improved. Critical care time excluding procedures: 15:12 Critical care time: Bedside Care: 10 minutes, Consultation: 10 minutes, Family gs Intervention: 10 minutes. Total time: 30 minutes Signatures: Dispatcher [employer] EDMS Guanaco Mena RN RN la1 Jose Oswald RN RN Leona Weir RN RN Jeffrey Duvall MD MD
--- NOTE | 2017-11-10 15:18 | ER ---
Nurse's Notes [facility] Name: Juan David Oreilly Age: 67 yrs Sex: Male : 1950 Arrival Date: 11/10/2017 Time: 10:56 Bed 5 Private MD: Out, [facility] Diagnosis: Acute respiratory failure Presentation: 11/10 10:58 Presenting complaint: Daughter says pt does not look right to her, he looks short of hb breath, she thinks he needs his hemoglobin checked. Pt reports SOB, denies pain/cough. Transition of care: patient was not received from another setting of care. Onset of symptoms was November 10, 2017. Initial Sepsis Screen: Does the patient meet any 2 criteria? No. Patient's initial sepsis screen is negative. Does the patient have a suspected source of infection? No. Patient's initial sepsis screen is negative. Care prior to arrival: None. 10:58 Method Of Arrival: Ambulatory hb 10:58 Acuity: CHRISTA 2 hb Triage Assessment: 11:05 General: Appears in no apparent distress. uncomfortable, Behavior is calm, cooperative, hj appropriate for age. Respiratory: Reports shortness of breath labored breathing Onset: The symptoms/episode began/occurred the patient has moderate shortness of breath. Historical: - Allergies: 11:03 No Known Allergies; hb - PMHx: 11:03 On transplant list - liver and kidney; Anemia; Cirrhosis; hb - Immunization history:: Adult Immunizations up to date. - Social history:: Smoking status: Patient/guardian denies using tobacco. Screenin:15 Abuse screen: Denies threats or abuse. Denies injuries from another. Nutritional hj screening: No deficits noted. Tuberculosis screening: No symptoms or risk factors identified. Fall Risk None identified. Assessment: 11:05 Pain: Denies pain. Cardiovascular: Rhythm is. Respiratory: Airway is patent Respiratory hj effort is labored, gasping, Respiratory pattern is tachypnea 11:05 General: Appears in no apparent distress. uncomfortable, Behavior is calm, cooperative, hj appropriate for age. Neuro: Level of Consciousness is awake, alert, obeys commands, Oriented to person, place, time, situation, Appropriate for age. GI: No signs and/or symptoms were reported involving the gastrointestinal system. : Reports dialysis MWF, with dialysis port on R upper chest, last dialysis was Saturday, 27;. EENT: No signs and/or symptoms were reported regarding the EENT system. Derm: No signs and/or symptoms reported regarding the dermatologic system. Musculoskeletal: No signs and/or symptoms reported regarding the musculoskeletal system. 11:20 Reassessment: BGL check- 59, provider informed, ordered 1/2 amp D50; gave orange juice, hj pt drank 3/4 cup; complains of SOB;. 11:31 Reassessment: Patient and/or family updated on plan of care and expected duration. Pain hj level reassessed. Patient is alert, oriented x 3, equal unlabored respirations, skin warm/dry/pink. respiratory in room for BIPAP placement;. 12:30 Reassessment: Patient and/or family updated on plan of care and expected duration. Pain hj level reassessed. Patient is alert, oriented x 3, equal unlabored respirations, skin warm/dry/pink. on BIPAP;. 13:23 Reassessment: Patient and/or family updated on plan of care and expected duration. Pain hj level reassessed. Patient is alert, oriented x 3, equal unlabored respirations, skin warm/dry/pink. for CT: still using bed oscar;. 13:37 Reassessment: wheeled to CT;. hj 14:35 Reassessment: Patient and/or family updated on plan of care and expected duration. Pain hj level reassessed. Patient is alert, oriented x 3, equal unlabored respirations, skin warm/dry/pink. on O2 [place], 100 on 4L;. 15:07 Reassessment: Patient and/or family updated on plan of care and expected duration. Pain hj level reassessed. Patient is alert, oriented x 3, equal unlabored respirations, skin warm/dry/pink. resp in room for repeat ABG;. 15:24 Reassessment: BIPAP, 18/8, rate20; 40%;. hj Vital Signs: 10:59 BP 94 / 65; Pulse 93; Resp 18; Temp 98.9(TE); Pulse Ox 93% on R/A; Pain 0/10; hb 12:07 BP 112 / 60; Pulse 94; Resp 29; Pulse Ox 97% on BiPAP; la1 13:24 BP 115 / 46; Pulse 91; Resp 18; Pulse Ox 100% on BiPAP; hj 14:36 BP 112 / 57; Pulse 90; Resp 18; Pulse Ox 100% on 4 lpm NC; hj 15:08 BP 106 / 45; Pulse 93; Resp 18; Pulse Ox 100% on 4 lpm NC; hj ED Course: 10:56 Patient arrived in ED. mr 10:56 Out, [facility] is Private Physician. mr 10:59 Triage completed. hb 11:02 Arm band placed on left wrist. hb 11:05 Jeffrey Duvall MD is Attending Physician. gs 11:05 Patient has correct armband on for positive identification. Placed in gown. Bed in low hj position. Call light in reach. Side rails up X2. Adult w/ patient. 11:07 Jose Oswald, SHAKIRA is Primary Nurse. hj 11:54 X-ray completed. Portable x-ray completed in exam room. jr1 11:58 Chest Single View XRAY In Process Unspecified. EDMS 12:04 No provider procedures requiring assistance completed. Accessed peripheral vein via la1 ultrasound, utilizing dynamic ultrasound technique using 18G Sureflo IV catheter Clean \T\ dry. Good blood return. Flushes easily. 13:02 Note: jose to call when pts ready to go to ct. cw1 13:33 CT completed. Patient moved to CT via stretcher. Patient moved back from CT. cw1 13:38 CT Chest Wo Con In Process Unspecified. EDMS 14:16 initiated transfer with [place] with [facility]. eb 14:32 Dr. Duvall speaking with Dr xavier thoracic surgery. eb 14:44 Dr. Duvall speaking with from [facility] about transfer. eb 14:52 [place] transfer clerk from [facility] called and requested a 15 min eb extension on pt transfer. 15:10 administrative approval given by [place] Drummond RN Trans Coordinator. Pt to go to [address] [place] [address] 2 bed 19. report to be given through the transfer center. Administered Medications: 11:45 Drug: D50W 25 ml Route: IVP; Site: right upper arm; hj 12:38 Follow up: Response: Other hj 12:28 Drug: Albuterol 2.5 mg Route: Inhalation; hj 12:28 Drug: AtroVENT Aerosol 0.5 mg Route: Inhalation; hj 15:15 Drug: vancoMYCIN 1 grams Route: IVPB; Infused Over: 2 hrs; Site: right upper arm; la1 16:49 Follow up: IV Status: Infusion continued upon transfer Point of Care Testing: Blood Glucose: 11:19 Blood Glucose: 59 mg/dL; hj 12:36 Blood Glucose: 124 mg/dL; la1 14:25 Blood Glucose: 100 mg/dL; hj Ranges: Outcome: 15:17 ER care complete, transfer ordered by . 15:28 Transferred to [facility], [facility], Transfer form completed. X-rays sent w/ hj patient. 15:28 Condition: stable 15:28 Instructed on the need for transfer, Demonstrated understanding of instructions. 16:48 Patient left the ED. Signatures: Dispatcher [employer] EDRadha Durant mr Primo, Shana renteria1 China Bennett cw1 Guanaco Mena RN RN laJose Mendoza RN RN hj Baxter, Heather, RN RN Jeffrey Duvall MD MD gs Botello, Elizabeth eb Corrections: (The following items were deleted from the chart) 11:01 10:59 BP 94 / 65; Pulse 93bpm; Resp 18bpm; Pulse Ox 92% RA; Temp 98.9F Temporal; Pain hb 0/10; hb 11:02 10:58 Presenting complaint: Daughter says pt does not look right to her, he looks short hb of breath, she thinks he needs his hemoglobin checked. hb 11:02 10:58 Presenting complaint: Daughter says pt does not look right to her, he looks short hb of breath, she thinks he needs his hemoglobin checked. Pt reports SOB, denies pain/cough. hb 11:02 10:58 Acuity: CHRISTA 3 hb hb
[2017-11-10 15:22] LABS: Platelet Estimate DECR
[2017-11-10 15:23] LABS: Anisocytosis 1+; Blood Morphology Comment NOTED (NOT SEEN); Hypochromasia 1+; Macrocytosis 1+; Polychromasia 1+
--- NOTE | 2017-11-10 15:35 | RAD REPORT ---
EXAM DESCRIPTION: RAD - Chest Single View - 11/10/2017 11:58 am CLINICAL HISTORY: Shortness of breath, patient awaiting liver and kidney transplant, cirrhosis Optometry Doctor system malfunction precluded earlier written report. COMPARISON: None. TECHNIQUE: AP portable chest image was obtained 1144 hours . FINDINGS: Mild diffuse prominence of the interstitial markings throughout the right lung field with baseline for the patient unknown. No right-sided large mass or consolidation. Trachea is midline. Liz lysis catheter and vascular access catheter seen in the right-side chest both well positioned. Mid and lower left lung field opacification is present obscuring the diaphragm and left side heart suresh rder. No left-sided pneumothorax. Cardiomegaly is present. Vasculature does appear mildly engorged. N o pneumothorax. No gross bony abnormality seen. No acute aortic findings suspected. IMPRESSION: Infiltrate and/ or atelectasis in the mid and lower left lung field with probable pleura l fluid collection. Prominent interstitial markings on a baseline examination. This could be chronic or represent interst itial edema. Mild cardiomegaly.
--- NOTE | 2017-11-11 07:18 | EKG ---
Test Date: 2017-11-10 Test Time: 11:12:49 Automatic Outsole Cutter: LA MEASUREMENT RESULTS: Intervals: Rate: 91 CA: 138 QRSD: 86 QT: 374 QTc: 460 [place]: P: 77 CA: 138 QRS: 11 T: 22 INTERPRETIVE STATEMENTS: Normal sinus rhythm Nonspecific T wave abnormality Abnormal ECG No previous ECG available for comparison Electronically Signed On 11-11-17 07:17:34 CDT by Saulo Centeno
== END 2017-11-10 16:48 | disposition short-term general hospital (02) ==
LOC: ER 10:55
DX: J96.00 Acute respiratory failure, unspecified whether with hypoxia or hypercapnia (principal); K74.60 Unspecified cirrhosis of liver
CPT/HCPCS: 36415; 71045; 71250; 80048; 80076; 82805; 82962; 83605; 83690; 83880; 84145; 84484; 85025; 85610; 87040; 93005; 94660; 96365; 96366; 96375; 99285